=== PATIENT | male | born 1975 | race Caucasian/White ===

== ENCOUNTER 2022-07-10 07:24 | Outpatient (CLI) | payer BC, SELFPAY | END 2022-07-10 07:25 | disposition home or self-care (01) | PROVIDERS: PCP Family Medicine; Referring Provider Family Medicine; Visit Provider Family Medicine | DX: E11.9 Type 2 diabetes mellitus without complications (principal); I10 Essential (primary) hypertension; R79.89 Other specified abnormal findings of blood chemistry; Z13.6 Encounter for screening for cardiovascular disorders | CPT/HCPCS: 80053; 80061; 82043; 82570 ==

== ENCOUNTER 2022-09-23 12:51 | Outpatient (RCR) | payer BC, SELFPAY ==
[2022-09-13] MEDS: SODIUM CHLORIDE 0.9 % (FLUSH) 10 ML SYRINGE IVF ×2 (12:50→14:00)
[2022-09-13] MEDS: cefTRIAXone 2 GM in 0.9 % SODIUM CHLORIDE Mini-bag 100 ML IVPB (12:55)
[2022-09-13 13:26] VITALS: BP 163/93; PULSE 78; RESP 18; TEMP 36.9; O2SAT 99
--- NOTE | 2022-09-13 14:18 | PC.NURSE ---
Pt calm and cooperative during infusion and dressing change. Pt had no complaints of pain. PIIC line patent and dressing intact. Pt had serosanguineous drainage on wound left on heel.
--- NOTE | 2022-09-13 14:20 | PC.NURSE ---
Pt left in wheelchair. Pt reminded to walk in short increments and to not use heel on left foot.
[2022-09-14 12:40] VITALS: BP 121/89; PULSE 85; RESP 16; TEMP 37.1; O2SAT 96
[2022-09-14] MEDS: cefTRIAXone 2 GM in 0.9 % SODIUM CHLORIDE Mini-bag 100 ML IVPB (12:45)
[2022-09-14] MEDS: SODIUM CHLORIDE 0.9 % (FLUSH) 10 ML SYRINGE IVF (12:45)
--- NOTE | 2022-09-14 13:54 | PC.NURSE ---
Outpatient-- Very pleasant and cooperative, alert and oriented patient. He denied any pain. Antibiotic infusion completed without difficulty. Picc patent and dressing C/D/I. Dressing changed to bottom of left heel. Packed with Vashe soaked new gauze, covered with sterile 4x4, wrapped with Kerlix and LALIT bandage. Pt tolerated the procedure well and was discharged via wheelchair to car afterward. Wound appears to be healing well.
[2022-09-15] MEDS: cefTRIAXone 2 GM in 0.9 % SODIUM CHLORIDE Mini-bag 100 ML IVPB (13:16)
[2022-09-15 14:48] VITALS: BP 135/86; PULSE 77; RESP 12; TEMP 36.6; O2SAT 100
--- NOTE | 2022-09-15 14:58 | PC.NURSE ---
Very pleasant 47 yo M here for IV abx and wound dressing change. In at 1245, Ceftriaxone given via PICC line. Wound washed with NS, repacked with gauze strip soaked in Vashe, covered wound with several 4x4 guaze pads, then wrapped in Kerlix and over that Jasper bandage. Patient tolerated the procedure well and discharged at approx. 1400 via ambulation.
[2022-09-16 12:55] VITALS: BP 158/86; PULSE 79; RESP 14; TEMP 36.7; O2SAT 99
[2022-09-16] MEDS: SODIUM CHLORIDE 0.9 % (FLUSH) 10 ML SYRINGE IVF (12:58)
[2022-09-16] MEDS: cefTRIAXone 2 GM in 0.9 % SODIUM CHLORIDE Mini-bag 100 ML IVPB (12:59)
[2022-09-16 13:33] VITALS: BP 146/85; PULSE 80; RESP 16; TEMP 36.8; O2SAT 100
[2022-09-16] MEDS: 0.9 % SODIUM CHLORIDE 250 ml IV (13:37)
--- NOTE | 2022-09-16 13:41 | PC.NURSE ---
Outpatient: Patient arrived to floor at 1250. Infusion and dressing change performed. Patient tolerated infusion well. Left heel packed with vashe moistened iodoform, covered with 2-4x4 gauze, wrapped with kerlix then harley bandage. Patient denied pain. Vitals performed x2, vitally stable. Patient left the floor at 1336.
[2022-09-17] MEDS: cefTRIAXone 2 GM in 0.9 % SODIUM CHLORIDE Mini-bag 100 ML IVPB (13:07)
[2022-09-17] MEDS: SODIUM CHLORIDE 0.9 % (FLUSH) 10 ML SYRINGE IVF (13:07)
[2022-09-17] MEDS: 0.9 % SODIUM CHLORIDE 250 ml IV (13:08)
[2022-09-17 13:09] VITALS: BP 132/88; PULSE 92; RESP 16; TEMP 36.7; O2SAT 100
[2022-09-18] MEDS: cefTRIAXone 2 GM in 0.9 % SODIUM CHLORIDE Mini-bag 100 ML IVPB (13:21)
--- NOTE | 2022-09-18 18:11 | PC.NURSE ---
Patient arrived to floor at 1300. Infusion and dressing change completed. Patient tolerated infusion well. Left heel packed with Vashe moistened iodoform, covered with 2-4x4 gauze, wrapped with kerlix then harley bandage. Patient denied pain. Vitals performed x2, vitally stable. Patient's PICC line dressing change completed and patient left the floor at 1400.
[2022-09-19] MEDS: cefTRIAXone 2 GM in 0.9 % SODIUM CHLORIDE Mini-bag 100 ML IVPB (12:51)
[2022-09-20] MEDS: 0.9 % SODIUM CHLORIDE 250 ml IV (13:10)
[2022-09-20] MEDS: cefTRIAXone 2 GM in 0.9 % SODIUM CHLORIDE Mini-bag 100 ML IVPB (15:10)
[2022-09-21] MEDS: cefTRIAXone 2 GM in 0.9 % SODIUM CHLORIDE Mini-bag 100 ML IVPB (13:04)
[2022-09-21] MEDS: 0.9 % SODIUM CHLORIDE 250 ml IV (13:07)
[2022-09-21] MEDS: SODIUM CHLORIDE 0.9 % (FLUSH) 10 ML SYRINGE IVF (13:07)
[2022-09-21 13:22] VITALS: BP 133/90; PULSE 97; RESP 16; TEMP 36.8; O2SAT 100
--- NOTE | 2022-09-21 14:17 | PC.NURSE ---
Infusion completed without difficulty. PICC intact and patent. Wound to right heel cleansed, packed, and wrapped. Pt left unit independently and plans to return tomorrow.
[2022-09-22] MEDS: SODIUM CHLORIDE 0.9 % (FLUSH) 10 ML SYRINGE IVF ×2 (13:09→13:59)
[2022-09-22] MEDS: 0.9 % SODIUM CHLORIDE 250 ml IV (13:10)
[2022-09-22] MEDS: cefTRIAXone 2 GM in 0.9 % SODIUM CHLORIDE Mini-bag 100 ML IVPB (13:12)
[2022-09-22 13:52] VITALS: BP 101/65; PULSE 99; RESP 16; TEMP 36.6; O2SAT 99
[2022-09-23 13:00] VITALS: BP 111/68; PULSE 97; RESP 18; TEMP 36.6; O2SAT 100
[2022-09-23] MEDS: cefTRIAXone 2 GM in 0.9 % SODIUM CHLORIDE Mini-bag 100 ML IVPB (13:03)
[2022-09-23] MEDS: SODIUM CHLORIDE 0.9 % (FLUSH) 10 ML SYRINGE IVF (13:03)
[2022-09-23] MEDS: 0.9 % SODIUM CHLORIDE 250 ml IV (13:04)
--- NOTE | 2022-09-23 13:53 | PC.NURSE ---
shift note: picc line flushed w/o resistance. Blood return with aspiration of picc. site/drsg intact. IV med infused w/o difficulty. pt denies pain. pt states he was going to Dr. Ken office to have wound assessed. No dressing change done at time of OP visit.
--- NOTE | 2022-09-23 19:04 | PC.NURSE ---
Update-- Spoke with Dr. Resendiz this afternoon via telephone. He stated that picc line was pulled today at pt's appointment and pt will do his own dressing changes from now on so patient will no longer be coming for outpatient infusions and dressing changes.
== END 2023-08-24 12:13 | disposition home or self-care (01) ==
LOC: MS OUT 12:51
PROVIDERS: PCP Family Medicine; Visit Provider Family Medicine
DX: L97.429 Non-pressure chronic ulcer of left heel and midfoot with unspecified severity (principal); E11.621 Type 2 diabetes mellitus with foot ulcer; Z79.899 Other long term (current) drug therapy
CPT/HCPCS: 96365; 96366; 99211; A4221; C1751; J0696; J7050

== ENCOUNTER 2022-10-13 11:47 | Outpatient (CLI) | payer BC, SELFPAY | END 2022-10-13 11:48 | disposition home or self-care (01) | LOC: NFLDREF 10-14 18:31 | PROVIDERS: PCP Family Medicine; Referring Provider Family Medicine; Visit Provider Family Medicine | DX: E87.6 Hypokalemia (principal); N28.9 Disorder of kidney and ureter, unspecified | CPT/HCPCS: 80048 ==

== ENCOUNTER 2022-10-20 07:26 | Outpatient (CLI) | payer BC, SELFPAY ==
--- NOTE | 2022-10-20 06:31 | W.ANESCHARGE ---
Anesthesia Charges Start Date/Time Anesthesia Start Date: 10/20/22 Anesthesia Start Time: 09:00 Stop Date/Time Anesthesia Stop Date: 10/20/22 Anesthesia Stop Time: 09:40
--- NOTE | 2022-10-20 09:46 | W.ANESCHARGE ---
Anesthesia Charges Start Date/Time Anesthesia Start Date: 10/20/22 Anesthesia Start Time: 09:00 Stop Date/Time Anesthesia Stop Date: 10/20/22 Anesthesia Stop Time: 09:40
== END 2022-10-20 07:27 | disposition home or self-care (01) ==
LOC: OP CLINIC 07:28
PROVIDERS: PCP Family Medicine; Visit Provider Surgery
DX: Z12.11 Encounter for screening for malignant neoplasm of colon (principal); K63.5 Polyp of colon
CPT/HCPCS: 00811; 45385; 88305; J2704

== ENCOUNTER 2022-12-19 06:16 | Outpatient (CLI) | payer BC, SELFPAY | END 2022-12-19 06:17 | disposition home or self-care (01) | LOC: AMB 12-22 04:50 | PROVIDERS: PCP Family Medicine; Visit Provider Family Medicine | DX: S89.92XA Unspecified injury of left lower leg, initial encounter (principal); W01.0XXA Fall on same level from slipping, tripping and stumbling without subsequent striking against object, initial encounter; Y92.008 Other place in unspecified non-institutional (private) residence as the place of occurrence of the external cause | CPT/HCPCS: A0425; A0427 ==

== ENCOUNTER 2022-12-19 06:56 | Emergency (ER) | payer BC, SELFPAY ==
[2022-12-19] VITALS (31 sets, daily range): BP systolic 151–172; BP diastolic 90–113; PULSE 85–101; RESP 16; TEMP 36.7; O2SAT 96–100; BMI 21.7
--- NOTE | 2022-12-19 07:05 | CRLHL7_ITS ---
For Patients: As a result of the Cures Act, medical imaging exams and procedure reports are released immediately into your electronic medical record. You may view this report before your referring provider. If you have questions, please contact your health care provider. Indication: Left hip pain. Injury Technique: An AP view of the pelvis was acquired as well as AP and lateral views of the left hip Comparison: None Findings: There is a transverse fracture through the base of the left femoral neck. No additional fractures identified regarding the pelvis or left hip. There degenerative changes including the visualized lower lumbar spine. Impression: Transverse fracture through the base of the left femoral neck. Dictated by Toni Glover MD @ 12/19/2022 8:03:48 AM (Electronically Signed)
--- NOTE | 2022-12-19 07:24 | CRLHL7_ITS ---
For Patients: As a result of the Cures Act, medical imaging exams and procedure reports are released immediately into your electronic medical record. You may view this report before your referring provider. If you have questions, please contact your health care provider. INDICATION: Fall. Left hip fracture. COMPARISON: None TECHNIQUE: AP supine single view study FINDINGS: TUBES AND LINES: None. HEART AND MEDIASTINUM: The heart size is normal. The mediastinal contour appears normal for patient age. LUNGS AND PLEURAL SPACES: The lungs appear normal.The pleural spaces are unremarkable. OSSEOUS STRUCTURES: Age-appropriate appearance. No acute focal finding. IMPRESSION: No evidence of active pulmonary disease. Dictated by Toni Glover MD @ 12/19/2022 8:04:35 AM (Electronically Signed)
--- NOTE | 2022-12-19 07:50 | ED_ITS ---
HPI - General Adult General Date Seen: 12/19/22 <Fidel Olmos MD - Last Filed: 12/19/22 08:59> Chief complaint: Extremity Pain/Injury, Lower <Fidel Olmos MD - Last Filed: 12/19/22 08:59> Stated complaint: injured leg <Fidel Olmos MD - Last Filed: 12/19/22 08:59> Time Seen by Provider: 12/19/22 07:15 <Fidel Olmos MD - Last Filed: 12/19/22 08:59> Source: patient <Fidel Oloms MD - Last Filed: 12/19/22 08:59> Mode of arrival: EMS <Fidel Olmos MD - Last Filed: 12/19/22 08:59> Limitations: no limitations <Fidel Olmos MD - Last Filed: 12/19/22 08:59> History of Present Illness HPI narrative: Patient is a 47-year-old male who lives alone. He is a type 2 diabetic, daily alcohol user, hypertensive who was knocked over by his dogs around suppertime last evening. He fell to the ground and was unable to get up. He crawled across his apartment few feet at a time. At one point he got himself onto the couch and laid there and slept for an hour. This morning he was able to get to his phone and call 911. He has had nothing to eat or drink since suppertime stated. His last alcohol intake was Thursday evening. He had an admission for infected diabetic foot ulcer on his left heel. Initially this was felt to be osteomyelitis but eventually that was ruled out. The wound has fully healed after debridement and close follow-up with Dr. Resendiz. He has been compliant with his diabetic and hypertensive medications. He continues to drink on a near daily basis but states that is much less than he used to. He is not currently working. He has never had surgery previously other than debridement of his heel. He is fairly comfortable now as long as he does not move the leg. <Fidel Olmos MD - Last Filed: 12/19/22 08:59> Related Data Home medications: Home Medications Medication Instructions Recorded Confirmed aspirin 81 mg capsule 81 mg PO DAILY 09/09/22 09/29/22 Diabetic Test Strips 09/29/22 09/29/22 amoxicillin 875 mg-potassium 1 tab PO BID 09/29/22 09/29/22 clavulanate 125 mg tablet lancets (Coaguchek Lancets) 09/29/22 09/29/22 Previous Rx's Medication Instructions Recorded potassium chloride 10 mEq 10 meq PO DAILY #30 caps 09/12/22 capsule,extended release amlodipine 10 mg tablet 10 mg PO DAILY #90 tabs 09/29/22 atorvastatin 20 mg tablet 20 mg PO QPM #90 tabs 09/29/22 lisinopril 40 mg tablet 40 mg PO DAILY #90 tabs 09/29/22 metformin 1,000 mg tablet 1,000 mg PO BIDWM #180 tabs 09/29/22 metoprolol succinate 100 mg 100 mg PO QDAY #90 tabs 09/29/22 tablet,extended release 24 hr omeprazole 20 mg capsule,delayed 20 mg PO DAILY #90 caps 09/29/22 release peg 3350-electrolytes 236 240 ml PO Q10M #4,000 mL 09/29/22 gram-22.74 gram-6.74 gram-5.86 gram solution (Golytely) <Fidel Olmos MD - Last Filed: 12/19/22 08:59> Allergies/adverse reactions: Allergies Allergy/AdvReac Type Severity Reaction Status Date / Time No Known Allergies Allergy Unknown Unverified 09/29/22 07:22 <Fidel Olmos MD - Last Filed: 12/19/22 08:59> Review of Systems Narrative: He has chronic acid reflux and continues to drink. Review of systems is otherwise noted to be negative. <Fidel Olmos MD - Last Filed: 12/19/22 08:59> [facility] Medical History: Medical History (Updated 12/19/22 @ 08:07 by Fidel Olmos MD) Hypokalemia ?E87.6 - Hypokalemia (ICD-10) Peripheral neuropathy ?G62.9 - Polyneuropathy, unspecified (ICD-10) Gastroesophageal reflux ?K21.9 - Gastro-esophageal reflux disease without esophagitis (ICD-10) Dysphagia ?R13.10 - Dysphagia, unspecified (ICD-10) Osteomyelitis ?M86.9 - Osteomyelitis, unspecified (ICD-10) Pilonidal cyst with abscess ?L05.01 - Pilonidal cyst with abscess (ICD-10) Difficulty sleeping ?G47.9 - Sleep disorder, unspecified (ICD-10) Abnormal liver function tests ?R79.89 - Other specified abnormal findings of blood chemistry (ICD-10) Hypertension ?I10 - Essential (primary) hypertension (ICD-10) Alcohol abuse ?F10.10 - Alcohol abuse, uncomplicated (ICD-10) DM (diabetes mellitus), type 2 ?E11.9 - Type 2 diabetes mellitus without complications (ICD-10) <Fidel Olmos MD - Last Filed: 12/19/22 08:59> Social History: Social History (Updated 09/29/22 @ 09:13 by Jass Judd MD) Narrative: Single. Lives independently. Two dogs which help him to stay active. 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 EtOH 5-6 drinks per night, 1.5 shots of vodka each mixed with diet coke. Drinks an average of 1/3 of 1.75L/day. Last time he went a whole day without a drink was last Thursday. Had a difficult time sleeping that night. Smoking 1 cig a month, no smokeless tobacco. Denies recreational drugs. Highest level of school completed/degree received: Bachelor's degree Smoking Status: Current every day smoker What tobacco products do you use: cigarettes Smoking quit date/years: <= 15 years ago Do you use any of these nicotine containing products: None Second hand tobacco smoke exposure: No How often do you have a drink containing alcohol: 4 or more times a week Alcohol type: hard liquor How many standard drinks containing alcohol do you have on a typical day: 5 or 6 How often do you have six or more drinks on one occasion: Daily or almost daily AUDIT-C Alcohol total score: 10 Non-prescribed substance use: denies use Caffeine: No Little interest or pleasure in doing things: not at all Feeling down, depressed, or hopeless: not at all service: No <Fidel Olmos MD - Last Filed: 12/19/22 08:59> Exam Narrative: Exam Narrative: Vitals noted. HEENT: Conjunctiva clear. Tympanic membranes are pearly white bilaterally. Posterior pharynx is clear without erythema or exudate. Neck is supple without adenopathy, thyromegaly, carotid bruit. Lungs: Clear to auscultation in all dickerson. No wheezes, rales, rhonchi. Heart: Regular rate and rhythm without murmur. Abdomen: Soft and nontender. No guarding, rigidity, rebound. Bowel sounds are normal. No palpable masses. Extremities: No cyanosis or edema. Good distal pulses. He has pain with any movement of his left leg. It is minimally rotated but not shortened. Skin: No abnormalities noted of the exposed skin. He has scattered bruises and abrasions. Neurologic: Awake, alert, fully oriented. He is tremulous. He has stocking- glove distribution neuropathy. <Fidel Olmos MD - Last Filed: 12/19/22 08:59> Const: Vital Signs, click to edit/add: Vital Signs - 24 hr 12/19/22 07:02 12/19/22 07:41 12/19/22 07:45 Temperature 98.0 F Pulse Rate 97 93 Pulse Rate [Left P ulse Oximeter] 98 Respiratory Rate 16 Blood Pressure Blood Pressure [Ri ght Upper Arm] 160/94 H Pulse Oximetry 98 100 99 Oxygen Delivery Me thod Room Air 12/19/22 08:00 12/19/22 08:04 12/19/22 08:15 Temperature Pulse Rate 91 91 93 Pulse Rate [Left P ulse Oximeter] Respiratory Rate Blood Pressure Blood Pressure [Ri ght Upper Arm] Pulse Oximetry 100 99 96 Oxygen Delivery Me thod 12/19/22 08:21 12/19/22 08:30 12/19/22 08:31 Temperature Pulse Rate 97 93 101 H Pulse Rate [Left P ulse Oximeter] Respiratory Rate Blood Pressure 172/113 H 151/110 H Blood Pressure [Ri ght Upper Arm] Pulse Oximetry 96 98 99 Oxygen Delivery Me thod 12/19/22 08:32 12/19/22 08:45 12/19/22 09:00 Temperature Pulse Rate 94 97 91 Pulse Rate [Left P ulse Oximeter] Respiratory Rate Blood Pressure Blood Pressure [Ri ght Upper Arm] Pulse Oximetry 99 99 97 Oxygen Delivery Me thod 12/19/22 09:01 12/19/22 09:15 12/19/22 09:30 Temperature Pulse Rate 91 90 95 Pulse Rate [Left P ulse Oximeter] Respiratory Rate Blood Pressure 166/92 H Blood Pressure [Ri ght Upper Arm] Pulse Oximetry 97 98 100 Oxygen Delivery Me thod 12/19/22 09:31 12/19/22 09:45 12/19/22 10:00 Temperature Pulse Rate 95 100 89 Pulse Rate [Left P ulse Oximeter] Respiratory Rate Blood Pressure 169/100 H Blood Pressure [Ri ght Upper Arm] Pulse Oximetry 100 100 99 Oxygen Delivery Me thod 12/19/22 10:01 12/19/22 10:15 12/19/22 10:30 Temperature Pulse Rate 90 94 89 Pulse Rate [Left P ulse Oximeter] Respiratory Rate Blood Pressure 163/90 H Blood Pressure [Ri ght Upper Arm] Pulse Oximetry 100 99 99 Oxygen Delivery Me thod 12/19/22 10:31 12/19/22 10:45 12/19/22 11:00 Temperature Pulse Rate 88 87 86 Pulse Rate [Left P ulse Oximeter] Respiratory Rate Blood Pressure 154/99 H Blood Pressure [Ri ght Upper Arm] Pulse Oximetry 99 99 99 Oxygen Delivery Me thod 12/19/22 11:01 12/19/22 11:02 12/19/22 11:15 Temperature Pulse Rate 88 85 87 Pulse Rate [Left P ulse Oximeter] Respiratory Rate Blood Pressure 165/91 H Blood Pressure [Ri ght Upper Arm] Pulse Oximetry 100 99 100 Oxygen Delivery Me thod 12/19/22 11:30 12/19/22 11:31 12/19/22 11:32 Temperature Pulse Rate 89 92 91 Pulse Rate [Left P ulse Oximeter] Respiratory Rate Blood Pressure 155/94 H Blood Pressure [Ri ght Upper Arm] Pulse Oximetry 98 97 98 Oxygen Delivery Me thod 12/19/22 11:45 Temperature Pulse Rate 89 Pulse Rate [Left P ulse Oximeter] Respiratory Rate Blood Pressure Blood Pressure [Ri ght Upper Arm] Pulse Oximetry 99 Oxygen Delivery Me thod <Fidel Olmos MD - Last Filed: 12/19/22 08:59> Vital Signs, click to edit/add: Vital Signs - 24 hr 12/19/22 07:02 12/19/22 07:41 12/19/22 07:45 Temperature 98.0 F Pulse Rate 97 93 Pulse Rate [Left P ulse Oximeter] 98 Respiratory Rate 16 Blood Pressure Blood Pressure [Ri ght Upper Arm] 160/94 H Pulse Oximetry 98 100 99 Oxygen Delivery Me thod Room Air 12/19/22 08:00 12/19/22 08:04 12/19/22 08:15 Temperature Pulse Rate 91 91 93 Pulse Rate [Left P ulse Oximeter] Respiratory Rate Blood Pressure Blood Pressure [Ri ght Upper Arm] Pulse Oximetry 100 99 96 Oxygen Delivery Me thod 12/19/22 08:21 12/19/22 08:30 12/19/22 08:31 Temperature Pulse Rate 97 93 101 H Pulse Rate [Left P ulse Oximeter] Respiratory Rate Blood Pressure 172/113 H 151/110 H Blood Pressure [Ri ght Upper Arm] Pulse Oximetry 96 98 99 Oxygen Delivery Me thod 12/19/22 08:32 12/19/22 08:45 12/19/22 09:00 Temperature Pulse Rate 94 97 91 Pulse Rate [Left P ulse Oximeter] Respiratory Rate Blood Pressure Blood Pressure [Ri ght Upper Arm] Pulse Oximetry 99 99 97 Oxygen Delivery Me thod 12/19/22 09:01 12/19/22 09:15 12/19/22 09:30 Temperature Pulse Rate 91 90 95 Pulse Rate [Left P ulse Oximeter] Respiratory Rate Blood Pressure 166/92 H Blood Pressure [Ri ght Upper Arm] Pulse Oximetry 97 98 100 Oxygen Delivery Me thod 12/19/22 09:31 12/19/22 09:45 12/19/22 10:00 Temperature Pulse Rate 95 100 89 Pulse Rate [Left P ulse Oximeter] Respiratory Rate Blood Pressure 169/100 H Blood Pressure [Ri ght Upper Arm] Pulse Oximetry 100 100 99 Oxygen Delivery Me thod 12/19/22 10:01 12/19/22 10:15 12/19/22 10:30 Temperature Pulse Rate 90 94 89 Pulse Rate [Left P ulse Oximeter] Respiratory Rate Blood Pressure 163/90 H Blood Pressure [Ri ght Upper Arm] Pulse Oximetry 100 99 99 Oxygen Delivery Me thod 12/19/22 10:31 12/19/22 10:45 12/19/22 11:00 Temperature Pulse Rate 88 87 86 Pulse Rate [Left P ulse Oximeter] Respiratory Rate Blood Pressure 154/99 H Blood Pressure [Ri ght Upper Arm] Pulse Oximetry 99 99 99 Oxygen Delivery Me thod 12/19/22 11:01 12/19/22 11:02 12/19/22 11:15 Temperature Pulse Rate 88 85 87 Pulse Rate [Left P ulse Oximeter] Respiratory Rate Blood Pressure 165/91 H Blood Pressure [Ri ght Upper Arm] Pulse Oximetry 100 99 100 Oxygen Delivery Me thod 12/19/22 11:30 12/19/22 11:31 12/19/22 11:32 Temperature Pulse Rate 89 92 91 Pulse Rate [Left P ulse Oximeter] Respiratory Rate Blood Pressure 155/94 H Blood Pressure [Ri ght Upper Arm] Pulse Oximetry 98 97 98 Oxygen Delivery Me thod 12/19/22 11:45 Temperature Pulse Rate 89 Pulse Rate [Left P ulse Oximeter] Respiratory Rate Blood Pressure Blood Pressure [Ri ght Upper Arm] Pulse Oximetry 99 Oxygen Delivery Me thod <Estefanía Blackman MD - Last Filed: 12/19/22 13:18> Course Course Hospital Course: Patient seen and examined. He is kept NPO. IV is established and we have lactated Ringer's infusing at 100 mL/hour. He has not required anything for pain thus far. EKG shows sinus bradycardia with rate of 51. No acute ST or T- wave changes. Chest x-ray is unremarkable. X-ray of his left hip shows a n ondisplaced femoral neck fracture in good position. CBC, CMP, CPK, ETOH are pending. <Fidel Olmos MD - Last Filed: 12/19/22 08:59> Reevaluation(s) Reevaluation #1: I paged Orthopedics and Sharron Lang stopped by the ER to look at his x-rays. Dr. Peñaloza is on-call for orthopedics and is currently in the OR. He will stop by after his case but it looks likely will be able to operate today. He is obviously kept NPO. Case is discussed with our hospitalist Dr. Peñaloza who lo ok over his labs. He is cleared for surgery. <Fidel Olmos MD - Last Filed: 12/19/22 08:59> Reevaluation #2: CBC shows a hemoglobin of 11.2 and a platelet count of 69,000. Basic metabolic panel is normal. LFTs are normal. Blood alcohol is 0. CPK is normal. <Fidel Olmos MD - Last Filed: 12/19/22 08:59> Vital Signs Vital signs: Initial Vital Signs Temperature 98.0 F 12/19/22 07:02 Temperature Source Temporal Artery Scan 12/19/22 07:02 Pulse Rate 98 12/19/22 07:02 Respiratory Rate 16 12/19/22 07:02 Blood Pressure 160/94 H 12/19/22 07:02 Blood Pressure Mean 116 H 12/19/22 07:02 Blood Pressure Position Sitting 12/19/22 07:02 Pulse Oximetry 98 12/19/22 07:02 Oxygen Delivery Method Room Air 12/19/22 07:02 Vital Signs Temperature 98.0 F 12/19/22 07:02 Pulse Rate 98 12/19/22 07:02 Respiratory Rate 16 12/19/22 07:02 Blood Pressure 160/94 H 12/19/22 07:02 Pulse Oximetry 98 12/19/22 07:02 Oxygen Delivery Method Room Air 12/19/22 07:02 Temperature 98.0 F 12/19/22 07:02 Pulse Rate 89 12/19/22 11:45 Respiratory Rate 16 12/19/22 07:02 Blood Pressure 155/94 H 12/19/22 11:31 Pulse Oximetry 99 12/19/22 11:45 Oxygen Delivery Method Room Air 12/19/22 07:02 <Fidel Olmos MD - Last Filed: 12/19/22 08:59> Initial Vital Signs Temperature 98.0 F 12/19/22 07:02 Temperature Source Temporal Artery Scan 12/19/22 07:02 Pulse Rate 98 12/19/22 07:02 Respiratory Rate 16 12/19/22 07:02 Blood Pressure 160/94 H 12/19/22 07:02 Blood Pressure Mean 116 H 12/19/22 07:02 Blood Pressure Position Sitting 12/19/22 07:02 Pulse Oximetry 98 12/19/22 07:02 Oxygen Delivery Method Room Air 12/19/22 07:02 Vital Signs Temperature 98.0 F 12/19/22 07:02 Pulse Rate 98 12/19/22 07:02 Respiratory Rate 16 12/19/22 07:02 Blood Pressure 160/94 H 12/19/22 07:02 Pulse Oximetry 98 12/19/22 07:02 Oxygen Delivery Method Room Air 12/19/22 07:02 Temperature 98.0 F 12/19/22 07:02 Pulse Rate 89 12/19/22 11:45 Respiratory Rate 16 12/19/22 07:02 Blood Pressure 155/94 H 12/19/22 11:31 Pulse Oximetry 99 12/19/22 11:45 Oxygen Delivery Method Room Air 12/19/22 07:02 <Estefanía Blackman MD - Last Filed: 12/19/22 13:18> Medical Decision Making MDM Narrative Medical decision making narrative: Krysten Ngo is a 47-year-old male with history of type 2 diabetes as well as heavy alcohol use who was scheduled to go to our operating room for repair of a left hip fracture. I was notified by nursing staff however that are orthopedic surgeon felt that given patient's age he should be seeing a trauma surgeon and be transferred. I met Mr. Ngo after arrives informed of this. At this time he is noting that his pain is controlled. I do note that he is somewhat tremulous. No history of alcohol withdrawal seizures but he has not had alcohol in approximately 36 hours at this point. I have ordered a banana bag and I have contacted [facility] to see if they would be in a position to accept this patient for orthopedic attention. 1. Left hip fracture-initially Orthopedics suggests a bipolar procedure here verses ORIF which would need to be done at another facility. Bipolar procedure complicated because this would require revision in the future. ORIF is not something that we could do here but unfortunately would mean that patient would have to be nonweightbearing for 12 weeks. This would require somebody to take care of his animals and likely prison stay. Patient did check with his mother and she is not able to come and stay with him and therefore he initially request of bipolar procedure. However, on further discussion with Orthopedics they now state that it would be better if he had a total hip. Again, they are requesting that we transfer to outside facility. [facility] unable to accept patient. [place] on [place] at this time and therefore would not be able to accept patient in at least the next 8 hours. [place] is on divert. We were able to contact [facility] and they do accept the patient in transfer. 2. Heavy alcohol use-LFTs within normal limits. Alcohol level is 0. Last intake evening of 12/17/2022. Patient has some mild tremulous this, no evidence of tachycardia. He was given a banana bag. Has not required any benzodiazepines at this point. 3. Diabetes -unknown hemoglobin A1c. Glucose 108 here. 4. Thrombocytopenia-platelets are at 69,000. 5.-patient will be ground ambulance ALS transfer to [facility] ED. Excepting physician Dr. Douglas. Addendum: Orthopedics at [facility] aware that we are having challenges with transfer of patient. At this time while we have an accepting hospital we do not have EMS capability and therefore we are requesting mutual aid. <Estefanía Blackman MD - Last Filed: 12/19/22 13:18> Medical Records Medical records reviewed: Yes I reviewed the patient's medical records <Estefanía Blackman MD - Last Filed: 12/19/22 13:18> Medical records narrative: Doctor Nickolas note reviewed <Estefanía Blackman MD - Last Filed: 12/19/22 13:18> Lab Data Labs: Lab Results 12/19/22 12/19/22 Range/Units 07:47 09:04 WBC 5.88 (4.50-11.00) K/uL RBC 3.49 L (4.30-5.90) m/uL Hgb 11.2 L (13.5-17.5) gm/dL Hct 33.0 L (37.0-53.0) % MCV 95 (80-100) fL MCH 32 (26-34) pg MCHC 34 (32-36) gm/dL RDW Coeff of Heladio 15.9 H (11.5-15.5) % Plt Count 69 L (140-440) K/uL Neut % (Auto) 82.0 H (42.0-72.0) % Lymph % (Auto) 8.8 L (20-44) % [place] % (Auto) 8.8 (0.0-11.0) % Eos % (Auto) 0.0 (0.0-7.0) % Baso % (Auto) 0.2 (0.0-3.0) % Neut # (Auto) 4.80 (1.7-7.0) K/uL Lymph # (Auto) 0.50 L (0.90-2.90) K/uL [place] # (Auto) 0.50 (0.00-0.90) K/UL Eos # (Auto) 0.00 (0.00-0.50) K/uL Baso # (Auto) 0.01 (0.00-0.30) K/uL Abs Immat Gran (auto) 0.01 (0.00-0.30) K/uL Imm/Tot Granulo (auto) 0.2 % Sodium 141 (135-149) mmol/L Potassium 3.6 (3.6-5.1) mmol/L Chloride 105 (96-114) mmol/L Carbon Dioxide 28 (20-32) mmol/L Anion Gap 8 (7-15) mEq/L BUN 17 (5-24) mg/dL Creatinine 0.9 (0.5-1.5) mg/dL Estimated Creat Clear 105.28 Estimated GFR 107 ml/min Glucose 108 (60-115) mg/dL Hemoglobin A1c 4.73 (0-5.6) % Calcium 9.1 (8.4-10.6) mg/dL Total Bilirubin 1.5 (0.1-1.5) mg/dL AST 37 H (12-35) U/L ALT 31 (4-50) U/L Alkaline Phosphatase 71 (40-150) U/L Total Creatine Kinase 123 (54-186) U/L Total Protein 6.9 (6.0-8.3) g/dL Albumin 4.1 (3.3-5.0) g/dL Ethyl Alcohol < 0.01 L (0.01-0.03) % Lab Acknowledgement Test Added <Fidel Olmos MD - Last Filed: 12/19/22 08:59> Lab Results 12/19/22 12/19/22 Range/Units 07:47 09:04 WBC 5.88 (4.50-11.00) K/uL RBC 3.49 L (4.30-5.90) m/uL Hgb 11.2 L (13.5-17.5) gm/dL Hct 33.0 L (37.0-53.0) % MCV 95 (80-100) fL MCH 32 (26-34) pg MCHC 34 (32-36) gm/dL RDW Coeff of Heladio 15.9 H (11.5-15.5) % Plt Count 69 L (140-440) K/uL Neut % (Auto) 82.0 H (42.0-72.0) % Lymph % (Auto) 8.8 L (20-44) % [place] % (Auto) 8.8 (0.0-11.0) % Eos % (Auto) 0.0 (0.0-7.0) % Baso % (Auto) 0.2 (0.0-3.0) % Neut # (Auto) 4.80 (1.7-7.0) K/uL Lymph # (Auto) 0.50 L (0.90-2.90) K/uL [place] # (Auto) 0.50 (0.00-0.90) K/UL Eos # (Auto) 0.00 (0.00-0.50) K/uL Baso # (Auto) 0.01 (0.00-0.30) K/uL Abs Immat Gran (auto) 0.01 (0.00-0.30) K/uL Imm/Tot Granulo (auto) 0.2 % Sodium 141 (135-149) mmol/L Potassium 3.6 (3.6-5.1) mmol/L Chloride 105 (96-114) mmol/L Carbon Dioxide 28 (20-32) mmol/L Anion Gap 8 (7-15) mEq/L BUN 17 (5-24) mg/dL Creatinine 0.9 (0.5-1.5) mg/dL Estimated Creat Clear 105.28 Estimated GFR 107 ml/min Glucose 108 (60-115) mg/dL Hemoglobin A1c 4.73 (0-5.6) % Calcium 9.1 (8.4-10.6) mg/dL Total Bilirubin 1.5 (0.1-1.5) mg/dL AST 37 H (12-35) U/L ALT 31 (4-50) U/L Alkaline Phosphatase 71 (40-150) U/L Total Creatine Kinase 123 (54-186) U/L Total Protein 6.9 (6.0-8.3) g/dL Albumin 4.1 (3.3-5.0) g/dL Ethyl Alcohol < 0.01 L (0.01-0.03) % Lab Acknowledgement Test Added <Estefanía Blackman MD - Last Filed: 12/19/22 13:18> Imaging Data Chest x-ray: Attestation: I have reviewed the pertinent imaging results. <Estefanía Blackman MD - Last Filed: 12/19/22 13:18> My impression: No obvious abnormalities <Estefanía Blackman MD - Last Filed: 12/19/22 13:18> Radiologist's impression: HEART AND MEDIASTINUM: The heart size is normal. The mediastinal contour appears normal for patient age. LUNGS AND PLEURAL SPACES: The lungs appear normal.The pleural spaces are unremarkable. OSSEOUS STRUCTURES: Age-appropriate appearance. No acute focal finding. IMPRESSION: No evidence of active pulmonary disease. <Estefanía Blackman MD - Last Filed: 12/19/22 13:18> Left hip x-ray: Attestation: I have reviewed the pertinent imaging results. <Estefanía Blackman MD - Last Filed: 12/19/22 13:18> Radiologist's impression: There is a transverse fracture through the base of the left femoral neck. No additional fractures identified regarding the pelvis or left hip. There degenerative changes including the visualized lower lumbar spine. Impression: Transverse fracture through the base of the left femoral neck. <Estefanía Blackman MD - Last Filed: 12/19/22 13:18> ECG Data Attestation: I personally reviewed and interpreted this ECG as follows: <Estefanía Blackman MD - Last Filed: 12/19/22 13:18> Interpretation: Sinus rhythm. No acute ST or T-wave changes. <Estefanía Blackman MD - Last Filed: 12/19/22 13:18> Discharge Plan Discharge Clinical Impression: Closed fracture of neck of left femur, Hypertension, DM (diabetes m ellitus), type 2 <Fidel Olmos MD - Last Filed: 12/19/22 08:59> Patient Disposition: [facility] <Fidel Olmos MD - Last Filed: 12/19/22 08:59> Discharge Location: [facility] <Fidel Olmos MD - Last Filed: 12/19/22 08:59> Condition: Stable <Fidel Olmos MD - Last Filed: 12/19/22 08:59>
[2022-12-19 07:57] LABS: Basophils Absolute Auto 0.01 K/uL (0.00-0.30); Basophils Percent Auto 0.2 % (0.0-3.0); Hemoglobin* 11.2 gm/dL (13.5-17.5); Immature Granulocytes Abs Auto 0.01 K/uL (0.00-0.30); Immature Granulocytes Pct Auto 0.2 %; Lymphocytes Percent Auto 8.8 % (20-44); Mean Corpuscular HGB Conc 34 gm/dL (32-36); Mean Corpuscular Hemoglobin 32 pg (26-34); Mean Corpuscular Volume 95 fL (80-100); Monocytes Percent Auto 8.8 % (0.0-11.0); Platelet Count* 69 K/uL (140-440); RDW Coefficient of Variation % 15.9 % (11.5-15.5); Red Blood Count 3.49 m/uL (4.30-5.90); White Blood Count* 5.88 K/uL (4.50-11.00)
[2022-12-19 07:58] LABS: Slide Review Reflex No
[2022-12-19 08:08] LABS: Chloride* 105 mmol/L (96-114)
[2022-12-19 08:09] LABS: Albumin* 4.1 g/dL (3.3-5.0); Potassium* 3.6 mmol/L (3.6-5.1); Sodium* 141 mmol/L (135-149)
[2022-12-19 08:11] LABS: Bilirubin Total* 1.5 mg/dL (0.1-1.5); Creatinine* 0.9 mg/dL (0.5-1.5); Est. Creatinine Clearance* 105.28; Estimated Glomerular Filt Rate 107 ml/min
[2022-12-19 08:12] LABS: Alanine Aminotransferase* 31 U/L (4-50); Alkaline Phosphatase* 71 U/L (40-150); Anion Gap 8 mEq/L (7-15); Aspartate Amino Transferase* 37 U/L (12-35); Blood Urea Nitrogen* 17 mg/dL (5-24); Calcium* 9.1 mg/dL (8.4-10.6); Carbon Dioxide* 28 mmol/L (20-32); Creatine Kinase* 123 U/L (54-186); Glucose* 108 mg/dL (60-115); Hemoglobin A1C* 4.73 % (0-5.6); Total Protein* 6.9 g/dL (6.0-8.3)
[2022-12-19 08:15] LABS: Ethanol* < 0.01 % (0.01-0.03)
[2022-12-19] MEDS: LACTATED RINGERS 1000 ML 1,000 ML 125 ML IV (08:22)
[2022-12-19] MEDS: fentaNYL 100 MCG/2 ML inj 50 MCG IVP ×2 (08:22→11:15)
--- NOTE | 2022-12-19 12:10 | ED.NURSE ---
Rn to Rn reports called to [facility].
== END 2022-12-19 12:12 | disposition short-term general hospital (02) ==
PROVIDERS: Family Medicine; Emergency Provider Family Medicine; PCP Family Medicine
DX: S72.002A Fracture of unspecified part of neck of left femur, initial encounter for closed fracture (principal); W01.0XXA Fall on same level from slipping, tripping and stumbling without subsequent striking against object, initial encounter; F10.10 Alcohol abuse, uncomplicated
CPT/HCPCS: 36415; 71045; 73502; 80053; 82077; 82550; 83036; 85025; 93005; 96374; 99285; J3010; J3411; J7030; J7120

== ENCOUNTER 2023-12-11 07:40 | Outpatient (CLI) | payer BC, SELFPAY ==
--- OUTSIDE RECORDS SUMMARY | 2023-12-11 13:06 | XMS_ITS | Clinical Summary ---
Author Organization [facility] Address [place], [place] [address] Care Team Providers Care Mica Machine Operator Name Role Phone Jass Judd MD Primary Care Provider [phone] Allergies No known active allergies Medications Medication Sig Dispensed Refills Start Date End Date Status amLODIPine (NORVASC) 10 mg tablet Take 10 mg by mouth once daily. 09/13/2022 Active atorvastatin (LIPITOR) 20 mg tablet Take 20 mg by mouth once daily in the evening. 07/18/2022 Active lisinopriL (PRINIVIL; ZESTRIL) 40 mg tablet Take 40 mg by mouth once daily. 09/14/2022 Active metFORMIN (GLUCOPHAGE) 1,000 mg tablet Take 500 mg by mouth once daily with a meal. 07/18/2022 Active metoprolol succinate (TOPROL XL) 100 mg Sustained-Release tablet Take 100 mg by mouth once daily. 07/31/2022 Active omeprazole (PRILOSEC) 20 mg Delayed-Release capsule Take 20 mg by mouth once daily before a meal. 09/13/2022 Active durable medical equipment (DME)Indications:Skin ulcer of heel with fat layer exposed, unspecified laterality (HC) SQUARED TOE POST OP SHOE, LARGE, REF: [phone] 1 Each 09/17/2022 Active ammonium lactate 12% topical (LACHYDRIN) 12 % lotionIndications:Fis sure in skin of foot Apply topically to affected area(s) two times daily. 396 g 5 10/07/2022 Active acetaminophen (TYLENOL EXTRA STRGTH) 500 mg tablet Take 1,000 mg by mouth every 6 hours if needed for Pain. Active acetaminophen (TYLENOL) 325 mg tablet Take 325 mg by mouth once daily. Active ergocalciferol (VITAMIN D2; DRISDOL) 50,000 unit capsule Take 50,000 units by mouth once weekly. Active ibuprofen (ADVIL; MOTRIN) 600 mg tablet Take 600 mg by mouth every 6 hours if needed for Pain. Active Active Problems Problem Noted Date Diagnosed Date Pilonidal cyst with abscess 09/16/2022 Sleep disorder 09/16/2022 Abnormal liver function tests 09/16/2022 Primary hypertension 09/16/2022 Alcohol abuse 09/16/2022 Type 2 diabetes mellitus wit hout complication, without long-term current use of insulin 09/16/2022 Social History Tobacco Use Types Packs/Day Years Used Date Smoking Tobacco: Former Cigarettes Smokeless Tobacco: Never Tobacco Cessation:Counseling Given: Yes Sex and Gender Information Value Date Recorded Sex Assigned at Male 09/15/2022 2:44 PM CDT Gender Identity Male 09/15/2022 2:44 PM CDT Sexual Orientation Straight 09/15/2022 2: 44 PM CDT Obstetrics History Last Filed Vital Signs Vital Sign Reading Time Taken Comments Blood Pressure 131/80 02/09/2023 8:41 AM CDT Pulse 70 02/09/2023 8:41 AM CDT Temperature 36.1 ??C (96.9 ??F) 02/09/2023 8:41 AM CD T Respiratory Rate 16 02/09/2023 8:41 AM CDT Oxygen Saturation 100% 02/09/2023 8:41 AM CDT Inhaled Oxygen Concentration - - Weight 88.9 kg (196 lb) 10/07/2022 4:02 PM CDT Height - - Body Mass Index - - Plan of Treatment Health Maintenance Due Date Last Done Comments Tdap 07/08/1987 Depression screening for age 12+ 1988 HIV for age 15-65 07/08/1991 BMI (ht and wt on same day) for age 18+ 1994 Hepatitis C screening for ag e 18-79 1994 Tetanus booster 1996 Colonoscopy through age 75 2021 Lipids for age 45-75 2021 COVID-19 vaccine series ( season) 2022 03/14/2021, 07/27/2020, 07/06/2020 Influenza for age 9-49 12/27/2023 Pneumococcal series for age 6-64 Aged Out No longer eligible b ased on patient's age to complete this topic Care Teams Mica Machine Operator Relationship Specialty Start Date End Date Jass Judd MD [address] [place] [id number] PCP - General Family Practice 09/17/22
--- OUTSIDE RECORDS SUMMARY | 2023-12-11 13:06 | XMS_ITS | Referral Summary ---
Author Organization [facility] Address [address] [place] [address] Care Team Providers Care Development Editor Name Role Phone Jass Judd MD Primary Care Provider [phone] Allergies No known active allergies Medications Medication Sig Dispensed Refills Start Date End Date Status amLODIPine (NORVASC) 10 mg oral tablet Take 1 tablet (10 mg) by mouth once daily. Active ammonium lactate 12% (LAC-HYDRIN) 12 % Top cream cream Apply 1 Application to skin twice a day. Wound Care Active atorvastatin (LIPITOR) 20 mg oral tablet Take 1 tablet (20 mg) by mouth at bedtime. Active lisinopriL (PRINIVIL) 40 mg oral tablet Take 1 tablet (40 mg) by mouth once daily. Active metFORMIN (GLUCOPHAGE) 500 mg oral tablet Take 2 tablets (1,000 mg) by mouth twice a day with breakfast and dinner. Active metoprolol succinate, XL, (TOPROL XL) 100 mg oral extended release tablet 24 HR Take 1 tablet (100 mg) by mouth once daily. Active omeprazole (PRILOSEC) 20 mg oral delayed release capsule Take 1 capsule (20 mg) by mouth once daily. Active ibuprofen 600 mg oral tablet Take 1 tablet (600 mg) by mouth every 6 (six) hours as needed. 120 tablet 12/22/2022 Active oxyCODONE, immediate release, (ROXICODONE) 5 mg oral tablet Take 0.5-1 tablets (2.5-5 mg) by mouth every 6 (six) hours as needed (pain). Take 2.5mg for pain ratings of 3-6, take 5mg for pain ratings of 7-10. Based on a pain scale of 0-10 with 0 being no pain and 10 being severe pain 10 tablet 12/22/2022 Active Active Problems Problem Noted Date Diagnosed Date Closed left hip fracture, initial encounter 11/26 Social History Tobacco Use Types Packs/Day Years Used Date Smoking Tobacco: Some Days Cigarettes Tobacco Cessation:Ready to Q uit: No; Counseling Given: Yes Alcohol Use Standard Drinks/Week Comments Yes 0 (1 standard drink = 0.6 oz pur e alcohol) AUDIT-C Answer Date Recorded Q1: How often do you have a drink containing alcohol? 4 or more times a week 12/19/2022 Q2: How many drinks containi ng alcohol do you have on a typical day when you are drinking? 1 or 2 Q3: How often do you have si x or more drinks on one occasion? Weekly 12/19/2022 Sex and Gender Information Value Date Recorded Sex Assigned at Not on file Gender Identity Not on file Sexual Orientation Not on file Last Filed Vital Signs Vital Sign Reading Time Taken Comments Blood Pressure 124/80 12/23/2022 11:19 AM CDT Pulse 73 12/23/2022 11:19 AM CDT Temperature 36.7 ??C (98.1 ??F) 12/23/2022 12:40 PM C DT Respiratory Rate 16 12/23/2022 12:40 PM CDT Oxygen Saturation 100% 12/23/2022 11:19 AM CDT Inhaled Oxygen Concentration - - Weight 81.6 kg (180 lb) 12/20/2022 6:00 AM CDT Height 182.9 cm (6') 12/20/2022 6:00 AM CDT Body Mass Index 24.41 12/20/2022 6:00 AM CDT Plan of Treatment Not on file Medical Devices Implanted Type Area Asw Specialist Device Identifier Shelf Expiration Date Model / Serial / Lot Plate Syn Dhs 135 Deg 2h - [id number] Implanted:Qty: 1 on 12/20/2022 by Dario Frias MD at [facility] Plate Left: Hip Synthes 10/24/2030 281.102S / / [id number] Scr Cnn Th 16s/T7.3/95 208.895 - [id number] Implanted:Qty: 1 on 12/20/2022 by Dario Frias MD at [facility] Screw/Anch or Left: Hip Synthes 208.895 / / Scr Syn Dhs Lag 95m 280.950 - [id number] Implanted:Qty: 1 on 12/20/2022 by Dario Frias MD at [facility] Screw/Anch or Left: Hip Synthes 280.950 / / Scr Crtx S/T 4. 214.848 - [id number] Implanted:Qty: 1 on 12/20/2022 by Dario Frias MD at [facility] Screw/Anch or Left: Hip Synthes 214.848 / / Scr Crtx S/T 4.546 214.846 - [id number] Implanted:Qty: 1 on 12/20/2022 by Dario Frias MD at [facility] Screw/Anch or Left: Hip Synthes 214.846 / / Procedures Procedure Name Priority Date/Time Associated Diagnosis Comments HBA1C / EAG Add On 12/19/2022 2:01 PM CDT from Last 3 Months or Most Recently Relevant to Health Maintenance Results * Hgb A1c (Glycosolated Hgb) (12/19/2022 2:01 PM CDT) HBA1C (GLYCOSOLATED HGB) 5.1 <5.7 % 12/21/2022 10:31 AM CDT [facility] EAG (EST. AVERAGE GLUCOSE) 100 <117 mg/dL 12/21/2022 10:31 AM CDT [facility] Blood 12/19/2022 2:01 PM CDT 12/19/2022 2:09 PM CDT Lola Wright MD CHEMISTRY ORDERABLE [facility] [address] [place] [id number] from Last 3 Months or Most Recently Relevant to Health Maintenance Advance Directives For more information, please contact: [phone] * Full Code (Latest Code Status on File) Date Activated Date Inactivated Comments 12/19/2022 5:01 PM 12/23/2022 7:48 PM Question Answer Comments How was code status determined? Patient Care Teams Development Editor Relationship Specialty Start Date End Date Jass Judd MD [address] [place] [address] PCP - General 12/19/22
--- OUTSIDE RECORDS SUMMARY | 2023-12-11 13:06 | XMS_ITS | Clinical Summary ---
Author Organization [facility] Address [address] [place] [address] Care Team Providers Care Production Assistant Name Role Phone Jass Judd MD Primary Care Provider [phone] Allergies No known active allergies Medications Medication [...] 12/20/2022 6:00 AM CDT Plan of Treatment Health Maintenance Due Date Last Done Comments Colonoscopy 1976 Creatinine 1976 Eye Exam 1976 Hepatitis C Screening 1976 Anxiety Screening (RODOLFO-2) 1977 Depression Assessment (PHQ-2) 1977 Pneumococcal <65 (2 of 2 - PCV) 03/08/2020 9, 09/30/2018 COVID-19 Vaccine ( - 2022- season) 2022 03/14/2021, 07/27/2020, 07/06/2020 HgbA1C 06/21/2023 12/19/2022 Influenza Vaccine (#1) 2023 01/17/2016 Adult Tetanus Booster 09/29/2032 09/29/2022 Medical Devices Implanted Type Area Pot Reliner Device Identifier Shelf Expiration Date Model / Serial / Lot Plate Syn Dhs 135 Deg 2h - [id number] Implanted:Qty: 1 on 12/20/2022 by Dario Frias MD at [facility] Plate Left: Hip Synthes 10/24/2030 281.102S / / [id number] Scr Cnn Th 16s/T7.3/95 208.895 - [id number] Implanted:Qty: 1 on 12/20/2022 by Dario Frias MD at [facility] Screw/Anch or Left: Hip Synthes 208.895 / / Scr Syn Dhs Lag 95m 280.950 - [id number] Implanted:Qty: 1 on 12/20/2022 by Dario Frias MD at [facility] Screw/Anch or Left: Hip Synthes 280.950 / / Scr Crtx S/T 4.5/48 214.848 - [id number] Implanted:Qty: 1 on 12/20/2022 by Dario Frias MD at [facility] Screw/Anch or Left: Hip Synthes 214.848 / / Scr Crtx S/T 4.5/46 214.846 - [id number] Implanted:Qty: 1 on 12/20/2022 by Dario Frias MD at [facility] Screw/Anch or Left: Hip Synthes 214.846 / / Procedures Procedure Name Priority Date/Time Associated Diagnosis Comments HBA1C / EAG Add On 12/19/2022 2:01 PM CDT from Last 3 Months or Most Recently Relevant to Health Maintenance Results * Hgb A1c (Glycosolated Hgb) (12/19/2022 2:01 PM CDT) HBA1C (GLYCOSOLATED HGB) 5.1 <5.7 % 12/21/2022 10:31 AM CDT [facility] EAG (EST. AVERAGE GLUCOSE) 100 <117 mg/dL 12/21/2022 10:31 AM CDT [facility] Blood 12/19/2022 2:01 PM CDT 12/19/2022 2:09 PM CDT Lola Wright MD CHEMISTRY ORDERABLE [facility] [address] [id number] from Last 3 Months or Most Recently Relevant to Health Maintenance Advance Directives For more information, please contact: [phone] * Full Code (Latest Code Status on File) Date Activated Date Inactivated Comments 12/19/2022 5:01 PM 12/23/2022 7:48 PM Question Answer Comments How was code status determined? Patient Care Teams Production Assistant Relationship Specialty Start Date End Date Jass Judd MD [address] [place] [address] PCP - General 12/19/22
== END 2023-12-11 07:41 | disposition home or self-care (01) ==
LOC: NFLDREF 13:04
PROVIDERS: PCP Family Medicine; Referring Provider Family Medicine; Visit Provider Family Medicine
DX: E11.9 Type 2 diabetes mellitus without complications (principal); I10 Essential (primary) hypertension; Z79.84 Long term (current) use of oral hypoglycemic drugs; Z13.220 Encounter for screening for lipoid disorders
CPT/HCPCS: 80053; 80061; 82043; 82570

== ENCOUNTER 2023-12-22 13:24 | Outpatient (CLI) | payer BC, SELFPAY ==
--- OUTSIDE RECORDS SUMMARY | 2023-12-25 01:24 | XMS_ITS | Clinical Summary ---
Author Organization [facility] Address [address] [place] [address] Care Team Providers Care White Metal Corrosion Proofer Name Role Phone Jass Judd MD Primary Care Provider [phone] Allergies No known active allergies Medications Medication [...] 09/29/2032 09/29/2022 Medical Devices Implanted Type Area Fur Dry Cleaner Device Identifier Shelf Expiration Date Model / Serial / Lot Plate Syn Dhs 135 Deg 2h - [id number] Implanted:Qty: 1 on 12/20/2022 by Dario Frias MD at [facility] Plate Left: Hip Synthes 10/24/2030 281.102S / / [id number] Scr Cnn Th 16s/T7.3/95 208.895 - [id number] Implanted:Qty: 1 on 12/20/2022 by Dario Frias MD at [facility] Screw/Anch or Left: Hip Synthes 208.895 / / Scr Syn Dhs Lag 95m 280.950 - [id number] Implanted:Qty: 1 on 12/20/2022 by Dario Frias MD at [facility] Screw/Anch or Left: Hip Synthes 280.950 / / Scr Crtx S/T 4.5/48 214.848 - [id number] Implanted:Qty: 1 on 12/20/2022 by Dario Frias MD at [facility] Screw/Anch or Left: Hip Synthes 214.848 / / Scr Crtx S/T 4.5/46 214.846 - [id number] Implanted:Qty: 1 on 12/20/2022 by Dario Frias MD at [facility] Screw/Anch or Left: Hip Synthes 214.846 / / Procedures Procedure Name Priority Date/Time Associated Diagnosis Comments HBA1C / EAG Add On 12/19/2022 2:01 PM CDT from Last 3 Months or Most Recently Relevant to Health Maintenance Results * Hgb A1c (Glycosolated Hgb) (12/19/2022 2:01 PM CDT) HBA1C (GLYCOSOLATED HGB) 5.1 <5.7 % 12/21/2022 10:31 AM CDT [facility] EAG (EST. AVERAGE GLUCOSE) 100 <117 mg/dL 12/21/2022 10:31 AM CDT [facility] Blood 12/19/2022 2:01 PM CDT 12/19/2022 2:09 PM CDT Lola Wright MD CHEMISTRY ORDERABLE [facility] [address] [address] from Last 3 Months or Most Recently Relevant to Health Maintenance Advance Directives For more information, please contact: [phone] * Full Code (Latest Code Status on File) Date Activated Date Inactivated Comments 12/19/2022 5:01 PM 12/23/2022 7:48 PM Question Answer Comments How was code status determined? Patient Care Teams White Metal Corrosion Proofer Relationship Specialty Start Date End Date Jass Judd MD [address] [place] [address] PCP - General 12/19/22
--- OUTSIDE RECORDS SUMMARY | 2023-12-25 01:25 | XMS_ITS | Referral Summary ---
Author Organization [facility] Address [address] [place] [address] Care Team Providers Care Creative Consultant Name Role Phone Jass Judd MD Primary Care Provider [phone] Allergies No known active allergies Medications Medication [...] on file Medical Devices Implanted Type Area Lpta Device Identifier Shelf Expiration Date Model / Serial / Lot Plate Syn Dhs 135 Deg 2h - [id number] Implanted:Qty: 1 on 12/20/2022 by Dario Frias MD at [facility] Plate Left: Hip Synthes 10/24/2030 281.102S / / [id number] Scr Cnn Th 16s/T7.3/95 208.895 - [id number] Implanted:Qty: 1 on 12/20/2022 by Dario Frias MD at [facility] Screw/Anch or Left: Hip Synthes 208.895 / / Scr Syn Dhs Lag 95m 280.950 - [id number] Implanted:Qty: 1 on 12/20/2022 by Dario Frias MD at [facility] Screw/Anch or Left: Hip Synthes 280.950 / / Scr Crtx S/T 4. 214.848 - [id number] Implanted:Qty: 1 on 12/20/2022 by Dario Frias MD at [facility] Screw/Anch or Left: Hip Synthes 214.848 / / Scr Crtx S/T 4.546 214.846 - [id number] Implanted:Qty: 1 on 12/20/2022 by Dario Frias MD at [facility] Screw/Anch or Left: Hip Synthes 214.846 / / Procedures Procedure Name Priority Date/Time Associated Diagnosis Comments HBA1C / EAG Add On 12/19/2022 2:01 PM CDT from Last 3 Months or Most Recently Relevant to Health Maintenance Results * Hgb A1c (Glycosolated Hgb) (12/19/2022 2:01 PM CDT) HBA1C (GLYCOSOLATED HGB) 5.1 <5.7 % 12/21/2022 10:31 AM CDT [facility] EAG (EST. AVERAGE GLUCOSE) 100 <117 mg/dL 12/21/2022 10:31 AM CDT [facility] Blood 12/19/2022 2:01 PM CDT 12/19/2022 2:09 PM CDT Lola Wright MD CHEMISTRY ORDERABLE [facility] [address] [address] from Last 3 Months or Most Recently Relevant to Health Maintenance Advance Directives For more information, please contact: [phone] * Full Code (Latest Code Status on File) Date Activated Date Inactivated Comments 12/19/2022 5:01 PM 12/23/2022 7:48 PM Question Answer Comments How was code status determined? Patient Care Teams Creative Consultant Relationship Specialty Start Date End Date Jass Judd MD [address] [place] [address] PCP - General 12/19/22
--- OUTSIDE RECORDS SUMMARY | 2023-12-25 01:25 | XMS_ITS | Clinical Summary ---
Author Organization [facility] Address [place], [place] [address] Care Team Providers Care Sample Sewer Name Role Phone Jass Judd MD Primary Care Provider [phone] Allergies No known active allergies Medications Medication [...] SQUARED TOE POST OP SHOE, LARGE, REF: [phone] 1 Each 09/17/2022 Active ammonium lactate 12% [...] age to complete this topic Care Teams Sample Sewer Relationship Specialty Start Date End Date Jass Judd MD [address] [place] [id number] PCP - General Family Practice 09/17/22
== END 2023-12-22 13:25 | disposition home or self-care (01) ==
LOC: AMB 12-25 01:23
PROVIDERS: PCP Family Medicine; Visit Provider Family Medicine
DX: R53.1 Weakness (principal); S49.90XA Unspecified injury of shoulder and upper arm, unspecified arm, initial encounter; W19.XXXA Unspecified fall, initial encounter; Y92.009 Unspecified place in unspecified non-institutional (private) residence as the place of occurrence of the external cause
CPT/HCPCS: A0425; A0429

== ENCOUNTER 2023-12-22 14:17 | Inpatient (IN) | payer BC, SELFPAY ==
[2023-12-22] VITALS (30 sets, daily range): BP systolic 83–131; BP diastolic 60–120; PULSE 87–102; RESP 18–20; TEMP 36.2–37.2; O2SAT 74–100; BMI 27.1; BMI 28.4
--- NOTE | 2023-12-22 14:43 | ED_ITS ---
<Statement entered by Maeve Peñaloza MD - 12/22/23 23:38> inadvertently opened. no info to add. HPI - General Adult General Chief complaint: Extremity Pain/Injury, Upper Stated complaint: fall Time Seen by Provider: 12/22/23 14:17 History of Present Illness HPI narrative: 48-year-old man presenting to the emergency department with concern of left shoulder area pain after falling and striking his left shoulder on a door handle. Arrives via EMS. Apparently gets up at night to let the dogs out. He says he is pretty focused on them at that time. Sounds like it might have been about 5:00 a.m. and he seems to describe bumping into a counter and then striking his left shoulder on a door knob as he went down. This was preceded having just gotten up to let the dogs out or back in began to feel lightheaded or dizzy. I note him to be tremulous and smell of ketones. Admits to history of alcoholism. Drinking again for couple of months after period of sobriety. He had decided to return to sobriety 2 days ago having been participating in [employer]. He realizes that he needs to be in person for this. He has not been vomiting but has had minimal intake over the last 2 days. No complaints of pain other than his left shoulder. Denies seizure or DT history. Clarified later that he did lay on the floor for remainder of the night/morning then alerting EMS Related Data Home Medications ?Medication ?Instructions ?Recorded ?Confirmed Diabetic Test Strips 09/29/22 01/08/23 lancets (Coaguchek Lancets) 09/29/22 01/08/23 lidocaine 4 % topical patch 1 patch topical DAILY PRN 01/08/23 12/22/23 (Aspercreme (lidocaine)) aspirin 81 mg tablet,delayed 81 mg PO DAILY 12/22/23 12/22/23 release atorvastatin 20 mg tablet 20 mg PO HS 12/22/23 12/22/23 cholecalciferol (vitamin D3) 25 25 mcg PO DAILY 12/22/23 12/22/23 mcg (1,000 unit) capsule Previous Rx's ?Medication ?Instructions ?Recorded amlodipine 10 mg tablet 10 mg PO DAILY #90 tabs 11/06/23 metformin 500 mg tablet 500 mg PO BID #180 tabs 11/06/23 metoprolol succinate 100 mg 100 mg PO DAILY #90 tabs 11/06/23 tablet,extended release 24 hr omeprazole 20 mg capsule,delayed 20 mg PO DAILY #90 caps 11/06/23 release lisinopril 40 mg tablet 40 mg PO DAILY #30 tabs 11/23/23 Allergies Allergy/AdvReac Type Severity Reaction Status Date / Time No Known Allergies Allergy Unknown Verified 12/22/23 15:55 Review of Systems Status of ROS: Reports: 6 or more systems reviewed and unremarkable except as noted in History and below [facility] Medical History Hypokalemia ?E87.6 - Hypokalemia (ICD-10) Peripheral neuropathy ?G62.9 - Polyneuropathy, unspecified (ICD-10) Gastroesophageal reflux ?K21.9 - Gastro-esophageal reflux disease without esophagitis (ICD-10) Dysphagia ?R13.10 - Dysphagia, unspecified (ICD-10) Osteomyelitis ?M86.9 - Osteomyelitis, unspecified (ICD-10) Pilonidal cyst with abscess ?L05.01 - Pilonidal cyst with abscess (ICD-10) Difficulty sleeping ?G47.9 - Sleep disorder, unspecified (ICD-10) Abnormal liver function tests ?R79.89 - Other specified abnormal findings of blood chemistry (ICD-10) Hypertension ?I10 - Essential (primary) hypertension (ICD-10) Alcohol abuse ?F10.10 - Alcohol abuse, uncomplicated (ICD-10) DM (diabetes mellitus), type 2 ?E11.9 - Type 2 diabetes mellitus without complications (ICD-10) Social History Narrative: Single. Lives independently. Two dogs which help him to stay active. 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 EtOH 5-6 drinks per night, 1.5 shots of vodka each mixed with diet coke. Drinks an average of 1/3 of 1.75L/day. Last time he went a whole day without a drink was last Thursday. Had a difficult time sleeping that night. Smoking 1 cig a month, no smokeless tobacco. Denies recreational drugs. Highest level of school completed/degree received: Bachelor's degree Smoking Status: Current every day smoker What tobacco products do you use: cigarettes Smoking quit date/years: <= 15 years ago Do you use any of these nicotine containing products: None Second hand tobacco smoke exposure: No How often do you have a drink containing alcohol: 4 or more times a week Alcohol type: hard liquor How many standard drinks containing alcohol do you have on a typical day: 5 or 6 How often do you have six or more drinks on one occasion: Daily or almost daily AUDIT-C Alcohol total score: 10 Non-prescribed substance use: denies use Caffeine: No Little interest or pleasure in doing things: not at all Feeling down, depressed, or hopeless: not at all service: No Exam Narrative: Exam Narrative: Tremulous. Eyes are bright. Speaking easily, fluidly. Breathing easily. Lungs are clear. Head is atraumatic. Back nontender. Cranial nerves 2-12 intact. Right pupil is subtly more dilated than the left but WNL. Briskly reactive and accommodating. Mouth is dry. Generally yellowed teeth missing tooth 10 I believe. I smell ketones lightly. Left shoulder generally quite swollen. There is some bruising over the anterior shoulder/upper deltoid. Exquisitely tender to palpation over the shoulder. Not really able to do much movement. Has strong peripheral pulses. Abdomen is soft and nontender. Moving lower extremities without difficulty. No edema. Const: Vital Signs, click to edit/add: Vital Signs - 24 hr 12/22/23 14:17 12/22/23 14:34 12/22/23 14:40 Pulse Rate 92 Pulse Rate [Left D orsalis Pedis] Pulse Rate [Right Pulse Oximeter] 87 Respiratory Rate 18 Blood Pressure Blood Pressure [Ri ght Arm] Blood Pressure [Ri ght Upper Arm] 116/76 Pulse Oximetry 96 94 100 Oxygen Delivery Me thod Room Air 12/22/23 14:45 12/22/23 14:50 12/22/23 15:02 Pulse Rate 87 Pulse Rate [Left D orsalis Pedis] Pulse Rate [Right Pulse Oximeter] Respiratory Rate Blood Pressure 131/120 H Blood Pressure [Ri ght Arm] Blood Pressure [Ri ght Upper Arm] Pulse Oximetry 99 98 Oxygen Delivery Me thod 12/22/23 15:32 12/22/23 15:32 12/22/23 15:34 Pulse Rate Pulse Rate [Left D orsalis Pedis] 93 Pulse Rate [Right Pulse Oximeter] Respiratory Rate Blood Pressure 83/60 L Blood Pressure [Ri ght Arm] 83/60 L Blood Pressure [Ri ght Upper Arm] Pulse Oximetry 98 74 L Oxygen Delivery Nh thod 12/22/23 15:41 12/22/23 15:42 12/22/23 15:46 Pulse Rate Pulse Rate [Left D orsalis Pedis] Pulse Rate [Right Pulse Oximeter] Respiratory Rate Blood Pressure 108/87 Blood Pressure [Ri ght Arm] Blood Pressure [Ri ght Upper Arm] Pulse Oximetry 98 99 Oxygen Delivery Nh thod 12/22/23 15:50 12/22/23 16:00 12/22/23 16:01 Pulse Rate Pulse Rate [Left D orsalis Pedis] Pulse Rate [Right Pulse Oximeter] Respiratory Rate Blood Pressure Blood Pressure [Ri ght Arm] Blood Pressure [Ri ght Upper Arm] Pulse Oximetry 98 98 98 Oxygen Delivery Nh thod 12/22/23 16:07 12/22/23 16:10 12/22/23 16:12 Pulse Rate Pulse Rate [Left D orsalis Pedis] Pulse Rate [Right Pulse Oximeter] Respiratory Rate Blood Pressure Blood Pressure [Ri ght Arm] Blood Pressure [Ri ght Upper Arm] Pulse Oximetry 96 97 98 [facility] 16[facility]20 12/22/23 17:10 12/22/23 17:12 Pulse Rate Pulse Rate [Left D orsalis Pedis] Pulse Rate [Right Pulse Oximeter] Respiratory Rate Blood Pressure Blood Pressure [Ri ght Arm] Blood Pressure [Ri ght Upper Arm] Pulse Oximetry 100 100 100 [facility] Document[facility] provider has reviewed patient's vital signs: yes Course Vital Signs Vital signs: Initial Vital Signs Pulse Rate 87 12/22/23 14:17 Respiratory Rate 18 12/22/23 14:17 Blood Pressure 116/76 12/22/23 14:17 Blood Pressure Mean 89 12/22/23 14:17 Blood Pressure Position Supine 12/22/23 14:17 Pulse Oximetry 96 12/22/23 14:17 Oxygen Delivery Method Room Air 12/22/23 14:17 Vital Signs Pulse Rate 87 12/22/23 14:17 Respiratory Rate 18 12/22/23 14:17 Blood Pressure 116/76 12/22/23 14:17 Pulse Oximetry 96 12/22/23 14:17 Oxygen Delivery Method Room Air 12/22/23 14:17 Temperature 98.9 F 12/22/23 17:30 Pulse Rate 92 12/22/23 17:30 Respiratory Rate 18 12/22/23 17:30 Blood Pressure 107/88 12/22/23 17:30 Pulse Oximetry 100 12/22/23 17:30 Oxygen Delivery Method Room Air 12/22/23 17:30 Medications Administered Medications: Generic Name Dose Route Start Last Admin Trade Name Freq PRN Reason Stop Dose Admin Magnesium Sulfate 2 gm in 50 mls @ 25 mls/hr 12/22/23 16:35 12/22/23 17:13 Magnesium Iv IVPB 12/22/23 18:34 25 mls/hr ONCE ONE Administration Discontinued Medications Generic Name Dose Route Start Last Admin Trade Name Freq PRN Reason Stop Dose Admin Sodium Chloride 1,000 mls @ 1,000 mls/hr 12/22/23 15:15 12/22/23 17:13 0.9 % Sodium Chloride 1000 Ml IV 12/22/23 16:14 1,000 mls/hr .Q1H ONE Administration Folic Acid 1 mg/ Multivitamins 1,011.2 mls @ 1,000 mls/hr 12/22/23 15:20 12/22/23 17:14 10 ml/ Thiamine HCl 100 mg/ IV 12/22/23 16:20 Infused Sodium Chloride .Q1H1M SANIA Infusion Medical Decision Making MDM Narrative Medical decision making narrative: I would anticipate metabolic acidosis related to alcohol. Is however with a diagnosis of diabetes as well. Checking full labs. Will need to be rehydrated. X-ray left shoulder for potential upper humeral fracture. Unclear if there would be an infectious source. I favor combination of dehydration and alcoholism is source of ketosis. Ordering 2 L of fluid initially 1 of which is a banana bag. Will search for source of infection. When transitioning to chair for radiology appears to have passed out again. Does not recall event however does not appear to be postictal in conversation quite lucid, quick. Does have some otherwise aberrantly soft blood pressures. Sepsis does remain in differential but I think this elevated lactate is more clearance representative of malnutrition/dehydration in the setting of alcoholism. Initially ordered volume of fluidly already close to 30 mL/kilo Labs show hypomagnesemia. Replacing IV. X-ray left shoulder by my read looks to show a humeral neck fracture, comminuted. Radiology over-read as below INDICATION: Fall last night. Bruising and shoulder swelling TECHNIQUE: Shoulder radiograph 3 views left COMPARISON: None FINDINGS: Bone: There is a comminuted fracture of the humeral head and surgical neck present. Joint: The glenohumeral joint is unremarkable. The acromioclavicular joint is unremarkable. Soft tissue: Unremarkable. The visualized hemithorax is unremarkable in appearance. No radiopaque foreign bodies are seen. IMPRESSION: 1. There is a comminuted fracture of the humeral head and surgical neck present. Have contacted Orthopedics and pending their call back contacting hospitalist for admission Orthopedics also requesting CT of left shoulder for further characterization. Likely surgical. May need to receive this CT imaging from the floor. As requested one-view chest requested. Do not see infiltrate on my read. Might be some mild cardiomegaly. This is portable. Creatinine is 2.4. I suspect this is primarily prerenal. Will need to be monitored for alcohol withdrawal. Has remained tremulous with high CIWA. Will be receiving lorazepam. Medical Records Medical records reviewed: Yes I reviewed the patient's medical records Lab Data Lab results reviewed: Yes I reviewed the patient's lab results Labs: Lab Results 12/22/23 12/22/23 12/22/23 Range/Units 14:35 15:39 16:39 WBC 9.79 (4.50-11.00) K/uL RBC 3.64 L (4.30-5.90) m/uL Hgb Cancelled 12.0 L Hct 36.7 L (37.0-53.0) % MCV 101 H (80-100) fL MCH 33 (26-34) pg MCHC 33 (32-36) gm/dL RDW Coeff of Heladio 14.1 (11.5-15.5) % Plt Count 155 (140-440) K/uL Neut % (Auto) 86.6 H (42.0-72.0) % Lymph % (Auto) 6.5 L (20-44) % Coffey % (Auto) 6.3 (0.0-11.0) % Eos % (Auto) 0.1 (0.0-7.0) % Baso % (Auto) 0.3 (0.0-3.0) % Neut # (Auto) 8.50 H (1.7-7.0) K/uL Lymph # (Auto) 0.60 L (0.90-2.90) K/uL Coffey # (Auto) 0.60 (0.00-0.90) K/UL Eos # (Auto) 0.01 (0.00-0.50) K/uL Baso # (Auto) 0.03 (0.00-0.30) K/uL Abs Immat Gran (auto) 0.02 (0.00-0.30) K/uL Imm/Tot Granulo (auto) 0.2 % INR 1.06 (0.91-1.10) APTT 25 (23-33) Seconds VBG pH 7.28 L (7.32-7.43) VBG pCO2 40 (40-50) mmHG VBG pO2 < 30.1 (25-47) mmHG VBG HCO3 19 L (21-28) mmol/L Sodium 135 (135-149) mmol/L Potassium 5.5 H (3.6-5.1) mmol/L Chloride 98 (96-114) mmol/L Carbon Dioxide 15 L (20-32) mmol/L Anion Gap 22 H (7-15) mEq/L BUN 23 (5-24) mg/dL Creatinine 2.4 H (0.5-1.5) mg/dL Estimated Creat Clear 41.76 Estimated GFR 33 ml/min Glucose 205 H (60-115) mg/dL Lactate 7.1 H* (0.5-1.9) mmol/L Calcium 9.9 (8.4-10.6) mg/dL Magnesium 1.4 L (1.5-2.6) mg/dL Total Bilirubin 1.6 H (0.1-1.5) mg/dL Direct Bilirubin 0.6 H (0.0-0.5) mg/dL GGT 401 H (8-55) U/L AST 64 H (12-35) U/L ALT 69 H (4-50) U/L Alkaline Phosphatase 74 (40-150) U/L Total Creatine Kinase 143 (54-186) U/L C-Reactive Protein 3.0 H (0.5-1.0) mg/dL Total Protein 7.2 (6.0-8.3) g/dL Albumin 5.0 (3.3-5.0) g/dL Procalcitonin 0.99 H (<0.50) ng/mL Urine Color [place] A (Yellow) Urine Appearance Turbid A (Clear) Urine pH 5.5 (5.0-8.5) Ur Specific [place] 1.025 (1.000-1.030) Urine Protein 1+ A (Negative) Urine Glucose (UA) Negative (Negative) Urine Ketones 1+ A (Negative) Urine Blood Negative (Negative) Urine Nitrite Negative (Negative) Urine Bilirubin 1+ A (Negative) Urine Urobilinogen 0.2 (0.2-1.0) Ur Leukocyte Esterase Negative (Negative) Urine RBC 0-2 (0-2) Urine WBC 0-2 (0-5) Ur Squamous Epith Cells None (None-Few) Urine Bacteria None (None) Ethyl Alcohol < 0.01 L (0.01-0.03) % Lab Acknowledgement 12/22/23 12/22/23 Range/Units 16:56 17:02 WBC (4.50-11.00) K/uL RBC (4.30-5.90) m/uL Hgb Hct (37.0-53.0) % MCV (80-100) fL MCH (26-34) pg MCHC (32-36) gm/dL RDW Coeff of Heladio (11.5-15.5) % Plt Count (140-440) K/uL Neut % (Auto) (42.0-72.0) % Lymph % (Auto) (20-44) % Coffey % (Auto) (0.0-11.0) % Eos % (Auto) (0.0-7.0) % Baso % (Auto) (0.0-3.0) % Neut # (Auto) (1.7-7.0) K/uL Lymph # (Auto) (0.90-2.90) K/uL Coffey # (Auto) (0.00-0.90) K/UL Eos # (Auto) (0.00-0.50) K/uL Baso # (Auto) (0.00-0.30) K/uL Abs Immat Gran (auto) (0.00-0.30) K/uL Imm/Tot Granulo (auto) % INR (0.91-1.10) APTT (23-33) Seconds VBG pH (7.32-7.43) VBG pCO2 (40-50) mmHG VBG pO2 (25-47) mmHG VBG HCO3 (21-28) mmol/L Sodium (135-149) mmol/L Potassium (3.6-5.1) mmol/L Chloride (96-114) mmol/L Carbon Dioxide (20-32) mmol/L Anion Gap (7-15) mEq/L BUN (5-24) mg/dL Creatinine (0.5-1.5) mg/dL Estimated Creat Clear Estimated GFR ml/min Glucose (60-115) mg/dL Lactate (0.5-1.9) mmol/L Calcium (8.4-10.6) mg/dL Magnesium (1.5-2.6) mg/dL Total Bilirubin (0.1-1.5) mg/dL Direct Bilirubin (0.0-0.5) mg/dL GGT (8-55) U/L AST (12-35) U/L ALT (4-50) U/L Alkaline Phosphatase (40-150) U/L Total Creatine Kinase (54-186) U/L C-Reactive Protein (0.5-1.0) mg/dL Total Protein (6.0-8.3) g/dL Albumin (3.3-5.0) g/dL Procalcitonin (<0.50) ng/mL Urine Color (Yellow) Urine Appearance (Clear) Urine pH (5.0-8.5) Ur Specific [place] (1.000-1.030) Urine Protein (Negative) Urine Glucose (UA) (Negative) Urine Ketones (Negative) Urine Blood (Negative) Urine Nitrite (Negative) Urine Bilirubin (Negative) Urine Urobilinogen (0.2-1.0) Ur Leukocyte Esterase (Negative) Urine RBC (0-2) Urine WBC (0-5) Ur Squamous Epith Cells (None-Few) Urine Bacteria (None) Ethyl Alcohol (0.01-0.03) % Lab Acknowledgement Test Added Test Added Critical Care Time Critical Care Time Critical Care Time: Yes Attestation: The patient required my highest level preparedness to intervene emergently and I personally spent this critical care time directly and personally managing the patient. This critical care time included: Obtaining a history; Examining the patient; Pulse oximetry; Ordering and reviewing of studies; Arranging urgent treatment with development of a management plan; Evaluation of patients response to treatment; Frequent reassessment discussions with other providers. This critical care time was performed to assess and manage the high probability of imminent life-threatening deterioration that could result in multiorgan failure. It was exclusive of separate billable procedures and treating other patients and teaching time. Total Critical Care Time in Minutes: 50 Discharge Plan Discharge Clinical Impression: Alcohol withdrawal, Fracture of neck of humerus, Acidosis Patient Disposition: Admitted As Observation Condition: Stable
--- NOTE | 2023-12-22 15:25 | CRLHL7_ITS ---
For Patients: As a result of the Cures Act, medical imaging exams and procedure reports are released immediately into your electronic medical record. You may view this report before your referring provider. If you have questions, please contact your health care provider. INDICATION: Fall last night. Bruising and shoulder swelling TECHNIQUE: Shoulder radiograph 3 views left COMPARISON: None FINDINGS: Bone: There is a comminuted fracture of the humeral head and surgical neck present. Joint: The glenohumeral joint is unremarkable. The acromioclavicular joint is unremarkable. Soft tissue: Unremarkable. The visualized hemithorax is unremarkable in appearance. No radiopaque foreign bodies are seen. IMPRESSION: 1. There is a comminuted fracture of the humeral head and surgical neck present. Dictated by Agusto Sorto MD @ 12/22/2023 4:54:28 PM Dictated by: Agusto Sorto MD @ 12/22/2023 16:54:32 (Electronically Signed)
[2023-12-22 15:37] LABS: Lactate* 7.1 mmol/L (0.5-1.9)
[2023-12-22 15:55] LABS: INR 1.06 (0.91-1.10); Prothrombin Time 14.5 Seconds
[2023-12-22 15:56] LABS: Partial Thromboplastin Time* 25 Seconds (23-33)
--- OUTSIDE RECORDS SUMMARY | 2023-12-22 15:59 | XMS_ITS | Clinical Summary ---
Author Organization [facility] Address [address] [place] [address] Care Team Providers Care Iron Pellet Tester Name Role Phone Jass Judd MD Primary Care Provider [phone] Allergies No known active allergies Medications Medication [...] 09/29/2032 09/29/2022 Medical Devices Implanted Type Area Net Development Manager Device Identifier Shelf Expiration Date Model / Serial / Lot Plate Syn Dhs 135 Deg 2h - [id number] Implanted:Qty: 1 on 12/20/2022 by Dario Frias MD at [facility] Plate Left: Hip Synthes 10/24/2030 281.102S / / [id number] Scr Cnn Th 16s/T7.3/95 208.895 - [id number] Implanted:Qty: 1 on 12/20/2022 by Dario Frias MD at [facility] Screw/Anch or Left: Hip Synthes 208.895 / / Scr Syn Dhs Lag 95m 280.950 - [id number] Implanted:Qty: 1 on 12/20/2022 by Dario Frias MD at [facility] Screw/Anch or Left: Hip Synthes 280.950 / / Scr Crtx S/T 4.5/48 214.848 - [id number] Implanted:Qty: 1 on 12/20/2022 by Dario Frias MD at [facility] Screw/Anch or Left: Hip Synthes 214.848 / / Scr Crtx S/T 4.5/46 214.846 - [id number] Implanted:Qty: 1 on 12/20/2022 by Dario Frias MD at [facility] Screw/Anch or Left: Hip Synthes 214.846 / / Procedures Procedure Name Priority Date/Time Associated Diagnosis Comments HBA1C / EAG Add On 12/19/2022 2:01 PM CDT from Last 3 Months or Most Recently Relevant to Health Maintenance Results * Hgb A1c (Glycosolated Hgb) (12/19/2022 2:01 PM CDT) HBA1C (GLYCOSOLATED HGB) 5.1 <5.7 % 12/21/2022 10:31 AM CDT [facility] EAG (EST. AVERAGE GLUCOSE) 100 <117 mg/dL 12/21/2022 10:31 AM CDT [facility] Blood 12/19/2022 2:01 PM CDT 12/19/2022 2:09 PM CDT Lola Wright MD CHEMISTRY ORDERABLE [facility] [address] [address] from Last 3 Months or Most Recently Relevant to Health Maintenance Advance Directives For more information, please contact: [phone] * Full Code (Latest Code Status on File) Date Activated Date Inactivated Comments 12/19/2022 5:01 PM 12/23/2022 7:48 PM Question Answer Comments How was code status determined? Patient Care Teams Iron Pellet Tester Relationship Specialty Start Date End Date Jass Judd MD [address] [place] [address] PCP - General 12/19/22
--- OUTSIDE RECORDS SUMMARY | 2023-12-22 16:00 | XMS_ITS | Clinical Summary ---
Author Organization [facility] Address [place], [place] [address] Care Team Providers Care Client Services Coordinator Name Role Phone Jass Judd MD Primary Care Provider [phone] Allergies No known active allergies Medications Medication [...] SQUARED TOE POST OP SHOE, LARGE, REF: [phone] 1 Each 09/17/2022 Active ammonium lactate 12% [...] age to complete this topic Care Teams Client Services Coordinator Relationship Specialty Start Date End Date Jass Judd MD [address] [place] [id number] PCP - General Family Practice 09/17/22
--- OUTSIDE RECORDS SUMMARY | 2023-12-22 16:00 | XMS_ITS | Referral Summary ---
Author Organization [facility] Address [address] [place] [address] Care Team Providers Care Casino Runner Name Role Phone Jass Judd MD Primary Care Provider [phone] Allergies No known active allergies Medications Medication [...] on file Medical Devices Implanted Type Area Merchandise Support Associate Device Identifier Shelf Expiration Date Model / Serial / Lot Plate Syn Dhs 135 Deg 2h - [id number] Implanted:Qty: 1 on 12/20/2022 by Dario Frias MD at [facility] Plate Left: Hip Synthes 10/24/2030 281.102S / / [id number] Scr Cnn Th 16s/T7.3/95 208.895 - [id number] Implanted:Qty: 1 on 12/20/2022 by Dario Frias MD at [facility] Screw/Anch or Left: Hip Synthes 208.895 / / Scr Syn Dhs Lag 95m 280.950 - [id number] Implanted:Qty: 1 on 12/20/2022 by Dario Frias MD at [facility] Screw/Anch or Left: Hip Synthes 280.950 / / Scr Crtx S/T 4. 214.848 - [id number] Implanted:Qty: 1 on 12/20/2022 by Dario Frias MD at [facility] Screw/Anch or Left: Hip Synthes 214.848 / / Scr Crtx S/T 4.546 214.846 - [id number] Implanted:Qty: 1 on 12/20/2022 by Dario Frias MD at [facility] Screw/Anch or Left: Hip Synthes 214.846 / / Procedures Procedure Name Priority Date/Time Associated Diagnosis Comments HBA1C / EAG Add On 12/19/2022 2:01 PM CDT from Last 3 Months or Most Recently Relevant to Health Maintenance Results * Hgb A1c (Glycosolated Hgb) (12/19/2022 2:01 PM CDT) HBA1C (GLYCOSOLATED HGB) 5.1 <5.7 % 12/21/2022 10:31 AM CDT [facility] EAG (EST. AVERAGE GLUCOSE) 100 <117 mg/dL 12/21/2022 10:31 AM CDT [facility] Blood 12/19/2022 2:01 PM CDT 12/19/2022 2:09 PM CDT Lola Wright MD CHEMISTRY ORDERABLE [facility] [address] [address] from Last 3 Months or Most Recently Relevant to Health Maintenance Advance Directives For more information, please contact: [phone] * Full Code (Latest Code Status on File) Date Activated Date Inactivated Comments 12/19/2022 5:01 PM 12/23/2022 7:48 PM Question Answer Comments How was code status determined? Patient Care Teams Casino Runner Relationship Specialty Start Date End Date Jass Judd MD [address] [place] [address] PCP - General 12/19/22
[2023-12-22 16:16] LABS: Chloride* 98 mmol/L (96-114); Potassium* 5.5 mmol/L (3.6-5.1); Sodium* 135 mmol/L (135-149)
[2023-12-22 16:18] LABS: Alkaline Phosphatase* 74 U/L (40-150); Aspartate Amino Transferase* 64 U/L (12-35); Bilirubin Direct* 0.6 mg/dL (0.0-0.5); Bilirubin Total* 1.6 mg/dL (0.1-1.5); Magnesium* 1.4 mg/dL (1.5-2.6); Total Protein* 7.2 g/dL (6.0-8.3)
[2023-12-22 16:19] LABS: Anion Gap 22 mEq/L (7-15); Blood Urea Nitrogen* 23 mg/dL (5-24); Carbon Dioxide* 15 mmol/L (20-32); Creatinine* 2.4 mg/dL (0.5-1.5); Est. Creatinine Clearance* 41.76; Estimated Glomerular Filt Rate 33 ml/min; Glucose* 205 mg/dL (60-115)
[2023-12-22 16:20] LABS: Calcium* 9.9 mg/dL (8.4-10.6)
[2023-12-22 16:27] LABS: Ethanol* < 0.01 % (0.01-0.03)
[2023-12-22 16:44] LABS: Alanine Aminotransferase* 69 U/L (4-50)
[2023-12-22 16:55] LABS: Appearance Urine Turbid (Clear); Bilirubin Urine 1+ (Negative); Blood Urine Negative (Negative); Color Urine Orange (Yellow); Glucose Urine Negative (Negative); Ketones Urine 1+ (Negative); Leukocyte Esterase Urine Negative (Negative); Nitrite Urine Negative (Negative); Protein Urine 1+ (Negative); Specific Gravity Urine 1.025 (1.000-1.030); Urobilinogen Urine 0.2 (0.2-1.0); pH Urine 5.5 (5.0-8.5)
--- NOTE | 2023-12-22 17:02 | CRLHL7_ITS ---
For Patients: As a result of the Century Cures Act, medical imaging exams and procedure reports are released immediately into your electronic medical record. You may view this report before your referring provider. If you have questions, please contact your health care provider. INDICATION: Syncope. Acidosis TECHNIQUE: Chest 1 views. COMPARISON: December 19, 2022. FINDINGS: Cardiovascular and mediastinum: Heart size and vasculature are normal in caliber and appearance. Lungs and pleural spaces: Low lung volumes. No sign of infiltrate or mass. No sign of pleural effusion. No pneumothorax. Bones and soft tissues: No significant findings. IMPRESSION: No acute or significant findings. Dictated by Manjeet Fitzgerald MD @ 12/22/2023 6:44:16 PM (Electronically Signed)
[2023-12-22] MEDS: 0.9 % SODIUM CHLORIDE 1000 ml 1,000 ML IV (17:13)
[2023-12-22] MEDS: MAGNESIUM IV 2 GM/50 ML PIGGYBACK IVPB (17:13)
[2023-12-22 17:15] LABS: HCO3 VBG 19 mmol/L (21-28); PCO2 VBG 40 mmHG (40-50); PO2 VBG < 30.1 mmHG (25-47); pH VBG 7.28 (7.32-7.43)
[2023-12-22 17:16] LABS: Basophils Absolute Auto 0.03 K/uL (0.00-0.30); Basophils Percent Auto 0.3 % (0.0-3.0); Eosinophils Absolute Auto 0.01 K/uL (0.00-0.50); Eosinophils Percent Auto 0.1 % (0.0-7.0); Hematocrit 36.7 % (37.0-53.0); Immature Granulocytes Abs Auto 0.02 K/uL (0.00-0.30); Immature Granulocytes Pct Auto 0.2 %; Lymphocytes Percent Auto 6.5 % (20-44); Mean Corpuscular HGB Conc 33 gm/dL (32-36); Mean Corpuscular Hemoglobin 33 pg (26-34); Mean Corpuscular Volume 101 fL (80-100); Monocytes Percent Auto 6.3 % (0.0-11.0); Neutrophils Percent Auto 86.6 % (42.0-72.0); Platelet Count* 155 K/uL (140-440); RDW Coefficient of Variation % 14.1 % (11.5-15.5); Red Blood Count 3.64 m/uL (4.30-5.90); Slide Review Reflex No; White Blood Count* 9.79 K/uL (4.50-11.00)
[2023-12-22 17:20] LABS: RBC Urine 0-2 (0-2); WBC Urine 0-2 (0-5)
--- NOTE | 2023-12-22 17:25 | PM.IMHP1 ---
Hospitalist- H&P: HPI History of Present Illness Date Seen: 12/22/23 Chief complaint: fall Narrative: ADMISSION HISTORY AND PHYSICAL - HOSPITALIST Chief Complaint: I quit drinking two days ago, I fell, busted my shoulder and I was too weak to get up HPI: 48 y/o WM with hx of alcoholic use disorder, alcohol hepatitis, HTN, Hyperlipidemia, type 2 DM, GERD presents after a fall at home. He reports letting his dogs out this morning around 5 am and is not sure what happened but he went down, hitting his left shoulder on a doorknob. He identified acute left shoulder pain immediately. He may have passed out, not clear. He has been drinking heavily all summer and 2 days ago he decided to quit. So at the time of his fall he was 36 hours from his last drink. After struggling/scooting/sleeping on the floor for several hours, he eventually called a colleague and he came to assist patient. Not being able to stand him up, EMS was summoned. He didn't present to the ED until shortly after 2pm. Initial report: pt is disheveled, dirty, covered in dog hair and incontinent of bowel movement - hypotensive when EMS moved him. syncope x 2, tremulous. ER COURSE: -banana bag ordered. labs, imaging of shoulder -hospital med team took over his care mid ED eval and due to census in the ED and will continue workup/treatment CODE STATUS: FULL CODE EMERGENCY CONTACT PLAN: JosefinaLizzy hankins Rel To Pat Mother I've updated the PFSH, medications and allergies in the Expanse tabs. INVESTIGATIONS: LABS/MICRO/ECG/IMAGING Afebrile Lowest measured blood pressure 83/60, currently 107/88 Pulse has been in the 80-90s Pulse ox 100%, room air CBC reflects a total white blood cell count of 9.79 Hemoglobin 12.0 MCV 101 Platelet count 155 INR 1.06 PH 7.28, bicarb 19 Electrolytes reveal a normal sodium. Elevated potassium at 5.5, BUN 23 creatinine 2.4. Bicarb 15 anion gap 22. Glucose 205 Lactate 7.1 Hemoglobin A1c done earlier this month 5.3 Magnesium is low at 1.4 Elevated LFTs, which are not new but there is a new bump in his total bilirubin CT left shoulder Acute comminuted moderately displaced and angulated fracture centered at both the surgical neck and anatomic neck of the humerus. Chest, abdomen, pelvis CT, noncontrast 1. Comminuted fracture of the left proximal humerus is noted. 2. Moderate atherosclerotic calcifications are noted in the coronary arteries. 3. Trace pelvic ascites is noted. Right elbow 1. No acute osseous injuries or abnormalities are noted. REVIEW OF SYSTEMS: 12-point ROS completed with patient and negative unless otherwise stated in HPI or below. PHYSICAL EXAM: CONSTITUTIONAL: alert, tremulus, looks tired, unkept. VITAL SIGNS: see record. HEENT: Normocephalic, atraumatic. PERRL, EOMI, conjunctivae pink, no scleral icterus. Ears and nose externally normal. Pharynx normal. NECK: No JVD. No carotid bruit, no thyromegaly, no adenopathy. CHEST: Clear to auscultation bilaterally HEART: S1 and S2 normal. No harsh murmurs. no edema. MUSCULOSKELETAL: left shoulder is in sling, right elbow bruised. Previous left heel open wound/ulcer is healed. NEURO: Cranial nerves intact. Grossly intact. No asymmetric findings. SKIN: No rashes, petechiae, concerning changes - mild abrasion to the right lower abdominal wall. PSYCHIATRIC: Euthymic. ADMIT TO MEDSURG: CCU DVT: Lovenox GI: PO intake Time spent: Today I spent 75 minutes seeing the patient, discussing the patient with ER staff, reviewing Expanse and EPIC notes/diagnostics, discussing the care plan with our care time that includes social work, PT/OT, pharmacy, RT, group home and documenting my impressions and plan in the medical record. [facility] Medical History (Updated 12/22/23 @ 21:30 by Maeve Peñaloza MD) Peripheral neuropathy ?G62.9 - Polyneuropathy, unspecified (ICD-10) Gastroesophageal reflux ?K21.9 - Gastro-esophageal reflux disease without esophagitis (ICD-10) Dysphagia ?R13.10 - Dysphagia, unspecified (ICD-10) Osteomyelitis ?M86.9 - Osteomyelitis, unspecified (ICD-10) Pilonidal cyst with abscess ?L05.01 - Pilonidal cyst with abscess (ICD-10) Difficulty sleeping ?G47.9 - Sleep disorder, unspecified (ICD-10) Hypertension ?I10 - Essential (primary) hypertension (ICD-10) Alcohol abuse ?F10.10 - Alcohol abuse, uncomplicated (ICD-10) DM (diabetes mellitus), type 2 ?E11.9 - Type 2 diabetes mellitus without complications (ICD-10) Social History (Updated 12/22/23 @ 18:51 by Maeve Peñaloza MD) Narrative: Single. Lives independently. Two dogs which help him to stay active. 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 His mother in [place] financially and emotionally supports him. EtOH 5-6 drinks per night, 1.5 shots of vodka each mixed with diet coke. Drinks an average of 1/3 of 1.75L/day. Denies recreational drugs. What is your current living situation?: I presently have a place to live Problems where you live: no known problems Problems where you live details: none In the past 12 months, utilities in danger of being shut off: no In past 12 months, lack of transportation kept you from medical appts, meetings, work, or getting things needed for daily living: no In the past 12 mos, have been you worried that your food would run out before you had money to buy more?: never true In the past 12 mos, the food you bought just didn't last and you didn't have money to buy more?: never true Highest level of school completed/degree received: Bachelor's degree Smoking Status: Current every day smoker What tobacco products do you use: cigarettes Smoking quit date/years: <= 15 years ago Do you use any of these nicotine containing products: None Second hand tobacco smoke exposure: No How often do you have a drink containing alcohol: 4 or more times a week Alcohol type: hard liquor How many standard drinks containing alcohol do you have on a typical day: 5 or 6 How often do you have six or more drinks on one occasion: Daily or almost daily AUDIT-C Alcohol total score: 10 Non-prescribed substance use: denies use Caffeine: No How often does anyone, including family, friends and others, physically hurt you: never How often does anyone, including family, friends and others, insult or talk down to you: never How often does anyone, including family, friends and others, threaten you with harm: never How often does anyone, including family, friends and others, scream or curse at you: never Little interest or pleasure in doing things: not at all Feeling down, depressed, or hopeless: not at all service: No Meds Home Medications and Allergies Home Medications ?Medication ?Instructions ?Recorded ?Confirmed ?Type Diabetic Test Strips 09/29/22 01/08/23 History lancets (Coaguchek Lancets) 09/29/22 01/08/23 History lidocaine 4 % topical patch 1 patch topical DAILY PRN 01/08/23 12/22/23 History (Aspercreme (lidocaine)) aspirin 81 mg tablet,delayed 81 mg PO DAILY 12/22/23 12/22/23 History release atorvastatin 20 mg tablet 20 mg PO HS 12/22/23 12/22/23 History cholecalciferol (vitamin D3) 25 25 mcg PO DAILY 12/22/23 12/22/23 History mcg (1,000 unit) capsule Allergies Allergy/AdvReac Type Severity Reaction Status Date / Time No Known Allergies Allergy Unknown Verified 12/22/23 15:55 Exam Const: Vital Signs, click to edit/add: Vital Signs - 24 hr 12/22/23 14:17 12/22/23 14:34 12/22/23 14:40 Pulse Rate 92 Pulse Rate [Left D orsalis Pedis] Pulse Rate [Right Pulse Oximeter] 87 Respiratory Rate 18 Blood Pressure Blood Pressure [Ri ght Arm] Blood Pressure [Ri ght Upper Arm] 116/76 Pulse Oximetry 96 94 [facility] 12/22/23 14:45 12/22/23 14:50 12/22/23 15:02 Pulse Rate 87 Pulse Rate [Left D orsalis Pedis] Pulse Rate [Right Pulse Oximeter] Respiratory Rate Blood Pressure 131/120 H Blood Pressure [Ri ght Arm] Blood Pressure [Ri ght Upper Arm] Pulse Oximetry 99 98 [facility] 12/22/23 15:32 12/22/23 15:32 12/22/23 15:34 Pulse Rate Pulse Rate [Left D orsalis Pedis] 93 Pulse Rate [Right Pulse Oximeter] Respiratory Rate Blood Pressure 83/60 L Blood Pressure [Ri ght Arm] 83/60 L Blood Pressure [Ri ght Upper Arm] Pulse Oximetry 98 74 L [facility] 12/22/23 15:41 12/22/23 15:42 12/22/23 15:46 Pulse Rate Pulse Rate [Left D orsalis Pedis] Pulse Rate [Right Pulse Oximeter] Respiratory Rate Blood Pressure 108/87 Blood Pressure [Ri ght Arm] Blood Pressure [Ri ght Upper Arm] Pulse Oximetry 98 99 Oxygen Delivery [facility] 12/22/23 15:50 12/22/23 16:00 12/22/23 16:01 Pulse Rate Pulse Rate [Left D orsalis Pedis] Pulse Rate [Right Pulse Oximeter] Respiratory Rate Blood Pressure Blood Pressure [Ri ght Arm] Blood Pressure [Ri ght Upper Arm] Pulse Oximetry 98 98 98 Oxygen Delivery [facility] 12/22/23 16:07 12/22/23 16:10 12/22/23 16:12 Pulse Rate Pulse Rate [Left D orsalis Pedis] Pulse Rate [Right Pulse Oximeter] Respiratory Rate Blood Pressure Blood Pressure [Ri ght Arm] Blood Pressure [Ri ght Upper Arm] Pulse Oximetry 96 97 98 Oxygen Delivery [facility] 12/22/23 16:20 12/22/23 17:10 12/22/23 17:12 Pulse Rate Pulse Rate [Left D orsalis Pedis] Pulse Rate [Right Pulse Oximeter] Respiratory Rate Blood Pressure Blood Pressure [Ri ght Arm] Blood Pressure [Ri ght Upper Arm] Pulse Oximetry 100 100 100 Oxygen Delivery [facility] Hospitalist - H&P: Result Labs Labs: Short CBC 12/22/23 12/22/23 Range/Units 14:35 15:39 WBC 9.79 (4.50-11.00) K/uL Hgb Cancelled 12.0 L Hct 36.7 L (37.0-53.0) % Plt Count 155 (140-440) K/uL BMP 12/22/23 14:35 Sodium 135 Potassium 5.5 H Chloride 98 Carbon Dioxide 15 L BUN 23 Creatinine 2.4 H Glucose 205 H Calcium 9.9 Liver Function 12/22/23 Range/Units 14:35 Total Bilirubin 1.6 H (0.1-1.5) mg/dL Direct Bilirubin 0.6 H (0.0-0.5) mg/dL AST 64 H (12-35) U/L ALT 69 H (4-50) U/L Alkaline Phosphatase 74 (40-150) U/L Albumin 5.0 (3.3-5.0) g/dL Urine 12/22/23 Range/Units 16:39 Urine Color [place] A (Yellow) Urine Appearance Turbid A (Clear) Urine pH 5.5 (5.0-8.5) Ur Specific [place] 1.025 (1.000-1.030) Urine Protein 1+ A (Negative) Urine Glucose (UA) Negative (Negative) Assessment and Plan Assessment and plan (1) Fall: Problem comment: DOI 12/21 around 5 am. scooted and worked on getting up for hours; came in by EMS around 2 pm. -complete work up with plain films, CT and labs -humeral head fracture, abrasions on lower abdomen, bruised right elbow, disheveled, in alcohol withdrawal Status: Acute (2) Lactic acidosis: Problem comment: -related to DM, drinking, withdrawal, hours on the floor this morning. -CK normal -will get BHB sent tonight to [facility] -1+ ketones (after fluid bolus in the ED) -mildly acidotic, mild hyperglycemia -initial management is fluids and consider insulin/D5 and bicarb if not correcting Status: Acute (3) Fracture of humeral head, left, closed: Problem comment: -ortho aware; CT done -NPO at midnight; ortho to discuss care plan with patient in the am Status: Acute (4) Syncopal episodes: Problem comment: witnessed by EMS at patient's home; witnessed in the ED during movement for xray - likely vasovagal; volume depletion. keeping sepsis on the radar but has not met criteria yet. no seizures. -head CT -labs reveal dehydration, lactic acidosis -labile soft blood pressure Status: Acute (5) LESLY (acute kidney injury): Problem comment: 2.4 creatinine, baseline is 0.9-1.3 fluids, hold nephrotoxic agents. CT will be noncontrast Status: Acute (6) Alcohol withdrawal: Problem comment: -long hx of alcohol use disorder. has been prescribed naltrexone in the past. openly admits to vodka and being an alcoholic -phenobarbital and CIWA ordered -no hx of withdrawal seizures Status: Acute (7) Hypomagnesemia: Problem comment: replace, fluids, trend Status: Acute (8) Hyperkalemia: Problem comment: trending; fluids Status: Acute (9) Alcoholic liver disease: Problem comment: RUQ u/s in the morning, acute hepatitis panel ordered trend labs INR normal minimal ascites noted on abd/pelvic CT Status: Acute (10) DM (diabetes mellitus), type 2: Problem comment: A1C 5.3 this month; hold metformin bedside glucose monitoring; SSI BHB sent out [facility] for 2023. Four instances in 2022, most recent w/ Jass Judd. Status: Chronic (11) Peripheral neuropathy: Problem comment: -b/l feet Status: Acute (12) Gastroesophageal reflux: Problem comment: IV and PO PPI Status: Acute (13) Hypertension: Problem comment: -hold home agents -pressures soft; watching for sepsis. one episode of low BP and elevated pulse was a vasovagal episode moving him with painful shoulder for xray. Status: Chronic
[2023-12-22 17:27] LABS: Creatine Kinase* 143 U/L (54-186); Gamma Glutamyl Transpeptidase* 401 U/L (8-55)
[2023-12-22 17:45] LABS: Procalcitonin* 0.99 ng/mL (<0.50)
[2023-12-22] MEDS: LORazepam 2 MG/ML inj 1 MG IVP (17:57)
--- NOTE | 2023-12-22 18:20 | CRLHL7_ITS ---
For Patients: As a result of the Cures Act, medical imaging exams and procedure reports are released immediately into your electronic medical record. You may view this report before your referring provider. If you have questions, please contact your health care provider. INDICATION: Fall. COMPARISON: None. TECHNIQUE: Noncontrast CT head. FINDINGS: Normal brain parenchymal morphology. No acute intracranial hemorrhage, acute infarct, mass effect, or fracture. No midline shift. No abnormal ventricular dilatation. Normal calvarium and skull base. Visualized paranasal sinuses mastoid air cells are clear. Normal orbits bilaterally. IMPRESSION: No acute findings. Please note that all CT scans at this facility use dose modulation, iterative reconstruction, and/or weight-based dosing when appropriate to reduce radiation dose to as low as reasonably achievable. Dictated by Shane French MD @ 12/22/2023 8:53:58 PM (Electronically Signed)
--- NOTE | 2023-12-22 18:20 | CRLHL7_ITS ---
For Patients: As a result of the Century Cures Act, medical imaging exams and procedure reports are released immediately into your electronic medical record. You may view this report before your referring provider. If you have questions, please contact your health care provider. INDICATION: Chest and abdominal injury from Fall, alcoholic liver disease TECHNIQUE: CT chest, abdomen, and pelvis without i.v. contrast. Coronal and sagittal reformats were obtained. COMPARISON: None FINDINGS: CHEST: Cardiovascular: The heart has an unremarkable appearance and size. The pulmonary arteries are unremarkable in appearance. No sign of aneurysm seen in the thoracic aorta. The presence of aortic dissection cannot be evaluated without the use of intravenous contrast. Moderate atherosclerotic calcifications are noted in the coronary arteries. Mediastinum: No mass or adenopathy seen. Lung: No pulmonary contusion, laceration or pneumothorax is seen. Pleura and pericardium: No sign of pleural effusion seen. No significant pericardial effusion is present. Chest wall and axilla: No mass or adenopathy seen. ABDOMEN/PELVIS: Liver: Moderate, diffuse fatty infiltration of the liver is present. Spleen: Unremarkable. Pancreas: Unremarkable. Gallbladder: Unremarkable. Kidney: Unremarkable. No kidney or ureteral stones or obstruction seen. Adrenal: Unremarkable. Bowel: Unremarkable. The appendix is normal in appearance and size. Vascular: Unremarkable. Lymph: Unremarkable. Peritoneum: Unremarkable. No pneumoperitoneum is seen. Trace pelvic ascites is noted. Pelvis: Evaluation of the pelvic soft tissues and osseous structures are limited by beam hardening artifacts from the left femoral dynamic compression screw. Soft tissue: Unremarkable. Bone: Comminuted fracture of the left proximal humerus is noted. Remote, healed right posterolateral 9th rib fracture is seen. IMPRESSIONS: 1. Comminuted fracture of the left proximal humerus is noted. 2. Moderate atherosclerotic calcifications are noted in the coronary arteries. 3. Trace pelvic ascites is noted. Dictated by Agusto Sroto MD @ 12/22/2023 9:21:38 PM Please note that all CT scans at this facility use dose modulation, iterative reconstruction, and/or weight-based dosing when appropriate to reduce radiation dose to as low as reasonably achievable. Dictated by: Agusto Sorto MD @ 12/22/2023 21:21:41 (Electronically Signed)
--- NOTE | 2023-12-22 18:20 | CRLHL7_ITS ---
For Patients: As a result of the Century Cures Act, medical imaging exams and procedure reports are released immediately into your electronic medical record. You may view this report before your referring provider. If you have questions, please contact your health care provider. INDICATION: Humeral fracture COMPARISON: Same-day left shoulder radiographs TECHNIQUE: CT of the left shoulder without intravenous contrast. FINDINGS: Please see separately dictated report for findings in the chest and abdomen. There is an acute comminuted moderately displaced and moderately angulated fracture centered at both the surgical neck and anatomic neck of the humerus. Normal alignment of the glenohumeral and acromioclavicular joints. Minimal degenerative change of the acromioclavicular joint. No substantial degenerative change of the glenohumeral joint. There is prominent subcutaneous edema at the anterior shoulder and anterior proximal arm compatible with a contusion. Grossly normal rotator cuff muscular bulk. IMPRESSION: Acute comminuted moderately displaced and angulated fracture centered at both the surgical neck and anatomic neck of the humerus. Please note that all CT scans at this facility use dose modulation, iterative reconstruction, and/or weight-based dosing when appropriate to reduce radiation dose to as low as reasonably achievable. Dictated by Facundo Camara MD @ 12/22/2023 8:52:57 PM (Electronically Signed)
--- NOTE | 2023-12-22 18:24 | CRLHL7_ITS ---
For Patients: As a result of the Cures Act, medical imaging exams and procedure reports are released immediately into your electronic medical record. You may view this report before your referring provider. If you have questions, please contact your health care provider. INDICATION: Elbow injury from Fall TECHNIQUE: Elbow radiograph 2 views right COMPARISON: None FINDINGS: Bone: No acute fractures or aggressive bone lesions are identified. Joint: The elbow joint is unremarkable. No significant displacement of the anterior or posterior fat pads noted to suggest an effusion. Soft tissue: IV catheter noted in the antecubital fossa. No radiopaque foreign bodies are seen. IMPRESSION: 1. No acute osseous injuries or abnormalities are noted. Dictated by: Agusto Sorto MD @ 12/22/2023 21:14:18 (Electronically Signed)
[2023-12-22 18:43] LABS: HCO3 VBG 21 mmol/L (21-28); Lactate* 1.8 mmol/L (0.5-1.9); PCO2 VBG 37 mmHG (40-50); PO2 VBG < 30.1 mmHG (25-47); pH VBG 7.362 (7.32-7.43)
[2023-12-22] MEDS: 0.9 % SODIUM CHLORIDE 1000 ml 1,000 ML 500 ML IV (18:50)
[2023-12-22 19:02] LABS: Chloride* 102 mmol/L (96-114); Potassium* 5.1 mmol/L (3.6-5.1); Sodium* 135 mmol/L (135-149)
[2023-12-22 19:05] LABS: Anion Gap 11 mEq/L (7-15); Blood Urea Nitrogen* 24 mg/dL (5-24); Carbon Dioxide* 22 mmol/L (20-32); Creatinine* 2.1 mg/dL (0.5-1.5); Est. Creatinine Clearance* 47.73; Estimated Glomerular Filt Rate 38 ml/min; Glucose* 158 mg/dL (60-115)
[2023-12-22 19:06] LABS: Calcium* 9.1 mg/dL (8.4-10.6)
[2023-12-22] MEDS: PANTOPRAZOLE SODIUM 40 MG INJ IVP (19:07)
[2023-12-22] MEDS: PHENobarbitaL 260 MG in 0.9 % SODIUM CHLORIDE 100 ml 100 ML 208 MG IVPB (19:07)
[2023-12-22] MEDS: SODIUM CHLORIDE 0.9 % (FLUSH) 10 ML SYRINGE 5 ML IVF ×2 (19:08→21:11)
[2023-12-22 20:09] LABS: Troponin I* 0.02 ng/mL (0.01-0.04)
[2023-12-22] MEDS: 5 % DEXTROSE/0.9% SOD CHLORIDE 1,000 ML 125 ML IV (21:11)
[2023-12-22] MEDS: THIAMINE 250 MG in 0.9 % SODIUM CHLORIDE 100 ml 100 ML 102.5 MG IVPB (21:12)
[2023-12-22 23:17] LABS: Lipase* 239 U/L (23-300)
[2023-12-23] VITALS (18 sets, daily range): BP systolic 97–138; BP diastolic 59–92; PULSE 94–133; RESP 16–20; TEMP 36.1–36.7; O2SAT 94–100
[2023-12-23] MEDS: PHENobarbitaL 260 MG in 0.9 % SODIUM CHLORIDE 100 ml 100 ML 208 MG IVPB (00:43)
[2023-12-23 01:54] LABS: Lab Add On Test New Spec Needed
[2023-12-23] MEDS: LORazepam 2 MG/ML inj IVP ×2 (02:06→04:34)
[2023-12-23] MEDS: SODIUM CHLORIDE 0.9 % (FLUSH) 10 ML SYRINGE 5 ML IVF ×3 (02:07→21:32)
--- NOTE | 2023-12-23 05:34 | PC.NURSE ---
[id number] Pt CIWA scores increased as night progressed, ativan administered per protocol. tremors, visual hallucinations, acute panic and disorientation present, relief with ativan administration. mallory in place, patent and draining adequate urine output. no evidence of seizure or syncopal episode during the night. BG >150 and <250. NPO since midnight for abd US this morning.
--- NOTE | 2023-12-23 05:43 | PC.NURSE ---
SHIFT NOTE 19-23: Pt cooperative, alert and oriented. Pt denies pain, left arm in a sling. Pt up to stand at the bedside to wash up for bed and use urinal when he had a syncopal episode and leaned back into the bed, witnessed by deputy director of nursing. Pt was rigid and incontinent of urine, no tonic clonic movements noted, lasted for about 1 minute did not recall what had just happened, BP just after the incident occurred was 114/82. Seizure precautions initiated. Buchanan placed. Second IV started in right wrist. CIWA score 4. Tele sinus tach. Oxygen saturation >90% on RA. Pt denies SOB CP and N/V, tolerated a regular diet well.
[2023-12-23] MEDS: 5 % DEXTROSE/0.9% SOD CHLORIDE 1,000 ML 125 ML IV ×3 (06:17→18:46)
[2023-12-23 06:18] LABS: HCO3 VBG 24 mmol/L (21-28); Ionized Calcium* 1.12 mmol/L (1.11-1.30); Lactate* 1.3 mmol/L (0.5-1.9); PCO2 VBG 40 mmHG (40-50); PO2 VBG 32.5 mmHG (25-47); pH VBG 7.387 (7.32-7.43)
[2023-12-23 06:29] LABS: Basophils Percent Auto 0.2 % (0.0-3.0); Hematocrit 28.3 % (37.0-53.0); Hemoglobin* 9.5 gm/dL (13.5-17.5); Immature Granulocytes Pct Auto 0.2 %; Lymphocytes Percent Auto 16.1 % (20-44); Mean Corpuscular HGB Conc 34 gm/dL (32-36); Mean Corpuscular Hemoglobin 34 pg (26-34); Mean Corpuscular Volume 100 fL (80-100); Monocytes Percent Auto 9.6 % (0.0-11.0); Neutrophils Percent Auto 73.9 % (42.0-72.0); Platelet Count* 56 K/uL (140-440); RDW Coefficient of Variation % 14.2 % (11.5-15.5); Red Blood Count 2.84 m/uL (4.30-5.90); White Blood Count* 4.47 K/uL (4.50-11.00)
[2023-12-23 06:30] LABS: Slide Review Reflex No
[2023-12-23 06:43] LABS: Iron* 37 ug/dL (49-181)
[2023-12-23 06:45] LABS: Albumin* 3.9 g/dL (3.3-5.0); Chloride* 106 mmol/L (96-114); Sodium* 138 mmol/L (135-149)
[2023-12-23 06:48] LABS: Anion Gap 8 mEq/L (7-15); Aspartate Amino Transferase* 66 U/L (12-35); Bilirubin Direct* 0.4 mg/dL (0.0-0.5); Bilirubin Total* 0.7 mg/dL (0.1-1.5); Carbon Dioxide* 24 mmol/L (20-32); Creatinine* 1.6 mg/dL (0.5-1.5); Est. Creatinine Clearance* 62.65; Estimated Glomerular Filt Rate 53 ml/min; Total Protein* 6.3 g/dL (6.0-8.3)
[2023-12-23 06:49] LABS: Alanine Aminotransferase* 56 U/L (4-50); Alkaline Phosphatase* 85 U/L (40-150); Blood Urea Nitrogen* 21 mg/dL (5-24); Calcium* 8.9 mg/dL (8.4-10.6); Gamma Glutamyl Transpeptidase* 381 U/L (8-55); Glucose* 166 mg/dL (60-115); Magnesium* 1.8 mg/dL (1.5-2.6); Phosphorus* 1.9 mg/dL (2.5-4.5)
[2023-12-23 06:51] LABS: C Reactive Protein* 6.2 mg/dL (0.5-1.0)
[2023-12-23 06:54] LABS: Percent Iron Saturation 17 % (20-50); Total Iron Binding Capacity 216 ug/dL (261-462)
[2023-12-23 07:02] LABS: Procalcitonin* 0.65 ng/mL (<0.50)
[2023-12-23 07:04] LABS: Troponin I* < 0.01 ng/mL (0.01-0.04)
--- NOTE | 2023-12-23 08:52 | PM.ORCN ---
History of Present Illness HPI Time Seen by Provider: 08:30 Date Seen: 12/23/23 Consult date: 12/23/23 Requesting physician: Fuad Ayala Chief complaint: fall Narrative: Zacarias presents with proximal humerus fracture that occurred from a syncopal episode during a binge drinking episode. This fracture is complicated by alcohol withdrawal, acute kidney injury, diabetes mellitus. Zacarias is sleeping in bed upon my arrival. He awoke confused and immediately said I can't watch this channel anymore and reached for his phone. Patient did not answer my questions appropriately regarding his lifestyle, activity demand, hobbies and employment. Right hand dominant. Pain is well managed with Ativan. Denies left shoulder pain this morning. Patient lives alone with a dog. I spoke with Zacarias's nurse, Carmen, that he had a difficult night involving hallucinations (he thinks he is in a palace), shouting and grabbing at objects. [facility] Medical History (Updated 12/23/23 @ 09:03 by Ophelia Bird PA-C) Peripheral neuropathy ?G62.9 - Polyneuropathy, unspecified (ICD-10) Gastroesophageal reflux ?K21.9 - Gastro-esophageal reflux disease without esophagitis (ICD-10) Dysphagia ?R13.10 - Dysphagia, unspecified (ICD-10) Osteomyelitis ?M86.9 - Osteomyelitis, unspecified (ICD-10) Pilonidal cyst with abscess ?L05.01 - Pilonidal cyst with abscess (ICD-10) Difficulty sleeping ?G47.9 - Sleep disorder, unspecified (ICD-10) Hypertension ?I10 - Essential (primary) hypertension (ICD-10) Alcohol abuse ?F10.10 - Alcohol abuse, uncomplicated (ICD-10) DM (diabetes mellitus), type 2 ?E11.9 - Type 2 diabetes mellitus without complications (ICD-10) Social History Narrative: Single. Lives independently. Two dogs which help him to stay active. 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 His mother in [place] financially and emotionally supports him. EtOH 5-6 drinks per night, 1.5 shots of vodka each mixed with diet coke. Drinks an average of 1/3 of 1.75L/day. Denies recreational drugs. What is your current living situation?: I presently have a place to live Problems where you live: no known problems Problems where you live details: none In the past 12 months, utilities in danger of being shut off: no In past 12 months, lack of transportation kept you from medical appts, meetings, work, or getting things needed for daily living: no In the past 12 mos, have been you worried that your food would run out before you had money to buy more?: never true In the past 12 mos, the food you bought just didn't last and you didn't have money to buy more?: never true Highest level of school completed/degree received: Bachelor's degree Smoking Status: Current every day smoker What tobacco products do you use: cigarettes Smoking quit date/years: <= 15 years ago Do you use any of these nicotine containing products: None Second hand tobacco smoke exposure: No How often do you have a drink containing alcohol: 4 or more times a week Alcohol type: hard liquor How many standard drinks containing alcohol do you have on a typical day: 5 or 6 How often do you have six or more drinks on one occasion: Daily or almost daily AUDIT-C Alcohol total score: 10 Non-prescribed substance use: denies use Caffeine: No How often does anyone, including family, friends and others, physically hurt you: never How often does anyone, including family, friends and others, insult or talk down to you: never How often does anyone, including family, friends and others, threaten you with harm: never How often does anyone, including family, friends and others, scream or curse at you: never Little interest or pleasure in doing things: not at all Feeling down, depressed, or hopeless: not at all service: No Meds Home Medications and Allergies Home Medications ?Medication ?Instructions ?Recorded ?Confirmed ?Type Diabetic Test Strips 09/29/22 01/08/23 History lancets (Coaguchek Lancets) 09/29/22 01/08/23 History lidocaine 4 % topical patch 1 patch topical DAILY PRN 01/08/23 12/22/23 History (Aspercreme (lidocaine)) aspirin 81 mg tablet,delayed 81 mg PO DAILY 12/22/23 12/22/23 History release atorvastatin 20 mg tablet 20 mg PO HS 12/22/23 12/22/23 History cholecalciferol (vitamin D3) 25 25 mcg PO DAILY 12/22/23 12/22/23 History mcg (1,000 unit) capsule Allergies Allergy/AdvReac Type Severity Reaction Status Date / Time No Known Allergies Allergy Unknown Verified 12/22/23 15:55 Ortho Exam Narrative Exam Narrative: Patient appears confused and may still be hallucinating. He was sleeping comfortably upon my arrival. Upon verbal command, he awoke pleasantly, but did not answer my questions appropriately. Left arm resting in a sling. Left shoulder exam: No open wounds nor abrasions. No erythema, induration nor erythematous streaking. Moderate swelling. Ecchymosis within left axilla and medial left mid-humerus. ROM deferred. Deltoid sensation intact. 2+ radial pulse. Sensation confirmed distally. Const Vital Signs, click to edit/add: Vital Signs - 24 hr 12/22/23 14:17 12/22/23 14:34 12/22/23 14:40 Temperature Pulse Rate 92 Pulse Rate [Left Dorsalis Pedis] Pulse Rate [Pulse Oximeter] Pulse Rate [Right Pulse Oximeter] 87 Respiratory Rate 18 Blood Pressure Blood Pressure [Right Arm] Blood Pressure [Right Upper Arm] 116/76 Pulse Oximetry 96 94 100 Oxygen Delivery Method Room Air 12/22/23 14:45 12/22/23 14:50 12/22/23 15:02 Temperature Pulse Rate 87 Pulse Rate [Left Dorsalis Pedis] Pulse Rate [Pulse Oximeter] Pulse Rate [Right Pulse Oximeter] Respiratory Rate Blood Pressure 131/120 H Blood Pressure [Right Arm] Blood Pressure [Right Upper Arm] Pulse Oximetry 99 98 Oxygen Delivery Method 12/22/23 15:32 12/22/23 15:32 12/22/23 15:34 Temperature Pulse Rate Pulse Rate [Left Dorsalis Pedis] 93 Pulse Rate [Pulse Oximeter] Pulse Rate [Right Pulse Oximeter] Respiratory Rate Blood Pressure 83/60 L Blood Pressure [Right Arm] 83/60 L Blood Pressure [Right Upper Arm] Pulse Oximetry 98 74 L Oxygen Delivery Method 12/22/23 15:41 12/22/23 15:42 12/22/23 15:46 Temperature Pulse Rate Pulse Rate [Left Dorsalis Pedis] Pulse Rate [Pulse Oximeter] Pulse Rate [Right Pulse Oximeter] Respiratory Rate Blood Pressure 108/87 Blood Pressure [Right Arm] Blood Pressure [Right Upper Arm] Pulse Oximetry 98 99 Oxygen Delivery Method 12/22/23 15:50 12/22/23 16:00 12/22/23 16:01 Temperature Pulse Rate Pulse Rate [Left Dorsalis Pedis] Pulse Rate [Pulse Oximeter] Pulse Rate [Right Pulse Oximeter] Respiratory Rate Blood Pressure Blood Pressure [Right Arm] Blood Pressure [Right Upper Arm] Pulse Oximetry 98 98 98 Oxygen Delivery Method 12/22/23 16:07 12/22/23 16:10 12/22/23 16:12 Temperature Pulse Rate Pulse Rate [Left Dorsalis Pedis] Pulse Rate [Pulse Oximeter] Pulse Rate [Right Pulse Oximeter] Respiratory Rate Blood Pressure Blood Pressure [Right Arm] Blood Pressure [Right Upper Arm] Pulse Oximetry 96 97 98 Oxygen Delivery Method 12/22/23 16:20 12/22/23 17:10 12/22/23 17:12 Temperature Pulse Rate Pulse Rate [Left Dorsalis Pedis] Pulse Rate [Pulse Oximeter] Pulse Rate [Right Pulse Oximeter] Respiratory Rate Blood Pressure Blood Pressure [Right Arm] Blood Pressure [Right Upper Arm] Pulse Oximetry 100 100 100 Oxygen Delivery Method 12/22/23 17:30 12/22/23 18:20 12/22/23 18:20 Temperature 98.9 F Pulse Rate Pulse Rate [Left Dorsalis Pedis] Pulse Rate [Pulse Oximeter] Pulse Rate [Right Pulse Oximeter] 92 Respiratory Rate 18 Blood Pressure Blood Pressure [Right Arm] Blood Pressure [Right Upper Arm] 107/88 Pulse Oximetry 100 100 100 Oxygen Delivery Method Room Air Room Air 12/22/23 18:28 12/22/23 18:31 12/22/23 19:30 Temperature 98.3 F 98.3 F Pulse Rate Pulse Rate [Left Dorsalis Pedis] 94 93 Pulse Rate [Pulse Oximeter] Pulse Rate [Right Pulse Oximeter] Respiratory Rate 20 20 20 Blood Pressure Blood Pressure [Right Arm] 124/86 124/86 Blood Pressure [Right Upper Arm] Pulse Oximetry 100 100 100 Oxygen Delivery Method Room Air Room Air Room Air 12/22/23 20:40 12/22/23 21:00 12/22/23 22:00 Temperature 97.4 F L 97.2 F L Pulse Rate 94 Pulse Rate [Left Dorsalis Pedis] 98 102 H Pulse Rate [Pulse Oximeter] Pulse Rate [Right Pulse Oximeter] Respiratory Rate 18 20 Blood Pressure Blood Pressure [Right Arm] 129/114 H 116/73 Blood Pressure [Right Upper Arm] Pulse Oximetry 98 100 Oxygen Delivery Method Room Air Room Air 12/22/23 22:00 12/22/23 23:00 12/22/23 23:00 Temperature 97.2 F L 98.7 F Pulse Rate 96 Pulse Rate [Left Dorsalis Pedis] 102 H Pulse Rate [Pulse Oximeter] 99 Pulse Rate [Right Pulse Oximeter] Respiratory Rate 20 20 Blood Pressure Blood Pressure [Right Arm] 116/73 122/77 Blood Pressure [Right Upper Arm] Pulse Oximetry 100 99 Oxygen Delivery Method Room Air Room Air 12/22/23 23:53 12/23/23 02:00 12/23/23 02:04 Temperature 98.7 F 97.9 F 97.9 F Pulse Rate Pulse Rate [Left Dorsalis Pedis] 99 99 99 Pulse Rate [Pulse Oximeter] 99 100 100 Pulse Rate [Right Pulse Oximeter] Respiratory Rate 18 20 20 Blood Pressure Blood Pressure [Right Arm] 122/77 109/85 109/85 Blood Pressure [Right Upper Arm] Pulse Oximetry 99 100 100 Oxygen Delivery Method Room Air Room Air Room Air 12/23/23 03:00 12/23/23 04:00 12/23/23 05:43 Temperature 97.9 F 97.0 F L Pulse Rate 94 Pulse Rate [Left Dorsalis Pedis] Pulse Rate [Pulse Oximeter] 100 94 Pulse Rate [Right Pulse Oximeter] Respiratory Rate 18 16 Blood Pressure Blood Pressure [Right Arm] 105/78 113/84 Blood Pressure [Right Upper Arm] Pulse Oximetry 100 97 Oxygen Delivery Method Room Air Room Air 12/23/23 07:45 12/23/23 07:47 Temperature 97.1 F L 97.1 F L Pulse Rate Pulse Rate [Left Dorsalis Pedis] Pulse Rate [Pulse Oximeter] 101 H 101 H Pulse Rate [Right Pulse Oximeter] Respiratory Rate 16 16 Blood Pressure Blood Pressure [Right Arm] 131/87 Blood Pressure [Right Upper Arm] Pulse Oximetry 97 97 Oxygen Delivery Method Room Air Room Air Results Labs Labs: Laboratory Results - last 48 hr 12/22/23 12/22/23 12/22/23 14:35 15:39 16:39 WBC 9.79 RBC 3.64 L Hgb Cancelled 12.0 L Hct 36.7 L MCV 101 H MCH 33 MCHC 33 RDW Coeff of Heladio 14.1 Plt Count 155 Neut % (Auto) 86.6 H Lymph % (Auto) 6.5 L [place] % (Auto) 6.3 Eos % (Auto) 0.1 Baso % (Auto) 0.3 Neut # (Auto) 8.50 H Lymph # (Auto) 0.60 L [place] # (Auto) 0.60 Eos # (Auto) 0.01 Baso # (Auto) 0.03 Abs Immat Gran (auto) 0.02 Imm/Tot Granulo (auto) 0.2 INR 1.06 APTT 25 VBG pH 7.28 L VBG pCO2 40 VBG pO2 < 30.1 VBG HCO3 19 L Sodium 135 Potassium 5.5 H Chloride 98 Carbon Dioxide 15 L Anion Gap 22 H BUN 23 Creatinine 2.4 H Estimated Creat Clear 41.76 Estimated GFR 33 Glucose 205 H Lactate 7.1 H* Calcium 9.9 Ionized Calcium Alok Phosphorus Magnesium 1.4 L Iron TIBC % Saturation Ferritin Total Bilirubin 1.6 H Direct Bilirubin 0.6 H GGT 401 H AST 64 H ALT 69 H Alkaline Phosphatase 74 Total Creatine Kinase 143 Troponin I 0.02 C-Reactive Protein 3.0 H Total Protein 7.2 Albumin 5.0 Lipase 239 Procalcitonin 0.99 H TSH Urine Color [place] A Urine Appearance Turbid A Urine pH 5.5 Ur Specific [place] 1.025 Urine Protein 1+ A Urine Glucose (UA) Negative Urine Ketones 1+ A Urine Blood Negative Urine Nitrite Negative Urine Bilirubin 1+ A Urine Urobilinogen 0.2 Ur Leukocyte Esterase Negative Urine RBC 0-2 Urine WBC 0-2 Ur Squamous Epith Cells None Urine Bacteria None Ethyl Alcohol < 0.01 L Hepatitis A IgM Ab Cancelled Hep Bs Antigen Cancelled Hep B Core IgM Ab Cancelled Hep C Ab Index (KEYON) Cancelled Hep C Ab Interp KEYON Cancelled Hepatitis Interpret Cancelled Lab Acknowledgement 12/22/23 12/22/23 12/22/23 16:56 17:02 18:36 WBC RBC Hgb Hct MCV MCH MCHC RDW Coeff of Heladio Plt Count Neut % (Auto) Lymph % (Auto) [place] % (Auto) Eos % (Auto) Baso % (Auto) Neut # (Auto) Lymph # (Auto) [place] # (Auto) Eos # (Auto) Baso # (Auto) Abs Immat Gran (auto) Imm/Tot Granulo (auto) INR APTT VBG pH 7.362 VBG pCO2 37 L VBG pO2 < 30.1 VBG HCO3 21 Sodium 135 Potassium 5.1 Chloride 102 Carbon Dioxide 22 Anion Gap 11 BUN 24 Creatinine 2.1 H Estimated Creat Clear 47.73 Estimated GFR 38 Glucose 158 H Lactate 1.8 Calcium 9.1 Ionized Calcium Alok Phosphorus Magnesium Iron TIBC % Saturation Ferritin Total Bilirubin Direct Bilirubin GGT AST ALT Alkaline Phosphatase Total Creatine Kinase Troponin I C-Reactive Protein Total Protein Albumin Lipase Procalcitonin TSH Urine Color Urine Appearance Urine pH Ur Specific [place] Urine Protein Urine Glucose (UA) Urine Ketones Urine Blood Urine Nitrite Urine Bilirubin Urine Urobilinogen Ur Leukocyte Esterase Urine RBC Urine WBC Ur Squamous Epith Cells Urine Bacteria Ethyl Alcohol Hepatitis A IgM Ab Hep Bs Antigen Hep B Core IgM Ab Hep C Ab Index (KEYON) Hep C Ab Interp KEYON Hepatitis Interpret Lab Acknowledgement Test Added Test Added 12/22/23 12/22/23 12/22/23 19:42 21:30 22:18 WBC RBC Hgb Hct MCV MCH MCHC RDW Coeff of Heladio Plt Count Neut % (Auto) Lymph % (Auto) [place] % (Auto) Eos % (Auto) Baso % (Auto) Neut # (Auto) Lymph # (Auto) [place] # (Auto) Eos # (Auto) Baso # (Auto) Abs Immat Gran (auto) Imm/Tot Granulo (auto) INR APTT VBG pH VBG pCO2 VBG pO2 VBG HCO3 Sodium Potassium Chloride Carbon Dioxide Anion Gap BUN Creatinine Estimated Creat Clear Estimated GFR Glucose Lactate Calcium Ionized Calcium Alok Phosphorus Magnesium Iron TIBC % Saturation Ferritin Total Bilirubin Direct Bilirubin GGT AST ALT Alkaline Phosphatase Total Creatine Kinase Troponin I C-Reactive Protein Total Protein Albumin Lipase Procalcitonin TSH Urine Color Urine Appearance Urine pH Ur Specific [place] Urine Protein Urine Glucose (UA) Urine Ketones Urine Blood Urine Nitrite Urine Bilirubin Urine Urobilinogen Ur Leukocyte Esterase Urine RBC Urine WBC Ur Squamous Epith Cells Urine Bacteria Ethyl Alcohol Hepatitis A IgM Ab Hep Bs Antigen Hep B Core IgM Ab Hep C Ab Index (KEYON) Hep C Ab Interp KEYON Hepatitis Interpret Lab Acknowledgement Test Added New Spec Needed Test Added 12/23/23 06:06 WBC 4.47 L RBC 2.84 L Hgb 9.5 L Hct 28.3 L MCV 100 MCH 34 MCHC 34 RDW Coeff of Heladio 14.2 Plt Count 56 L Neut % (Auto) 73.9 H Lymph % (Auto) 16.1 L [place] % (Auto) 9.6 Eos % (Auto) 0.0 Baso % (Auto) 0.2 Neut # (Auto) 3.30 Lymph # (Auto) 0.70 L [place] # (Auto) 0.40 Eos # (Auto) 0.00 Baso # (Auto) 0.00 Abs Immat Gran (auto) 0.00 Imm/Tot Granulo (auto) 0.2 INR APTT VBG pH 7.387 VBG pCO2 40 VBG pO2 32.5 VBG HCO3 24 Sodium 138 Potassium 4.0 Chloride 106 Carbon Dioxide 24 Anion Gap 8 BUN 21 Creatinine 1.6 H Estimated Creat Clear 62.65 Estimated GFR 53 Glucose 166 H Lactate 1.3 Calcium 8.9 Ionized Calcium Alok 1.12 Phosphorus 1.9 L Magnesium 1.8 Iron 37 L TIBC 216 L % Saturation 17 L Ferritin 528.0 H Total Bilirubin 0.7 Direct Bilirubin 0.4 GGT 381 H AST 66 H ALT 56 H Alkaline Phosphatase 85 Total Creatine Kinase Troponin I < 0.01 L C-Reactive Protein 6.2 H Total Protein 6.3 Albumin 3.9 Lipase Procalcitonin 0.65 H TSH 2.860 Urine Color Urine Appearance Urine pH Ur Specific [place] Urine Protein Urine Glucose (UA) Urine Ketones Urine Blood Urine Nitrite Urine Bilirubin Urine Urobilinogen Ur Leukocyte Esterase Urine RBC Urine WBC Ur Squamous Epith Cells Urine Bacteria Ethyl Alcohol Hepatitis A IgM Ab Hep Bs Antigen Hep B Core IgM Ab Hep C Ab Index (KEYON) Hep C Ab Interp KEYON Hepatitis Interpret Lab Acknowledgement Diagnostic results Shoulder x-ray: report reviewed and image reviewed Shoulder CT: report reviewed and image reviewed Assessment and Plan Assessment and plan (1) Fall: Problem comment: DOI 12/21 around 5 am. scooted and worked on getting up for hours; came in by EMS around 2 pm. -complete work up with plain films, CT and labs -humeral head fracture, abrasions on lower abdomen, bruised right elbow, disheveled, in alcohol withdrawal Status: Acute Total time spent: Total time spent is greater than 50% in coordination of care (as documented) at patient's floor/unit and/or counseling patient: (2) Fracture of humeral head, left, closed: Status: Acute Total time spent: Total time spent is greater than 50% in coordination of care (as documented) at patient's floor/unit and/or counseling patient: (3) Alcohol withdrawal: Problem comment: -long hx of alcohol use disorder. has been prescribed naltrexone in the past. openly admits to vodka and being an alcoholic -phenobarbital and CIWA ordered -no hx of withdrawal seizures Status: Acute Total time spent: Total time spent is greater than 50% in coordination of care (as documented) at patient's floor/unit and/or counseling patient: (4) DM (diabetes mellitus), type 2: Problem comment: A1C 5.3 this month; hold metformin bedside glucose monitoring; SSI B sent out [employer] for 2023. Four instances in 2022, most recent w/ Jass Judd. Status: Chronic Total time spent: Total time spent is greater than 50% in coordination of care (as documented) at patient's floor/unit and/or counseling patient: Plan Left shoulder images and CT were reviewed with Dr. Correa and Dr. Peñaloza. At this time, non-operative treatment is recommended. This is Zacarias's non-dominant arm. He did not answer my questions appropriately this morning about his lifestyle/hobbies/demand of his left shoulder, but his activity level seems to be low. I suspect he will do well with non-operative treatment. Zacarias will continue to wear his sling daily and follow-up with Orthopedics upon discharge. For pain management, I strongly recommend against narcotic pain medications due to Zacarias's history of alcoholism, binge drinking episodes and recent syncopal episodes. Instead, I'd recommend a script of tramadol upon discharge. I also recommend frequent icing.
--- NOTE | 2023-12-23 09:00 | CRLHL7_ITS ---
For Patients: As a result of the Century Cures Act, medical imaging exams and procedure reports are released immediately into your electronic medical record. You may view this report before your referring provider. If you have questions, please contact your health care provider. INDICATION: Cirrhosis, liver disease TECHNIQUE: Ultrasound abdomen limited. Sonographic images of the right upper quadrant were obtained using corral-scale and color Doppler images. COMPARISON: None FINDINGS: Liver: Heterogeneous in echotexture with increased echogenicity. No focal lesion. Portal vein hepatopetal. Gallbladder: No stones or sludge. Contracted with mild gallbladder wall thickening. Common bile duct: 4 mm. Pancreas: Partially obscured by bowel gas without discrete lesion. Right kidney: Normal in size. Normal echotexture and cortex. No masses, stones, or hydronephrosis. Vasculature: Proximal abdominal aorta and IVC are normal. IMPRESSION: 1. Contracted gallbladder with mild gallbladder wall thickening. No cholelithiasis seen. Differential diagnosis for the gallbladder wall thickening includes contracted state, hypoproteinemia, underlying liver disease and acalculous cholecystitis. 2. Increased echogenicity of the liver with some heterogeneity suggesting hepatic steatosis and hepatocellular disease. Dictated by Ian Kwok MD @ 12/23/2023 10:00:51 AM (Electronically Signed)
[2023-12-23] MEDS: THIAMINE 250 MG in 0.9 % SODIUM CHLORIDE 100 ml 100 ML 102 MG IVPB ×3 (10:51→21:32)
[2023-12-23] MEDS: MULTIVITAMIN/MINERALS 1 TABLET 1 TAB PO (10:52)
[2023-12-23] MEDS: FOLIC ACID 1 MG TABLET PO (10:52)
--- NOTE | 2023-12-23 11:16 | PM.IMPN1 ---
Progress Note: A&P Assessment and plan (1) Fall: Problem details: DOI 12/21 around 5 am. scooted and worked on getting up for hours; came in by EMS around 2 pm. -complete work up with plain films, CT and labs -humeral head fracture, abrasions on lower abdomen, bruised right elbow, disheveled, in alcohol withdrawal -impart related to dehydration with orthostatic hypotension. Continue with IV fluids. Continue to monitor vitals including orthostatics. Status: Acute (2) Alcoholic ketoacidosis: Problem details: -serum beta hydroxybutyrate increased at 3.57 ([facility] send out pm of 12/22/23) -minimal hyperglycemia -c/w AKA and lactic acidosis -fluids, Dextrose, thiamine, electrolyte replacement Status: Acute (3) Lactic acidosis: Problem details: -related to DM, drinking, withdrawal, hours on the floor this morning. -CK normal -will get BHB sent tonight to [facility] -1+ ketones (after fluid bolus in the ED) -mildly acidotic, mild hyperglycemia -initial management is fluids and consider insulin/D5 and bicarb if not correcting - 12/23/2023 venous blood gases normalized. Status: Acute (4) Syncopal episodes: Problem details: witnessed by EMS at patient's home; witnessed in the ED during movement for xray - likely vasovagal; volume depletion. keeping sepsis on the radar but has not met criteria yet. no seizures. -head CT -labs reveal dehydration, lactic acidosis -labile soft blood pressure -impart related to orthostatic hypotension. Continue with IV fluids. Status: Acute (5) Fracture of humeral head, left, closed: Problem details: -orthopedic surgery assessed and recommended monitoring for now, nonsurgical intervention for now. Consider surgical intervention in the future if and when patient is more stable and if it is warranted. Status: Acute (6) Alcohol withdrawal: Problem details: -long hx of alcohol use disorder. has been prescribed naltrexone in the past. openly admits to vodka and being an alcoholic -phenobarbital and CIWA ordered -no hx of withdrawal seizures -requiring less intervention throughout the day on 12/23/2023. Will transfer to floor care status. Status: Acute (7) Hyperkalemia: Problem details: trending; fluids Status: Acute (8) LESLY (acute kidney injury): Problem details: -2.4 creatinine, baseline is 0.9-1.3 -fluids, hold nephrotoxic agents. CT will be noncontrast Status: Acute (9) Hypomagnesemia: Problem details: High replace, fluids, trend Status: Acute (10) Alcoholic liver disease: Problem details: - RUQ u/s in the morning, acute hepatitis panel ordered -trend labs -INR normal -minimal ascites noted on abd/pelvic CT Status: Acute (11) DM (diabetes mellitus), type 2: Problem details: A1C 5.3 this month; hold metformin bedside glucose monitoring; [facility] for [facility]. Four instances in 2022, most recent w/ Jass D Rayvero. Status: Chronic (12) Peripheral neuropathy: Problem details: -b/l feet Status: Acute (13) Gastroesophageal reflux: Problem details: IV and PO PPI Status: Acute (14) Hypertension: Problem details: -hold home agents -pressures soft; watching for sepsis. one episode of low BP and elevated pulse was a vasovagal episode moving him with painful shoulder for xray. Status: Chronic (15) Anemia: Problem details: - likely multifactorial - continue to trend - continue with PPI empirically Status: Acute Plan 1. Reviewed impression and recommendations with patient. 2. Answered patient's questions to satisfaction. 3. Patient agreeable to above stated plans and recommendations 4. Continue with physical therapy and occupational therapy support, assessment, and intervention. Time Spent With Patient Total time spent: 50 minute Subjective Date Seen: 12/23/23 Interval history: Admission History of Present Illness: 48 y/o WM with hx of alcoholic use disorder, alcohol hepatitis, HTN, Hyperlipidemia, type 2 DM, GERD presents after a fall at home. He reports letting his dogs out this morning around 5 am and is not sure what happened but he went down, hitting his left shoulder on a doorknob. He identified acute left shoulder pain immediately. He may have passed out, not clear. He has been drinking heavily all summer and 2 days ago he decided to quit. So at the time of his fall he was 36 hours from his last drink. After struggling/scooting/sleeping on the floor for several hours, he eventually called a colleague and he came to assist patient. Not being able to stand him up, EMS was summoned. He didn't present to the ED until shortly after 2pm. Initial report: pt is disheveled, dirty, covered in dog hair and incontinent of bowel movement - hypotensive when EMS moved him. syncope x 2, tremulous. ER COURSE: -banana bag ordered. labs, imaging of shoulder -hospital med team took over his care mid ED eval and due to census in the ED and will continue workup/treatment CODE STATUS: FULL CODE EMERGENCY CONTACT PLAN: Lizzy Ann Rel To Pat Mother I've updated the PFSH, medications and allergies in the [facility] tabs. INVESTIGATIONS: LABS/MICRO/ECG/IMAGING Afebrile Lowest measured blood pressure 83/60, currently 107/88 Pulse has been in the 80-90s Pulse ox 100%, room air CBC reflects a total white blood cell count of 9.79 Hemoglobin 12.0 MCV 101 Platelet count 155 INR 1.06 PH 7.28, bicarb 19 Electrolytes reveal a normal sodium. Elevated potassium at 5.5, BUN 23 creatinine 2.4. Bicarb 15 anion gap 22. Glucose 205 Lactate 7.1 Hemoglobin A1c done earlier this month 5.3 Magnesium is low at 1.4 Elevated LFTs, which are not new but there is a new bump in his total bilirubin CT left shoulder Acute comminuted moderately displaced and angulated fracture centered at both the surgical neck and anatomic neck of the humerus. Chest, abdomen, pelvis CT, noncontrast 1. Comminuted fracture of the left proximal humerus is noted. 2. Moderate atherosclerotic calcifications are noted in the coronary arteries. 3. Trace pelvic ascites is noted. Right elbow 1. No acute osseous injuries or abnormalities are noted. Hospital Day # 1: I assessed the patient in his hospital room. Initially he is disoriented, picking at the air around him. In a relatively short period of time he re-orients and is no longer picking at the air around him. Denies generalize pain, including shoulder pain except for if he moves it. I assessed him off and on throughout the day. His cognition and ability to interact with those around him improved drastically throughout the day. He tells me that his condition has improved at least 20% since yesterday in terms of how he feels. Describes having had orthostasis at home and possibly vertigo as well. These are in great measure resolved or resolving. Exam Narrative: Exam Narrative: I examine him in his hospital room. Initially he is in his hospital bed. In time he transfers from his hospital bed to the recliner chair at his bedside. Does require assist with transfers at this time. Initially he was picking at the air and disoriented. In a relatively short period of time throughout the course the day he normalized and becomes oriented to self, place, time, even situation. Friendly and cooperative. Does not have nystagmus. Conjugate gaze. No icterus. Midline nasal septum. Dentition in moderate repair only. Neck is supple. Midline trachea. No JVD or hepatojugular reflux. No head neck lymphadenopathy. Lungs are clear to auscultation without wheezing, rhonchi, or rales. Chest wall excursions are full with respiratory efforts. Heart tones tachycardic, normal S1-S2, without murmur, gallop, or rub. PMI not laterally displaced. Abdomen with active bowel sounds, soft, nontender. Extremities with only trace edema bilateral lower extremities. Left shoulder in sling. Moves fingers of affected left hand without any limitation. Palpable pulses. No obvious focal motor neurologic deficits. Const: Vital Signs, click to edit/add: Vital Signs - 24 hr 12/22/23 14:17 12/22/23 14:34 12/22/23 14:40 Temperature Pulse Rate 92 Pulse Rate [Left D orsalis Pedis] Pulse Rate [Pulse Oximeter] Pulse Rate [Right Pulse Oximeter] 87 Pulse Rate [orthos tatic lying Right Brachial] Pulse Rate [orthos tatic sitting Righ t Brachial] Pulse Rate [orthos tatic standing Rig ht Brachial] Respiratory Rate 18 Blood Pressure Blood Pressure [Ri ght Arm] Blood Pressure [Ri ght Upper Arm] 116/76 Blood Pressure [or thostatic lying Ri ght Arm] Blood Pressure [or thostatic sitting Right Arm] Blood Pressure [or thostatic standing Right Arm] Pulse Oximetry 96 94 100 Oxygen Delivery Me thod Room Air 12/22/23 14:45 12/22/23 14:50 12/22/23 15:02 Temperature Pulse Rate 87 Pulse Rate [Left D orsalis Pedis] Pulse Rate [Pulse Oximeter] Pulse Rate [Right Pulse Oximeter] Pulse Rate [orthos tatic lying Right Brachial] Pulse Rate [orthos tatic sitting Righ t Brachial] Pulse Rate [orthos tatic standing Rig ht Brachial] Respiratory Rate Blood Pressure 131/120 H Blood Pressure [Ri ght Arm] Blood Pressure [Ri ght Upper Arm] Blood Pressure [or thostatic lying Ri ght Arm] Blood Pressure [or thostatic sitting Right Arm] Blood Pressure [or thostatic standing Right Arm] Pulse Oximetry 99 98 Oxygen Delivery Me thod 12/22/23 15:32 12/22/23 15:32 12/22/23 15:34 Temperature Pulse Rate Pulse Rate [Left D orsalis Pedis] 93 Pulse Rate [Pulse Oximeter] Pulse Rate [Right Pulse Oximeter] Pulse Rate [orthos tatic lying Right Brachial] Pulse Rate [orthos tatic sitting Righ t Brachial] Pulse Rate [orthos tatic standing Rig ht Brachial] Respiratory Rate Blood Pressure 83/60 L Blood Pressure [Ri ght Arm] 83/60 L Blood Pressure [Ri ght Upper Arm] Blood Pressure [or thostatic lying Ri ght Arm] Blood Pressure [or thostatic sitting Right Arm] Blood Pressure [or thostatic standing Right Arm] Pulse Oximetry 98 74 L Oxygen Delivery Ia thod 12/22/23 15:41 12/22/23 15:42 12/22/23 15:46 Temperature Pulse Rate Pulse Rate [Left D orsalis Pedis] Pulse Rate [Pulse Oximeter] Pulse Rate [Right Pulse Oximeter] Pulse Rate [orthos tatic lying Right Brachial] Pulse Rate [orthos tatic sitting Righ t Brachial] Pulse Rate [orthos tatic standing Rig ht Brachial] Respiratory Rate Blood Pressure 108/87 Blood Pressure [Ri ght Arm] Blood Pressure [Ri ght Upper Arm] Blood Pressure [or thostatic lying Ri ght Arm] Blood Pressure [or thostatic sitting Right Arm] Blood Pressure [or thostatic standing Right Arm] Pulse Oximetry 98 99 Oxygen Delivery Ia thod 12/22/23 15:50 12/22/23 16:00 12/22/23 16:01 Temperature Pulse Rate Pulse Rate [Left D orsalis Pedis] Pulse Rate [Pulse Oximeter] Pulse Rate [Right Pulse Oximeter] Pulse Rate [orthos tatic lying Right Brachial] Pulse Rate [orthos tatic sitting Righ t Brachial] Pulse Rate [orthos tatic standing Rig ht Brachial] Respiratory Rate Blood Pressure Blood Pressure [Ri ght Arm] Blood Pressure [Ri ght Upper Arm] Blood Pressure [or thostatic lying Ri ght Arm] Blood Pressure [or thostatic sitting Right Arm] Blood Pressure [or thostatic standing Right Arm] Pulse Oximetry 98 98 98 Oxygen Delivery Ia thod 12/22/23 16:07 12/22/23 16:10 12/22/23 16:12 Temperature Pulse Rate Pulse Rate [Left D orsalis Pedis] Pulse Rate [Pulse Oximeter] Pulse Rate [Right Pulse Oximeter] Pulse Rate [orthos tatic lying Right Brachial] Pulse Rate [orthos tatic sitting Righ t Brachial] Pulse Rate [orthos tatic standing Rig ht Brachial] Respiratory Rate Blood Pressure Blood Pressure [Ri ght Arm] Blood Pressure [Ri ght Upper Arm] Blood Pressure [or thostatic lying Ri ght Arm] Blood Pressure [or thostatic sitting Right Arm] Blood Pressure [or thostatic standing Right Arm] Pulse Oximetry 96 97 98 Oxygen Delivery Ia thod 12/22/23 16:20 12/22/23 17:10 12/22/23 17:12 Temperature Pulse Rate Pulse Rate [Left D orsalis Pedis] Pulse Rate [Pulse Oximeter] Pulse Rate [Right Pulse Oximeter] Pulse Rate [orthos tatic lying Right Brachial] Pulse Rate [orthos tatic sitting Righ t Brachial] Pulse Rate [orthos tatic standing Rig ht Brachial] Respiratory Rate Blood Pressure Blood Pressure [Ri ght Arm] Blood Pressure [Ri ght Upper Arm] Blood Pressure [or thostatic lying Ri ght Arm] Blood Pressure [or thostatic sitting Right Arm] Blood Pressure [or thostatic standing Right Arm] Pulse Oximetry 100 100 100 Oxygen Delivery Ia thod 12/22/23 17:30 12/22/23 18:20 12/22/23 18:20 Temperature 98.9 F Pulse Rate Pulse Rate [Left D orsalis Pedis] Pulse Rate [Pulse Oximeter] Pulse Rate [Right Pulse Oximeter] 92 Pulse Rate [orthos tatic lying Right Brachial] Pulse Rate [orthos tatic sitting Righ t Brachial] Pulse Rate [orthos tatic standing Rig ht Brachial] Respiratory Rate 18 Blood Pressure Blood Pressure [Ri ght Arm] Blood Pressure [Ri ght Upper Arm] 107/88 Blood Pressure [or thostatic lying Ri ght Arm] Blood Pressure [or thostatic sitting Right Arm] Blood Pressure [or thostatic standing Right Arm] Pulse Oximetry 100 100 100 Oxygen Delivery Ia thod Room Air Room Air 08/27/24 18:28 12/22/23 18:31 12/22/23 19:30 Temperature 98.3 F 98.3 F Pulse Rate Pulse Rate [Left D orsalis Pedis] 94 93 Pulse Rate [Pulse Oximeter] Pulse Rate [Right Pulse Oximeter] Pulse Rate [orthos tatic lying Right Brachial] Pulse Rate [orthos tatic sitting Righ t Brachial] Pulse Rate [orthos tatic standing Rig ht Brachial] Respiratory Rate 20 20 20 Blood Pressure Blood Pressure [Ri ght Arm] 124/86 124/86 Blood Pressure [Ri ght Upper Arm] Blood Pressure [or thostatic lying Ri ght Arm] Blood Pressure [or thostatic sitting Right Arm] Blood Pressure [or thostatic standing Right Arm] Pulse Oximetry 100 100 100 Oxygen Delivery Ia thod Room Air Room Air Room Air 12/22/23 20:40 12/22/23 21:00 12/22/23 22:00 Temperature 97.4 F L 97.2 F L Pulse Rate 94 Pulse Rate [Left D orsalis Pedis] 98 102 H Pulse Rate [Pulse Oximeter] Pulse Rate [Right Pulse Oximeter] Pulse Rate [orthos tatic lying Right Brachial] Pulse Rate [orthos tatic sitting Righ t Brachial] Pulse Rate [orthos tatic standing Rig ht Brachial] Respiratory Rate 18 20 Blood Pressure Blood Pressure [Ri ght Arm] 129/114 H 116/73 Blood Pressure [Ri ght Upper Arm] Blood Pressure [or thostatic lying Ri ght Arm] Blood Pressure [or thostatic sitting Right Arm] Blood Pressure [or thostatic standing Right Arm] Pulse Oximetry 98 [facility] 12/22/23 22:00 12/22/23 23:00 12/22/23 23:00 Temperature 97.2 F L 98.7 F Pulse Rate 96 Pulse Rate [Left D orsalis Pedis] 102 H Pulse Rate [Pulse Oximeter] 99 Pulse Rate [Right Pulse Oximeter] Pulse Rate [orthos tatic lying Right Brachial] Pulse Rate [orthos tatic sitting Righ t Brachial] Pulse Rate [orthos tatic standing Rig ht Brachial] Respiratory Rate 20 20 Blood Pressure Blood Pressure [Ri ght Arm] 116/73 122/77 Blood Pressure [Ri ght Upper Arm] Blood Pressure [or thostatic lying Ri ght Arm] Blood Pressure [or thostatic sitting Right Arm] Blood Pressure [or thostatic standing Right Arm] Pulse Oximetry 100 99 Oxygen Delivery Me thod Room Air Room Air 12/22/23 23:53 12/23/23 02:00 12/23/23 02:04 Temperature 98.7 F 97.9 F 97.9 F Pulse Rate Pulse Rate [Left D orsalis Pedis] 99 99 99 Pulse Rate [Pulse Oximeter] 99 100 100 Pulse Rate [Right Pulse Oximeter] Pulse Rate [orthos tatic lying Right Brachial] Pulse Rate [orthos tatic sitting Righ t Brachial] Pulse Rate [orthos tatic standing Rig ht Brachial] Respiratory Rate 18 20 20 Blood Pressure Blood Pressure [Ri ght Arm] 122/77 109/85 109/85 Blood Pressure [Ri ght Upper Arm] Blood Pressure [or thostatic lying Ri ght Arm] Blood Pressure [or thostatic sitting Right Arm] Blood Pressure [or thostatic standing Right Arm] Pulse Oximetry 99 100 100 Oxygen Delivery Ia thod Room Air Room Air Room Air 12/23/23 03:00 12/23/23 04:00 12/23/23 05:43 Temperature 97.9 F 97.0 F L Pulse Rate 94 Pulse Rate [Left D orsalis Pedis] Pulse Rate [Pulse Oximeter] 100 94 Pulse Rate [Right Pulse Oximeter] Pulse Rate [orthos tatic lying Right Brachial] Pulse Rate [orthos tatic sitting Righ t Brachial] Pulse Rate [orthos tatic standing Rig ht Brachial] Respiratory Rate 18 16 Blood Pressure Blood Pressure [Ri ght Arm] 105/78 113/84 Blood Pressure [Ri ght Upper Arm] Blood Pressure [or thostatic lying Ri ght Arm] Blood Pressure [or thostatic sitting Right Arm] Blood Pressure [or thostatic standing Right Arm] Pulse Oximetry 100 97 Oxygen Delivery Me thod Room Air Room Air 12/23/23 07:00 12/23/23 07:45 12/23/23 07:47 Temperature 97.1 F L 97.1 F L Pulse Rate 96 Pulse Rate [Left D orsalis Pedis] Pulse Rate [Pulse Oximeter] 101 H 101 H Pulse Rate [Right Pulse Oximeter] Pulse Rate [orthos tatic lying Right Brachial] Pulse Rate [orthos tatic sitting Righ t Brachial] Pulse Rate [orthos tatic standing Rig ht Brachial] Respiratory Rate 16 16 Blood Pressure Blood Pressure [Ri ght Arm] 131/87 Blood Pressure [Ri ght Upper Arm] Blood Pressure [or thostatic lying Ri ght Arm] Blood Pressure [or thostatic sitting Right Arm] Blood Pressure [or thostatic standing Right Arm] Pulse Oximetry 97 97 Oxygen Delivery Me thod Room Air Room Air 12/23/23 08:49 12/23/23 10:00 Temperature 97.4 F L Pulse Rate Pulse Rate [Left D orsalis Pedis] Pulse Rate [Pulse Oximeter] 104 H Pulse Rate [Right Pulse Oximeter] Pulse Rate [orthos tatic lying Right Brachial] 104 H Pulse Rate [orthos tatic sitting Righ t Brachial] 122 H Pulse Rate [orthos tatic standing Rig ht Brachial] 119 H Respiratory Rate 16 Blood Pressure Blood Pressure [Ri ght Arm] 138/92 H Blood Pressure [Ri ght Upper Arm] Blood Pressure [or thostatic lying Ri ght Arm] 138/92 H Blood Pressure [or thostatic sitting Right Arm] 107/76 Blood Pressure [or thostatic standing Right Arm] 97/62 Pulse Oximetry Oxygen Delivery Me thod Room Air Labs Labs: Laboratory Results - last 24 hr 12/22/23 12/22/23 12/22/23 14:35 15:39 16:39 WBC 9.79 RBC 3.64 L Hgb Cancelled 12.0 L Hct 36.7 L MCV 101 H MCH 33 MCHC 33 RDW Coeff of Heladio 14.1 Plt Count 155 Neut % (Auto) 86.6 H Lymph % (Auto) 6.5 L [place] % (Auto) 6.3 Eos % (Auto) 0.1 Baso % (Auto) 0.3 Neut # (Auto) 8.50 H Lymph # (Auto) 0.60 L [place] # (Auto) 0.60 Eos # (Auto) 0.01 Baso # (Auto) 0.03 Abs Immat Gran (auto) 0.02 Imm/Tot Granulo (auto) 0.2 INR 1.06 APTT 25 VBG pH 7.28 L VBG pCO2 40 VBG pO2 < 30.1 VBG HCO3 19 L Sodium 135 Potassium 5.5 H Chloride 98 Carbon Dioxide 15 L Anion Gap 22 H BUN 23 Creatinine 2.4 H Estimated Creat Clear 41.76 Estimated GFR 33 Glucose 205 H Lactate 7.1 H* Calcium 9.9 Ionized Calcium Alok Phosphorus Magnesium 1.4 L Iron TIBC % Saturation Ferritin Total Bilirubin 1.6 H Direct Bilirubin 0.6 H GGT 401 H AST 64 H ALT 69 H Alkaline Phosphatase 74 Total Creatine Kinase 143 Troponin I 0.02 C-Reactive Protein 3.0 H Total Protein 7.2 Albumin 5.0 Lipase 239 Procalcitonin 0.99 H TSH Urine Color [place] A Urine Appearance Turbid A Urine pH 5.5 Ur Specific [place] 1.025 Urine Protein 1+ A Urine Glucose (UA) Negative Urine Ketones 1+ A Urine Blood Negative Urine Nitrite Negative Urine Bilirubin 1+ A Urine Urobilinogen 0.2 Ur Leukocyte Esterase Negative Urine RBC 0-2 Urine WBC 0-2 Ur Squamous Epith Cells None Urine Bacteria None Ethyl Alcohol < 0.01 L Hepatitis A IgM Ab Cancelled Hep Bs Antigen Cancelled Hep B Core IgM Ab Cancelled Hep C Ab Index (KEYON) Cancelled Hep C Ab Interp KEYON Cancelled Hepatitis Interpret Cancelled Lab Acknowledgement 12/22/23 12/22/23 12/22/23 16:56 17:02 18:36 WBC RBC Hgb Hct MCV MCH MCHC RDW Coeff of Heladio Plt Count Neut % (Auto) Lymph % (Auto) [place] % (Auto) Eos % (Auto) Baso % (Auto) Neut # (Auto) Lymph # (Auto) [place] # (Auto) Eos # (Auto) Baso # (Auto) Abs Immat Gran (auto) Imm/Tot Granulo (auto) INR APTT VBG pH 7.362 VBG pCO2 37 L VBG pO2 < 30.1 VBG HCO3 21 Sodium 135 Potassium 5.1 Chloride 102 Carbon Dioxide 22 Anion Gap 11 BUN 24 Creatinine 2.1 H Estimated Creat Clear 47.73 Estimated GFR 38 Glucose 158 H Lactate 1.8 Calcium 9.1 Ionized Calcium Alok Phosphorus Magnesium Iron TIBC % Saturation Ferritin Total Bilirubin Direct Bilirubin GGT AST ALT Alkaline Phosphatase Total Creatine Kinase Troponin I C-Reactive Protein Total Protein Albumin Lipase Procalcitonin TSH Urine Color Urine Appearance Urine pH Ur Specific [place] Urine Protein Urine Glucose (UA) Urine Ketones Urine Blood Urine Nitrite Urine Bilirubin Urine Urobilinogen Ur Leukocyte Esterase Urine RBC Urine WBC Ur Squamous Epith Cells Urine Bacteria Ethyl Alcohol Hepatitis A IgM Ab Hep Bs Antigen Hep B Core IgM Ab Hep C Ab Index (KEYON) Hep C Ab Interp KEYON Hepatitis Interpret Lab Acknowledgement Test Added Test Added 12/22/23 12/22/23 12/22/23 19:42 21:30 22:18 WBC RBC Hgb Hct MCV MCH MCHC RDW Coeff of Heladio Plt Count Neut % (Auto) Lymph % (Auto) [place] % (Auto) Eos % (Auto) Baso % (Auto) Neut # (Auto) Lymph # (Auto) [place] # (Auto) Eos # (Auto) Baso # (Auto) Abs Immat Gran (auto) Imm/Tot Granulo (auto) INR APTT VBG pH VBG pCO2 VBG pO2 VBG HCO3 Sodium Potassium Chloride Carbon Dioxide Anion Gap BUN Creatinine Estimated Creat Clear Estimated GFR Glucose Lactate Calcium Ionized Calcium Alok Phosphorus Magnesium Iron TIBC % Saturation Ferritin Total Bilirubin Direct Bilirubin GGT AST ALT Alkaline Phosphatase Total Creatine Kinase Troponin I C-Reactive Protein Total Protein Albumin Lipase Procalcitonin TSH Urine Color Urine Appearance Urine pH Ur Specific [place] Urine Protein Urine Glucose (UA) Urine Ketones Urine Blood Urine Nitrite Urine Bilirubin Urine Urobilinogen Ur Leukocyte Esterase Urine RBC Urine WBC Ur Squamous Epith Cells Urine Bacteria Ethyl Alcohol Hepatitis A IgM Ab Hep Bs Antigen Hep B Core IgM Ab Hep C Ab Index (KEYON) Hep C Ab Interp KEYON Hepatitis Interpret Lab Acknowledgement Test Added New Spec Needed Test Added 12/23/23 06:06 WBC 4.47 L RBC 2.84 L Hgb 9.5 L Hct 28.3 L MCV 100 MCH 34 MCHC 34 RDW Coeff of Heladio 14.2 Plt Count 56 L Neut % (Auto) 73.9 H Lymph % (Auto) 16.1 L [place] % (Auto) 9.6 Eos % (Auto) 0.0 Baso % (Auto) 0.2 Neut # (Auto) 3.30 Lymph # (Auto) 0.70 L [place] # (Auto) 0.40 Eos # (Auto) 0.00 Baso # (Auto) 0.00 Abs Immat Gran (auto) 0.00 Imm/Tot Granulo (auto) 0.2 INR APTT VBG pH 7.387 VBG pCO2 40 VBG pO2 32.5 VBG HCO3 24 Sodium 138 Potassium 4.0 Chloride 106 Carbon Dioxide 24 Anion Gap 8 BUN 21 Creatinine 1.6 H Estimated Creat Clear 62.65 Estimated GFR 53 Glucose 166 H Lactate 1.3 Calcium 8.9 Ionized Calcium Alok 1.12 Phosphorus 1.9 L Magnesium 1.8 Iron 37 L TIBC 216 L % Saturation 17 L Ferritin 528.0 H Total Bilirubin 0.7 Direct Bilirubin 0.4 GGT 381 H AST 66 H ALT 56 H Alkaline Phosphatase 85 Total Creatine Kinase Troponin I < 0.01 L C-Reactive Protein 6.2 H Total Protein 6.3 Albumin 3.9 Lipase Procalcitonin 0.65 H TSH 2.860 Urine Color Urine Appearance Urine pH Ur Specific [place] Urine Protein Urine Glucose (UA) Urine Ketones Urine Blood Urine Nitrite Urine Bilirubin Urine Urobilinogen Ur Leukocyte Esterase Urine RBC Urine WBC Ur Squamous Epith Cells Urine Bacteria Ethyl Alcohol Hepatitis A IgM Ab Hep Bs Antigen Hep B Core IgM Ab Hep C Ab Index (KEYON) Hep C Ab Interp KEYON Hepatitis Interpret Lab Acknowledgement
[2023-12-23] MEDS: LIDOCAINE 5% PATCH 1 PATCH TRANSDERMA (11:33)
[2023-12-23] MEDS: ACETAMINOPHEN 325 MG TABLET PO (11:35)
[2023-12-23] MEDS: LACTATED RINGERS 500 ML 500 ML IV (12:01)
--- NOTE | 2023-12-23 15:32 | PC.SOCIAL ---
Discharge planning: burlap worker received a voice message from pt's mother, Lizzy, asking for a call back and wanting to know how she can get her son help with his alcohol use disorder. burlap worker met with the pt and shared that the pt's mother called child protective services social worker and left a message and this worker wanted to make sure it was okay for child protective services social worker to call his mother back, even though pt's mother is listed as a contact in pt's chart. Pt stated that it was okay for this worker to call his mother back. burlap worker then asked the pt if he was interested in resources for inpatient or outpatient treatment programs at this time and if so it would be best to call the customer service number on the back of his insurance card to find out what programs are in-network with his insurance company. Pt stated that he had already called his insurance for this information in the past and that he has an e-mail saved from his insurance company with a list of facilities/programs that are in-network with his insurance. Pt said the list was probably over a year old. burlap worker explained that it would be a good idea to call his insurance again to get an updated list. Pt stated that he wasn't interested in going to inpatient or outpatient treatment at this time, but planned to talk to his mom about it in more detail. Pt states that he was going to AA meetings, but they weren't really helping him and he was now interested in getting a sponsor. burlap worker explained that most people meet their sponsor at AA meetings and that there is not a list of sponsors in [place] that can be provided to him and that it would be a good idea for him to go back to the AA meetings and ask if there was anyone available to sponsor him. burlap worker then called pt's mother, Lizzy. burlap worker explained to pt's mother that the pt would have to go through his insurance to see about getting an assessment for alcohol use disorder completed and to find out what programs are in-network with his insurance. Pt's mother shared that she is concerned for his well being and shared that pt is not taking care of himself at home and is not eating. Pt's mother also stated that the friend that pt called for help when he had fallen at home the other day and called 911 shared that they were also concerned for the pt's well being and physical health. burlap worker did give the pt's mother the number for [facility] #[phone], so that pt's mother and pt's friend that helped him can make a Vulnerable Adult report with their concerns for pt's well being. Pt's mother plans to call pt and talk to him about treatment programming. Pt's mother was thankful for the information. Social work to follow-up as needed.
--- NOTE | 2023-12-23 19:54 | PC.NURSE ---
shift note: pt a& o x3 this afternoon. IV dc'to Rt Wrist intact. New iv to Rt FA placed. mallory patent. pain to lt shoulder 2-07/04. radial pulses equal. lt shoulder bruised and swollen. lt arm in sling and elevated.
[2023-12-24] VITALS (16 sets, daily range): BP systolic 90–164; BP diastolic 64–98; PULSE 104–158; RESP 18; TEMP 36.4–37.3; O2SAT 96–98
[2023-12-24] MEDS: 5 % DEXTROSE/0.9% SOD CHLORIDE 1,000 ML 125 ML IV (02:59)
[2023-12-24] MEDS: OMEPRAZOLE 20 MG CAPSULE DR 40 MG PO (06:03)
[2023-12-24 06:33] LABS: Lactate* 1.5 mmol/L (0.5-1.9)
[2023-12-24 06:36] LABS: Basophils Percent Auto 0.4 % (0.0-3.0); Eosinophils Percent Auto 0.4 % (0.0-7.0); Hematocrit 24.1 % (37.0-53.0); Immature Granulocytes Pct Auto 0.4 %; Lymphocytes Percent Auto 26.5 % (20-44); Mean Corpuscular HGB Conc 33 gm/dL (32-36); Mean Corpuscular Hemoglobin 33 pg (26-34); Mean Corpuscular Volume 100 fL (80-100); Monocytes Percent Auto 12.8 % (0.0-11.0); Neutrophils Percent Auto 59.5 % (42.0-72.0); Red Blood Count 2.41 m/uL (4.30-5.90); White Blood Count* 2.26 K/uL (4.50-11.00)
[2023-12-24 06:40] LABS: Platelet Count* 41 K/uL (140-440)
[2023-12-24 06:41] LABS: Slide Review Reflex No
[2023-12-24 06:57] LABS: Albumin* 3.2 g/dL (3.3-5.0); Chloride* 110 mmol/L (96-114)
[2023-12-24 06:58] LABS: Potassium* 3.4 mmol/L (3.6-5.1); Sodium* 139 mmol/L (135-149)
[2023-12-24 07:00] LABS: Alanine Aminotransferase* 54 U/L (4-50); Alkaline Phosphatase* 133 U/L (40-150); Anion Gap 8 mEq/L (7-15); Aspartate Amino Transferase* 79 U/L (12-35); Bilirubin Total* 0.6 mg/dL (0.1-1.5); Blood Urea Nitrogen* 12 mg/dL (5-24); Carbon Dioxide* 21 mmol/L (20-32); Est. Creatinine Clearance* 100.23; Estimated Glomerular Filt Rate 93 ml/min; Total Protein* 5.5 g/dL (6.0-8.3)
[2023-12-24 07:01] LABS: Glucose* 220 mg/dL (60-115); Magnesium* 1.1 mg/dL (1.5-2.6); Phosphorus* 1.4 mg/dL (2.5-4.5)
[2023-12-24 07:03] LABS: C Reactive Protein* 5.1 mg/dL (0.5-1.0)
--- NOTE | 2023-12-24 07:30 | PC.NURSE ---
Pt pleasant and cooperative. VSS Denied need for pain meds overnight. Orthostatic BP this am and dropped significantly from lying to [email or web address]. MD notified. No syncopy while doing them.
[2023-12-24] MEDS: FOLIC ACID 1 MG TABLET PO (09:32)
[2023-12-24] MEDS: POTASSIUM BICARB 25 MEQ EFFERVESCENT TAB PO (09:32)
[2023-12-24] MEDS: MULTIVITAMIN/MINERALS 1 TABLET 1 TAB PO (09:33)
[2023-12-24] MEDS: MAGNESIUM IV 2 GM/50 ML PIGGYBACK IVPB (09:33)
[2023-12-24] MEDS: POTASSIUM PHOS/SODIUM PHOS 250 MG TABLET PO ×4 (09:37→21:38)
[2023-12-24] MEDS: THIAMINE 250 MG in 0.9 % SODIUM CHLORIDE 100 ml 100 ML 102 MG IVPB (11:28)
--- NOTE | 2023-12-24 11:45 | P.IMPN_ITS ---
Progress Note: A&P Assessment and plan (1) Anemia: Problem details: - likely multifactorial, especially in light of chronic alcohol use. No obvious acute bleeding - continue to trend - continue with PPI empirically Status: Acute (2) Alcoholic ketoacidosis: Problem details: -serum beta hydroxybutyrate increased at 3.57 ([facility] send out pm of 12/22/23) -minimal hyperglycemia -c/w AKA and lactic acidosis -Continue fluids, Dextrose, thiamine, electrolyte replacement Status: Acute (3) Fall: Problem details: DOI 12/21 around 5 am. scooted and worked on getting up for hours; came in by EMS around 2 pm. -complete work up with plain films, CT and labs -humeral head fracture, abrasions on lower abdomen, bruised right elbow, disheveled, in alcohol withdrawal -impart related to dehydration with orthostatic hypotension. Continue with IV fluids. Continue to monitor vitals including orthostatics. Status: Acute (4) Lactic acidosis: Problem details: -related to DM, drinking, withdrawal, hours on the floor. -CK normal -1+ ketones (after fluid bolus in the ED) -mildly acidotic, mild hyperglycemia -initial management is fluids and consider insulin/D5 and bicarb if not correcting - 12/23/2023 venous blood gases normalized. -RESOLVED Status: Acute (5) Syncopal episodes: Problem details: witnessed by EMS at patient's home; witnessed in the ED during movement for xray - likely vasovagal; volume depletion. keeping sepsis on the radar but has not met criteria yet. no seizures. -head CT normal -labs reveal dehydration, lactic acidosis -labile soft blood pressure -in part related to orthostatic hypotension. Continue with IV fluids. Status: Acute (6) Fracture of humeral head, left, closed: Problem details: -orthopedic surgery assessed and recommended monitoring for now, nonsurgical intervention for now. Consider surgical intervention in the future if and when patient is more stable and if it is warranted. Status: Acute (7) Alcohol withdrawal: Problem details: -long hx of alcohol use disorder. has been prescribed naltrexone in the past. openly admits to vodka and being an alcoholic -phenobarbital and CIWA ordered -no hx of withdrawal seizures -CIWA greatly improved Status: Acute (8) Hyperkalemia: Problem details: trending; fluids RESOLVED Status: Acute (9) LESLY (acute kidney injury): Problem details: -2.4 creatinine, baseline is 0.9-1.3 -fluids, hold nephrotoxic agents. CT will be noncontrast RESOLVED Status: Acute (10) Hypomagnesemia: Problem details: Continues to be low, denies diarrhea -Replace and follow Status: Acute (11) Alcoholic liver disease: Problem details: - RUQ u/s in the morning, acute hepatitis panel ordered -trend labs -INR normal -minimal ascites noted on abd/pelvic CT Status: Acute (12) DM (diabetes mellitus), type 2: Problem details: A1C 5.3 this month; hold metformin bedside glucose monitoring; SSI BHB sent out [place] for 2023. Four instances in 2022, most recent w/ Jass Judd. Status: Chronic (13) Peripheral neuropathy: Problem details: -b/l feet Status: Acute (14) Gastroesophageal reflux: Problem details: IV and PO PPI Status: Acute (15) Hypertension: Problem details: -hold home agents -pressures soft; watching for sepsis. one episode of low BP and elevated pulse was a vasovagal episode moving him with painful shoulder for xray. Status: Chronic (16) Electrolyte imbalance: Problem details: Magnesium- replacing Potassium- Mild, replacing Phosphorus- Replacing Status: Acute (17) Orthostatic hypotension: Problem details: Continues despite fluid resuscitation -Replete electrolytes -Continue IV fluids -Monitor -If not resolving, consider echocardiogram Status: Acute (18) Pancytopenia: Problem details: Likely due to alcohol use disorder Cell lines have not stabilized, suspect bone marrow suppression -No indication of active bleeding- will need to monitor -Hold off on transfusions at this time Status: Acute Plan See above for specifics: Continue supplemental IVF Replete electrolytes Monitor CBC, Electrolytes Social work appreciated for assistance with chemical dependency resources Time Spent With Patient Total time spent: 40 minutes of care including chart review, interdisciplinary communication, patient counseling, documentation Subjective Date Seen: 12/24/23 Interval history: Zacarias is seen and examined. He feels like he is improving, but still shaky. Orthostatic vitals this morning show significant BP drop with standing. He is still tachycardic despite fluid resuscitation. Electrolytes need repletion. Pancytopenia worsening but no sign of active bleeding. EXAM General: Laying in bed, no distress HEENT: NCAT Resp: CTAB CV: Tachycardic, regular, no murmur Abd: Normal BS, nontender Neuro: No lateralizing deficits. Speech is fluent. Tremulous Psych: Anxious Exam Const: Vital Signs, click to edit/add: Vital Signs - 24 hr 12/23/23 12:00 12/23/23 15:00 12/23/23 15:00 Temperature 97.4 F L 97.8 F Pulse Rate 109 H Pulse Rate [Pulse Oximeter] 118 H 113 H Pulse Rate [orthos tatic lying Right Brachial] Pulse Rate [orthos tatic sitting Righ t Brachial] Pulse Rate [orthos tatic standing Rig ht Brachial] Respiratory Rate 16 18 Blood Pressure [Ri ght Arm] 100/59 L 116/78 Blood Pressure [or thostatic lying Ri ght Arm] Blood Pressure [or thostatic sitting Right Arm] Blood Pressure [or thostatic standing Right Arm] Pulse Oximetry 97 [facility] 12/23/23 18:20 12/23/23 20:50 12/23/23 20:52 Temperature 98.1 F 98.1 F Pulse Rate Pulse Rate [Pulse Oximeter] 112 H 112 H Pulse Rate [orthos tatic lying Right Brachial] Pulse Rate [orthos tatic sitting Righ t Brachial] Pulse Rate [orthos tatic standing Rig ht Brachial] Respiratory Rate 16 16 Blood Pressure [Ri ght Arm] 131/81 131/81 Blood Pressure [or thostatic lying Ri ght Arm] Blood Pressure [or thostatic sitting Right Arm] Blood Pressure [or thostatic standing Right Arm] Pulse Oximetry 100 97 97 Oxygen Delivery La thod Room Air Room Air 12/23/23 21:03 12/23/23 23:00 12/23/23 23:00 Temperature Pulse Rate 114 H 113 H Pulse Rate [Pulse Oximeter] 117 H Pulse Rate [orthos tatic lying Right Brachial] Pulse Rate [orthos tatic sitting Righ t Brachial] Pulse Rate [orthos tatic standing Rig ht Brachial] Respiratory Rate Blood Pressure [Ri ght Arm] Blood Pressure [or thostatic lying Ri ght Arm] Blood Pressure [or thostatic sitting Right Arm] Blood Pressure [or thostatic standing Right Arm] Pulse Oximetry Oxygen Delivery La thod 12/24/23 01:00 12/24/23 01:29 12/24/23 05:00 Temperature 99.1 F 97.5 F L 98.8 F Pulse Rate Pulse Rate [Pulse Oximeter] 117 H 113 H 114 H Pulse Rate [orthos tatic lying Right Brachial] Pulse Rate [orthos tatic sitting Righ t Brachial] Pulse Rate [orthos tatic standing Rig ht Brachial] Respiratory Rate 18 18 18 Blood Pressure [Ri ght Arm] 164/91 H 152/90 H 153/91 H Blood Pressure [or thostatic lying Ri ght Arm] Blood Pressure [or thostatic sitting Right Arm] Blood Pressure [or thostatic standing Right Arm] Pulse Oximetry 98 97 98 Oxygen Delivery Me thod Room Air Room Air Room Air 12/24/23 06:00 12/24/23 06:33 12/24/23 09:00 Temperature 98.2 F Pulse Rate 109 H Pulse Rate [Pulse Oximeter] 109 H Pulse Rate [orthos tatic lying Right Brachial] 114 H Pulse Rate [orthos tatic sitting Righ t Brachial] 140 H Pulse Rate [orthos tatic standing Rig ht Brachial] 158 H Respiratory Rate 18 Blood Pressure [Ri ght Arm] 153/93 H Blood Pressure [or thostatic lying Ri ght Arm] 153/91 H Blood Pressure [or thostatic sitting Right Arm] 116/78 Blood Pressure [or thostatic standing Right Arm] 90/64 Pulse Oximetry 98 Oxygen Delivery La thod Room Air 12/24/23 11:34 Temperature 98.2 F Pulse Rate Pulse Rate [Pulse Oximeter] 110 H Pulse Rate [orthos tatic lying Right Brachial] Pulse Rate [orthos tatic sitting Righ t Brachial] Pulse Rate [orthos tatic standing Rig ht Brachial] Respiratory Rate 18 Blood Pressure [Ri ght Arm] 145/86 H Blood Pressure [or thostatic lying Ri ght Arm] Blood Pressure [or thostatic sitting Right Arm] Blood Pressure [or thostatic standing Right Arm] Pulse Oximetry 98 Oxygen Delivery Me thod Room Air Labs Labs: Laboratory Results - last 24 hr 12/23/23 12/24/23 12:37 05:58 WBC 2.26 L RBC 2.41 L Hgb 8.0 L Hct 24.1 L MCV 100 MCH 33 MCHC 33 RDW Coeff of Heladio 14.0 Plt Count 41 L* Neut % (Auto) 59.5 Lymph % (Auto) 26.5 [place] % (Auto) 12.8 H Eos % (Auto) 0.4 Baso % (Auto) 0.4 Neut # (Auto) 1.30 L Lymph # (Auto) 0.60 L [place] # (Auto) 0.30 Eos # (Auto) 0.00 Baso # (Auto) 0.00 Abs Immat Gran (auto) 0.00 Imm/Tot Granulo (auto) 0.4 Sodium 139 Potassium 3.4 L Chloride 110 Carbon Dioxide 21 Anion Gap 8 BUN 12 Creatinine 1.0 Estimated Creat Clear 100.23 Estimated GFR 93 Glucose 220 H Lactate 2.0 H 1.5 Calcium 8.0 L Phosphorus 1.4 L Magnesium 1.1 L Total Bilirubin 0.6 AST 79 H ALT 54 H Alkaline Phosphatase 133 C-Reactive Protein 5.1 H Total Protein 5.5 L Albumin 3.2 L
--- NOTE | 2023-12-24 12:01 | PC.SOCIAL ---
Discharge planning: web worker met with pt today at his request and provided him with resources for outpatient chemical dependency treatment programs. Pt is interested in doing outpatient treatment at [facility] and is going to call them today to see if they will accept his health insurance. web worker also gave pt the information for the [facility]. Pt also plans on reaching out to them for assistance and guidance with how to navigate through the recovery process. Pt was thankful for the information. Social work to follow-up as needed.
[2023-12-24] MEDS: LIDOCAINE 5% PATCH 1 PATCH TRANSDERMA (13:49)
[2023-12-24 15:15] LABS: Hep A Ab, IgM Negative (Negative); Hep B Core Ab, IgM Negative (Negative); Hep B Surface Antigen Negative (Negative); Hep C Ab by CIA Index 0.08 IV; Hep C Ab by CIA Interp Negative (Negative)
--- NOTE | 2023-12-24 18:56 | CRLHL7_ITS ---
For Patients: As a result of the Century Cures Act, medical imaging exams and procedure reports are released immediately into your electronic medical record. You may view this report before your referring provider. If you have questions, please contact your health care provider. INDICATION: Tachycardia, orthostatic hypotension TECHNIQUE: CT chest with i.v. contrast using pulmonary angiographic technique. Coronal and sagittal reformats were obtained. CONTRAST: 95 mL Isovue 370 COMPARISON: 12/22/2023 FINDINGS: The sensitivity and specificity of the exam are moderately limited by beam hardening artifacts from scanning with the left arm by the patient`s side. Cardiovascular: The pulmonary arteries are unremarkable in enhancement with no evidence of acute pulmonary embolism. The heart has an unremarkable appearance and size. No sign of aneurysm in the thoracic aorta. Moderate atherosclerotic calcifications are noted in the coronary arteries. Mediastinum: No mass or adenopathy seen. Lung: Mild ill-defined nodular peribronchial infiltrates are present in the superior segment of the left lower lobe. Pleura and pericardium: No sign of pleural effusion seen. No significant pericardial effusion is present. Chest wall and axilla: No mass or adenopathy seen. Bone: Unremarkable for age. Upper abdomen: Unremarkable. IMPRESSIONS: 1. No CT evidence of acute pulmonary emboli seen. 2. Moderate atherosclerotic calcifications are noted in the coronary arteries. 3. Mild ill-defined nodular peribronchial infiltrates are present in the superior segment of the left lower lobe. Findings may be due to mild bronchiolitis. Dictated by Agusto Sorto MD @ 12/24/2023 9:33:03 PM Please note that all CT scans at this facility use dose modulation, iterative reconstruction, and/or weight-based dosing when appropriate to reduce radiation dose to as low as reasonably achievable. Dictated by: Agusto Sorto MD @ 12/24/2023 21:33:05 (Electronically Signed)
--- NOTE | 2023-12-24 20:52 | PC.NURSE ---
shift note: pt a&o x3. moderate amount of bilat u/e tremors. vss upon standing this evening prior to sitting in recliner 100/68, HR 130. Pt asymptomatic of vital signs. Dr. Peñaloza notified and order for CT of chest. LS clr. IS performed indept to 2054-2015. Lt shoulder swollen with bruising. Pt states lt shoulder pain 0-2/10. Ice and lido patch applied. IV patent to Rt FA. shawnee chandler'jose ramon intact.
[2023-12-24] MEDS: SODIUM CHLORIDE 0.9 % (FLUSH) 10 ML SYRINGE 5 ML IVF (21:39)
[2023-12-24] MEDS: THIAMINE 250 MG in 0.9 % SODIUM CHLORIDE 100 ml 100 ML 102.5 MG IVPB (21:40)
[2023-12-25] VITALS (13 sets, daily range): BP systolic 104–171; BP diastolic 68–98; PULSE 76–136; RESP 18; TEMP 36.6–37.4; O2SAT 96–97
[2023-12-25] MEDS: THIAMINE 250 MG in 0.9 % SODIUM CHLORIDE 100 ml 100 ML 102.5 MG IVPB (05:41)
[2023-12-25] MEDS: OMEPRAZOLE 20 MG CAPSULE DR 40 MG PO (06:33)
[2023-12-25 06:54] LABS: Basophils Percent Auto 0.4 % (0.0-3.0); Eosinophils Percent Auto 0.4 % (0.0-7.0); Hematocrit 23.7 % (37.0-53.0); Immature Granulocytes Pct Auto 0.4 %; Lymphocytes Percent Auto 27.4 % (20-44); Mean Corpuscular HGB Conc 34 gm/dL (32-36); Mean Corpuscular Hemoglobin 34 pg (26-34); Mean Corpuscular Volume 100 fL (80-100); Monocytes Percent Auto 14.3 % (0.0-11.0); Neutrophils Percent Auto 57.1 % (42.0-72.0); Platelet Count* 51 K/uL (140-440); RDW Coefficient of Variation % 14.3 % (11.5-15.5); Red Blood Count 2.38 m/uL (4.30-5.90); White Blood Count* 2.23 K/uL (4.50-11.00)
[2023-12-25 07:23] LABS: Albumin* 3.4 g/dL (3.3-5.0); Chloride* 105 mmol/L (96-114); Potassium* 3.1 mmol/L (3.6-5.1); Sodium* 137 mmol/L (135-149)
[2023-12-25 07:26] LABS: Alanine Aminotransferase* 75 U/L (4-50); Alkaline Phosphatase* 131 U/L (40-150); Anion Gap 6 mEq/L (7-15); Aspartate Amino Transferase* 84 U/L (12-35); Bilirubin Total* 0.6 mg/dL (0.1-1.5); Blood Urea Nitrogen* 9 mg/dL (5-24); Carbon Dioxide* 26 mmol/L (20-32); Creatinine* 0.9 mg/dL (0.5-1.5); Est. Creatinine Clearance* 111.37; Estimated Glomerular Filt Rate 106 ml/min; Glucose* 156 mg/dL (60-115); Phosphorus* 2.3 mg/dL (2.5-4.5); Total Protein* 5.8 g/dL (6.0-8.3)
[2023-12-25 07:27] LABS: Calcium* 8.3 mg/dL (8.4-10.6); Magnesium* 1.1 mg/dL (1.5-2.6)
[2023-12-25] MEDS: FOLIC ACID 1 MG TABLET PO (09:45)
[2023-12-25] MEDS: MULTIVITAMIN/MINERALS 1 TABLET 1 TAB PO (09:45)
[2023-12-25] MEDS: METOPROLOL TARTRATE 25 MG TABLET PO (09:45)
[2023-12-25] MEDS: PERFLUTREN LIPID MICROSPHERES 2 ML VIAL IV (14:45)
[2023-12-25] MEDS: THIAMINE 100 MG TABLET 250 MG PO ×2 (14:59→20:41)
--- NOTE | 2023-12-25 15:31 | PM.IMPN1 ---
Progress Note: A&P Assessment and plan (1) Anemia: Problem details: - likely multifactorial, especially in light of chronic alcohol use. No obvious acute bleeding - continue to trend. Currently stable to improving - continue with PPI empirically Status: Acute (2) Alcoholic ketoacidosis: Problem details: -serum beta hydroxybutyrate increased at 3.57 ([facility] send out pm of 12/22/23) -minimal hyperglycemia -c/w AKA and lactic acidosis. Bicarb quickly resolved -Continue thiamine, electrolyte replacement Status: Acute (3) Fall: Problem details: DOI 12/21 around 5 am. scooted and worked on getting up for hours; came in by EMS around 2 pm. -complete work up with plain films, CT and labs -humeral head fracture, abrasions on lower abdomen, bruised right elbow, disheveled, in alcohol withdrawal -in part related to dehydration with orthostatic hypotension. Continue to monitor vitals including orthostatics. Status: Acute (4) Lactic acidosis: Problem details: -related to DM, drinking, withdrawal, hours on the floor. -CK normal -1+ ketones (after fluid bolus in the ED) -mildly acidotic, mild hyperglycemia -initial management is fluids and consider insulin/D5 and bicarb if not correcting - 12/23/2023 venous blood gases normalized. -RESOLVED Status: Acute (5) Syncopal episodes: Problem details: witnessed by EMS at patient's home; witnessed in the ED during movement for xray - likely vasovagal; volume depletion. keeping sepsis on the radar but has not met criteria yet. no seizures. -head CT normal -labs reveal dehydration, lactic acidosis -labile soft blood pressure -in part related to orthostatic hypotension. -Echo reassuring Status: Acute (6) Fracture of humeral head, left, closed: Problem details: -orthopedic surgery assessed and recommended monitoring for now, nonsurgical intervention for now. Consider surgical intervention in the future if and when patient is more stable and if it is warranted. -Patient will need referral to orthopedics on discharge Status: Acute (7) Alcohol withdrawal: Problem details: -long hx of alcohol use disorder. has been prescribed naltrexone in the past. openly admits to vodka and being an alcoholic -phenobarbital and CIWA ordered -no hx of withdrawal seizures -CIWA greatly improved Status: Acute (8) Hyperkalemia: Problem details: RESOLVED, now hypOkalemic Status: Acute (9) LESLY (acute kidney injury): Problem details: -2.4 creatinine, baseline is 0.9-1.3 -fluids, hold nephrotoxic agents. CT was noncontrast RESOLVED Status: Acute (10) Hypomagnesemia: Problem details: Continues to be low, denies diarrhea -Replace and follow Status: Acute (11) Alcoholic liver disease: Problem details: - US shows Increased echogenicity of the liver with some heterogeneity suggesting hepatic steatosis and hepatocellular disease -Acute hepatitis panel is negative -trend labs -INR normal -minimal ascites noted on abd/pelvic CT -Most consistent with alcoholic hepatitis, encouraged alcohol cessation and patient is looking into chemical dependency treatment Status: Acute (12) DM (diabetes mellitus), type 2: Problem details: A1C 5.3 this month; hold metformin bedside glucose monitoring; SSI Open Gap for 2023. Four instances in 2022, most recent w/ Jass Judd. Status: Chronic (13) Peripheral neuropathy: Problem details: -b/l feet Status: Acute (14) Gastroesophageal reflux: Problem details: IV and PO PPI Status: Acute (15) Hypertension: Problem details: -hold home agents -pressures soft; watching for sepsis. one episode of low BP and elevated pulse was a vasovagal episode moving him with painful shoulder for xray. Status: Chronic (16) Electrolyte imbalance: Problem details: Magnesium- replacing Potassium- Mild, replacing Phosphorus- Replacing Status: Acute (17) Orthostatic hypotension: Problem details: Continues despite fluid resuscitation. -Continue to replete electrolytes -Echocardiogram reassuring, CTA without PE -Will check cortisol, but suspect that he is still recovering from withdrawal and dehydration -With ongoing tachycardia, I did schedule some metoprolol to see if we could slow his HR to improve cardiac output Status: Acute (18) Pancytopenia: Problem details: Likely due to alcohol use disorder Cell lines have not stabilized, suspect bone marrow suppression -No indication of active bleeding- will need to monitor -Hold off on transfusions at this time Status: Acute Plan See above for specifics: Replete electrolytes Monitor CBC, Electrolytes Ongoing PT/OT Time Spent With Patient Total time spent: 40 minutes of care including chart review, interdisciplinary communication, patient counseling, documentation Subjective Date Seen: 12/25/23 Interval history: John is seen and examined. He continues to have orthostatic vital signs although not dropping as low with his systolic as previously. Electrolytes remain low, requiring replacement. He was able to walk with Physical therapy and after about 30 ft he became more short of breath and somewhat lightheaded. At rest, he feels well and denies any pain in his shoulder. Echocardiogram was obtained and reassuring although preliminary assessment notes increased gradients in the LV outflow tract with and without Valsalva. Official read is still pending. EXAM: General- No distress, sitting up in chair HEENT- NCAT Resp- CTAB CV- RRR borderline tachycardia, no m/g/r MSK- Left arm in sling Exam Const: Vital Signs, click to edit/add: Vital Signs - 24 hr 12/24/23 16:09 12/24/23 16:09 12/24/23 18:00 Temperature 98.1 F 98.1 F Pulse Rate Pulse Rate [Pulse Oximeter] 110 H 110 H Pulse Rate [orthos tatic lying Right Brachial] Pulse Rate [orthos tatic sitting Righ t Brachial] Pulse Rate [orthos tatic standing Rig ht Brachial] Respiratory Rate 18 18 Blood Pressure [Ri ght Arm] 160/98 H 160/98 H Blood Pressure [or thostatic lying Ri ght Arm] Blood Pressure [or thostatic sitting Right Arm] Blood Pressure [or thostatic standing Right Arm] Pulse Oximetry 98 98 96 Oxygen Delivery Me thod Room Air 12/24/23 20:00 12/24/23 21:00 12/24/23 23:00 Temperature 98 F Pulse Rate Pulse Rate [Pulse Oximeter] 114 H 114 H 104 H Pulse Rate [orthos tatic lying Right Brachial] Pulse Rate [orthos tatic sitting Righ t Brachial] Pulse Rate [orthos tatic standing Rig ht Brachial] Respiratory Rate 18 18 Blood Pressure [Ri ght Arm] 154/97 H 154/97 H Blood Pressure [or thostatic lying Ri ght Arm] Blood Pressure [or thostatic sitting Right Arm] Blood Pressure [or thostatic standing Right Arm] Pulse Oximetry 96 96 Oxygen Delivery Me thod Room Air Room Air 12/25/23 00:00 12/25/23 00:00 12/25/23 05:00 Temperature 99.3 F 99.3 F Pulse Rate 111 H Pulse Rate [Pulse Oximeter] 111 H 106 H Pulse Rate [orthos tatic lying Right Brachial] Pulse Rate [orthos tatic sitting Righ t Brachial] Pulse Rate [orthos tatic standing Rig ht Brachial] Respiratory Rate 18 18 Blood Pressure [Ri ght Arm] 151/97 H 171/98 H Blood Pressure [or thostatic lying Ri ght Arm] Blood Pressure [or thostatic sitting Right Arm] Blood Pressure [or thostatic standing Right Arm] Pulse Oximetry 96 96 Oxygen Delivery Me thod Room Air Room Air 12/25/23 05:15 12/25/23 05:16 12/25/23 05:56 Temperature 99.3 F Pulse Rate 106 H Pulse Rate [Pulse Oximeter] 106 H Pulse Rate [orthos tatic lying Right Brachial] 106 H Pulse Rate [orthos tatic sitting Righ t Brachial] 120 H Pulse Rate [orthos tatic standing Rig ht Brachial] 136 H Respiratory Rate 18 Blood Pressure [Ri ght Arm] 171/98 H Blood Pressure [or thostatic lying Ri ght Arm] 171/98 H Blood Pressure [or thostatic sitting Right Arm] 152/97 H Blood Pressure [or thostatic standing Right Arm] 104/68 Pulse Oximetry 96 Oxygen Delivery Me thod Room Air 12/25/23 07:38 Temperature 98.4 F Pulse Rate Pulse Rate [Pulse Oximeter] 104 H Pulse Rate [orthos tatic lying Right Brachial] Pulse Rate [orthos tatic sitting Righ t Brachial] Pulse Rate [orthos tatic standing Rig ht Brachial] Respiratory Rate 18 Blood Pressure [Ri ght Arm] 159/92 H Blood Pressure [or thostatic lying Ri ght Arm] Blood Pressure [or thostatic sitting Right Arm] Blood Pressure [or thostatic standing Right Arm] Pulse Oximetry 97 Oxygen Delivery Ut thod Room Air Labs Labs: Laboratory Results - last 24 hr 12/25/23 05:58 WBC 2.23 L RBC 2.38 L Hgb 8.0 L Hct 23.7 L MCV 100 MCH 34 MCHC 34 RDW Coeff of Heladio 14.3 Plt Count 51 L Neut % (Auto) 57.1 Lymph % (Auto) 27.4 [place] % (Auto) 14.3 H Eos % (Auto) 0.4 Baso % (Auto) 0.4 Neut # (Auto) 1.30 L Lymph # (Auto) 0.60 L [place] # (Auto) 0.30 Eos # (Auto) 0.00 Baso # (Auto) 0.00 Abs Immat Gran (auto) 0.00 Imm/Tot Granulo (auto) 0.4 Sodium 137 Potassium 3.1 L Chloride 105 Carbon Dioxide 26 Anion Gap 6 L BUN 9 Creatinine 0.9 Estimated Creat Clear 111.37 Estimated GFR 106 Glucose 156 H Calcium 8.3 L Phosphorus 2.3 L Magnesium 1.1 L Total Bilirubin 0.6 AST 84 H ALT 75 H Alkaline Phosphatase 131 Total Protein 5.8 L Albumin 3.4 TSH 2.210
[2023-12-25] MEDS: METOPROLOL TARTRATE 25 MG TABLET 12.5 MG PO ×2 (17:16→20:40)
[2023-12-25] MEDS: POTASSIUM PHOS/SODIUM PHOS 250 MG TABLET PO ×2 (17:17→20:45)
--- NOTE | 2023-12-25 17:44 | PC.NURSE ---
Patient worked with PT and OT today. During both sessions, pt had an orthostatic blood pressure taken with a drop of blood pressure into the 90's systolically while standing. With activity this shift, HR increased into the 130's. updated and new order was received for metoprolol QID. Pulse currently in the 90's while resting. Up to the BR with SBA, using the the gait belt and straight cane. Pt denies any dizziness or blurry vision as described in previous shifts.
[2023-12-25] MEDS: MAGNESIUM OXIDE 400 MG TABLET PO (20:41)
[2023-12-25] MEDS: SODIUM CHLORIDE 0.9 % (FLUSH) 10 ML SYRINGE 5 ML IVF (21:42)
--- NOTE | 2023-12-25 21:43 | PC.NURSE ---
Pt had hypertensive blood pressure readings this evening. Notified Dr. Holly via phone at about 1945. Dr. Holly advised no new orders at this time and continue to monitor blood pressure. Patient shows no signs of withdrawl. Pleasant mood. No c/o pain. Ambulates SBA with straight cane.
[2023-12-26] VITALS (15 sets, daily range): BP systolic 113–159; BP diastolic 72–97; PULSE 85–98; RESP 18–20; TEMP 36.5–37.4; O2SAT 97–100
[2023-12-26] MEDS: OMEPRAZOLE 20 MG CAPSULE DR 40 MG PO (06:23)
--- NOTE | 2023-12-26 06:39 | PC.NURSE ---
End of shift [id number] -RN took over pt care at approximately 2300. Pt pleasant and cooperative. Pt observed to sleep, up with standby assistance and cane. Pt denied pain, SOB, n/v, headache. Tolerating RA, regular diet/fluids. Appears to be resting comfortably in bed with call light within reach at end of shift.
[2023-12-26 06:58] LABS: Basophils Percent Auto 0.4 % (0.0-3.0); Eosinophils Percent Auto 1.2 % (0.0-7.0); Hematocrit 25.9 % (37.0-53.0); Hemoglobin* 8.7 gm/dL (13.5-17.5); Immature Granulocytes Pct Auto 0.4 %; Lymphocytes Percent Auto 22.4 % (20-44); Mean Corpuscular HGB Conc 34 gm/dL (32-36); Mean Corpuscular Hemoglobin 33 pg (26-34); Mean Corpuscular Volume 99 fL (80-100); Monocytes Percent Auto 21.7 % (0.0-11.0); Neutrophils Percent Auto 53.9 % (42.0-72.0); Platelet Count* 57 K/uL (140-440); RDW Coefficient of Variation % 14.6 % (11.5-15.5); Red Blood Count 2.61 m/uL (4.30-5.90); White Blood Count* 2.54 K/uL (4.50-11.00)
[2023-12-26 07:01] LABS: Slide Review Reflex No
[2023-12-26 07:17] LABS: Slide Review Reflex No
[2023-12-26 07:18] LABS: Albumin* 3.4 g/dL (3.3-5.0); Chloride* 102 mmol/L (96-114)
[2023-12-26 07:19] LABS: Potassium* 3.4 mmol/L (3.6-5.1); Sodium* 137 mmol/L (135-149)
[2023-12-26 07:21] LABS: Alkaline Phosphatase* 97 U/L (40-150); Anion Gap 8 mEq/L (7-15); Aspartate Amino Transferase* 54 U/L (12-35); Bilirubin Total* 0.7 mg/dL (0.1-1.5); Blood Urea Nitrogen* 12 mg/dL (5-24); Carbon Dioxide* 27 mmol/L (20-32); Creatinine* 0.7 mg/dL (0.5-1.5); Est. Creatinine Clearance* 143.19; Estimated Glomerular Filt Rate 114 ml/min; Total Protein* 5.6 g/dL (6.0-8.3)
[2023-12-26 07:22] LABS: Alanine Aminotransferase* 62 U/L (4-50); Calcium* 8.7 mg/dL (8.4-10.6); Glucose* 144 mg/dL (60-115); Phosphorus* 3.1 mg/dL (2.5-4.5)
[2023-12-26] MEDS: MULTIVITAMIN/MINERALS 1 TABLET 1 TAB PO (08:25)
[2023-12-26] MEDS: FOLIC ACID 1 MG TABLET PO (08:26)
[2023-12-26] MEDS: MAGNESIUM OXIDE 400 MG TABLET PO ×2 (08:26→20:35)
[2023-12-26] MEDS: METOPROLOL TARTRATE 25 MG TABLET 12.5 MG PO ×3 (08:26→20:36)
[2023-12-26] MEDS: SODIUM CHLORIDE 0.9 % (FLUSH) 10 ML SYRINGE 5 ML IVF ×2 (08:27→21:41)
[2023-12-26] MEDS: POTASSIUM PHOS/SODIUM PHOS 250 MG TABLET PO ×4 (08:27→20:35)
[2023-12-26] MEDS: MAGNESIUM IV 2 GM/50 ML PIGGYBACK IVPB ×2 (12:10→14:35)
--- NOTE | 2023-12-26 15:05 | PM.IMPN1 ---
Progress Note: A&P Assessment and plan (1) Hypomagnesemia: Problem details: Continues to be low, denies diarrhea, this is likely contributing to hypokalemia - IV replacement today and follow Status: Acute (2) Anemia: Problem details: - likely multifactorial, especially in light of chronic alcohol use. No obvious acute bleeding - continue to trend. Currently improving - continue with PPI empirically Status: Acute (3) Alcoholic ketoacidosis: Problem details: -serum beta hydroxybutyrate increased at 3.57 ([facility] send out pm of 12/22/23) -minimal hyperglycemia -c/w AKA and lactic acidosis. Bicarb quickly resolved -Continue thiamine, electrolyte replacement Status: Resolved (4) Fall: Problem details: DOI 12/21 around 5 am. scooted and worked on getting up for hours; came in by EMS around 2 pm. -complete work up with plain films, CT and labs -humeral head fracture, abrasions on lower abdomen, bruised right elbow, disheveled, in alcohol withdrawal -in part related to dehydration with orthostatic hypotension. Continue to monitor vitals including orthostatics. - Dehydration resolved. Orthostatic hypotension still present, but asymptomatic. May benefit from outpatient w/u for POTS if this persists despite ETOH abstinence. Status: Acute (5) Lactic acidosis: Problem details: -related to DM, drinking, withdrawal, hours on the floor. -CK normal -1+ ketones (after fluid bolus in the ED) -mildly acidotic, mild hyperglycemia -initial management is fluids and consider insulin/D5 and bicarb if not correcting - 12/23/2023 venous blood gases normalized. -RESOLVED Status: Resolved (6) Syncopal episodes: Problem details: witnessed by EMS at patient's home; witnessed in the ED during movement for xray - likely vasovagal; volume depletion. keeping sepsis on the radar but has not met criteria yet. no seizures. -head CT normal -labs reveal dehydration, lactic acidosis -labile soft blood pressure -in part related to orthostatic hypotension. -Echo reassuring Status: Acute (7) Fracture of humeral head, left, closed: Problem details: -orthopedic surgery assessed and recommended monitoring for now, nonsurgical intervention for now. Consider surgical intervention in the future if and when patient is more stable and if it is warranted. -Patient will need referral to orthopedics on discharge Status: Acute (8) Alcohol withdrawal: Problem details: -long hx of alcohol use disorder. has been prescribed naltrexone in the past. openly admits to vodka and being an alcoholic -phenobarbital and CIWA ordered -no hx of withdrawal seizures -CIWA scores 0-2, remains tremulous Status: Acute (9) Hyperkalemia: Problem details: RESOLVED, now hypOkalemic Status: Resolved (10) LESLY (acute kidney injury): Problem details: -2.4 creatinine, baseline is 0.9-1.3 -fluids, hold nephrotoxic agents. CT was noncontrast RESOLVED Status: Resolved (11) Alcoholic liver disease: Problem details: - US shows Increased echogenicity of the liver with some heterogeneity suggesting hepatic steatosis and hepatocellular disease -Acute hepatitis panel is negative -trend labs -INR normal -minimal ascites noted on abd/pelvic CT -Most consistent with alcoholic hepatitis, encouraged alcohol cessation and patient is looking into chemical dependency treatment Status: Acute (12) DM (diabetes mellitus), type 2: Problem details: A1C 5.3 this month; hold metformin bedside glucose monitoring; SSI Open Gap for 2023. Four instances in 2022, most recent w/ Jass Judd. Status: Chronic (13) Peripheral neuropathy: Problem details: -b/l feet Status: Acute (14) Gastroesophageal reflux: Problem details: Continue PO PPI Status: Acute (15) Hypertension: Problem details: -hold home agents -pressures now elevated, but continues to have orthostatic blood pressure changes, however these are asymptomatic. One episode of low BP and elevated pulse was a vasovagal episode moving him with painful shoulder for xray. - metoprolol started yesterday Status: Chronic (16) Electrolyte imbalance: Problem details: Magnesium- replacing Potassium- Mild, replacing Phosphorus- Replacing Status: Acute (17) Orthostatic hypotension: Problem details: Continues despite fluid resuscitation. -Continue to replete electrolytes -Echocardiogram reassuring, CTA without PE -Will check cortisol, but suspect that he is still recovering from withdrawal and dehydration -With ongoing tachycardia, started metoprolol yesterday to see if we could slow his HR to improve cardiac output Status: Acute (18) Pancytopenia: Problem details: Likely due to alcohol use disorder Cell lines have not stabilized, suspect bone marrow suppression -No indication of active bleeding- will need to monitor -Hold off on transfusions at this time Status: Acute Plan See above for specifics: Replete electrolytes Monitor CBC, Electrolytes Ongoing PT/OT Anticipate probable discharge tomorrow Subjective Time Seen by Provider: 10:50 Date Seen: 12/26/23 Interval history: Zacarias tells me he feels better. He denies any orthostatic symptoms, even when he knows that his blood pressures dropping, as documented by the nursing staff when he stands up. He tells me that he has been trying to contact some inpatient alcohol treatment programs, but he is concerned that they may not be able to take him, because he is still having trouble getting out of bed himself. We talked about how may be he could do an outpatient treatment program instead and if there were finding for it and he still needed it, could do an inpatient treatment program after he has healed his arm. Exam Narrative: Exam Narrative: General: No acute distress. Awake, alert, oriented. No pallor. No jaundice. Tremulous, no asterixis. Smells strongly of urine. Oropharynx: Clear. Mucous membranes moist. Cardiovascular: Regular rate and rhythm. No murmurs, gallops, or rubs. Respiratory: Clear to auscultation bilaterally. No wheezes or crackles. Abdomen: Bowel sounds present. Soft, nondistended, nontender. Extremities: Left arm in sling. No pedal edema. Const: Vital Signs, click to edit/add: Vital Signs - 24 hr 12/25/23 17:00 12/25/23 17:00 12/25/23 18:00 Temperature 97.8 F 97.8 F Pulse Rate Pulse Rate [Pulse Oximeter] 92 92 Respiratory Rate 18 18 Blood Pressure [Ri ght Arm] 120/81 120/81 Pulse Oximetry 97 97 97 Oxygen Delivery Me thod Room Air Room Air 12/25/23 21:00 12/26/23 02:01 12/26/23 06:33 Temperature 97.8 F 98.3 F Pulse Rate 90 Pulse Rate [Pulse Oximeter] 76 88 Respiratory Rate 18 20 Blood Pressure [Ri ght Arm] 163/96 H 157/96 H Pulse Oximetry 97 99 Oxygen Delivery Me thod Room Air Room Air 12/26/23 06:35 12/26/23 08:23 12/26/23 09:29 Temperature 98.3 F 98.8 F Pulse Rate 89 Pulse Rate [Pulse Oximeter] 88 85 Respiratory Rate 20 18 Blood Pressure [Ri ght Arm] 157/96 H 144/97 H Pulse Oximetry 99 97 Oxygen Delivery Me thod Room Air Room Air 12/26/23 09:38 12/26/23 12:12 12/26/23 12:21 Temperature 98.0 F 98.0 F Pulse Rate Pulse Rate [Pulse Oximeter] 85 90 90 Respiratory Rate 18 18 18 Blood Pressure [Ri ght Arm] 113/72 113/72 Pulse Oximetry 98 98 Oxygen Delivery Me thod Room Air Room Air Labs Labs: Laboratory Results - last 24 hr 12/26/23 06:22 WBC 2.54 L RBC 2.61 L Hgb 8.7 L Hct 25.9 L MCV 99 MCH 33 MCHC 34 RDW Coeff of Heladio 14.6 Plt Count 57 L Neut % (Auto) 53.9 Lymph % (Auto) 22.4 [place] % (Auto) 21.7 H Eos % (Auto) 1.2 Baso % (Auto) 0.4 Neut # (Auto) 1.40 L Lymph # (Auto) 0.60 L [place] # (Auto) 0.60 Eos # (Auto) 0.00 Baso # (Auto) 0.00 Abs Immat Gran (auto) 0.00 Imm/Tot Granulo (auto) 0.4 Sodium 137 Potassium 3.4 L Chloride 102 Carbon Dioxide 27 Anion Gap 8 BUN 12 Creatinine 0.7 Estimated Creat Clear 143.19 Estimated GFR 114 Glucose 144 H Calcium 8.7 Phosphorus 3.1 Magnesium 1.0 L Total Bilirubin 0.7 AST 54 H ALT 62 H Alkaline Phosphatase 97 Total Protein 5.6 L Albumin 3.4
--- NOTE | 2023-12-26 15:19 | PC.NURSE ---
End of Shift: Patient pleasant and cooperative, A&O. VSS, afebrile. SpO2 maintained above 90% on RA. CIWA score was 1 this shift. Patient denies pain this shift. Tolerating regular diet. SBA with cane.
[2023-12-26] MEDS: INSULIN ASPART 100 UNIT/ML SUBCUT (17:22)
--- NOTE | 2023-12-26 22:19 | PC.NURSE ---
Pt VSS. A & O x3. Able to ambulate with SBA and cane. Tolerated a regular diet. Pt's left arm was swollen this evening and slightly painful. Pt stated he has been doing a lot of PT exercises and may have overdone it. Denied needing pain medication. RN applied an ice pack to arm for swelling. IV is saline locked and intact.
[2023-12-27 01:23] VITALS: BP 159/86; PULSE 92; RESP 18; TEMP 37.4; O2SAT 98
[2023-12-27 02:20] VITALS: BP 166/94; PULSE 85; RESP 18; TEMP 37.2; O2SAT 98
[2023-12-27 05:58] VITALS: BP 166/94; PULSE 85; RESP 18; TEMP 37.2; O2SAT 98
[2023-12-27] MEDS: OMEPRAZOLE 20 MG CAPSULE DR 40 MG PO (06:02)
[2023-12-27 06:45] LABS: Basophils Percent Auto 0.8 % (0.0-3.0); Eosinophils Percent Auto 1.6 % (0.0-7.0); Hematocrit 24.4 % (37.0-53.0); Hemoglobin* 8.2 gm/dL (13.5-17.5); Immature Granulocytes Pct Auto 0.4 %; Mean Corpuscular HGB Conc 34 gm/dL (32-36); Mean Corpuscular Hemoglobin 33 pg (26-34); Mean Corpuscular Volume 99 fL (80-100); Neutrophils Percent Auto 49.2 % (42.0-72.0); Platelet Count* 74 K/uL (140-440); RDW Coefficient of Variation % 14.5 % (11.5-15.5); Red Blood Count 2.46 m/uL (4.30-5.90); White Blood Count* 2.52 K/uL (4.50-11.00)
[2023-12-27 06:48] LABS: Slide Review Reflex No
[2023-12-27 06:57] LABS: Albumin* 3.5 g/dL (3.3-5.0); Chloride* 101 mmol/L (96-114)
[2023-12-27 06:58] LABS: Sodium* 136 mmol/L (135-149)
[2023-12-27 07:00] LABS: Anion Gap 7 mEq/L (7-15); Aspartate Amino Transferase* 47 U/L (12-35); Bilirubin Total* 0.5 mg/dL (0.1-1.5); Blood Urea Nitrogen* 14 mg/dL (5-24); Carbon Dioxide* 28 mmol/L (20-32); Creatinine* 0.9 mg/dL (0.5-1.5); Est. Creatinine Clearance* 111.37; Estimated Glomerular Filt Rate 106 ml/min; Total Protein* 5.9 g/dL (6.0-8.3)
[2023-12-27 07:01] LABS: Alanine Aminotransferase* 54 U/L (4-50); Alkaline Phosphatase* 105 U/L (40-150); Calcium* 8.4 mg/dL (8.4-10.6); Glucose* 138 mg/dL (60-115); Magnesium* 1.8 mg/dL (1.5-2.6)
[2023-12-27 08:00] VITALS: BP 156/79; PULSE 93; RESP 18; TEMP 36.6; O2SAT 99
[2023-12-27 08:03] VITALS: BP 114/77; BP 153/94; BP 88/54; PULSE 110; PULSE 85; PULSE 99
[2023-12-27] MEDS: FOLIC ACID 1 MG TABLET PO (09:51)
[2023-12-27] MEDS: MAGNESIUM OXIDE 400 MG TABLET PO (09:51)
[2023-12-27] MEDS: SODIUM CHLORIDE 0.9 % (FLUSH) 10 ML SYRINGE 5 ML IVF (09:51)
[2023-12-27] MEDS: METOPROLOL TARTRATE 25 MG TABLET 12.5 MG PO (09:51)
[2023-12-27] MEDS: MULTIVITAMIN/MINERALS 1 TABLET 1 TAB PO (09:51)
[2023-12-27] MEDS: POTASSIUM BICARB 25 MEQ EFFERVESCENT TAB PO ×2 (09:58→12:01)
--- NOTE | 2023-12-27 11:22 | PM.DS1 ---
DS: Providers Provider Time Seen by Provider: 07:45 Date Seen: 12/27/23 Date of admission: 12/22/23 18:20 Primary care physician: Jass Judd MD Admitting Clinician: Maeve Peñaloza MD Consults: 12/22/23 18:20 Consult to Occupational Therapy [CONS] Routine Comment: Reason(s) for OT Consult:: Evaluate and Treat Any Restrictions?:: No Restrictions Consult to Physical Therapy [CONS] Routine Comment: Reason(s) for PT Consult:: Evaluate and Treat Any Restrictions?:: No Restrictions Consult to Transition Nurse [CONS] Routine Comment: Reason for Consult:: Social Service Consult Attending Physician on discharge: Lorena San MD Date of Discharge: 12/27/23 DS: Diagnosis Discharge Diagnosis (1) Pancytopenia: Status: Acute Problem details: Likely due to alcohol use disorder Cell lines have not stabilized, suspect bone marrow suppression -No indication of active bleeding, stable -Hold off on transfusions at this time -Recommended abstinence from alcohol, recheck in clinic, PCP (2) Orthostatic hypotension: Status: Acute Problem details: Continues despite fluid resuscitation and electrolyte repletion -Echocardiogram reassuring, CTA without PE -trial of metoprolol, some improvement in symptoms, but peristent orthostasis. No longer tachycardic at rest. -Cortisol PENDING, will have patient f/u with PCP as he may benefit from florinef. -May need consideration of POTS (3) Electrolyte imbalance: Status: Acute Problem details: Magnesium- resolved Potassium- Mild, replacing Phosphorus- resolved (4) Anemia: Status: Acute Problem details: - likely multifactorial, especially in light of chronic alcohol use, labs indicate possible iron deficiency anemia for which I have started him on oral iron. No obvious acute bleeding - stable - continue with PPI empirically (5) Alcoholic ketoacidosis: Status: Resolved Problem details: -serum beta hydroxybutyrate increased at 3.57 ([facility] send out pm of 12/22/23) -minimal hyperglycemia -c/w AKA and lactic acidosis. Bicarb quickly resolved -Continue thiamine (6) Fall: Status: Acute Problem details: DOI 12/21 around 5 am. scooted and worked on getting up for hours; came in by EMS around 2 pm. -complete work up with plain films, CT and labs -humeral head fracture, abrasions on lower abdomen, bruised right elbow, disheveled, in alcohol withdrawal -in part related to dehydration with orthostatic hypotension. Continue to monitor vitals including orthostatics. - Dehydration resolved. Orthostatic hypotension still present, but asymptomatic. May benefit from outpatient w/u for POTS if this persists despite ETOH abstinence. (7) Lactic acidosis: Status: Resolved Problem details: -related to DM, drinking, withdrawal, hours on the floor. -CK normal -1+ ketones (after fluid bolus in the ED) -mildly acidotic, mild hyperglycemia -initial management is fluids and consider insulin/D5 and bicarb if not correcting - 12/23/2023 venous blood gases normalized. -RESOLVED (8) Syncopal episodes: Status: Acute Problem details: witnessed by EMS at patient's home; witnessed in the ED during movement for xray - likely vasovagal; volume depletion. keeping sepsis on the radar but has not met criteria yet. no seizures. -head CT normal -labs reveal dehydration, lactic acidosis -labile soft blood pressure -in part related to orthostatic hypotension. -Echo reassuring (9) Fracture of humeral head, left, closed: Status: Acute Problem details: -orthopedic surgery assessed and recommended monitoring for now, nonsurgical intervention for now. - outpatient ortho clinic visit (10) Alcohol withdrawal: Status: Acute Problem details: -long hx of alcohol use disorder. has been prescribed naltrexone in the past. openly admits to vodka and being an alcoholic -phenobarbital and CIWA ordered -no hx of withdrawal seizures -CIWA scores 0, tremor improved (11) Hyperkalemia: Status: Resolved Problem details: RESOLVED, now hypOkalemic (12) LESLY (acute kidney injury): Status: Resolved Problem details: -2.4 creatinine, baseline is 0.9-1.3 -fluids, hold nephrotoxic agents. CT was noncontrast RESOLVED (13) Hypomagnesemia: Status: Chronic Problem details: Continues to be low, denies diarrhea, this is likely contributing to hypokalemia - IV replacement improved magnesium level (14) Alcoholic liver disease: Status: Acute Problem details: - US shows Increased echogenicity of the liver with some heterogeneity suggesting hepatic steatosis and hepatocellular disease -Acute hepatitis panel is negative -trend labs -INR normal -minimal ascites noted on abd/pelvic CT -Most consistent with alcoholic hepatitis, encouraged alcohol cessation and patient is looking into chemical dependency treatment (15) DM (diabetes mellitus), type 2: Status: Chronic Problem details: A1C 5.3 this month Cr improved, resuming home meds [place] for 2023. Four instances in 2022, most recent w/ Jass Judd. (16) Peripheral neuropathy: Status: Chronic Problem details: -b/l feet (17) Gastroesophageal reflux: Status: Chronic Problem details: Continue PO PPI (18) Hypertension: Status: Chronic Problem details: -hold home agents -pressures now elevated, but continues to have orthostatic blood pressure changes, however these are asymptomatic. One episode of low BP and elevated pulse was a vasovagal episode moving him with painful shoulder for xray. - metoprolol started, holding other antihypertensives due to orthostasis DS: Summary Hospital Course Hospital Course: This is a 48-year-old male with history of alcohol use disorder, alcohol appetite is, hypertension, hyperlipidemia, type 2 diabetes mellitus, GERD who presented after a fall at home. He has had falls previously related to alcohol as well. During this fall he hit his left shoulder on a door knob. He was unsure if he had passed out. He had been drinking heavily all summer and decided to quit 2 days before this. He was hypotensive when EMS arrived and had 2 episodes of syncope. He was given a banana bag. He was acidotic with an elevated potassium and creatinine upon arrival. He had an elevated beta hydroxybutyrate. He continued to have syncopal episodes and these did not appear consistent with withdrawal seizures as the episodes were very brief and he was immediately lucid afterwards. No tonic clonic movements were observed during the episode. He was also found to have a humeral head fracture on left. He was treated for keto acidosis, LESLY, electrolyte abnormalities, and syncopal episodes. Orthopedic consultation for his shoulder was obtained. He continued to have some orthostatics symptoms and orthostatic hypotension despite volume repletion, electrolyte repletion, and working with PT and OT. Since he was tachycardic and hypertensive at rest, trial of metoprolol was started with some improvement in dizziness, but orthostatic hypotension remained. Cortisol level is still pending at the time of this dictation. He was also noted to have pancytopenia which remained stable during hospitalization. He is overall much improved and is discharged home today in improved condition. PT and OT have worked with him regarding strategies to help with symptoms of orthostasis to prevent falls and syncope. The patient has demonstrated understanding of these strategies. He is also demonstrated motivation to get into alcohol treatment and states that he will be attempting to get in to outpatient alcohol treatment upon discharge. I have asked him to follow-up with his primary care provider later this week to follow-up on the cortisol level, possible further workup for POTS, and to follow-up on pancytopenia and electrolytes. Although he was hyperkalemic upon admission, he has otherwise been hypokalemic and remains so today. His creatinine has improved to baseline. I have placed him on ongoing oral potassium replacement for discharge and will have him follow-up with his primary care physician later this week to recheck potassium as well as the other labs mentioned. I have also started him on iron for anemia. I have also ordered outpatient PT and OT for evaluation treatment of balance. I will have him follow-up with orthopedics as an outpatient for left humeral fracture. Time Spent with Patient Time attestation: Total time spent providing and/or coordinating discharge services: 45 minutes due to chart review and complexity of discharge. Exam Narrative: Exam Narrative: General: No acute distress. Awake, alert, oriented. No pallor. No jaundice. Tremor resolved. Oropharynx: Clear. Mucous membranes moist. Cardiovascular: Regular rate and rhythm. No murmurs, gallops, or rubs. Respiratory: Clear to auscultation bilaterally. No wheezes or crackles. Abdomen: Bowel sounds present. Soft, nondistended, nontender. Extremities: Left arm in sling. No pedal edema. Const: Vital Signs, click to edit/add: Vital Signs - 24 hr 12/26/23 12:12 12/26/23 12:21 12/26/23 15:00 Temperature 98.0 F 98.0 F 97.9 F Pulse Rate [Pulse Oximeter] 90 90 92 Pulse Rate [orthos tatic lying Right Brachial] Pulse Rate [orthos tatic sitting Righ t Brachial] Pulse Rate [orthos tatic standing Rig ht Brachial] Respiratory Rate 18 18 18 Blood Pressure [Ri ght Arm] 113/72 113/72 132/84 Blood Pressure [or thostatic lying Ri ght Arm] Blood Pressure [or thostatic sitting Right Arm] Blood Pressure [or thostatic standing Right Arm] Pulse Oximetry 98 98 98 Oxygen Delivery Me thod Room Air Room Air Room Air 08/31/24 15:00 12/26/23 15:25 12/26/23 18:00 Temperature 97.9 F 97.7 F Pulse Rate [Pulse Oximeter] 92 92 98 Pulse Rate [orthos tatic lying Right Brachial] Pulse Rate [orthos tatic sitting Righ t Brachial] Pulse Rate [orthos tatic standing Rig ht Brachial] Respiratory Rate 18 18 18 Blood Pressure [Ri ght Arm] 132/84 148/96 H Blood Pressure [or thostatic lying Ri ght Arm] Blood Pressure [or thostatic sitting Right Arm] Blood Pressure [or thostatic standing Right Arm] Pulse Oximetry 98 [facility] 12/26/23 19:00 12/26/23 22:00 12/26/23 22:25 Temperature 97.7 F 97.7 F 99.3 F Pulse Rate [Pulse Oximeter] 98 98 92 Pulse Rate [orthos tatic lying Right Brachial] Pulse Rate [orthos tatic sitting Righ t Brachial] Pulse Rate [orthos tatic standing Rig ht Brachial] Respiratory Rate 18 18 18 Blood Pressure [Ri ght Arm] 148/96 H 148/96 H 159/86 H Blood Pressure [or thostatic lying Ri ght Arm] Blood Pressure [or thostatic sitting Right Arm] Blood Pressure [or thostatic standing Right Arm] Pulse Oximetry 100 100 98 [facility] Air 12/26/23 22:28 12/27/23 01:23 12/27/23 02:20 Temperature 99.3 F 98.9 F Pulse Rate [Pulse Oximeter] 92 92 85 Pulse Rate [orthos tatic lying Right Brachial] Pulse Rate [orthos tatic sitting Righ t Brachial] Pulse Rate [orthos tatic standing Rig ht Brachial] Respiratory Rate 18 18 18 Blood Pressure [Ri ght Arm] 159/86 H 166/94 H Blood Pressure [or thostatic lying Ri ght Arm] Blood Pressure [or thostatic sitting Right Arm] Blood Pressure [or thostatic standing Right Arm] Pulse Oximetry 98 98 [facility] 12/27/23 05:58 12/27/23 08:03 Temperature 98.9 F Pulse Rate [Pulse Oximeter] 85 Pulse Rate [orthos tatic lying Right Brachial] 85 Pulse Rate [orthos tatic sitting Righ t Brachial] 99 Pulse Rate [orthos tatic standing Rig ht Brachial] 110 H Respiratory Rate 18 Blood Pressure [Ri ght Arm] 166/94 H Blood Pressure [or thostatic lying Ri ght Arm] 153/94 H Blood Pressure [or thostatic sitting Right Arm] 114/77 Blood Pressure [or thostatic standing Right Arm] 88/54 L Pulse Oximetry 98 Oxygen Delivery Me thod Room Air DS: Data Data Completed and Pending Completed studies during hospitalization: Procedures Detoxification Services for Substance Abuse Treatment (09/09/22) Excision of Left Foot Subcutaneous Tissue and Fascia, Open Approach (09/09/22) Excision of Left Tarsal, Open Approach, Diagnostic (09/09/22) Insertion of Infusion Device into Superior Vena Cava, Percutaneous Approach (09/09/22) Ultrasonography of Superior Vena Cava, Guidance (09/09/22) Labs on day of discharge: Labs from last 24 hours 12/27/23 06:18 WBC 2.52 L RBC 2.46 L Hgb 8.2 L Hct 24.4 L MCV 99 MCH 33 MCHC 34 RDW Coeff of Heladio 14.5 Plt Count 74 L Neut % (Auto) 49.2 Lymph % (Auto) 25.0 Norton % (Auto) 23.0 H Eos % (Auto) 1.6 Baso % (Auto) 0.8 Neut # (Auto) 1.20 L Lymph # (Auto) 0.60 L Norton # (Auto) 0.60 Eos # (Auto) 0.00 Baso # (Auto) 0.00 Abs Immat Gran (auto) 0.00 Imm/Tot Granulo (auto) 0.4 Sodium 136 Potassium 3.0 L Chloride 101 Carbon Dioxide 28 Anion Gap 7 BUN 14 Creatinine 0.9 Estimated Creat Clear 111.37 Estimated GFR 106 Glucose 138 H Calcium 8.4 Magnesium 1.8 Total Bilirubin 0.5 AST 47 H ALT 54 H Alkaline Phosphatase 105 Total Protein 5.9 L Albumin 3.5 12/20/2023 EKG: Normal sinus rhythm, nonspecific ST and T-wave abnormality, 93 beats per minute. 12/22/2023 EKG: Normal sinus rhythm, 91 beats per minute, nonspecific T-wave abnormality, prolonged QT, QTC 460 milliseconds. Ordering Physician: Fidel May M.D. Date of Service: 12/22/23 Procedure(s): XR shoulder LT min 2V Accession Number(s): [id number] cc: Jass Judd M.D.; Fidel May M.D.~ For Patients: As a result of the Cures Act, medical imaging exams and procedure reports are released immediately into your electronic medical record. You may view this report before your referring provider. If you have questions, please contact your health care provider. INDICATION: Fall last night. Bruising and shoulder swelling TECHNIQUE: Shoulder radiograph 3 views left COMPARISON: None FINDINGS: Bone: There is a comminuted fracture of the humeral head and surgical neck present. Joint: The glenohumeral joint is unremarkable. The acromioclavicular joint is unremarkable. Soft tissue: Unremarkable. The visualized hemithorax is unremarkable in appearance. No radiopaque foreign bodies are seen. IMPRESSION: 1. There is a comminuted fracture of the humeral head and surgical neck present. Dictated by Agusto Sorto MD @ 12/22/2023 4:54:28 PM Dictated by: Agusto Sorto MD @ 12/22/2023 16:54:32 (Electronically Signed) Ordering Physician: Fidel May M.D. Date of Service: 12/22/23 Procedure(s): XR chest 1V portable Accession Number(s): [id number] cc: Jass Judd M.D.; Fidel May M.D.~ For Patients: As a result of the Cures Act, medical imaging exams and procedure reports are released immediately into your electronic medical record. You may view this report before your referring provider. If you have questions, please contact your health care provider. INDICATION: Syncope. Acidosis TECHNIQUE: Chest 1 views. COMPARISON: December 19, 2022. FINDINGS: Cardiovascular and mediastinum: Heart size and vasculature are normal in caliber and appearance. Lungs and pleural spaces: Low lung volumes. No sign of infiltrate or mass. No sign of pleural effusion. No pneumothorax. Bones and soft tissues: No significant findings. IMPRESSION: No acute or significant findings. Dictated by Manjeet Fitzgerald MD @ 12/22/2023 6:44:16 PM (Electronically Signed) Ordering Physician: Maeve Peñaloza M.D. Date of Service: 12/22/23 Procedure(s): CT chest abdomen pelv wo con Accession Number(s): [id number] cc: Jass Judd M.D.; Maeve Peñaloza M.D.~ For Patients: As a result of the Century Cures Act, medical imaging exams and procedure reports are released immediately into your electronic medical record. You may view this report before your referring provider. If you have questions, please contact your health care provider. INDICATION: Chest and abdominal injury from Fall, alcoholic liver disease TECHNIQUE: CT chest, abdomen, and pelvis without i.v. contrast. Coronal and sagittal reformats were obtained. COMPARISON: None FINDINGS: CHEST: Cardiovascular: The heart has an unremarkable appearance and size. The pulmonary arteries are unremarkable in appearance. No sign of aneurysm seen in the thoracic aorta. The presence of aortic dissection cannot be evaluated without the use of intravenous contrast. Moderate atherosclerotic calcifications are noted in the coronary arteries. Mediastinum: No mass or adenopathy seen. Lung: No pulmonary contusion, laceration or pneumothorax is seen. Pleura and pericardium: No sign of pleural effusion seen. No significant pericardial effusion is present. Chest wall and axilla: No mass or adenopathy seen. ABDOMEN/PELVIS: Liver: Moderate, diffuse fatty infiltration of the liver is present. Spleen: Unremarkable. Pancreas: Unremarkable. Gallbladder: Unremarkable. Kidney: Unremarkable. No kidney or ureteral stones or obstruction seen. Adrenal: Unremarkable. Bowel: Unremarkable. The appendix is normal in appearance and size. Vascular: Unremarkable. Lymph: Unremarkable. Peritoneum: Unremarkable. No pneumoperitoneum is seen. Trace pelvic ascites is noted. Pelvis: Evaluation of the pelvic soft tissues and osseous structures are limited by beam hardening artifacts from the left femoral dynamic compression screw. Soft tissue: Unremarkable. Bone: Comminuted fracture of the left proximal humerus is noted. Remote, healed right posterolateral 9th rib fracture is seen. IMPRESSIONS: 1. Comminuted fracture of the left proximal humerus is noted. 2. Moderate atherosclerotic calcifications are noted in the coronary arteries. 3. Trace pelvic ascites is noted. Dictated by Agusto Sorto MD @ 12/22/2023 9:21:38 PM Please note that all CT scans at this facility use dose modulation, iterative reconstruction, and/or weight-based dosing when appropriate to reduce radiation dose to as low as reasonably achievable. Dictated by: Agusto Sorto MD @ 12/22/2023 21:21:41 (Electronically Signed) Ordering Physician: Maeve Peñaloza M.D. Date of Service: 12/22/23 Procedure(s): CT head/brain wo con Accession Number(s): [id number] cc: Jass Judd M.D.; Maeve Peñaloza M.D.~ For Patients: As a result of the Cures Act, medical imaging exams and procedure reports are released immediately into your electronic medical record. You may view this report before your referring provider. If you have questions, please contact your health care provider. INDICATION: Fall. COMPARISON: None. TECHNIQUE: Noncontrast CT head. FINDINGS: Normal brain parenchymal morphology. No acute intracranial hemorrhage, acute infarct, mass effect, or fracture. No midline shift. No abnormal ventricular dilatation. Normal calvarium and skull base. Visualized paranasal sinuses mastoid air cells are clear. Normal orbits bilaterally. IMPRESSION: No acute findings. Please note that all CT scans at this facility use dose modulation, iterative reconstruction, and/or weight-based dosing when appropriate to reduce radiation dose to as low as reasonably achievable. Dictated by Shane French MD @ 12/22/2023 8:53:58 PM (Electronically Signed) Ordering Physician: Maeve Peñaloza M.D. Date of Service: 12/22/23 Procedure(s): CT shoulder LT wo con Accession Number(s): [id number] cc: Jass Judd M.D.; Maeve Peñaloza M.D.~ For Patients: As a result of the s Act, medical imaging exams and procedure reports are released immediately into your electronic medical record. You may view this report before your referring provider. If you have questions, please contact your health care provider. INDICATION: Humeral fracture COMPARISON: Same-day left shoulder radiographs TECHNIQUE: CT of the left shoulder without intravenous contrast. FINDINGS: Please see separately dictated report for findings in the chest and abdomen. There is an acute comminuted moderately displaced and moderately angulated fracture centered at both the surgical neck and anatomic neck of the humerus. Normal alignment of the glenohumeral and acromioclavicular joints. Minimal degenerative change of the acromioclavicular joint. No substantial degenerative change of the glenohumeral joint. There is prominent subcutaneous edema at the anterior shoulder and anterior proximal arm compatible with a contusion. Grossly normal rotator cuff muscular bulk. IMPRESSION: Acute comminuted moderately displaced and angulated fracture centered at both the surgical neck and anatomic neck of the humerus. Please note that all CT scans at this facility use dose modulation, iterative reconstruction, and/or weight-based dosing when appropriate to reduce radiation dose to as low as reasonably achievable. Dictated by Facundo Camara MD @ 12/22/2023 8:52:57 PM (Electronically Signed) Ordering Physician: Maeve Peñaloza M.D. Date of Service: 12/22/23 Procedure(s): XR elbow RT 2V Accession Number(s): [id number] cc: Jass Judd M.D.; Maeve Peñaloza M.D.~ For Patients: As a result of the Cures Act, medical imaging exams and procedure reports are released immediately into your electronic medical record. You may view this report before your referring provider. If you have questions, please contact your health care provider. INDICATION: Elbow injury from Fall TECHNIQUE: Elbow radiograph 2 views right COMPARISON: None FINDINGS: Bone: No acute fractures or aggressive bone lesions are identified. Joint: The elbow joint is unremarkable. No significant displacement of the anterior or posterior fat pads noted to suggest an effusion. Soft tissue: IV catheter noted in the antecubital fossa. No radiopaque foreign bodies are seen. IMPRESSION: 1. No acute osseous injuries or abnormalities are noted. Dictated by: Agusto Sorto MD @ 12/22/2023 21:14:18 (Electronically Signed) Ordering Physician: Maeve Peñaloza M.D. Date of Service: 12/23/23 Procedure(s): US abdomen limited Accession Number(s): [id number] cc: Jass Judd M.D.; Maeve Peñaloza M.D.~ For Patients: As a result of the Cures Act, medical imaging exams and procedure reports are released immediately into your electronic medical record. You may view this report before your referring provider. If you have questions, please contact your health care provider. INDICATION: Cirrhosis, liver disease TECHNIQUE: Ultrasound abdomen limited. Sonographic images of the right upper quadrant were obtained using corral-scale and color Doppler images. COMPARISON: None FINDINGS: Liver: Heterogeneous in echotexture with increased echogenicity. No focal lesion. Portal vein hepatopetal. Gallbladder: No stones or sludge. Contracted with mild gallbladder wall thickening. Common bile duct: 4 mm. Pancreas: Partially obscured by bowel gas without discrete lesion. Right kidney: Normal in size. Normal echotexture and cortex. No masses, stones, or hydronephrosis. Vasculature: Proximal abdominal aorta and IVC are normal. IMPRESSION: 1. Contracted gallbladder with mild gallbladder wall thickening. No cholelithiasis seen. Differential diagnosis for the gallbladder wall thickening includes contracted state, hypoproteinemia, underlying liver disease and acalculous cholecystitis. 2. Increased echogenicity of the liver with some heterogeneity suggesting hepatic steatosis and hepatocellular disease. Dictated by Ian Kwok MD @ 12/23/2023 10:00:51 AM (Electronically Signed) Ordering Physician: Maeve Peñaloza M.D. Date of Service: 12/24/23 Procedure(s): CT angio chest PE protocol Accession Number(s): [id number] cc: Jass Judd M.D.; Maeve Peñaloza M.D.~ For Patients: As a result of the Century Cures Act, medical imaging exams and procedure reports are released immediately into your electronic medical record. You may view this report before your referring provider. If you have questions, please contact your health care provider. INDICATION: Tachycardia, orthostatic hypotension TECHNIQUE: CT chest with i.v. contrast using pulmonary angiographic technique. Coronal and sagittal reformats were obtained. CONTRAST: 95 mL Isovue 370 COMPARISON: 12/22/2023 FINDINGS: The sensitivity and specificity of the exam are moderately limited by beam hardening artifacts from scanning with the left arm by the patient`s side. Cardiovascular: The pulmonary arteries are unremarkable in enhancement with no evidence of acute pulmonary embolism. The heart has an unremarkable appearance and size. No sign of aneurysm in the thoracic aorta. Moderate atherosclerotic calcifications are noted in the coronary arteries. Mediastinum: No mass or adenopathy seen. Lung: Mild ill-defined nodular peribronchial infiltrates are present in the superior segment of the left lower lobe. Pleura and pericardium: No sign of pleural effusion seen. No significant pericardial effusion is present. Chest wall and axilla: No mass or adenopathy seen. Bone: Unremarkable for age. Upper abdomen: Unremarkable. IMPRESSIONS: 1. No CT evidence of acute pulmonary emboli seen. 2. Moderate atherosclerotic calcifications are noted in the coronary arteries. 3. Mild ill-defined nodular peribronchial infiltrates are present in the superior segment of the left lower lobe. Findings may be due to mild bronchiolitis. Dictated by Agusto Sorto MD @ 12/24/2023 9:33:03 PM Please note that all CT scans at this facility use dose modulation, iterative reconstruction, and/or weight-based dosing when appropriate to reduce radiation dose to as low as reasonably achievable. Dictated by: Agusto Sorto MD @ 12/24/2023 21:33:05 (Electronically Signed) Discharge Plan Discharge Disposition: Home, Self-Care Date of Admission: 12/22/23 18:20 Attending Provider on Discharge: Lorena San Primary Care Provider: Jass Judd Condition: Stable Anticipated Discharge Date/Time: 12/27/23 11:25 Discharge Medications: New metoprolol tartrate 25 mg tablet 12.5 mg PO BID Qty: 30 0RF ferrous gluconate 324 mg (37.5 mg iron) tablet 324 mg PO DAILY Qty: 30 0RF potassium chloride 20 mEq tablet extended release 20 meq PO DAILY Qty: 30 0RF multivitamin [Daily Multi-Vitamin] Tablet 1 tab PO DAILY Qty: 30 0RF folic acid 400 mcg tablet 0.4 mg PO DAILY Qty: 30 0RF thiamine HCl (vitamin B1) 100 mg tablet 100 mg PO DAILY Qty: 30 0RF Continued (DME) Diabetic Test Strips [facility] See Rx Instructions .Route Rx Instructions: As directed (DME) lancets [Coaguchek Lancets] Misc See Rx Instructions .Route Rx Instructions: As directed lidocaine [Aspercreme (lidocaine)] 4 % adhesive patch,medicated 1 patch topical DAILY PRN cholecalciferol (vitamin D3) 25 mcg (1,000 unit) capsule 25 mcg PO DAILY omeprazole 20 mg capsule,delayed release(DR/EC) 20 mg PO DAILY Qty: 90 0RF metformin 500 mg tablet 500 mg PO BID Qty: 180 0RF Held atorvastatin 20 mg tablet 20 mg PO HS Hold Instructions: Resume on 12/31/23. Hold until seen by Dr. Judd Discontinued aspirin 81 mg tablet,delayed release (DR/EC) 81 mg PO DAILY metoprolol succinate 100 mg tablet extended release 24 hr 100 mg PO DAILY Qty: 90 0RF amlodipine 10 mg tablet 10 mg PO DAILY Qty: 90 0RF lisinopril 40 mg tablet 40 mg PO DAILY Qty: 30 0RF Discharge Orders: Discharge Order (Routine); Ordered 12/27/23 Ordered By: Lorena San Patient Education: Metoprolol (By mouth), Potassium Chloride (By mouth), Thiamine (By mouth), Folic Acid (By mouth), Multivitamins, Adult Formula (By mouth) Additional Instructions: Ortho clinic 1 week for left humeral head fracture. Wear left arm sling until seen by ortho. Outpatient PT/OT eval and treat for balance. Activity Level: Light activity and Use Cane Discharge Diet: Diabetic Follow Up Appointments: Jass Judd MD [Primary Care Provider] - () Shahnaz Vasques MD [Staff Physician] - 12/30/23 9:00 am ([facility] for follow up. PCP was unavailable during desired time frame. At follow up please have them recheck CBC, CMP, and Orthostatic Vital Signs ) Forms: [employer] Info Instructions
--- NOTE | 2023-12-27 14:09 | PC.NURSE ---
Discharge: Patient pleasant and cooperative, A&O. Patient denies pain this shift. IV removed with tip intact. Discharge instructions provided, all questions answered. Discharged to home via wheelchair at 1230.
[2023-12-27 18:38] LABS: Cortisol, Serum 0.4 ug/dL
== END 2023-12-27 12:30 | disposition home or self-care (01) | DRG 775 ==
LOC: ED 17:12 → MEDSURG 17:30
PROVIDERS: Family Medicine; Internal Medicine; Admitting Provider Family Medicine; Emergency Provider Family Medicine; PCP Family Medicine; Visit Provider Family Medicine
DX: F10.288 Alcohol dependence with other alcohol-induced disorder (principal); F10.239 Alcohol dependence with withdrawal, unspecified; K70.11 Alcoholic hepatitis with ascites; N17.9 Acute kidney failure, unspecified; E11.10 Type 2 diabetes mellitus with ketoacidosis without coma; Z79.84 Long term (current) use of oral hypoglycemic drugs; E11.42 Type 2 diabetes mellitus with diabetic polyneuropathy; D61.818 Other pancytopenia; D64.9 Anemia, unspecified; I95.1 Orthostatic hypotension; E87.5 Hyperkalemia; E83.42 Hypomagnesemia; S42.212A Unspecified displaced fracture of surgical neck of left humerus, initial encounter for closed fracture; S42.292A Other displaced fracture of upper end of left humerus, initial encounter for closed fracture; W19.XXXA Unspecified fall, initial encounter; Y92.008 Other place in unspecified non-institutional (private) residence as the place of occurrence of the external cause; R32 Unspecified urinary incontinence; K21.9 Gastro-esophageal reflux disease without esophagitis; R15.9 Full incontinence of feces; I10 Essential (primary) hypertension; E78.5 Hyperlipidemia, unspecified; E86.0 Dehydration
CPT/HCPCS: 36415; 51701; 70450; 71045; 71250; 71275; 73030; 73070; 73200; 74176; 76705; 80048; 80053; 80069; 80074; 80076; 81001; 82077; 82330; 82533; 82550; 82728; 82803; 82962; 82977; 83540; 83550; 83605; 83690; 83735; 84100; 84145; 84443; 84484; 85018; 85025; 85610; 85730; 86140; 93005; 93306; 97110; 97116; 97162; 97166; 97530; 97535; 99284; 99285; 99291; A9153; A9270; J2060; J2470; J2560; J3411; J3475; J7030; J7042; J7120; Q9957; Q9967

== ENCOUNTER 2023-12-30 09:18 | Outpatient (CLI) | payer BC, SELFPAY ==
--- OUTSIDE RECORDS SUMMARY | 2023-12-30 09:23 | XMS_ITS | Referral Summary ---
Author Organization [facility] Address [address] [place] [address] Care Team Providers Care Papier Mache' Molder Name Role Phone Jass Judd MD Primary Care Provider [phone] Allergies No known active allergies Medications Medication [...] on file Medical Devices Implanted Type Area Brass Burnisher Device Identifier Shelf Expiration Date Model / Serial / Lot Plate Syn Dhs 135 Deg 2h - [id number] Implanted:Qty: 1 on 12/20/2022 by Dario Frias MD at [facility] Plate Left: Hip Synthes 10/24/2030 281.102S / / [id number] Scr Cnn Th 16s/T7.3/95 208.895 - [id number] Implanted:Qty: 1 on 12/20/2022 by Dario Frias MD at [facility] Screw/Anch or Left: Hip Synthes 208.895 / / Scr Syn Dhs Lag 95m 280.950 - [id number] Implanted:Qty: 1 on 12/20/2022 by Dario Frias MD at [facility] Screw/Anch or Left: Hip Synthes 280.950 / / Scr Crtx S/T 4. 214.848 - [id number] Implanted:Qty: 1 on 12/20/2022 by Dario Frias MD at [facility] Screw/Anch or Left: Hip Synthes 214.848 / / Scr Crtx S/T 4.546 214.846 - [id number] Implanted:Qty: 1 on 12/20/2022 by Dario Frias MD at [facility] Screw/Anch or Left: Hip Synthes 214.846 / / Procedures Procedure Name Priority Date/Time Associated Diagnosis Comments HBA1C / EAG Add On 12/19/2022 2:01 PM CDT from Last 3 Months or Most Recently Relevant to Health Maintenance Results * Hgb A1c (Glycosolated Hgb) (12/19/2022 2:01 PM CDT) HBA1C (GLYCOSOLATED HGB) 5.1 <5.7 % 12/21/2022 10:31 AM CDT [facility] EAG (EST. AVERAGE GLUCOSE) 100 <117 mg/dL 12/21/2022 10:[address] [facility] Blood 12/19/2022 2:01 PM CDT 12/19/2022 2:09 PM CDT Lola Wright MD CHEMISTRY ORDERABLE [facility] [address] [place] [address] [id number] from Last 3 Months or Most Recently Relevant to Health Maintenance Advance Directives For more information, please contact: [phone] * Full Code (Latest Code Status on File) Date Activated Date Inactivated Comments 12/19/2022 5:01 PM 12/23/2022 7:48 PM Question Answer Comments How was code status determined? Patient Care Teams Papier Mache' Molder Relationship Specialty Start Date End Date Jass Judd MD [address] [place] [address] PCP - General 12/19/22
--- OUTSIDE RECORDS SUMMARY | 2023-12-30 09:23 | XMS_ITS | Clinical Summary ---
Author Organization [facility] Address [place], [place] [address] Care Team Providers Care Piping Manager Name Role Phone Jass Judd MD Primary Care Provider [phone] Allergies No known active allergies Medications Medication [...] SQUARED TOE POST OP SHOE, LARGE, REF: [phone] 1 Each 09/17/2022 Active ammonium lactate 12% [...] without long-term current use of insulin 09/16/2022 Encounters Date Type Department Care Team Description 12/25/2023 2:00 PM CDT Ancillary Procedure [facility] & [address] [address] 12/25/2023 Travel from Last 3 Months Social History Tobacco Use Types Packs/Day Years [...] 45-75 2021 COVID-19 vaccine series ( season) 2023 03/14/2021, 07/27/2020, 07/06/2020 Influenza for age 9-49 12/27/2023 Pneumococcal series for age 6-64 Aged Out No longer eligible b ased on patient's age to complete this topic Procedures Procedure Name Priority Date/Time Associated Diagnosis Comments ECHO TTE COMPLETE W CONTRAST Routine 12/25/2023 2:59 PM CDT Tachycardia Orthostatic hypotension from Last 3 Months Results * ECHO TTE COMPLETE W CONTRAST (12/25/2023 2:59 PM CDT) AORTIC VALVE MEAN PG 6 mmHg EJECTION FRACTION 79 % LVEDD 4.2 cm EJECTION FRACTION > 75% Anatomical Region Laterality Modality Ultrasound 12/25/2023 2:07 PM CDT Narrative 12/25/2023 3:19 PM CDT ECHOCARDIOGRAM MILTON PATRICK ? Accession#: ?? [id number] : ?1975 48 years Study Date: ?? 12/25/2023 2:07:27 PM Gender: M ?BP: ? 159/92 mmHg Height: 183.00 cm ?BSA: ?2.18 m? ? ? Weight: 96.00 kg ? Tech: ? MSR ? Referring MD: NICHOLAS ZALDIVAR Site: ? [facility] Reading Location: Mobile [facility] Patient Location: Inpatient. Procedure: Color Doppler, Spectral Doppler and 2D w/ Contrast. Indication for study: Tachycardia; Orthostatic hypotension Cardiac Rhythm: Regular.Study quality: Good. Final Impressions: 1. Normal LV size, normal wall thickness, hyperdynamic global systolic function with an estimated EF of > 75%. 2. Right ventricular cavity size is normal, global systolic RV function is normal. 3. The aortic valve is normal and trileaflet, no stenosis and no regurgitation. 4. Echo contrast was administered to PT. Unable to turn, scanned supine. Comparison There are no prior studies on this patient for comparison purposes. Chamber Sizes and Function Normal left ventricular size, normal wall thickness, hyperdynamic global systolic function with an estimated EF of > 75%. Left atrial size is normal. Right ventricular cavity size is normal, global systolic RV function is normal. The right atrium is normal. The pulmonary artery is of normal size and origin. The sinus of Valsalva is normal sized. The ascending aorta is normal sized. Valves, RV Pressures and Diastolic Function The aortic valve is normal in structure and trileaflet, no stenosis and no regurgitation. The mitral valve is normal in structure, no mitral regurgitation. Normal diastolic function. The tricuspid valve is normal in structure. Tricuspid regurgitation is regurgitation is not evident. The pulmonic valve is normal. No pulmonary regurgitation. Masses, Effusion, Shunts There is no pericardial effusion. The inferior vena cava is normal sized, respiratory size variation greater than 50%. No left to right shunting was detected by limited color flow Doppler interrogation of the interatrial septum. MEASUREMENTS AND CALCULATIONS 2-D Measurements and LV Function: LVID (d) 4.2 cm LV FS% (2D) ?? 41 % LVID (s) 2.5 cm LVOT diameter 2.1 cm IVS (d) ??1.0 cm HR ?97 bpm LVPW (d) 1.1 cm LA Vol index ??20 ml/m2 Ao Sinus 3.5 cm RV Max 4C (d) 4.5 cm Asc Ao ?? 3.2 cm Diastology: Mitral ? Tissue Doppler E Peak 0.9 m/s e', Septum ? 0.09 m/s A Peak 1.2 m/s e', Lateral ?0.09 m/s E/A ?0.8 ? E/e' Average ?? 10.54 DT ? 99 msec Aortic Valve: Vmax ? 1.7 m/s ??URI (V) ?? 2.50 cm? ? ? VTI ?0.29 m ?? URI (I) ?? 2.66 cm? ? ? LVOT V max 1.2 m/s ??Max PG ?11 mmHg LVOT VTI ?? 0.22 m ?? Mean PG ?? 6 mmHg SV ? 76 ml ?Dim Index 0.77 SV index ?? 35 ml/m? ? ? CO ?7.4 l/min ?CI ?3.4 l/min/m? ? ? Mitral Valve: MVA ?7.7 cm? ? ? MV P 1/2 29 msec Tricuspid Valve and estimated PA pressures: TAPSE 2.0 cm Contrast documentation: 2ml ml diluted Definity, lot #[id number], NDC# [id number] was administered peripherally to PT. Unable to turn, scanned supine. . This study was interpreted by an [facility] accredited facility. CC: HIM (med records) [facility], Med/Surg - IP [facility]. ??Final ?? Procedure Note Fidel Randle MD - 12/25/2023 ECHOCARDIOGRAM MILTON PATRICK : 1975 48 years Study Date: 12/25/2023 2:07:27 PM Gender: M BP: 159/92 mmHg Height: 183.00 cm BSA: 2.18 m? ? ? Weight: 96.00 kg Tech: MSR Referring MD: NICHOLAS ZALDIVAR Site: [facility] Reading Location: Mobile [facility] Patient Location: Inpatient. Procedure: Color Doppler, Spectral Doppler and 2D w/ Contrast. Indication for study: Tachycardia; Orthostatic hypotension Cardiac Rhythm: Regular.Study quality: Good. Final Impressions: 1. Normal LV size, normal wall thickness, hyperdynamic global systolicfunction with an estimated EF of > 75%. 2. Right ventricular cavity size is normal, global systolic RV functionis normal. 3. The aortic valve is normal and trileaflet, no stenosis and noregurgitation. 4. Echo contrast was administered to PT. Unable to turn, scannedsupine. Comparison There are no prior studies on this patient for comparison purposes. Chamber Sizes and Function Normal left ventricular size, normal wall thickness, hyperdynamic globalsystolic function with an estimated EF of > 75%. Left atrial size isnormal. Right ventricular cavity size is normal, global systolic RVfunction is normal. The right atrium is normal. The pulmonary artery is ofnormal size and origin. The sinus of Valsalva is normal sized. Theascending aorta is normal sized. Valves, RV Pressures and Diastolic Function The aortic valve is normal in structure and trileaflet, no stenosis and noregurgitation. The mitral valve is normal in structure, no mitralregurgitation. Normal diastolic function. The tricuspid valve is normal instructure. Tricuspid regurgitation is regurgitation is not evident. Thepulmonic valve is normal. No pulmonary regurgitation. Masses, Effusion, Shunts There is no pericardial effusion. The inferior vena cava is normal sized,respiratory size variation greater than 50%. No left to right shunting wasdetected by limited color flow Doppler interrogation of the interatrialseptum. MEASUREMENTS AND CALCULATIONS 2-D Measurements and LV Function: LVID (d) 4.2 cm LV FS% (2D) 41 % LVID (s) 2.5 cm LVOT diameter 2.1 cm IVS (d) 1.0 cm HR 97 bpm LVPW (d) 1.1 cm LA Vol index 20 ml/m2 Ao Sinus 3.5 cm RV Max 4C (d) 4.5 cm Asc Ao 3.2 cm Diastology: Mitral Tissue Doppler E Peak 0.9 m/s e', Septum 0.09 m/s A Peak 1.2 m/s e', Lateral 0.09 m/s E/A 0.8 E/e' Average 10.54 DT 99 msec Aortic Valve: Vmax 1.7 m/s URI (V) 2.50 cm? ? ? VTI 0.29 m URI (I) 2.66 cm? ? ? LVOT V max 1.2 m/s Max PG 11 mmHg LVOT VTI 0.22 m Mean PG 6 mmHg SV 76 ml Dim Index 0.77 SV index 35 ml/m? ? ? CO 7.4 l/min CI 3.4 l/min/m? ? ? Mitral Valve: MVA 7.7 cm? ? ? MV P 1/2 29 msec Tricuspid Valve and estimated PA pressures: TAPSE 2.0 cm Contrast documentation: 2ml ml diluted Definity, lot #[id number], [facility]#[id number] was administered peripherally to PT. Unable to turn, scannedsupine. . This study was interpreted by an [facility] accredited facility. CC: HIM (med records) [facility], Med/Surg - IP [facility]. Final Nicholas Zaldivar MD ECHO ORD from Last 3 Months Care Teams Piping Manager Relationship Specialty Start Date End Date Jass Judd MD [address] [place] [id number] PCP - General Family Practice 09/17/22
--- OUTSIDE RECORDS SUMMARY | 2023-12-30 09:23 | XMS_ITS | Clinical Summary ---
Author Organization [facility] Address [address] [place] [address] Care Team Providers Care Mri Supervisor Name Role Phone Jass Judd MD Primary Care Provider [phone] Allergies No known active allergies Medications Medication [...] 09/29/2032 09/29/2022 Medical Devices Implanted Type Area Shoemaking Cutter Device Identifier Shelf Expiration Date Model / Serial / Lot Plate Syn Dhs 135 Deg 2h - [id number] Implanted:Qty: 1 on 12/20/2022 by Dario Frias MD at [facility] Plate Left: Hip Synthes 10/24/2030 281.102S / / [id number] Scr Cnn Th 16s/T7.3/95 208.895 - [id number] Implanted:Qty: 1 on 12/20/2022 by Dario Frias MD at [facility] Screw/Anch or Left: Hip Synthes 208.895 / / Scr Syn Dhs Lag 95m 280.950 - [id number] Implanted:Qty: 1 on 12/20/2022 by Dario Frias MD at [facility] Screw/Anch or Left: Hip Synthes 280.950 / / Scr Crtx S/T 4.5/48 214.848 - [id number] Implanted:Qty: 1 on 12/20/2022 by Dario Frias MD at [facility] Screw/Anch or Left: Hip Synthes 214.848 / / Scr Crtx S/T 4.5/46 214.846 - [id number] Implanted:Qty: 1 on 12/20/2022 by Dario Frias [...] 100 <117 mg/dL 12/21/2022 10:31 AM CDT [facility] Blood 12/19/2022 2:01 PM CDT 12/19/2022 2:09 PM CDT Lola Wright MD CHEMISTRY ORDERABLE [facility] [address] [id number] from Last 3 Months or Most Recently Relevant to Health Maintenance Advance Directives For more information, please contact: [phone] * Full Code (Latest Code Status on File) Date Activated Date Inactivated Comments 12/19/2022 5:01 PM 12/23/2022 7:48 PM Question Answer Comments How was code status determined? Patient Care Teams Mri Supervisor Relationship Specialty Start Date End Date Jass Judd MD [address] [place] [address] PCP - General 12/19/22
== END 2023-12-30 09:19 | disposition home or self-care (01) ==
PROVIDERS: PCP Family Medicine; Visit Provider Family Medicine
DX: E87.8 Other disorders of electrolyte and fluid balance, not elsewhere classified (principal)
CPT/HCPCS: 80048; 83735

== ENCOUNTER 2024-05-24 09:00 | Outpatient (RCR) | payer BC, SELFPAY | END 2024-06-30 13:13 | disposition home or self-care (01) | PROVIDERS: PCP Family Medicine; Visit Provider Physician Assistant Surgical | DX: S42.292A Other displaced fracture of upper end of left humerus, initial encounter for closed fracture (principal); M25.512 Pain in left shoulder; R53.1 Weakness; Z51.89 Encounter for other specified aftercare | CPT/HCPCS: 97110; 97140; 97162 ==

== ENCOUNTER 2024-06-22 06:12 | Inpatient (IN) | payer BC, SELFPAY ==
[2024-06-22] VITALS (10 sets, daily range): BP systolic 105–167; BP diastolic 64–88; PULSE 68–108; RESP 16–18; TEMP 36.3–37.1; O2SAT 96–100; BMI 23.7
--- NOTE | 2024-06-22 06:51 | ED.GENADULT ---
HPI - General Adult General Chief complaint: Extremity Pain/Injury, Lower <Jayde Plascencia MD - Last Filed: 06/23/24 02:04> Stated complaint: Possible infection L foot <Jayde Plascencia MD - Last Filed: 06/23/24 02:04> Time Seen by Provider: 06/22/24 06:14 <Jayde Plascencia MD - Last Filed: 06/23/24 02:04> Source: patient <Jayde Plascencia MD - Last Filed: 06/23/24 02:04> Mode of arrival: ambulatory <Jayde Plascencia MD - Last Filed: 06/23/24 02:04> Limitations: no limitations <Jayde Plascencia MD - Last Filed: 06/23/24 02:04> History of Present Illness HPI narrative: 48-year-old male presents to emergency department for evaluation of foot injury. Patient with a history of peripheral neuropathy secondary to alcoholism and diabetes. He has been sober for the past 6 months. Patient reports that he bumped his foot 1 week ago and has been having mild pain in the area since. Toe turned black last night. History of prior ulcers in the foot, he has required some surgical debridement and antibiotics but has never required an amputation. No fevers. Has noticed some wound drainage, swelling of the entire foot with redness over the last few days. Seeing how much it has worsened, patient exhibits some regret for not coming in sooner. Because of the neuropathy, he does not have as much pain and had not realized just how bad it had gotten. No fevers, chest pain, shortness of breath, nausea vomiting or weakness. Did not try any other interventions besides applying bandages to help with symptoms. Past medical history is notable for type 2 diabetes, reports that he actually has great A1c. Prior alcoholism, sober 6 months. Home meds are metoprolol lisinopril metformin atorvastatin omeprazole and vitamin supplements. Current nonsmoker. He is concerned about his 2 dogs at home if he were need to be hospitalized. ROS is notable for ulceration on the left foot only, otherwise denies times 12 systems. <Jayde Plascencia MD - Last Filed: 06/23/24 02:04> Related Data Home medications: Home Medications ?Medication ?Instructions ?Recorded ?Confirmed Diabetic Test Strips 09/29/22 05/24/24 lancets (Coaguchek Lancets) 09/29/22 05/24/24 lidocaine 4 % topical patch 1 patch topical DAILY PRN 01/08/23 05/24/24 (Aspercreme (lidocaine)) cholecalciferol (vitamin D3) 25 25 mcg PO DAILY 12/22/23 06/22/24 mcg (1,000 unit) capsule lisinopril 20 mg tablet 20 mg PO DAILY 06/23/24 06/23/24 Previous Rx's ?Medication ?Instructions ?Recorded atorvastatin 20 mg tablet 20 mg PO QHS #90 tabs 01/04/24 ferrous gluconate 324 mg (37.5 mg 324 mg PO DAILY #90 tabs 01/04/24 iron) tablet folic acid 400 mcg tablet 0.4 mg PO DAILY #90 tabs 01/04/24 metformin 500 mg tablet 500 mg PO BID #180 tabs 01/04/24 metoprolol tartrate 25 mg tablet 12.5 mg (1/2 x 25 mg) PO BID #90 01/04/24 tabs multivitamin (Daily Multi-Vitamin 1 tab PO DAILY #90 tabs 01/04/24 tablet) omeprazole 20 mg capsule,delayed 20 mg PO DAILY #90 caps 01/04/24 release thiamine HCl (vitamin B1) 100 mg 100 mg PO DAILY #90 tabs 01/04/24 tablet <Jayde Plascencia MD - Last Filed: 06/23/24 02:04> Allergies/adverse reactions: Allergies Allergy/AdvReac Type Severity Reaction Status Date / Time No Known Allergies Allergy Unknown Verified 06/22/24 06:30 <Jayde Plascencia MD - Last Filed: 06/23/24 02:04> [facility] Medical History: Medical History Peripheral neuropathy ?G62.9 - Polyneuropathy, unspecified (ICD-10) Gastroesophageal reflux ?K21.9 - Gastro-esophageal reflux disease without esophagitis (ICD-10) Dysphagia ?R13.10 - Dysphagia, unspecified (ICD-10) Osteomyelitis ?M86.9 - Osteomyelitis, unspecified (ICD-10) Pilonidal cyst with abscess ?L05.01 - Pilonidal cyst with abscess (ICD-10) Difficulty sleeping ?G47.9 - Sleep disorder, unspecified (ICD-10) Hypertension ?I10 - Essential (primary) hypertension (ICD-10) Alcohol abuse ?F10.10 - Alcohol abuse, uncomplicated (ICD-10) DM (diabetes mellitus), type 2 ?E11.9 - Type 2 diabetes mellitus without complications (ICD-10) <Jayde Plascencia MD - Last Filed: 06/23/24 02:04> Family History: Family History Father Alcohol dependence <Jayde Plascencia MD - Last Filed: 06/23/24 02:04> Social History: Social History Narrative: Single. Lives independently. Two dogs which help him to stay active. 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 His mother in [place] financially and emotionally supports him. EtOH 5-6 drinks per night, 1.5 shots of vodka each mixed with diet coke. Drinks an average of 1/3 of 1.75L/day. Denies recreational drugs. Former smoker quit 11/09/2023 What is your current living situation?: I presently have a place to live Problems where you live: no known problems Problems where you live details: none In the past 12 months, utilities in danger of being shut off: no In past 12 months, lack of transportation kept you from medical appts, meetings, work, or getting things needed for daily living: no In the past 12 mos, have been you worried that your food would run out before you had money to buy more?: never true In the past 12 mos, the food you bought just didn't last and you didn't have money to buy more?: never true Highest level of school completed/degree received: Bachelor's degree Smoking Status: Former smoker What tobacco products do you use: cigarettes Smoking quit date/years: <= 15 years ago Do you use any of these nicotine containing products: None Second hand tobacco smoke exposure: No How often do you have a drink containing alcohol: never How often do you have six or more drinks on one occasion: Never AUDIT-C Alcohol total score: 0 Non-prescribed substance use: denies use Non-prescribed substance use details: states 6 months sober etoh, smokes 1 cig/day. Caffeine: No How often does anyone, including family, friends and others, physically hurt you: never How often does anyone, including family, friends and others, insult or talk down to you: never How often does anyone, including family, friends and others, threaten you with harm: never How often does anyone, including family, friends and others, scream or curse at you: never service: No <Jayde Plascencia MD - Last Filed: 06/23/24 02:04> Exam Const: Vital Signs, click to edit/add: Vital Signs - 24 hr 06/22/24 11:46 06/22/24 12:00 06/22/24 12:15 Temperature 97.3 F L Pulse Rate 89 81 87 Respiratory Rate 16 16 16 Blood Pressure 132/72 136/78 136/78 Pulse Oximetry 98 99 98 Oxygen Delivery Me thod Room Air Room Air Room Air 06/22/24 12:30 Temperature Pulse Rate 85 Respiratory Rate 16 Blood Pressure 147/84 H Pulse Oximetry 99 Oxygen Delivery Me thod Room Air <Jayde Plascencia MD - Last Filed: 06/23/24 02:04> Vital Signs, click to edit/add: Vital Signs - 24 hr 06/22/24 11:46 06/22/24 12:00 06/22/24 12:15 Temperature 97.3 F L Pulse Rate 89 81 87 Respiratory Rate 16 16 16 Blood Pressure 132/72 136/78 136/78 Pulse Oximetry 98 99 98 Oxygen Delivery Me thod Room Air Room Air Room Air 06/22/24 12:30 Temperature Pulse Rate 85 Respiratory Rate 16 Blood Pressure 147/84 H Pulse Oximetry 99 Oxygen Delivery Me thod Room Air <Nato Glez DO - Last Filed: 06/23/24 11:40> Documenting provider has reviewed patient's vital signs: yes <Jayde Plascencia MD - Last Filed: 06/23/24 02:04> Common normals: no apparent distress and alert <Jayde Plascencia MD - Last Filed: 06/23/24 02:04> General appearance: cooperative and comfortable <MD Eliezer Metcalf Last Filed: 06/23/24 02:04> Other: For leg cooperative. The smell from the wound is quite overwhelming. <Jayde Plascencia MD - Last Filed: 06/23/24 02:04> HENMT: Common normals: normocephalic, moist oral mucous membranes and oropharynx normal <MD Eliezer Metcalf Last Filed: 06/23/24 02:04> Head and scalp: normocephalic <MD Eliezer Metcalf Last Filed: 06/23/24 02:04> Eye: Common normals: conjunctivae normal <MD Eliezer Metcalf Last Filed: 06/23/24 02:04> General eye: normal appearance of both eyes <MD Eliezer Metcalf Last Filed: 06/23/24 02:04> Conjunctiva: conjunctiva(e) normal <MD Eliezer Metcalf Last Filed: 06/23/24 02:04> Neck & C-Spine: Common normals: full ROM and no lymphadenopathy <MD Eliezer Metcalf Last Filed: 06/23/24 02:04> Resp: Common normals: normal respiratory effort, no use of accessory muscles and clear to auscultation bilaterally <MD Eliezer Metcalf Last Filed: 06/23/24 02:04> Effort & inspection: able to speak in complete sentences <MD Eliezer Metcalf Last Filed: 06/23/24 02:04> Auscultation: clear to auscultation bilaterally <MD Eliezer Metcalf Last Filed: 06/23/24 02:04> Cardio: Common normals: regular rate, regular rhythm, S1 normal heart sound, S2 normal heart sound and no murmurs <MD Eliezer Metcalf Last Filed: 06/23/24 02:04> Rate: regular rate <MD Eliezer Metcalf Last Filed: 06/23/24 02:04> Rhythm: regular rhythm <MD Eliezer Metcalf Last Filed: 06/23/24 02:04> Heart sounds: S1 normal and S2 normal <Jayde Plascencia MD - Last Filed: 06/23/24 02:04> GI: Common normals: Normal to inspection, nondistended, normoactive bowel sounds present, soft to palpation, non-tender, no hepatosplenomegaly and no masses <Jayde Plascencia MD - Last Filed: 06/23/24 02:04> Palpation: soft and no hepatosplenomegaly <Jayde Plascencia MD - Last Filed: 06/23/24 02:04> Extremity: Other: Left foot with moderate swelling on the entire mid and forefoot, redness. Large ulceration with purulent drainage at the base of the 5th metatarsal area with dusky discoloration and coolness to the 5th toe entirely. Separate ulceration along the 1st metatarsal dorsally that looks like an old ulcer that has mostly healed. No drainage from that site. <Jayde Plascencia MD - Last Filed: 06/23/24 02:04> Neuro: Sensorium/orientation: alert <Jayde Plascencia MD - Last Filed: 06/23/24 02:04> Other: Decreased sensation in the legs and feet but motor function seems intact. <Jayde Plascencia MD - Last Filed: 06/23/24 02:04> Psych: Appearance: grossly normal <Jayde Plascencia MD - Last Filed: 06/23/24 02:04> Attitude: engaged <Jayde Plascencia MD - Last Filed: 06/23/24 02:04> Mood and affect: euthymic mood <MD Eliezer Metcalf Last Filed: 06/23/24 02:04> Insight: insight good <MD Eliezer Metcalf Last Filed: 06/23/24 02:04> Judgement: judgment good <MD Eliezer Metcalf Last Filed: 06/23/24 02:04> Skin: Narrative: Ulcerations on left foot as described. No other acute rashes noted. <Jayde Plascencia MD - Last Filed: 06/23/24 02:04> Course Course ED Course: 48-year-old male with diabetes and prior vascular disease as well as neuropathy presenting with what appears to be necrosis and osteomyelitis of the left 5th toe. Will obtain blood culture, wound culture, x-ray of the foot and toe specifically. Typical labs. Consult Podiatry, begin vancomycin and Zosyn with anticipated hospital admission. <Jayde Plascencia MD - Last Filed: 06/23/24 02:04> Reevaluation(s) Time of Reevaluation #1: 07:49 <Jayde Plascencia MD - Last Filed: 06/23/24 02:04> Reevaluation #1: Updated patient on findings. X-rays are suspicious for osteomyelitis as suspected. Cultures have been collected. Vancomycin and Zosyn started. Podiatry will be down to see the patient probably around 9:00 a.m.. I spoke with the daytime hospitalist and he will come and evaluate the patient as well. Based on that assessment, can likely move towards admission to [facility] while we await surgical recommendations. <Jayde Plascencia MD - Last Filed: 06/23/24 02:04> Vital Signs Vital signs: Initial Vital Signs Temperature 98.0 F 06/22/24 06:17 Temperature Source Temporal Artery Scan 06/22/24 06:17 Pulse Rate 108 H 06/22/24 06:17 Respiratory Rate 16 06/22/24 06:17 Blood Pressure 167/87 H 06/22/24 06:17 Blood Pressure Mean 113 H 06/22/24 06:17 Blood Pressure Position Sitting 06/22/24 06:17 Pulse Oximetry 96 06/22/24 06:17 Oxygen Delivery Method Room Air 06/22/24 06:17 Vital Signs Temperature 98.0 F 06/22/24 06:17 Pulse Rate 108 H 06/22/24 06:17 Respiratory Rate 16 06/22/24 06:17 Blood Pressure 167/87 H 06/22/24 06:17 Pulse Oximetry 96 06/22/24 06:17 Oxygen Delivery Method Room Air 06/22/24 06:17 Temperature 97.6 F 06/23/24 07:00 Pulse Rate 70 06/23/24 07:00 Respiratory Rate 16 06/23/24 07:00 Blood Pressure 96/64 06/23/24 07:00 Pulse Oximetry 100 06/23/24 07:00 Oxygen Delivery Method Room Air 06/23/24 07:00 <Jayde Plascencia MD - Last Filed: 06/23/24 02:04> Initial Vital Signs Temperature 98.0 F 06/22/24 06:17 Temperature Source Temporal Artery Scan 06/22/24 06:17 Pulse Rate 108 H 06/22/24 06:17 Respiratory Rate 16 06/22/24 06:17 Blood Pressure 167/87 H 06/22/24 06:17 Blood Pressure Mean 113 H 06/22/24 06:17 Blood Pressure Position Sitting 06/22/24 06:17 Pulse Oximetry 96 06/22/24 06:17 Oxygen Delivery Method Room Air 06/22/24 06:17 Vital Signs Temperature 98.0 F 06/22/24 06:17 Pulse Rate 108 H 06/22/24 06:17 Respiratory Rate 16 06/22/24 06:17 Blood Pressure 167/87 H 06/22/24 06:17 Pulse Oximetry 96 06/22/24 06:17 Oxygen Delivery Method Room Air 06/22/24 06:17 Temperature 97.6 F 06/23/24 07:00 Pulse Rate 70 06/23/24 07:00 Respiratory Rate 16 06/23/24 07:00 Blood Pressure 96/64 06/23/24 07:00 Pulse Oximetry 100 06/23/24 07:00 Oxygen Delivery Method Room Air 06/23/24 07:00 <Nato Glez DO - Last Filed: 06/23/24 11:40> Medications Administered Medications: Generic Name Dose Route Start Last Admin Trade Name Donovan PRN Reason Stop Dose Admin Atorvastatin Calcium 20 mg 06/22/24 21:00 06/22/24 20:30 Atorvastatin Calcium 10 Mg Tablet PO 20 mg HS SANIA Administration Enoxaparin Sodium 30 mg 06/23/24 09:00 06/23/24 09:58 Enoxaparin 30 Mg/0.3ml Inj SUBCUT 30 mg Q24H SANIA Administration Ferrous Sulfate 324 mg 06/23/24 09:00 06/23/24 09:55 Ferrous Sulfate 325 Mg Tablet PO 324 mg DAILY SANIA Administration Folic Acid 1 mg 06/23/24 09:00 06/23/24 09:53 Folic Acid 1 Mg Tablet PO 1 mg DAILY SANIA Administration Piperacillin Sod/Tazobactam 100 mls @ 200 mls/hr 06/22/24 13:07 06/23/24 10:39 Sod 3.375 gm/ Sodium Chloride IVPB Infused Q6H SANIA Infusion Vancomycin/PEG/NADA/Lysine/Water 1.25 gm in 250 mls @ 200 mls/hr 06/22/24 21:00 06/23/24 10:39 Vancomycin 1.25 Gm/250 Ml IVPB 200 mls/hr Q12H SANIA Administration Protocol Insulin Aspart 0 unit 06/22/24 17:30 06/23/24 07:40 Insulin Aspart 100 Unit/Ml SUBCUT 1 unit ACHS [facility] Administration Protocol Lisinopril 20 mg 06/22/24 13:07 06/23/24 10:08 Lisinopril 20 Mg Tablet PO Not Given DAILY SANIA Metformin HCl 500 mg 06/22/24 21:00 06/23/24 09:56 Metformin 500 Mg Tablet PO 500 mg BID SANIA Administration Metoprolol Tartrate 12.5 mg 06/22/24 21:00 06/23/24 10:09 Metoprolol Tartrate 25 Mg Tablet PO Not Given BID SANIA Multivitamins/Minerals 1 tab 06/23/24 09:00 06/23/24 09:53 Multivitamin/Minerals 1 Tablet PO 1 tab DAILY SANIA Administration Omeprazole 20 mg 06/23/24 09:00 06/23/24 09:54 Omeprazole [address] PO 20 mg DAILY SANIA Administration Sodium Chloride 5 ml 06/22/24 21:00 06/23/24 09:57 Sodium Chloride 0.9 % (Flush) 10 Ml Syringe IVF 5 ml BID SANIA Administration Thiamine HCl 100 mg 06/23/24 09:00 06/23/24 09:53 Thiamine 100 Mg Tablet PO 100 mg DAILY SANIA Administration Discontinued Medications Generic Name Dose Route Start Last Admin Trade Name Freq PRN Reason Stop Dose Admin Bupivacaine HCl 30 ml 06/22/24 11:20 06/22/24 11:20 Bupivacaine 0.25% 30 Ml INJECTION 06/22/24 11:21 30 ml ONCE ONE Administration Vancomycin/PEG/NADA/Lysine/Water 1.5 gm in 300 mls @ 200 mls/hr 06/22/24 06:51 06/22/24 09:05 Vancomycin 1.5 Gm/300 Ml IVPB 06/22/24 08:20 Infused ONCE ONE Infusion Protocol Piperacillin Sod/Tazobactam 100 mls @ 200 mls/hr 06/22/24 06:51 06/22/24 07:25 Sod 3.375 gm/ Sodium Chloride IVPB 06/22/24 06:52 Infused ONCE ONE Infusion Lactated Ringer's 1,000 mls @ 75 mls/hr 06/22/24 10:30 06/22/24 10:30 Lactated Ringers 1000 Ml IV 75 mls/hr .[id number] SANIA Administration <Jayde Plascencia MD - Last Filed: 06/23/24 02:04> Generic Name Dose Route Start Last Admin Trade Name Freq PRN Reason Stop Dose Admin Atorvastatin Calcium 20 mg 06/22/24 21:00 06/22/24 20:30 Atorvastatin Calcium 10 Mg Tablet PO 20 mg HS SANIA Administration Enoxaparin Sodium 30 mg 06/23/24 09:00 06/23/24 09:58 Enoxaparin 30 Mg/0.3ml Inj SUBCUT 30 mg Q24H SANIA Administration Ferrous Sulfate 324 mg 06/23/24 09:00 06/23/24 09:55 Ferrous Sulfate 325 Mg Tablet PO 324 mg DAILY SANIA Administration Folic Acid 1 mg 06/23/24 09:00 06/23/24 09:53 Folic Acid 1 Mg Tablet PO 1 mg DAILY SANIA Administration Piperacillin Sod/Tazobactam 100 mls @ 200 mls/hr 06/22/24 13:07 06/23/24 10:39 Sod 3.375 gm/ Sodium Chloride IVPB Infused Q6H SANIA Infusion Vancomycin/PEG/NADA/Lysine/Water 1.25 gm in 250 mls @ 200 mls/hr 06/22/24 21:00 06/23/24 10:39 Vancomycin 1.25 Gm/250 Ml IVPB 200 mls/hr Q12H SANIA Administration Protocol Insulin Aspart 0 unit 06/22/24 17:30 06/23/24 07:40 Insulin Aspart 100 Unit/Ml SUBCUT 1 unit ACHS SANIA Administration Protocol Lisinopril 20 mg 06/22/24 13:07 06/23/24 10:08 Lisinopril 20 Mg Tablet PO Not Given DAILY SANIA Metformin HCl 500 mg 06/22/24 21:00 06/23/24 09:56 Metformin 500 Mg Tablet PO 500 mg BID SANIA Administration Metoprolol Tartrate 12.5 mg 06/22/24 21:00 06/23/24 10:09 Metoprolol Tartrate 25 Mg Tablet PO Not Given BID SANIA Multivitamins/Minerals 1 tab 06/23/24 09:00 06/23/24 09:53 Multivitamin/Minerals 1 Tablet PO 1 tab DAILY ASNIA Administration Omeprazole 20 mg 06/23/24 09:00 06/23/24 09:54 Omeprazole [address] PO 20 mg DAILY SANIA Administration Sodium Chloride 5 ml 06/22/24 21:00 06/23/24 09:57 Sodium Chloride 0.9 % (Flush) 10 Ml Syringe IVF 5 ml BID SANIA Administration Thiamine HCl 100 mg 06/23/24 09:00 06/23/24 09:53 Thiamine 100 Mg Tablet PO 100 mg DAILY SANIA Administration Discontinued Medications Generic Name Dose Route Start Last Admin Trade Name Freq PRN Reason Stop Dose Admin Bupivacaine HCl 30 ml 06/22/24 11:20 06/22/24 11:20 Bupivacaine 0.25% 30 Ml INJECTION 06/22/24 11:21 30 ml ONCE ONE Administration Vancomycin/PEG/NADA/Lysine/Water 1.5 gm in 300 mls @ 200 mls/hr 06/22/24 06:51 06/22/24 09:05 Vancomycin 1.5 Gm/300 Ml IVPB 06/22/24 08:20 Infused ONCE ONE Infusion Protocol Piperacillin Sod/Tazobactam 100 mls @ 200 mls/hr 06/22/24 06:51 06/22/24 07:25 Sod 3.375 gm/ Sodium Chloride IVPB 06/22/24 06:52 Infused ONCE ONE Infusion Lactated Ringer's 1,000 mls @ 75 mls/hr 06/22/24 10:30 06/22/24 10:30 Lactated Ringers 1000 Ml IV 75 mls/hr .[id number] SANIA Administration <Nato Glez, - Last Filed: 06/23/24 11:40> Medical Decision Making MDM Narrative Medical decision making narrative: patient was signed out to me pending evaluation by Podiatry. Dr. Finn saw the patient at states patient will be admitted to the hospitalist service but will be going to surgery [facility]. <Nato Glez DO - Last Filed: 06/23/24 11:40> Lab Data Lab results reviewed: Yes I reviewed the patient's lab results <Jayde Plascencia MD - Last Filed: 06/23/24 02:04> Lab results narrative: Lactate reassuring. Mild leukocytosis with left shift. A1c reassuring. Reassuring electrolytes and creatinine. CRP markedly elevated. <Jayde Plascencia MD - Last Filed: 06/23/24 02:04> Labs: Lab Results 06/22/24 Range/Units 07:03 WBC 13.60 H (4.50-11.00) K/uL RBC 3.67 L (4.30-5.90) m/uL Hgb 10.5 L (13.5-17.5) gm/dL Hct 32.4 L (37.0-53.0) % MCV 88 (80-100) fL MCH 29 (26-34) pg MCHC 32 (32-36) gm/dL RDW Coeff of Heladio 13.6 (11.5-15.5) % Plt Count 126 L (140-440) K/uL Neut % (Auto) 89.4 H (42.0-72.0) % Lymph % (Auto) 4.6 L (20-44) % [place] % (Auto) 5.7 (0.0-11.0) % Eos % (Auto) 0.0 (0.0-7.0) % Baso % (Auto) 0.1 (0.0-3.0) % Neut # (Auto) 12.20 H (1.7-7.0) K/uL Lymph # (Auto) 0.60 L (0.90-2.90) K/uL [place] # (Auto) 0.80 (0.00-0.90) K/UL Eos # (Auto) 0.00 (0.00-0.50) K/uL Baso # (Auto) 0.00 (0.00-0.30) K/uL Abs Immat Gran (auto) 0.00 (0.00-0.30) K/uL Imm/Tot Granulo (auto) 0.2 % Sodium 135 (135-149) mmol/L Potassium 3.7 (3.6-5.1) mmol/L Chloride 101 (96-114) mmol/L Carbon Dioxide 25 (20-32) mmol/L Anion Gap 9 (7-15) mEq/L BUN 25 H (5-24) mg/dL Creatinine 1.3 (0.5-1.5) mg/dL Estimated Creat Clear 77.10 Estimated GFR 68 ml/min Glucose 161 H (60-115) mg/dL Hemoglobin A1c 5.7 H (0-5.6) % Lactate 1.0 (0.5-1.9) mmol/L Calcium 8.9 (8.4-10.6) mg/dL Total Bilirubin 0.9 (0.1-1.5) mg/dL AST 15 (12-35) U/L ALT 10 (4-50) U/L Alkaline Phosphatase 119 (40-150) U/L C-Reactive Protein 22.9 H (0.5-1.0) mg/dL Total Protein 7.6 (6.0-8.3) g/dL Albumin 3.6 (3.3-5.0) g/dL <Jayde Plascencia MD - Last Filed: 06/23/24 02:04> Lab Results 06/22/24 Range/Units 07:03 WBC 13.60 H (4.50-11.00) K/uL RBC 3.67 L (4.30-5.90) m/uL Hgb 10.5 L (13.5-17.5) gm/dL Hct 32.4 L (37.0-53.0) % MCV 88 (80-100) fL MCH 29 (26-34) pg MCHC 32 (32-36) gm/dL RDW Coeff of Heladio 13.6 (11.5-15.5) % Plt Count 126 L (140-440) K/uL Neut % (Auto) 89.4 H (42.0-72.0) % Lymph % (Auto) 4.6 L (20-44) % [place] % (Auto) 5.7 (0.0-11.0) % Eos % (Auto) 0.0 (0.0-7.0) % Baso % (Auto) 0.1 (0.0-3.0) % Neut # (Auto) 12.20 H (1.7-7.0) K/uL Lymph # (Auto) 0.60 L (0.90-2.90) K/uL [place] # (Auto) 0.80 (0.00-0.90) K/UL Eos # (Auto) 0.00 (0.00-0.50) K/uL Baso # (Auto) 0.00 (0.00-0.30) K/uL Abs Immat Gran (auto) 0.00 (0.00-0.30) K/uL Imm/Tot Granulo (auto) 0.2 % Sodium 135 (135-149) mmol/L Potassium 3.7 (3.6-5.1) mmol/L Chloride 101 (96-114) mmol/L Carbon Dioxide 25 (20-32) mmol/L Anion Gap 9 (7-15) mEq/L BUN 25 H (5-24) mg/dL Creatinine 1.3 (0.5-1.5) mg/dL Estimated Creat Clear 77.10 Estimated GFR 68 ml/min Glucose 161 H (60-115) mg/dL Hemoglobin A1c 5.7 H (0-5.6) % Lactate 1.0 (0.5-1.9) mmol/L Calcium 8.9 (8.4-10.6) mg/dL Total Bilirubin 0.9 (0.1-1.5) mg/dL AST 15 (12-35) U/L ALT 10 (4-50) U/L Alkaline Phosphatase 119 (40-150) U/L C-Reactive Protein 22.9 H (0.5-1.0) mg/dL Total Protein 7.6 (6.0-8.3) g/dL Albumin 3.6 (3.3-5.0) g/dL <Nato Glez DO - Last Filed: 06/23/24 11:40> Imaging Data X-ray 5th toe: Attestation: I have reviewed the pertinent imaging results. <Jayde Plascencia MD - Last Filed: 06/23/24 02:04> My impression: Soft tissue gas and some off eaten appearing areas of the toe suspicious for osteomyelitis <Jayde Plascencia MD - Last Filed: 06/23/24 02:04> Radiologist's impression: Findings/Impression: Skin irregularity and soft tissue gas at the lateral aspect of the 5th toe consistent with the given history of ulceration. Osteopenia and possible subtle erosion at the medial aspect of the base of the proximal phalanx suspicious for osteomyelitis. Dictated by Ian Kwok MD @ 06/22/2024 7:22:01 AM <Jayde Plascencia MD - Last Filed: 06/23/24 02:04> X-ray left foot: Attestation: I have reviewed the pertinent imaging results. <Jayde Plascencia MD - Last Filed: 06/23/24 02:04> My impression: Lots of soft tissue gas around the base of the 5th metatarsal and osteomyelitis of the left 5th toe but it does not obviously seem to extend into the metatarsal areas. <Jayde Plascencia MD - Last Filed: 06/23/24 02:04> Radiologist's impression: Findings/Impression: There is some irregularity at the base of the proximal phalanx of the left 5th digit, please see toe report for additional comments. Remaining osseous structures are within normal limits. Soft tissue gas and skin irregularity along the left 5th toe is redemonstrated. Atherosclerotic calcification is present with calcification along the plantar surface of the foot suggesting chronic plantar fasciitis. Small well-formed heel spur. <Jayde Plascencia MD - Last Filed: 06/23/24 02:04> Discharge Plan Discharge Clinical Impression: Osteomyelitis of foot, left, acute <Jayde Plascencia MD - Last Filed: 06/23/24 02:04>
[2024-06-22] MEDS: PIPERACILLIN/TAZOBACTAM 3.375 GM in 0.9 % SODIUM CHLORIDE Mini-bag 100 ML IVPB ×3 (06:58→22:13)
[2024-06-22 07:14] LABS: Basophils Percent Auto 0.1 % (0.0-3.0); Hematocrit 32.4 % (37.0-53.0); Hemoglobin* 10.5 gm/dL (13.5-17.5); Immature Granulocytes Pct Auto 0.2 %; Lymphocytes Percent Auto 4.6 % (20-44); Mean Corpuscular HGB Conc 32 gm/dL (32-36); Mean Corpuscular Hemoglobin 29 pg (26-34); Mean Corpuscular Volume 88 fL (80-100); Monocytes Percent Auto 5.7 % (0.0-11.0); Neutrophils Percent Auto 89.4 % (42.0-72.0); Platelet Count* 126 K/uL (140-440); RDW Coefficient of Variation % 13.6 % (11.5-15.5); Red Blood Count 3.67 m/uL (4.30-5.90)
[2024-06-22 07:19] LABS: Slide Review Reflex No
[2024-06-22 07:29] LABS: Chloride* 101 mmol/L (96-114)
[2024-06-22 07:30] LABS: Albumin* 3.6 g/dL (3.3-5.0); Potassium* 3.7 mmol/L (3.6-5.1); Sodium* 135 mmol/L (135-149)
[2024-06-22 07:32] LABS: Blood Urea Nitrogen* 25 mg/dL (5-24); Creatinine* 1.3 mg/dL (0.5-1.5); Estimated Glomerular Filt Rate 68 ml/min
[2024-06-22 07:33] LABS: Alanine Aminotransferase* 10 U/L (4-50); Alkaline Phosphatase* 119 U/L (40-150); Anion Gap 9 mEq/L (7-15); Aspartate Amino Transferase* 15 U/L (12-35); Bilirubin Total* 0.9 mg/dL (0.1-1.5); Calcium* 8.9 mg/dL (8.4-10.6); Carbon Dioxide* 25 mmol/L (20-32); Glucose* 161 mg/dL (60-115); Total Protein* 7.6 g/dL (6.0-8.3)
[2024-06-22] MEDS: VANCOMYCIN 1.5 GM/300 ML 1.5 GM/300 ML PIGGYBACK IVPB (07:33)
[2024-06-22 07:34] LABS: Hemoglobin A1C* 5.7 % (0-5.6)
[2024-06-22 07:50] LABS: C Reactive Protein* 22.9 mg/dL (0.5-1.0)
--- NOTE | 2024-06-22 09:55 | PM.PODCN1 ---
HPI - Podiatry Data of Consult Time Seen by Provider: 09:56 Date Seen: 06/22/24 Patient: [facility] Patient Consult date: 06/22/24 Primary care provider: Jass Judd MD Details: CHIEF COMPLAINT:?Ulcer, left foot HISTORY OF PRESENT ILLNESS: The wound is located to the lateral aspect of the of the left foot. Wound has been presents for 1 wk duration. Noticed their 5th toe become black this am and therefore prompted him to be seen in the ER. They have not seen another provider for this wound before. Has been performing PAUL and a bandaid for wound cares. Ambulating in their gym shoes. Believes this wound is currently infected and notes an odor. Has not been on any recent antibiotics. Is a known DM with peripheral neuropathy. Notes a fever but denies N/VSOB/CP or hector calf pain. No prior vascular surgery workup. H/o alcoholism. Consult Narrative cc:: CC: [facility] Medical History Peripheral neuropathy ?G62.9 - Polyneuropathy, unspecified (ICD-10) Gastroesophageal reflux ?K21.9 - Gastro-esophageal reflux disease without esophagitis (ICD-10) Dysphagia ?R13.10 - Dysphagia, unspecified (ICD-10) Osteomyelitis ?M86.9 - Osteomyelitis, unspecified (ICD-10) Pilonidal cyst with abscess ?L05.01 - Pilonidal cyst with abscess (ICD-10) Difficulty sleeping ?G47.9 - Sleep disorder, unspecified (ICD-10) Hypertension ?I10 - Essential (primary) hypertension (ICD-10) Alcohol abuse ?F10.10 - Alcohol abuse, uncomplicated (ICD-10) DM (diabetes mellitus), type 2 ?E11.9 - Type 2 diabetes mellitus without complications (ICD-10) Family History Father Alcohol dependence Social History Narrative: Single. Lives independently. Two dogs which help him to stay active. 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 His mother in [place] financially and emotionally supports him. EtOH 5-6 drinks per night, 1.5 shots of vodka each mixed with diet coke. Drinks an average of 1/3 of 1.75L/day. Denies recreational drugs. Former smoker quit 11/09/2023 What is your current living situation?: I presently have a place to live Problems where you live: no known problems Problems where you live details: none In the past 12 months, utilities in danger of being shut off: no In past 12 months, lack of transportation kept you from medical appts, meetings, work, or getting things needed for daily living: no In the past 12 mos, have been you worried that your food would run out before you had money to buy more?: never true In the past 12 mos, the food you bought just didn't last and you didn't have money to buy more?: never true Highest level of school completed/degree received: Bachelor's degree Smoking Status: Former smoker What tobacco products do you use: cigarettes Smoking quit date/years: <= 15 years ago Do you use any of these nicotine containing products: None Second hand tobacco smoke exposure: No How often do you have a drink containing alcohol: never How often do you have six or more drinks on one occasion: Never AUDIT-C Alcohol total score: 0 Non-prescribed substance use: denies use Non-prescribed substance use details: states 6 months sober etoh, smokes 1 cig/day. Caffeine: No How often does anyone, including family, friends and others, physically hurt you: never How often does anyone, including family, friends and others, insult or talk down to you: never How often does anyone, including family, friends and others, threaten you with harm: never How often does anyone, including family, friends and others, scream or curse at you: never service: No Exam Narrative: Exam Narrative: General Appearance: Pleasant, cooperative, in no apparent distress, oriented to time/person/place. Patient appears their stated age. Integument: L lateral 5th MT Ulcer with necrotic 5th dig Size: 1 cm x 1cm x bone Base: necrotic Drainage: pus Probe to bone: present Periwound erythema: to the level of the ankle Otherwise no pre-ulcerative lesions, no ulcers, no areas of erythema, no ecchymosis, no blisters or bullae formation, no interdigital maceration. Vascular: ?Dorsalis pedal pulses are palpable, posterior tibial pulse are palpable to bilateral feet.? Doppler reveals multiphasic DP, PT and perforating peroneal a. Neurological: Epicritic and protective sensation is grossly diminished to light touch and pressure bilateral. Musculoskeletal: No gross orthopaedic abnormalities or deformities noted to bilateral feet. Radiology: 3 WB views (AP/lateral/oblique) of the left foot were independently reviewed, revealing evidence of ST gas/emphysema to the 5th MPJ, no evidence of osseous erosions Const: Vital Signs, click to edit/add: Vital Signs - 24 hr 06/22/24 06:17 06/22/24 08:42 Temperature 98.0 F Pulse Rate [Pulse Oximeter] 108 H 95 Respiratory Rate 16 18 Blood Pressure [Ri ght Upper Arm] 167/87 H 141/88 H Pulse Oximetry 96 100 Oxygen Delivery Me thod Room Air Room Air Assessment and Plan Assessment and plan (1) Osteomyelitis of foot, left, acute: Status: Acute (2) Peripheral neuropathy: Problem comment: -b/l feet Status: Chronic (3) DM (diabetes mellitus), type 2: Problem comment: Reports A1c always under 6, treated with metformin. Status: Chronic (4) Abscess of left foot: Status: Acute Plan We discussed the treatment options with the patient and they were given the opportunity to ask questions which were answered to the best of our ability. They understand no guarantees either written or implied exist as to the ultimate outcome of their care plan rendered. Ultimately they voiced no questions or concerns and agreed to the care plan rendered. Patient is suffer from a left foot ulcer with gas gangrene. The nature and etiology of this problem was reviewed with the patient. The need for compliance with treatment was emphasized to prevent further progression of infection. At this time it was recommended pt undergo emergent surgery to avoid progression of infection/loss of further tissue and prevent sepsis. Did inform patient ABx alone are unlikely to cure the infection and surgical intervention in the form of an I&D, partial 5th ray amputation, possible wound vac application is recommended. Discussed admission after sx for IV abx and discussed how additional surgery may be required for closure/revision I&D. Patient was in agreement with this plan. CONSENT: Reviewed in detail with the patient their specific diagnosis, etiology, and have recommended the following treatment care plan noted below. The patient understands they will require surgical intervention of their left foot. The planned procedure will involve Incision and drainage with removal of all nonviable tissue, partial 5th ray amputation, possible wound vac application with myself and Dr. Dominguez planned surgical procedures will be performed under choice anesthesia. We have thoroughly counseled the patient regarding their diagnosis as noted above. The patient was informed that the proposed procedure or medical intervention involves the above and does offer a good likelihood of improving their symptoms. The patient was made aware of the most common risks, benefits, and potential complications of these options were also discussed which include but are not limited to: continued pain; delayed healing; infection; painful scar tissue formation; hematoma/seroma formation; deep venous thrombosis or phlebitis with potential for pulmonary embolus; potential that future conservative and/or surgical intervention may become necessary; in catastrophic situations the need for amputation of part or all of the foot including the ankle or lower leg; and anesthesia related complications including . Discussed the fact that difficulties may be encountered during recovery to include difficulties remaining nonweightbearing; incisional tenderness that requires use of pain medication or [id number]-abz-[id number] analgesics; delayed incision healing requiring ongoing use of wound care treatments, dressings, or immobilization techniques; edema of the operative site and lower limb for 3 to 6 months time making comfortable shoe gear use difficult; limping due to weakness or instability about the surgical site; and need for formal physical therapy referral to aide in recovering meaningful function of their operative lower limb and foot. In the course of the evaluation I did discuss potential need for further surgery. Also discussed were possible problems or difficulties the patient may encounter if treatment was not pursued at this time. These include infection, hematoma, seroma. The patient voiced that they have indicated a clear understanding of this discussion and agreed to proceed forward with the planned surgical procedures, anesthesia, and follow-up care plan that has been arranged throughout the early post-operative period. Total Time Spent Total Time Spent: Over 50% of a?45?minute face to face visit was spent in counseling and coordination of care. Nail Debridement Qualifies If: Qualifiers If:: A patient qualifies for nail debridement if they have: 1 class A finding (Q7) 2 class B findings (Q8) OR 1 class B & 2 class C findings in addition to a primary condition (Q9)
[2024-06-22] MEDS: LACTATED RINGERS 1000 ML 1,000 ML 75 ML IV (10:30)
--- OUTSIDE RECORDS SUMMARY | 2024-06-22 10:42 | XMS_ITS | Clinical Summary ---
Author Organization [facility] Address [address] [place] [address] Care Team Providers Care Second Floor Operator Name Role Phone Jass Judd MD Primary Care Provider [phone] Allergies No known active allergies Medications amLODIPine (NORVASC) 10 mg oral tablet Take [...] 6 (six) hours as needed. 120 tablet 12/23/2022 10:36 AM CDT 3 Active oxyCODONE, immediate release, (ROXICODONE) 5 mg oral tablet Take 0.5-1 tablets (2.5-5 mg) by mouth every 6 (six) hours as needed (pain). Take 2.5mg for pain ratings of 3-6, take 5mg for pain ratings of 7-10. Based on a pain scale of 0-10 with 0 being no pain and 10 being severe pain 10 tablet 12/23/2022 10:36 AM CDT 3 Active Active Problems Problem Noted Date Diagnosed [...] Recorded Sex Assigned at Not on file Legal Sex Male 10:22 AM CDT Gender Identity Not on file Sexual Orientation Not on file Last Filed Vital Signs Vital Sign Reading Time Taken Comments Blood Pressure 124/80 12/23/2022 11:19 AM CDT Pulse 73 12/23/2022 11:19 AM CDT Temperature 36.7 C (98.1 F) 12/23/2022 12:40 PM CDT Respiratory Rate 16 12/23/2022 12:40 PM CDT [...] (RODOLFO-2) 1977 Depression Assessment (PHQ-2) 1976 Pneumococcal Vaccine (2 of 2 - PCV) 03/08/202003/08, 09/30/2018 HgbA1C 06/21/2023 12/19/2022 COVID-19 Vaccine ( season) 2023 03/14/2021, 07/27/2020, 07/06/2020 Influenza Vaccine (#1) 2023 01/17/2016 Adult Tetanus Booster 09/29/2032 09/29/2022 RSV Vaccines (1 - 1-dose 75+ series) 07/08/2051 Medical Devices Implanted Type Area Night Guard Device Identifier Shelf Expiration Date Model / Serial / Lot Plate Syn Dhs 135 Deg 2h - [id number] Implanted:Qty: 1 on 12/20/2022 by Dario Frisa MD at [facility] Plate Left: Hip Synthes 10/24/2030 281.102S / / [id number] Scr Cnn Th 16s/T7.3/95 208.895 - [id number] Implanted:Qty: 1 on 12/20/2022 by Dario Frias MD at [facility] Screw/Anch or Left: Hip Synthes 208.895 / / Scr Syn Dhs Lag 95m 280.950 - [id number] Implanted:Qty: 1 on 12/20/2022 by Dario Frias MD at [facility] Screw/Anch or Left: Hip Synthes 280.950 / / Scr Crtx S/T 4.5/48 214.848 - [id number] Implanted:Qty: 1 on 12/20/2022 by Dario Frias MD at [facility] Screw/Anch or Left: Hip Synthes 214.848 / / Scr Crtx S/T 4.5/46 214.846 - [id number] Implanted:Qty: 1 on 12/20/2022 by Dario Frias MD at [facility] Screw/Anch or Left: Hip Synthes 214.846 / / Procedures Procedure Name Priority Date/Time Associated Diagnosis Comments HBA1C / EAG Add On 12/19/2022 2:01 PM CDT from Last 3 Months or Most Recently Relevant to Health Maintenance Results * Hgb A1c (Glycosolated Hgb) (12/19/2022 2:01 PM CDT) HBA1C (GLYCOSOLATED HGB) 5.1 <5.7 % 12/21/2022 10:31 AM CDT [facility] EAG (EST. AVERAGE GLUCOSE) 100 <117 mg/dL 12/21/2022 10:31 AM CDT [facility] Blood 12/19/2022 2:01 PM CDT 12/19/2022 2:09 PM CDT Lola Wright MD CHEMISTRY ORDERABLE Final Res ult [facility] [address] [place] [address] from Last 3 Months or Most Recently Relevant to Health Maintenance Insurance [facility] Advance Directives For more information, please contact: [phone] * Full Code (Latest Code Status on File) Date Activated Date Inactivated Comments 12/19/2022 5:01 PM 12/23/2022 7:48 PM Question Answer Comments How was code status determined? Patient Care Teams Second Floor Operator Relationship Specialty Start Date End Date Jass Judd MD [address] [place] [address] PCP - General 12/19/22
[2024-06-22] MEDS: BUPIVACAINE 0.25% 30 ML INJECTION (11:20)
--- NOTE | 2024-06-22 11:54 | W.ANESCHARGE ---
Anesthesia Charges Start Date/Time Anesthesia Start Date: 06/22/24 Anesthesia Start Time: 10:24 Stop Date/Time Anesthesia Stop Date: 06/22/24 Anesthesia Stop Time: 11:48 Summary Emergency: [facility] Coding CPT Codes CPT Codes: ANESTH LOWER LEG BONE SURG - 45961 ([id number]) P3 - PATIENT W/SEVERE SYS DISEASE, QZ - [facility] SVC W/O HARP REPAIRER BY Additional Codes: Summary - Emergency: [facility] ([id number])
--- NOTE | 2024-06-22 12:55 | W.PODPROC_ITS ---
Date of Procedure: 06/22/24 Surgeon: Susan Finn DPM Co-Surgeon: Dr. Bashir Sumner Pre-op Diagnosis: 1. Abscess left foot 2. Osteomyelitis left foot 3. Gas gangrene left foot Post-op Diagnosis: 1. Abscess left foot 2. Osteomyelitis left foot 3. Gas gangrene left foot Type of Procedure: 1. Incision and drainage with removal of all nonviable tissue left foot 2. Partial 5th ray amputation left foot 3. Wound vac application left foot Procedure Description: The patient was identified prior to being brought into the operating room using their name and date of as identifiers. The intended surgical care plan was again reviewed in detail with the patient as well as the rationale for the surgery, the most common risks, complications, and expected recovery course. The patient was given the opportunity to ask questions which were answered to the best of our ability. The patient ultimately voiced no questions or concerns and agreed to proceed forward with the surgery as planned. The patient was brought into the operating room and placed on the operating room table in the supine position. Anesthesia then performed MAC followed by injection of 20 cc of 0.25% Marcaine plain in an ankle block fashion. general anesthesia with oral endotracheal intubation. A well padded and appropriately sized ankle tourniquet was applied to their operative lower extremity but never inflated. A TIME-OUT was performed and documented. Attention was directed to the plantar forefoot where the 5th toes and metatarsal to the mid-shaft level were marked and then the toes clamped with towel clamps and dissection carried to the underlying metatarsals which were transected. A proximal wafer of bone was then obtained and sent to pathology for analysis. Deep wound cultures were obtained and sent to micro for analysis. There was tracking along the flexor digitorum longus tendon to the medial arch of the midfoot level and an incision was placed over the area to drain this region but no formal purulence was evident proximally. The remaining soft-tissues incised making certain that all infected tissues were resected in toto. The soft-tissue wound was then irrigated with 6 liters sterile saline using pulsed lavage. The remaining soft-tissue wound underwent further excision/debridement of associated myonecrosis until nothing but healthy, well- perfused tissues were appreciated throughout. A wound vac was then applied with a black sponge placed into the known wound/soft tissue deficit over the 8cm x 5cm x 5cm wound. Settings for the wound vac were then placed to 125mmHg continuous.? A well padded sterile dressing was then applied from forefoot to knee. The patient was successfully reversed of general anesthesia and transferred to the recovery area with their vital signs stable and neurovascular status intact to their operative lower extremity. All sponge and instrument counts were correct at the completion of the surgery as well as prior to closure of deep tissue and skin. Anesthesia: MAC and local (20 cc of 0.25% marcaine plain ) Hemostasis: ankle (41 min) Estimated blood loss (mL): 20 Implants: Black sponge wound vac Specimens: specimen obtained, sent to pathology (bone biopsy proximal margin, wound cultures x 2 to micro ) Disposition: floor
--- NOTE | 2024-06-22 13:06 | PM.IMHP1 ---
Hospitalist- H&P: HPI History of Present Illness Date Seen: 06/22/24 Chief complaint: Possible infection L foot Narrative: Zacarias Ngo is a 48 year old Man who presents to our emergency department for concern of left 5th toe infection. He claims that prior to a week ago he was healthy with no concerns for his left 5th toe. While at home while he was walking barefoot he bumped into furniture and believed he may have scratched the skin. He did not think much of it. Wash the toe. Put a Band-Aid on it. Kept monitoring and dressing the foot at least daily. Yesterday morning while taking a shower he noticed that left foot was somewhat swollen and the 5th toe was red as well as redness along the lateral aspect of the affected left foot. When taking a shower this morning he noticed the left 5th toe was black. The redness was extending proximally to the ankle and distal leg. denied any pain. Denied fevers, rigors, diaphoresis. Denied nausea, vomiting. Denied myalgias or arthralgias. He opted to come to the emergency department for further assessment at this time. On assessment in the emergency department he had obvious appearing gangrene of left 5th toe, with minimal serosanguineous drainage along the lateral aspect of the 5th metatarsal aspect of the affected left foot. Foot was red, warm, swollen, but remarkably not tender to touch. Very foul and putrid odor emanating from the left 5th toe of rotting flesh. X-rays demonstrate possible early bony erosions of the proximal phalanx of the left 5th toe. There is gas in the soft tissue. Discussed with podiatrists, Doctors Burak and Huma. on their assessment he had palpable pulses of lower extremities with multiphasic Doppler waveforms. They recommended amputation of the left 5th toe which patient is agreeable to. This was undertaken successfully under anesthesia. Wound VAC was applied postoperatively. Flight Nurse plans to reassess patient in 2 days. Non weight-bearing on affected foot. Tissue cultures obtained intraoperatively. Pathology submitted for determination of whether the margins of resection also have infection. Continue with intravenous vancomycin and piperacillin tazobactam with Pharmacy following and recommending. Second stage surgery to be determined by the internet designer after they see the patient in 2 days. May call the internet designer for additional questions or concerns in the meantime if need be. Review of Systems Status of ROS: Reports: 6 or more systems reviewed and unremarkable except as noted in History and below Narrative: Longstanding peripheral neuropathy. Possibly multifactorial from diabetes mellitus type 2 as well as complications from alcohol use disorder. Blood sugars generally well controlled with most recent hemoglobin A1c of 5.7. Uses metformin orally to manage blood sugars. Has been sober and not consuming any alcohol containing products for at least the past 6 months. He has every intent to continue with his sobriety hereafter. No recent febrile illnesses. No recent respiratory tract symptoms, upper or lower gastrointestinal tract symptoms, urinary tract symptoms, other skin concerns, or new neurologic symptoms or signs. No recent travel, trauma aside from what is specified, or injury aside from what is specified. No recent blood loss of any sort. Does have 2 dogs at home. He is arranging for them to be cared for as he is coming into the hospital. [facility] Medical History Peripheral neuropathy ?G62.9 - Polyneuropathy, unspecified (ICD-10) Gastroesophageal reflux ?K21.9 - Gastro-esophageal reflux disease without esophagitis (ICD-10) Dysphagia ?R13.10 - Dysphagia, unspecified (ICD-10) Osteomyelitis ?M86.9 - Osteomyelitis, unspecified (ICD-10) Pilonidal cyst with abscess ?L05.01 - Pilonidal cyst with abscess (ICD-10) Difficulty sleeping ?G47.9 - Sleep disorder, unspecified (ICD-10) Hypertension ?I10 - Essential (primary) hypertension (ICD-10) Alcohol abuse ?F10.10 - Alcohol abuse, uncomplicated (ICD-10) DM (diabetes mellitus), type 2 ?E11.9 - Type 2 diabetes mellitus without complications (ICD-10) Family History Father Alcohol dependence Social History Narrative: Single. Lives independently. Two dogs which help him to stay active. 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 His mother in [place] financially and emotionally supports him. EtOH 5-6 drinks per night, 1.5 shots of vodka each mixed with diet coke. Drinks an average of 1/3 of 1.75L/day. Denies recreational drugs. Former smoker quit 11/09/2023 What is your current living situation?: I presently have a place to live Problems where you live: no known problems Problems where you live details: none In the past 12 months, utilities in danger of being shut off: no In past 12 months, lack of transportation kept you from medical appts, meetings, work, or getting things needed for daily living: no In the past 12 mos, have been you worried that your food would run out before you had money to buy more?: never true In the past 12 mos, the food you bought just didn't last and you didn't have money to buy more?: never true Highest level of school completed/degree received: Bachelor's degree Smoking Status: Former smoker What tobacco products do you use: cigarettes Smoking quit date/years: <= 15 years ago Do you use any of these nicotine containing products: None Second hand tobacco smoke exposure: No How often do you have a drink containing alcohol: never How often do you have six or more drinks on one occasion: Never AUDIT-C Alcohol total score: 0 Non-prescribed substance use: denies use Non-prescribed substance use details: states 6 months sober etoh, smokes 1 cig/day. Caffeine: No How often does anyone, including family, friends and others, physically hurt you: never How often does anyone, including family, friends and others, insult or talk down to you: never How often does anyone, including family, friends and others, threaten you with harm: never How often does anyone, including family, friends and others, scream or curse at you: never service: No Meds Home Medications and Allergies Home Medications ?Medication ?Instructions ?Recorded ?Confirmed ?Type Diabetic Test Strips 09/29/22 05/24/24 History lancets (Coaguchek Lancets) 09/29/22 05/24/24 History lidocaine 4 % topical patch 1 patch topical DAILY PRN 01/08/23 05/24/24 History (Aspercreme (lidocaine)) cholecalciferol (vitamin D3) 25 25 mcg PO DAILY 12/22/23 06/22/24 History mcg (1,000 unit) capsule Allergies Allergy/AdvReac Type Severity Reaction Status Date / Time No Known Allergies Allergy Unknown Verified 06/22/24 06:30 Exam Narrative: Exam Narrative: I examined the patient in the emergency department. Appears comfortable. Alert and oriented x4. From the, articulate, cooperative. Vision and hearing are adequate. External auditory canals are clear tympanic membranes normal. Midline nasal septum normal nasal mucosa. Dentition in fair repair. Moist buccal mucosa. No icterus or conjunctival injection. Conjugate gaze. No head neck lymphadenopathy. Lungs are clear to auscultation without wheezing, rhonchi, rales. Chest wall excursions are full. No CVA tenderness. Heart tones with regular rhythm, normal S1-S2, without murmur, gallop, rub. PMI not laterally displaced. Abdomen with active bowel sounds, soft, nontender. No rebound or guarding. Right foot appears normal. Pulses are palpable but decreased. Left foot swollen, erythematous along the lateral and dorsal aspect of the foot extending to the distal aspect of leg just proximal to the ankle. Difficult to palpate pulses in posterior tib and dorsalis pedis. Left 5th toe is black. Minimal serosanguineous drainage along the lateral aspect of left foot distally. Putrid smell emanating from the affected foot. No other focal motor neurologic deficits. Decreased sensation awareness on the skin of the affected left foot. Const: Vital Signs, click to edit/add: Vital Signs - 24 hr 06/22/24 06:17 06/22/24 08:42 06/22/24 11:46 Temperature 98.0 F 97.3 F L Pulse Rate 89 Pulse Rate [Pulse Oximeter] 108 H 95 Respiratory Rate 16 18 16 Blood Pressure 132/72 Blood Pressure [Ri ght Upper Arm] 167/87 H 141/88 H Pulse Oximetry 96 100 98 Oxygen Delivery Me thod Room Air Room Air Room Air 06/22/24 12:00 06/22/24 12:15 06/22/24 12:30 Temperature Pulse Rate 81 87 85 Pulse Rate [Pulse Oximeter] Respiratory Rate 16 16 16 Blood Pressure 136/78 136/78 147/84 H Blood Pressure [Ri ght Upper Arm] Pulse Oximetry 99 98 99 Oxygen Delivery Me thod Room Air Room Air Room Air Hospitalist - H&P: Result Labs Labs: Short CBC 06/22/24 Range/Units 07:03 WBC 13.60 H (4.50-11.00) K/uL Hgb 10.5 L (13.5-17.5) gm/dL Hct 32.4 L (37.0-53.0) % Plt Count 126 L (140-440) K/uL BMP 06/22/24 07:03 Sodium 135 Potassium 3.7 Chloride 101 Carbon Dioxide 25 BUN 25 H Creatinine 1.3 Glucose 161 H Calcium 8.9 Liver Function 06/22/24 Range/Units 07:03 Total Bilirubin 0.9 (0.1-1.5) mg/dL AST 15 (12-35) U/L ALT 10 (4-50) U/L Alkaline Phosphatase 119 (40-150) U/L Albumin 3.6 (3.3-5.0) g/dL Imaging X-ray left foot: Attestation: I have reviewed the pertinent imaging results. Radiologist's impression: Findings/Impression: There is some irregularity at the base of the proximal phalanx of the left 5th digit, please see toe report for additional comments. Remaining osseous structures are within normal limits. Soft tissue gas and skin irregularity along the left 5th toe is redemonstrated. Atherosclerotic calcification is present with calcification along the plantar surface of the foot suggesting chronic plantar fasciitis. Small well-formed heel spur. x-ray left 5th toe: Attestation: I have reviewed the pertinent imaging results. Radiologist's impression: Findings/Impression: Skin irregularity and soft tissue gas at the lateral aspect of the 5th toe consistent with the given history of ulceration. Osteopenia and possible subtle erosion at the medial aspect of the base of the proximal phalanx suspicious for osteomyelitis. Assessment and Plan Assessment and plan (1) Gangrene associated with type 2 diabetes mellitus: Problem comment: - diabetic foot ulcer, infected - urgent amputation left 5th ray with intraoperative deep tissue wound cultures obtained - empiric IV vancomycin and piperacillin with tazobactam - per podiatry, non-weightbearing affected left lower extremity - wound VAC per Podiatry - podiatry will reassess the wound on Thursday06/24/2024 - physical therapy and occupational therapy to assess and assist Status: Acute (2) Cellulitis of left foot: Problem comment: - continue with IV vancomycin and piperacillin with tazobactam until we obtain results of cultures Status: Acute (3) Peripheral vascular disease of lower extremity: Problem comment: -x-ray of left foot 06/22/24 demonstrates atherosclerotic calcification of lower leg and foot vessels -physical exam 06/22/24 demonstrates decreased pulses of bilateral feet -per internet designer assessment with peripheral doppler exam 06/22/24 patient has multiphasic waveforms of DP and PT arteries of left foot -no MASOUD or TcpO2 studies done as of 06/22/24 Status: Acute (4) Peripheral neuropathy: Problem comment: - bilateral feet, possibly multifactorial from diabetes mellitus type 2 as well as history of alcohol use disorder - initiated discussion with patient about meticulous daily foot care and examination Status: Chronic (5) DM (diabetes mellitus), type 2: Problem comment: - reports A1c always under 6, treated with metformin. - hemoglobin A1c 5.7 on 06/22/2024 - in-hospital will monitor blood glucose q.i.d. ACHS, continue with oral metformin, and use sliding scale insulin as warranted Status: Chronic (6) Hypertension: Problem comment: - continue with home medications and monitor and adjust as warranted Status: Chronic (7) Hyperlipidemia: Problem comment: - continue home med Status: Acute (8) Acute prerenal azotemia: Problem comment: - IV fluids and monitor Status: Acute (9) Anemia: Problem comment: - likely multifactorial, especially in light of chronic alcohol use, labs indicate possible iron deficiency anemia for which he is on oral iron. No obvious acute bleeding - stable - continue with PPI empirically Status: Acute Plan 1. Reviewed impression and recommendations with patient 2. Answered patient's questions to satisfaction 3. Patient agreeable with above stated plans and recommendations Total Time Spent Total Time Spent: 70 minutes
--- NOTE | 2024-06-22 15:01 | PC.NURSE ---
entered pt room due to wound vac alarm sounding. tried to trouble shoot wound vac unable to create seal, while examining dressing a large amount of blood was noted that had bled through x2 abd, kerlix surgical wrapping and harley wrap. Dr. Sumner notified and ok'd removal of dressing and asked if wound vac could be saved to do that. after unwrapped cavalon applied and wound vac sealed operating as it should with no further alarms. Small skin tear noted to be bleeding, pressure applied by RN Hilary, bleeding stopped with pressure, wound redressed. patient tolerated dressing change well.
[2024-06-22] MEDS: INSULIN ASPART 100 UNIT/ML SUBCUT ×2 (17:28→21:37)
[2024-06-22] MEDS: VANCOMYCIN 1.25 GM/250 ML 1.25 GM/250 ML PIGGYBACK IVPB (20:29)
[2024-06-22] MEDS: SODIUM CHLORIDE 0.9 % (FLUSH) 10 ML SYRINGE 5 ML IVF (20:30)
[2024-06-22] MEDS: ATORVASTATIN CALCIUM 10 MG TABLET 20 MG PO (20:30)
[2024-06-22] MEDS: METOPROLOL TARTRATE 25 MG TABLET 12.5 MG PO (20:30)
[2024-06-22] MEDS: METFORMIN 500 MG TABLET PO (20:30)
--- NOTE | 2024-06-22 23:33 | PC.NURSE ---
End of Shift: Patient pleasant and cooperative. Afebrile. Denies pain. Wound vac not holding 125 at start of shift, fluctuating between 0 and 150. Hilary RN contacted [facility].I. instructed to change out canister first and then dressing. Canister changed and held at 125 the remainder of the shift. Updated MD and OK to leave kerlix dressing and harley wrap off of foot. Patient up to chair and bathroom with 1 assist, walker and gait belt while maintaining NWB to left foot. Tolerating regular diet with no nausea.
[2024-06-23 03:30] VITALS: BP 130/91; PULSE 64; RESP 16; TEMP 36.6; O2SAT 100
[2024-06-23] MEDS: PIPERACILLIN/TAZOBACTAM 3.375 GM in 0.9 % SODIUM CHLORIDE Mini-bag 100 ML IVPB ×4 (03:39→22:36)
[2024-06-23 06:45] LABS: Hemoglobin* 10.5 gm/dL (13.5-17.5); Immature Granulocytes Abs Auto 0.03 K/uL (0.00-0.30); Immature Granulocytes Pct Auto 0.3 %; Lymphocytes Percent Auto 6.2 % (20-44); Mean Corpuscular HGB Conc 33 gm/dL (32-36); Mean Corpuscular Hemoglobin 29 pg (26-34); Mean Corpuscular Volume 88 fL (80-100); Monocytes Percent Auto 4.1 % (0.0-11.0); Neutrophils Percent Auto 89.4 % (42.0-72.0); Platelet Count* 128 K/uL (140-440); RDW Coefficient of Variation % 13.6 % (11.5-15.5); Red Blood Count 3.62 m/uL (4.30-5.90); White Blood Count* 8.93 K/uL (4.50-11.00)
[2024-06-23 06:46] LABS: Slide Review Reflex No
[2024-06-23 06:57] LABS: Chloride* 106 mmol/L (96-114)
[2024-06-23 06:58] LABS: Potassium* 4.4 mmol/L (3.6-5.1); Sodium* 140 mmol/L (135-149)
[2024-06-23 07:00] VITALS: BP 104/75; BP 96/64; PULSE 70; RESP 16; TEMP 36.4; O2SAT 100
[2024-06-23 07:01] LABS: Blood Urea Nitrogen* 27 mg/dL (5-24); Est. Creatinine Clearance* 100.23; Estimated Glomerular Filt Rate 93 ml/min
[2024-06-23 07:02] LABS: Anion Gap 9 mEq/L (7-15); Calcium* 8.8 mg/dL (8.4-10.6); Carbon Dioxide* 25 mmol/L (20-32); Glucose* 232 mg/dL (60-115); Magnesium* 1.7 mg/dL (1.5-2.6); Phosphorus* 3.1 mg/dL (2.5-4.5)
[2024-06-23 07:30] LABS: C Reactive Protein* 18.3 mg/dL (0.5-1.0)
[2024-06-23] MEDS: INSULIN ASPART 100 UNIT/ML SUBCUT ×4 (07:40→21:13)
--- NOTE | 2024-06-23 07:40 | PC.NURSE ---
Pt is alert and oriented x3. Afebrile. Pt denies pain, SOB, and N/V. Pt?s left foot Wound Vac is patent and draining at 125. Pt?s left foot is warm to touch, and the pink/redness has not exceeded outline. Pt has strong pedal pulses and less than 3 cap refill. Pt is up A1 with wound vac, using walker and hopping to bathroom to avoid weight on left foot. ?
[2024-06-23] MEDS: FOLIC ACID 1 MG TABLET PO (09:53)
[2024-06-23] MEDS: MULTIVITAMIN/MINERALS 1 TABLET 1 TAB PO (09:53)
[2024-06-23] MEDS: THIAMINE 100 MG TABLET PO (09:53)
[2024-06-23] MEDS: OMEPRAZOLE 20 MG CAPSULE DR PO (09:54)
[2024-06-23] MEDS: FERROUS SULFATE 325 MG TABLET 324 MG PO (09:55)
[2024-06-23] MEDS: METFORMIN 500 MG TABLET PO ×2 (09:56→21:01)
[2024-06-23] MEDS: SODIUM CHLORIDE 0.9 % (FLUSH) 10 ML SYRINGE 5 ML IVF ×2 (09:57→21:02)
[2024-06-23] MEDS: ENOXAPARIN 30 MG/0.3ML INJ SUBCUT (09:58)
[2024-06-23] MEDS: VANCOMYCIN 1.25 GM/250 ML 1.25 GM/250 ML PIGGYBACK IVPB ×2 (10:39→21:03)
[2024-06-23 11:00] VITALS: BP 112/74; PULSE 68; RESP 16; TEMP 36.4; O2SAT 100
--- NOTE | 2024-06-23 12:19 | W.PM.PODPN ---
Podiatry-PN: Subj Subjective Date Seen: 06/23/24 Interval history: Patient called this am. States he slept well with no acute events overnight. Relates to improved symptoms and denies pain. Progress Note: A&P Assessment and plan (1) Gangrene associated with type 2 diabetes mellitus: Problem details: - diabetic foot ulcer, infected - urgent amputation left 5th ray with intraoperative deep tissue wound cultures obtained - empiric IV vancomycin and piperacillin with tazobactam - per podiatry, non-weightbearing affected left lower extremity - wound VAC per Podiatry - podiatry will reassess the wound on Thursday06/24/2024 - physical therapy and occupational therapy to assess and assist Status: Acute (2) Osteomyelitis of foot, left, acute: Status: Acute (3) Abscess of left foot: Status: Acute Plan 48 T2DM male with peripheral neuropathy admitted for gas gangrene left foot on 06/22/24. Is s/p I&D, partial 5th ray amputation and wound vac application (DOS 06/22/24) Antibiotics: Vanc/zosyn Dressing: Please leave dressing dry, clean and intact. Maintain suction to wound vac at 125mmHg DVT prophylaxis: Contralateral SHANTI hose, SCD, extra fluid intake, Lovenox 40mg SQ daily Activities: - Elevation of LLE above heart level - PT/OT - 100% NWB to the operative LE Disposition: - Awaiting cultures/bx results - Plan for return to OR on 06/24/24 at 2:30pm for a repeat I&D, possible partial foot amputation, possible skin graft substitute application, possible wound vac placement Exam Narrative: Exam Narrative: Dressing in place to left lower extremity, is clean, dry & intact, no strikethrough noted.?Wound vac at 125mmHg cont Const: Vital Signs, click to edit/add: Vital Signs - 24 hr 06/22/24 12:30 06/22/24 15:00 06/22/24 15:00 Temperature 98.3 F Pulse Rate 85 Pulse Rate [Left P ulse Oximeter] 71 Respiratory Rate 16 16 Blood Pressure 147/84 H Blood Pressure [Le ft Arm] Blood Pressure [Ri ght Arm] 146/77 H Pulse Oximetry 99 97 97 Oxygen Delivery Me thod Room Air Room Air Room Air 06/22/24 15:00 06/22/24 19:00 06/22/24 20:38 Temperature 97.6 F Pulse Rate Pulse Rate [Left P ulse Oximeter] 73 Respiratory Rate 16 16 Blood Pressure Blood Pressure [Le ft Arm] Blood Pressure [Ri ght Arm] 105/64 123/75 Pulse Oximetry 99 Oxygen Delivery Me thod Room Air 06/22/24 23:45 06/22/24 23:45 06/22/24 23:45 Temperature 98.7 F Pulse Rate Pulse Rate [Left P ulse Oximeter] 68 100 Respiratory Rate 16 16 Blood Pressure Blood Pressure [Le ft Arm] Blood Pressure [Ri ght Arm] 143/79 H Pulse Oximetry 100 100 Oxygen Delivery Me thod Room Air Room Air 06/23/24 03:30 06/23/24 07:00 06/23/24 07:00 Temperature 97.8 F 97.6 F Pulse Rate Pulse Rate [Left P ulse Oximeter] 64 70 Respiratory Rate 16 16 16 Blood Pressure Blood Pressure [Le ft Arm] 104/75 Blood Pressure [Ri ght Arm] 130/91 H 96/64 Pulse Oximetry 100 100 100 Oxygen Delivery Me thod Room Air Room Air Room Air Podiatry-PN: Obj Labs Labs: Laboratory Results - last 24 hr 06/23/24 05:42 WBC 8.93 RBC 3.62 L Hgb 10.5 L Hct 32.0 L MCV 88 MCH 29 MCHC 33 RDW Coeff of Heladio 13.6 Plt Count 128 L Neut % (Auto) 89.4 H Lymph % (Auto) 6.2 L [place] % (Auto) 4.1 Eos % (Auto) 0.0 Baso % (Auto) 0.0 Neut # (Auto) 8.00 H Lymph # (Auto) 0.60 L [place] # (Auto) 0.40 Eos # (Auto) 0.00 Baso # (Auto) 0.00 Abs Immat Gran (auto) 0.03 Imm/Tot Granulo (auto) 0.3 Sodium 140 Potassium 4.4 Chloride 106 Carbon Dioxide 25 Anion Gap 9 BUN 27 H Creatinine 1.0 Estimated Creat Clear 100.23 Estimated GFR 93 Glucose 232 H Calcium 8.8 Phosphorus 3.1 Magnesium 1.7 C-Reactive Protein 18.3 H
--- NOTE | 2024-06-23 12:30 | W.PM.PODPN ---
Podiatry-PN: Subj Subjective Time Seen by Provider: 14:10 Date Seen: 06/24/24 Interval history: Patient seen at bedside today. States he slept well with no acute events overnight. Denies pain. Aware of sx today. Progress Note: A&P Assessment and plan (1) Gangrene associated with type 2 diabetes mellitus: Problem details: -awaiting pathology results from surgery undertaken on 06/22/2024 Status: Acute (2) Osteomyelitis of foot, left, acute: Status: Acute (3) Abscess of left foot: Status: Acute Plan 48 T2DM male with peripheral neuropathy admitted for gas gangrene left foot on 06/22/24. Is s/p I&D, partial 5th ray amputation and wound vac application (DOS 06/22/24) Antibiotics: Vanc/zosyn Dressing: Please leave dressing dry, clean and intact. Maintain suction to wound vac at 125mmHg DVT ppx - Lovenox 30 units (resume day after sx) Activities: - Elevation of LLE above heart level - PT/OT - 100% NWB to the operative LE Disposition: - Awaiting cultures/bx results - Plan for return to OR today for a repeat I&D, possible partial foot amputation, possible skin graft substitute application, possible wound vac placement CONSENT: Reviewed in detail with the patient their specific diagnosis, etiology, and have recommended the following treatment care plan noted below. We have thoroughly counseled the patient regarding their diagnosis as noted above. Also present during this counseling was .The patient was informed that the proposed procedure or medical intervention involves the above and does offer a good likelihood of improving their symptoms and functionality. The patient was made aware of the most common risks, benefits, and potential complications of these options were also discussed which include but are not limited to: continued pain; delayed healing; infection; painful scar tissue formation; hematoma/seroma formation; deep venous thrombosis or phlebitis with potential for pulmonary embolus; potential that future conservative and/or surgical intervention may become necessary; in catastrophic situations the need for amputation of part or all of the foot including the ankle or lower leg; and anesthesia related complications including . Discussed the fact that difficulties may be encountered during recovery to include difficulties remaining nonweightbearing; incisional tenderness that requires use of pain medication or [id number] analgesics; delayed incision healing requiring ongoing use of wound care treatments, dressings, or immobilization techniques; edema of the operative site and lower limb for 3 to 6 months time making comfortable shoe gear use difficult; limping due to weakness or instability about the surgical site; and need for formal physical therapy referral to aide in recovering meaningful function of their operative lower limb and foot. In the course of the evaluation I did discuss potential need for further surgery. Also discussed were possible problems or difficulties the patient may encounter if treatment was not pursued at this time. These include infection, hematoma, seroma. The patient voiced that they have indicated a clear understanding of this discussion and agreed to proceed forward with the planned surgical procedures, anesthesia, and follow-up care plan that has been arranged throughout the early post-operative period. Exam Narrative: Exam Narrative: General: A&O x 3, no acute distress Dressing in place to left lower extremity, is clean, dry & intact, no strikethrough noted.? Wound vac at 125mmHg Patient is able to actively manipulate dig 1-4 to the operative foot. CFT <3 sec to all dig. Epicritic sensation diminished to all dig. Const: Vital Signs, click to edit/add: Vital Signs - 24 hr 06/22/24 15:00 06/22/24 15:00 06/22/24 15:00 Temperature 98.3 F Pulse Rate [Left P ulse Oximeter] 71 Respiratory Rate 16 16 Blood Pressure [Le ft Arm] Blood Pressure [Ri ght Arm] 146/77 H Pulse Oximetry 97 97 Oxygen Delivery Me thod Room Air Room Air 06/22/24 19:00 06/22/24 20:38 06/22/24 23:45 Temperature 97.6 F Pulse Rate [Left P ulse Oximeter] 73 68 Respiratory Rate 16 Blood Pressure [Le ft Arm] Blood Pressure [Ri ght Arm] 105/64 123/75 Pulse Oximetry 99 Oxygen Delivery Me thod Room Air 06/22/24 23:45 06/22/24 23:45 06/23/24 03:30 Temperature 98.7 F 97.8 F Pulse Rate [Left P ulse Oximeter] 100 64 Respiratory Rate 16 16 16 Blood Pressure [Le ft Arm] Blood Pressure [Ri ght Arm] 143/79 H 130/91 H Pulse Oximetry 100 100 100 Oxygen Delivery Me thod Room Air Room Air Room Air 06/23/24 07:00 06/23/24 07:00 Temperature 97.6 F Pulse Rate [Left P ulse Oximeter] 70 Respiratory Rate 16 16 Blood Pressure [Le ft Arm] 104/75 Blood Pressure [Ri ght Arm] 96/64 Pulse Oximetry 100 100 Oxygen Delivery Me thod Room Air Room Air Podiatry-PN: Obj Labs Labs: Laboratory Results - last 24 hr 06/23/24 05:42 WBC 8.93 RBC 3.62 L Hgb 10.5 L Hct 32.0 L MCV 88 MCH 29 MCHC 33 RDW Coeff of Heladio 13.6 Plt Count 128 L Neut % (Auto) 89.4 H Lymph % (Auto) 6.2 L [place] % (Auto) 4.1 Eos % (Auto) 0.0 Baso % (Auto) 0.0 Neut # (Auto) 8.00 H Lymph # (Auto) 0.60 L [place] # (Auto) 0.40 Eos # (Auto) 0.00 Baso # (Auto) 0.00 Abs Immat Gran (auto) 0.03 Imm/Tot Granulo (auto) 0.3 Sodium 140 Potassium 4.4 Chloride 106 Carbon Dioxide 25 Anion Gap 9 BUN 27 H Creatinine 1.0 Estimated Creat Clear 100.23 Estimated GFR 93 Glucose 232 H Calcium 8.8 Phosphorus 3.1 Magnesium 1.7 C-Reactive Protein 18.3 H
--- NOTE | 2024-06-23 12:54 | REH.PT ---
PT Eval and treat orders received. Chart reviewed. Pt reports that he has 2 walkers at home. He has been able to hop on his R LE post sx Ind to from bathroom with a 2ww. Demo's ind with all transfers. Educated on safe mobility while maintaining NWB of L LE. No further skilled PT warranted. D/C PT. No charge.
[2024-06-23 15:00] VITALS: BP 109/68; PULSE 64; RESP 16; TEMP 36.4; O2SAT 100
--- NOTE | 2024-06-23 16:09 | PM.IMPN1 ---
Progress Note: A&P Assessment and plan (1) Gangrene associated with type 2 diabetes mellitus: Problem details: -await pathology results from surgery undertaken on 06/22/2024 Status: Acute (2) Osteomyelitis of foot, left, acute: Status: Acute (3) Abscess of left foot: Status: Acute (4) Cellulitis of left foot: Problem details: -continue with IV vancomycin and piperacillin with tazobactam until we obtain results of cultures Status: Acute (5) Acute prerenal azotemia: Problem details: - IV fluids and monitor Status: Acute (6) DM (diabetes mellitus), type 2: Problem details: - reports A1c always under 6, treated with metformin. - hemoglobin A1c 5.7 on 06/22/2024 - in-hospital will monitor blood glucose q.i.d. ACHS, continue with oral metformin, and use sliding scale insulin as warranted Status: Chronic (7) Hypertension: Problem details: - given relative hypotension will hold home medications and monitor and adjust as warranted Status: Chronic (8) Hyperlipidemia: Problem details: - continue home med Status: Acute (9) Amputation of fifth toe of left foot: Problem details: -06/22/2024 -non-weightbearing. PT and OT consultation Status: Acute (10) Peripheral vascular disease of lower extremity: Problem details: -x-ray of left foot 06/22/24 demonstrates atherosclerotic calcification of lower leg and foot vessels -physical exam 06/22/24 demonstrates decreased pulses of bilateral feet -per rn managed care assessment with peripheral doppler exam 06/22/24 patient has multiphasic waveforms of DP and PT arteries of left foot -no MASOUD or TcpO2 studies done as of 06/22/24 Status: Acute (11) Peripheral neuropathy: Problem details: - bilateral feet, possibly multifactorial from diabetes mellitus type 2 as well as history of alcohol use disorder - initiated discussion with patient about meticulous daily foot care and examination Status: Chronic Plan 1. Reviewed with surgeon, Dr. Finn, via telephone, who plans on bringing patient to the OR for second-look tomorrow 2. Reviewed impression recommendations with patient 3. Answered patient's questions to satisfaction 4. Patient agreeable with above stated plans and recommendations Time Spent With Patient Total time spent: 45 minutes Subjective Date Seen: 06/23/24 Interval history: 06/23/2024: Hospital day 2. Denies pain. No fevers, rigors, diaphoresis. Appetite slowly improving. Exam Narrative: Exam Narrative: I examine him in his hospital room. Vision and hearing are adequate. Alert and oriented x4. Friendly, articulate, cooperative. Lungs are clear to auscultation. Heart tones with regular rhythm. Abdomen benign. Wound VAC attached and functioning. Decreased pulses dorsalis pedis and posterior tib bilaterally Const: Vital Signs, click to edit/add: Vital Signs - 24 hr 06/22/24 19:00 06/22/24 20:38 06/22/24 23:45 Temperature 97.6 F Pulse Rate [Left P ulse Oximeter] 73 68 Respiratory Rate 16 Blood Pressure [Le ft Arm] Blood Pressure [Ri ght Arm] 105/64 123/75 Pulse Oximetry 99 Oxygen Delivery Me thod Room Air 06/22/24 23:45 06/22/24 23:45 06/23/24 03:30 Temperature 98.7 F 97.8 F Pulse Rate [Left P ulse Oximeter] 100 64 Respiratory Rate 16 16 16 Blood Pressure [Le ft Arm] Blood Pressure [Ri ght Arm] 143/79 H 130/91 H Pulse Oximetry 100 100 100 Oxygen Delivery Me thod Room Air Room Air Room Air 06/23/24 07:00 06/23/24 07:00 06/23/24 11:00 Temperature 97.6 F 97.5 F L Pulse Rate [Left P ulse Oximeter] 70 68 Respiratory Rate 16 16 16 Blood Pressure [Le ft Arm] 104/75 Blood Pressure [Ri ght Arm] 96/64 112/74 Pulse Oximetry 100 100 100 Oxygen Delivery Me thod Room Air Room Air Room Air Labs Labs: Laboratory Results - last 24 hr 06/23/24 05:42 WBC 8.93 RBC 3.62 L Hgb 10.5 L Hct 32.0 L MCV 88 MCH 29 MCHC 33 RDW Coeff of Heladio 13.6 Plt Count 128 L Neut % (Auto) 89.4 H Lymph % (Auto) 6.2 L [place] % (Auto) 4.1 Eos % (Auto) 0.0 Baso % (Auto) 0.0 Neut # (Auto) 8.00 H Lymph # (Auto) 0.60 L [place] # (Auto) 0.40 Eos # (Auto) 0.00 Baso # (Auto) 0.00 Abs Immat Gran (auto) 0.03 Imm/Tot Granulo (auto) 0.3 Sodium 140 Potassium 4.4 Chloride 106 Carbon Dioxide 25 Anion Gap 9 BUN 27 H Creatinine 1.0 Estimated Creat Clear 100.23 Estimated GFR 93 Glucose 232 H Calcium 8.8 Phosphorus 3.1 Magnesium 1.7 C-Reactive Protein 18.3 H
--- NOTE | 2024-06-23 18:19 | PC.NURSE ---
End of shift [id number]: AxOx4, calm, and cooperative to cares. Pt denies pain throughout the shift. Wound vac remains patent and draining at 125. Outlined markings present with no receding. A1 GB W, non weightbearing. Tolerating well. Continent of the bladder. Tolerating reg diet/fluids. Pt is awaiting sx of 06/24. Pt appears resting watching television with call light in reach.
[2024-06-23 19:00] VITALS: BP 119/74; PULSE 65; RESP 17; TEMP 36.4; O2SAT 99
[2024-06-23] MEDS: ATORVASTATIN CALCIUM 10 MG TABLET 20 MG PO (21:01)
[2024-06-23 22:42] VITALS: BP 138/79; PULSE 69; RESP 16; TEMP 36.3; O2SAT 98
[2024-06-24] VITALS (9 sets, daily range): BP systolic 147–160; BP diastolic 76–97; PULSE 69–82; RESP 16–18; TEMP 35.6–36.7; O2SAT 97–100
[2024-06-24] MEDS: PIPERACILLIN/TAZOBACTAM 3.375 GM in 0.9 % SODIUM CHLORIDE Mini-bag 100 ML IVPB ×4 (04:18→22:20)
[2024-06-24 06:31] LABS: Hematocrit 30.7 % (37.0-53.0); Hemoglobin* 9.9 gm/dL (13.5-17.5); Immature Granulocytes Abs Auto 0.03 K/uL (0.00-0.30); Immature Granulocytes Pct Auto 0.5 %; Lymphocytes Percent Auto 18.2 % (20-44); Mean Corpuscular HGB Conc 32 gm/dL (32-36); Mean Corpuscular Hemoglobin 28 pg (26-34); Mean Corpuscular Volume 88 fL (80-100); Monocytes Percent Auto 6.6 % (0.0-11.0); Neutrophils Percent Auto 74.7 % (42.0-72.0); Platelet Count* 121 K/uL (140-440); RDW Coefficient of Variation % 13.7 % (11.5-15.5); Red Blood Count 3.48 m/uL (4.30-5.90); White Blood Count* 6.37 K/uL (4.50-11.00)
[2024-06-24 06:41] LABS: Chloride* 109 mmol/L (96-114); Potassium* 4.2 mmol/L (3.6-5.1); Sodium* 139 mmol/L (135-149)
[2024-06-24 06:44] LABS: Blood Urea Nitrogen* 30 mg/dL (5-24); Est. Creatinine Clearance* 100.23; Estimated Glomerular Filt Rate 93 ml/min
[2024-06-24 06:45] LABS: Anion Gap 8 mEq/L (7-15); Calcium* 8.5 mg/dL (8.4-10.6); Carbon Dioxide* 22 mmol/L (20-32); Glucose* 226 mg/dL (60-115)
[2024-06-24 06:48] LABS: C Reactive Protein* 6.8 mg/dL (0.5-1.0)
[2024-06-24 07:02] LABS: Slide Review Reflex Yes
--- NOTE | 2024-06-24 07:02 | PC.NURSE ---
Shift note ([id number]): Patient pleasant, alert and oriented. Ambulated with walker and stand by assist. Wound Vac patent and dressing intact. Denies pain. NPO since midnight.?
[2024-06-24 07:35] LABS: Slide Review Acceptable Review (Acceptable)
[2024-06-24] MEDS: SODIUM CHLORIDE 0.9 % (FLUSH) 10 ML SYRINGE 5 ML IVF ×2 (10:16→22:21)
[2024-06-24] MEDS: METFORMIN 500 MG TABLET PO ×2 (10:17→22:24)
[2024-06-24] MEDS: FOLIC ACID 1 MG TABLET PO (10:17)
[2024-06-24] MEDS: OMEPRAZOLE 20 MG CAPSULE DR PO (10:18)
[2024-06-24] MEDS: THIAMINE 100 MG TABLET PO (10:18)
[2024-06-24] MEDS: MULTIVITAMIN/MINERALS 1 TABLET 1 TAB PO (10:18)
[2024-06-24] MEDS: INSULIN ASPART 100 UNIT/ML SUBCUT (10:19)
[2024-06-24] MEDS: FERROUS SULFATE 325 MG TABLET PO (10:31)
--- NOTE | 2024-06-24 14:09 | P.PODPN_ITS ---
Podiatry-PN: Subj Subjective Date Seen: 08/17/24 Interval history: note made in error Exam Const: Vital Signs, click to edit/add: Vital Signs - 24 hr 06/23/24 15:00 06/23/24 15:00 06/23/24 19:00 Temperature 97.6 F 97.5 F L Pulse Rate [Left P ulse Oximeter] 64 65 Respiratory Rate 16 16 17 Blood Pressure [Le ft Arm] 109/68 Blood Pressure [Ri ght Arm] 119/74 Pulse Oximetry 100 100 99 Oxygen Delivery Me thod Room Air Room Air Room Air 06/23/24 22:42 06/23/24 22:42 06/24/24 03:00 Temperature 97.4 F L 97.7 F Pulse Rate [Left P ulse Oximeter] 69 69 Respiratory Rate 16 16 16 Blood Pressure [Le ft Arm] 138/79 159/88 H Blood Pressure [Ri ght Arm] Pulse Oximetry 98 98 99 Oxygen Delivery Me thod Room Air Room Air Room Air 06/24/24 08:00 06/24/24 08:00 06/24/24 08:00 Temperature 97.7 F Pulse Rate [Left P ulse Oximeter] 73 73 Respiratory Rate 16 16 16 Blood Pressure [Le ft Arm] 159/83 H Blood Pressure [Ri ght Arm] Pulse Oximetry 99 99 Oxygen Delivery Me thod Room Air Room Air 06/24/24 11:15 Temperature 97.6 F Pulse Rate [Left P ulse Oximeter] 69 Respiratory Rate 18 Blood Pressure [Le ft Arm] 148/76 H Blood Pressure [Ri ght Arm] Pulse Oximetry 99 Oxygen Delivery Me thod Room Air Podiatry-PN: Obj Labs Labs: Laboratory Results - last 24 hr 06/24/24 06:03 WBC 6.37 RBC 3.48 L Hgb 9.9 L Hct 30.7 L MCV 88 MCH 28 MCHC 32 RDW Coeff of Heladio 13.7 Plt Count 121 L Neut % (Auto) 74.7 H Lymph % (Auto) 18.2 L [place] % (Auto) 6.6 Eos % (Auto) 0.0 Baso % (Auto) 0.0 Neut # (Auto) 4.80 Lymph # (Auto) 1.20 [place] # (Auto) 0.40 Eos # (Auto) 0.00 Baso # (Auto) 0.00 Abs Immat Gran (auto) 0.03 Imm/Tot Granulo (auto) 0.5 Diff Slide Review Acceptable Review Sodium 139 Potassium 4.2 Chloride 109 Carbon Dioxide 22 Anion Gap 8 BUN 30 H Creatinine 1.0 Estimated Creat Clear 100.23 Estimated GFR 93 Glucose 226 H Calcium 8.5 C-Reactive Protein 6.8 H
[2024-06-24] MEDS: BUPIVACAINE 0.25% 30 ML INJECTION (14:30)
--- NOTE | 2024-06-24 14:31 | W.ANESCHARGE ---
Anesthesia Charges Start Date/Time Anesthesia Start Date: 06/24/24 Anesthesia Start Time: 14:13 Stop Date/Time Anesthesia Stop Date: 06/24/24 Anesthesia Stop Time: 15:55 Coding CPT Codes CPT Codes: ANESTH LOWER LEG BONE SURG - 77563 ([id number]) P3 - PATIENT W/SEVERE SYS DISEASE, QK - FACILITIES AND GROUNDS DIRECTOR 2-4 CNCRNT ANES PROC, QX - ARTIFICIAL INSEMINATION TECHNICIAN SVC W/ MD MED DIRECTION Additional Codes: Summary - Emergency: ([id number])
--- NOTE | 2024-06-24 14:50 | PM.IMPN1 ---
Progress Note: A&P Assessment and plan (1) Gangrene associated with type 2 diabetes mellitus: Problem details: -awaiting pathology results from surgery undertaken on 06/22/2024 Status: Acute (2) Osteomyelitis of foot, left, acute: Status: Acute (3) Abscess of left foot: Status: Acute (4) Amputation of fifth toe of left foot: Problem details: -06/22/2024 -non-weightbearing. PT and OT consultation Status: Acute (5) Cellulitis of left foot: Problem details: -continue with IV vancomycin and piperacillin with tazobactam until we obtain results of cultures Status: Acute (6) Peripheral vascular disease of lower extremity: Problem details: -x-ray of left foot 06/22/24 demonstrates atherosclerotic calcification of lower leg and foot vessels -physical exam 06/22/24 demonstrates decreased pulses of bilateral feet -per laborer pie bakery assessment with peripheral doppler exam 06/22/24 patient has multiphasic waveforms of DP and PT arteries of left foot -no MASOUD or TcpO2 studies done as of 06/22/24 Status: Acute (7) DM (diabetes mellitus), type 2: Problem details: - reports A1c always under 6, treated with metformin. - hemoglobin A1c 5.7 on 06/22/2024 - in-hospital will monitor blood glucose q.i.d. ACHS, continue with oral metformin, and use sliding scale insulin as warranted Status: Chronic (8) Peripheral neuropathy: Problem details: - bilateral feet, possibly multifactorial from diabetes mellitus type 2 as well as history of alcohol use disorder - initiated discussion with patient about meticulous daily foot care and examination Status: Chronic (9) Hyperlipidemia: Problem details: - continue home med Status: Acute (10) Acute prerenal azotemia: Problem details: - IV fluids and monitor Status: Acute Plan 1. Going to the OR today to reassess wound and proceed with additional debridement as warranted and possible closure 2. Patient agreeable with above stated plans and recommendations Time Spent With Patient Total time spent: 40 minutes Subjective Date Seen: 06/24/24 Interval history: 06/24/2024: Hospital day 3. Feels well. Satisfied with progress. Denies pain. No fevers, rigors, diaphoresis. Appetite improving. Exam Narrative: Exam Narrative: Examined patient in his hospital room. Appears comfortable and in no acute distress. Alert and oriented x4. Friendly, articulate, cooperative. Lungs are clear to auscultation. Heart tones with regular rhythm. Abdomen is benign. Less erythema of affected left lower extremity. Wound VAC still in place. Const: Vital Signs, click to edit/add: Vital Signs - 24 hr 06/23/24 15:00 06/23/24 15:00 06/23/24 19:00 Temperature 97.6 F 97.5 F L Pulse Rate [Left P ulse Oximeter] 64 65 Respiratory Rate 16 16 17 Blood Pressure [Le ft Arm] 109/68 Blood Pressure [Ri ght Arm] 119/74 Pulse Oximetry 100 100 99 Oxygen Delivery Me thod Room Air Room Air Room Air 06/23/24 22:42 06/23/24 22:42 06/24/24 03:00 Temperature 97.4 F L 97.7 F Pulse Rate [Left P ulse Oximeter] 69 69 Respiratory Rate 16 16 16 Blood Pressure [Le ft Arm] 138/79 159/88 H Blood Pressure [Ri ght Arm] Pulse Oximetry 98 98 99 Oxygen Delivery Me thod Room Air Room Air Room Air 06/24/24 08:00 06/24/24 08:00 06/24/24 08:00 Temperature 97.7 F Pulse Rate [Left P ulse Oximeter] 73 73 Respiratory Rate 16 16 16 Blood Pressure [Le ft Arm] 159/83 H Blood Pressure [Ri ght Arm] Pulse Oximetry 99 99 Oxygen Delivery Me thod Room Air Room Air 06/24/24 11:15 Temperature 97.6 F Pulse Rate [Left P ulse Oximeter] 69 Respiratory Rate 18 Blood Pressure [Le ft Arm] 148/76 H Blood Pressure [Ri ght Arm] Pulse Oximetry 99 Oxygen Delivery Me thod Room Air Labs Labs: Laboratory Results - last 24 hr 06/24/24 06:03 WBC 6.37 RBC 3.48 L Hgb 9.9 L Hct 30.7 L MCV 88 MCH 28 MCHC 32 RDW Coeff of Heladio 13.7 Plt Count 121 L Neut % (Auto) 74.7 H Lymph % (Auto) 18.2 L [place] % (Auto) 6.6 Eos % (Auto) 0.0 Baso % (Auto) 0.0 Neut # (Auto) 4.80 Lymph # (Auto) 1.20 [place] # (Auto) 0.40 Eos # (Auto) 0.00 Baso # (Auto) 0.00 Abs Immat Gran (auto) 0.03 Imm/Tot Granulo (auto) 0.5 Diff Slide Review Acceptable Review Sodium 139 Potassium 4.2 Chloride 109 Carbon Dioxide 22 Anion Gap 8 BUN 30 H Creatinine 1.0 Estimated Creat Clear 100.23 Estimated GFR 93 Glucose 226 H Calcium 8.5 C-Reactive Protein 6.8 H
--- NOTE | 2024-06-24 15:00 | PC.NURSE ---
Patient denies pain. He ambulates with gait belt, walker, and 1 assist. Wound vac in place to left foot and dressing is intact. NPO this shift prior to procedure.
--- NOTE | 2024-06-24 15:59 | W.ANESCHARGE ---
Anesthesia Charges Start Date/Time Anesthesia Start Date: 06/24/24 Anesthesia Start Time: 14:13 Stop Date/Time Anesthesia Stop Date: 06/24/24 Anesthesia Stop Time: 15:55 Summary Emergency: PAINTING MACHINE OPERATOR Coding CPT Codes CPT Codes: ANESTH LOWER LEG BONE SURG - 42522 ([id number]) P3 - PATIENT W/SEVERE SYS DISEASE, QK - ORANGE PEEL OPERATOR 2-4 CNCRNT ANES PROC, P6 - BRAIN- PT ORGANS REMOVED Additional Codes: Summary - Emergency: PAINTING MACHINE OPERATOR ([id number])
--- NOTE | 2024-06-24 16:00 | W.PM.PODPROC ---
Date of Procedure: 06/24/24 Surgeon: Susan Finn DPM Co-Surgeon: none Pre-op Diagnosis: 1. Abscess left foot 2. Osteomyelitis left foot Post-op Diagnosis: 1. Abscess left foot 2. Osteomyelitis left foot Type of Procedure: 1. Repeat incision and drainage with removal of all nonviable tissue left foot 2. Bone biopsy 5th metatarsal left foot 3. Application of skin graft substitute left foot 4. Wound vac application left foot Procedure Description: The patient was identified prior to being brought into the operating room using their name and date of as identifiers. The intended surgical care plan was again reviewed in detail with the patient as well as the rationale for the surgery, the most common risks, complications, and expected recovery course. The patient was given the opportunity to ask questions which were answered to the best of our ability. The patient ultimately voiced no questions or concerns and agreed to proceed forward with the surgery as planned. The patient was brought into the operating room and placed on the operating room table in the supine position. Anesthesia then performed MAC followed by injection of 20 cc of 0.25% Marcaine plain in an ankle block fashion. general anesthesia with oral endotracheal intubation. A well padded and appropriately sized ankle tourniquet was applied to their operative lower extremity but never inflated. A TIME-OUT was performed and documented. Attention was directed to the plantar forefoot where the prior 5th ray amputation was performed. The remaining soft-tissues were incised making certain that all infected tissues were resected in toto. A proximal wafer of bone was then obtained and sent to pathology for analysis. No further pocket of abscess/purulence was appreciated and no proximal tracking was noted. The soft-tissue wound was then irrigated with 9 liters sterile saline using pulsed lavage. The remaining soft-tissue wound underwent further excision/debridement of associated myonecrosis until nothing but healthy, well-perfused tissues were appreciated throughout. An Integra bilayer graft was placed over the defect according to manufactures guidelines. Adaptic was the placed over the bilayer followed by wound vac was then applied with a black sponge placed into the known wound/soft tissue deficit over the 8cm x 5cm x 5cm wound. Settings for the wound vac were then placed to 125mmHg continuous.? A well padded sterile dressing was then applied from forefoot to knee. The patient was successfully reversed of general anesthesia and transferred to the recovery area with their vital signs stable and neurovascular status intact to their operative lower extremity. All sponge and instrument counts were correct at the completion of the surgery as well as prior to closure of deep tissue and skin. Anesthesia: MAC and local Estimated blood loss (mL): 20 Implants: Integra bilayer graft 5x8 Specimens: specimen obtained, sent to pathology Disposition: floor
[2024-06-24] MEDS: METOPROLOL TARTRATE 25 MG TABLET 12.5 MG PO (22:24)
[2024-06-24] MEDS: ATORVASTATIN CALCIUM 10 MG TABLET 20 MG PO (22:24)
[2024-06-25 03:00] VITALS: BP 171/89; PULSE 79; RESP 18; TEMP 36.9; O2SAT 95
[2024-06-25] MEDS: PIPERACILLIN/TAZOBACTAM 3.375 GM in 0.9 % SODIUM CHLORIDE Mini-bag 100 ML IVPB ×2 (04:02→09:30)
[2024-06-25 07:17] LABS: Basophils Absolute Auto 0.01 K/uL (0.00-0.30); Basophils Percent Auto 0.2 % (0.0-3.0); Eosinophils Absolute Auto 0.02 K/uL (0.00-0.50); Eosinophils Percent Auto 0.4 % (0.0-7.0); Hematocrit 29.7 % (37.0-53.0); Hemoglobin* 9.6 gm/dL (13.5-17.5); Immature Granulocytes Abs Auto 0.02 K/uL (0.00-0.30); Immature Granulocytes Pct Auto 0.4 %; Lymphocytes Percent Auto 15.9 % (20-44); Mean Corpuscular HGB Conc 32 gm/dL (32-36); Mean Corpuscular Hemoglobin 29 pg (26-34); Mean Corpuscular Volume 89 fL (80-100); Monocytes Percent Auto 13.9 % (0.0-11.0); Neutrophils Absolute Auto 3.78 K/uL (1.7-7.0); Neutrophils Percent Auto 69.2 % (42.0-72.0); Platelet Count* 140 K/uL (140-440); RDW Coefficient of Variation % 13.7 % (11.5-15.5); Red Blood Count 3.34 m/uL (4.30-5.90); White Blood Count* 5.46 K/uL (4.50-11.00)
[2024-06-25 07:18] LABS: Slide Review Reflex No
[2024-06-25 07:30] LABS: Chloride* 109 mmol/L (96-114); Potassium* 4.1 mmol/L (3.6-5.1); Sodium* 138 mmol/L (135-149)
[2024-06-25 07:32] LABS: Blood Urea Nitrogen* 22 mg/dL (5-24); Est. Creatinine Clearance* 100.23; Estimated Glomerular Filt Rate 93 ml/min
[2024-06-25 07:33] LABS: Anion Gap 7 mEq/L (7-15); Carbon Dioxide* 22 mmol/L (20-32); Glucose* 126 mg/dL (60-115)
[2024-06-25 07:34] LABS: Calcium* 8.3 mg/dL (8.4-10.6)
[2024-06-25 07:36] LABS: C Reactive Protein* 5.8 mg/dL (0.5-1.0)
--- NOTE | 2024-06-25 07:41 | PC.NURSE ---
Shift note ([id number]): Patient pleasant, alert and oriented. Ambulated with walker and stand by assist. Wound Vac patent and dressing intact. Small amount of bloody drainage in vac canister. Denies pain.?
[2024-06-25 08:00] VITALS: BP 140/78; PULSE 77; RESP 18; TEMP 36.6; O2SAT 98
[2024-06-25] MEDS: OMEPRAZOLE 20 MG CAPSULE DR PO (08:24)
[2024-06-25] MEDS: METOPROLOL TARTRATE 25 MG TABLET 12.5 MG PO ×2 (08:24→20:10)
[2024-06-25] MEDS: MULTIVITAMIN/MINERALS 1 TABLET 1 TAB PO (08:25)
[2024-06-25] MEDS: METFORMIN 500 MG TABLET PO ×2 (08:25→20:09)
[2024-06-25] MEDS: ENOXAPARIN 30 MG/0.3ML INJ SUBCUT (08:25)
[2024-06-25] MEDS: lisinopriL 20 MG TABLET PO (08:25)
[2024-06-25] MEDS: FERROUS SULFATE 325 MG TABLET PO (08:25)
[2024-06-25] MEDS: FOLIC ACID 1 MG TABLET PO (08:25)
[2024-06-25] MEDS: THIAMINE 100 MG TABLET PO (08:25)
[2024-06-25] MEDS: SODIUM CHLORIDE 0.9 % (FLUSH) 10 ML SYRINGE 5 ML IVF ×2 (09:30→21:35)
[2024-06-25 11:30] VITALS: BP 132/80; PULSE 69; RESP 18; TEMP 36.7; O2SAT 100
[2024-06-25] MEDS: INSULIN ASPART 100 UNIT/ML SUBCUT ×3 (12:29→21:33)
--- NOTE | 2024-06-25 14:07 | PM.IMPN1 ---
Progress Note: A&P Assessment and plan (1) Gangrene associated with type 2 diabetes mellitus: Problem details: -awaiting pathology results from surgery undertaken on 06/22/2024 Status: Acute (2) Osteomyelitis of foot, left, acute: Status: Acute (3) Abscess of left foot: Status: Acute (4) Amputation of fifth toe of left foot: Problem details: -06/22/2024 -non-weightbearing. PT consulted, patient discharged from therapies. Status: Acute (5) Cellulitis of left foot: Problem details: - BCx1 NGTD - wound culture Staph Pseudintermedius, pansensitive (oxacillin sensitive); Group G strep, susceptible to ampicillin, penicillin, vancomycin, cephalosporins. - 06/25 currently on zosyn. Reviewed sensitivities finalized today. Discontinue zosyn, vanco and start ancef Status: Acute (6) Peripheral vascular disease of lower extremity: Problem details: -x-ray of left foot 06/22/24 demonstrates atherosclerotic calcification of lower leg and foot vessels -physical exam 06/22/24 demonstrates decreased pulses of bilateral feet -per dock pumper assessment with peripheral doppler exam 06/22/24 patient has multiphasic waveforms of DP and PT arteries of left foot -no MASOUD or TcpO2 studies done as of 06/22/24 Status: Acute (7) DM (diabetes mellitus), type 2: Problem details: - reports A1c always under 6, treated with metformin. - hemoglobin A1c 5.7 on 06/22/2024 - in-hospital will monitor blood glucose q.i.d. ACHS, continue with oral metformin, and use sliding scale insulin as warranted - 06/25 POC glucose 110-low 200s, continue metformin and ISS Status: Chronic (8) Peripheral neuropathy: Problem details: - bilateral feet, possibly multifactorial from diabetes mellitus type 2 as well as history of alcohol use disorder - initiated discussion with patient about meticulous daily foot care and examination Status: Chronic (9) Hyperlipidemia: Problem details: - continue home med Status: Chronic (10) Acute prerenal azotemia: Problem details: - IV fluids and monitor Status: Resolved Plan - Continue wound care with wound vac, change on Thursday with possible d/c home after that. Subjective Time Seen by Provider: 12:10 Date Seen: 06/25/24 Interval history: Doing well today. Denies pain, SOB, CP. Exam Narrative: Exam Narrative: General: No acute distress. Awake, alert, oriented x3. No pallor. No jaundice. Oropharynx: Clear. Mucous membranes moist. Cardiovascular: Regular rate and rhythm. No murmurs, gallops, or rubs. Respiratory: Clear to auscultation bilaterally. No wheezes or crackles. Extremities: Left lower extremity has wound VAC in place and is wrapped in an [place] wrap to just above the knee. Const: Vital Signs, click to edit/add: Vital Signs - 24 hr 06/24/24 15:45 06/24/24 15:45 06/24/24 15:45 Temperature 96.0 F L Pulse Rate [Left P ulse Oximeter] 70 Respiratory Rate 18 18 18 Blood Pressure [Le ft Arm] Blood Pressure [Ri ght Arm] 160/97 H Pulse Oximetry 97 99 Oxygen Delivery Me thod Room Air Room Air 06/24/24 16:00 06/24/24 16:15 06/24/24 16:30 Temperature 96.1 F L 96.1 F L 96.4 F L Pulse Rate [Left P ulse Oximeter] 73 71 75 Respiratory Rate 16 18 18 Blood Pressure [Le ft Arm] Blood Pressure [Ri ght Arm] 154/90 H 150/88 H 154/90 H Pulse Oximetry 98 98 98 Oxygen Delivery Me thod Room Air Room Air Room Air 06/24/24 19:00 06/24/24 22:27 06/24/24 22:27 Temperature 98.0 F 98.0 F Pulse Rate [Left P ulse Oximeter] 74 82 Respiratory Rate 18 18 18 Blood Pressure [Le ft Arm] 147/81 H 156/88 H Blood Pressure [Ri ght Arm] Pulse Oximetry 100 99 99 Oxygen Delivery Me thod Room Air Room Air Room Air 06/25/24 03:00 06/25/24 08:00 06/25/24 08:00 Temperature 98.4 F Pulse Rate [Left P ulse Oximeter] 79 77 Respiratory Rate 18 18 18 Blood Pressure [Le ft Arm] 171/89 H Blood Pressure [Ri ght Arm] Pulse Oximetry 95 98 Oxygen Delivery Me thod Room Air Room Air 06/25/24 08:00 06/25/24 11:30 Temperature 98 F 98.1 F Pulse Rate [Left P ulse Oximeter] 77 69 Respiratory Rate 18 18 Blood Pressure [Le ft Arm] Blood Pressure [Ri ght Arm] 140/78 H 132/80 Pulse Oximetry 98 100 Oxygen Delivery Me thod Room Air Room Air Labs Labs: Laboratory Results - last 24 hr 06/25/24 06:20 WBC 5.46 RBC 3.34 L Hgb 9.6 L Hct 29.7 L MCV 89 MCH 29 MCHC 32 RDW Coeff of Heladio 13.7 Plt Count 140 Neut % (Auto) 69.2 Lymph % (Auto) 15.9 L [place] % (Auto) 13.9 H Eos % (Auto) 0.4 Baso % (Auto) 0.2 Neut # (Auto) 3.78 Lymph # (Auto) 0.90 [place] # (Auto) 0.80 Eos # (Auto) 0.02 Baso # (Auto) 0.01 Abs Immat Gran (auto) 0.02 Imm/Tot Granulo (auto) 0.4 Sodium 138 Potassium 4.1 Chloride 109 Carbon Dioxide 22 Anion Gap 7 BUN 22 Creatinine 1.0 Estimated Creat Clear 100.23 Estimated GFR 93 Glucose 126 H Calcium 8.3 L C-Reactive Protein 5.8 H
[2024-06-25 15:00] VITALS: BP 132/77; PULSE 67; RESP 18; TEMP 36.4; O2SAT 100
[2024-06-25] MEDS: CEFAZOLIN 2 GM in 0.9 % SODIUM CHLORIDE Mini-bag 100 ML IVPB ×2 (15:14→23:42)
[2024-06-25 19:00] VITALS: BP 162/80; PULSE 72; RESP 19; TEMP 36.6; O2SAT 98
--- NOTE | 2024-06-25 19:15 | PC.NURSE ---
PATIENT DENIES PAIN AND N/V. PATIENT IS HAVING SOFT/LOOSE STOOLS AND ENCOURAGED TO EAT YOGURT WITH MEALS. UP WITH SBA AND WALKER TO RECLINER AND BATHROOM (NEEDS ASSIST CARRYING WOUND VAC.) DRESSING TO LEFT FOOT CDI AND LEG ELEVATED. GLUTEAL FOLD NOTED TO BE PURPLISH/RED. PATIENT REPORTS HX OF PILONIDAL CYSTS TO THE AREA. MD UPDATED AND MEPILEX PLACED. PATIENT ENCOURAGED TO OFFLOAD FREQUENTLY WHEN IN BED AND SITTING IN RECLINER.
[2024-06-25] MEDS: ATORVASTATIN CALCIUM 10 MG TABLET 20 MG PO (20:09)
[2024-06-25] MEDS: ACETAMINOPHEN 325 MG TABLET 650 MG PO (20:13)
[2024-06-25 23:00] VITALS: BP 165/90; PULSE 72; RESP 18; TEMP 36.7; O2SAT 96
[2024-06-26 03:00] VITALS: BP 175/87; O2SAT 95
[2024-06-26] MEDS: CEFAZOLIN 2 GM in 0.9 % SODIUM CHLORIDE Mini-bag 100 ML IVPB ×3 (06:49→22:38)
[2024-06-26 07:14] LABS: Basophils Absolute Auto 0.01 K/uL (0.00-0.30); Basophils Percent Auto 0.2 % (0.0-3.0); Eosinophils Absolute Auto 0.02 K/uL (0.00-0.50); Eosinophils Percent Auto 0.3 % (0.0-7.0); Hematocrit 28.6 % (37.0-53.0); Hemoglobin* 9.4 gm/dL (13.5-17.5); Immature Granulocytes Abs Auto 0.02 K/uL (0.00-0.30); Immature Granulocytes Pct Auto 0.3 %; Lymphocytes Percent Auto 13.5 % (20-44); Mean Corpuscular HGB Conc 33 gm/dL (32-36); Mean Corpuscular Hemoglobin 29 pg (26-34); Mean Corpuscular Volume 88 fL (80-100); Monocytes Percent Auto 11.1 % (0.0-11.0); Neutrophils Percent Auto 74.6 % (42.0-72.0); Platelet Count* 133 K/uL (140-440); RDW Coefficient of Variation % 13.4 % (11.5-15.5); Red Blood Count 3.24 m/uL (4.30-5.90); White Blood Count* 5.87 K/uL (4.50-11.00)
[2024-06-26 07:23] LABS: Slide Review Reflex No
[2024-06-26 07:31] LABS: Chloride* 107 mmol/L (96-114); Potassium* 4.1 mmol/L (3.6-5.1); Sodium* 136 mmol/L (135-149)
[2024-06-26 07:34] LABS: Blood Urea Nitrogen* 15 mg/dL (5-24); Creatinine* 0.8 mg/dL (0.5-1.5); Est. Creatinine Clearance* 125.29; Estimated Glomerular Filt Rate 110 ml/min
[2024-06-26 07:35] LABS: Anion Gap 5 mEq/L (7-15); Calcium* 8.4 mg/dL (8.4-10.6); Carbon Dioxide* 24 mmol/L (20-32); Glucose* 154 mg/dL (60-115)
[2024-06-26 07:38] LABS: C Reactive Protein* 8.2 mg/dL (0.5-1.0)
--- NOTE | 2024-06-26 07:40 | PC.NURSE ---
Shift note ([id number]): Patient pleasant, alert and oriented. Ambulated with walker and stand by assist. Wound Vac patent and dressing intact. Given PRN Tylenol for c/o right knee pain that he describes as stiffness and c/o right calf cramping. He reports pain goes away for a while when he exercises it in bed. No noted redness, warmth or swelling to right leg. Pt reported that the Tylenol was effective and he denies pain this morning.?
[2024-06-26 07:45] VITALS: BP 174/85; PULSE 68; RESP 18; TEMP 36.4; O2SAT 100
[2024-06-26] MEDS: LACTOBACILLUS ACIDOPHILUS 1 TABLET 1 TAB PO ×2 (08:33→17:43)
[2024-06-26] MEDS: MULTIVITAMIN/MINERALS 1 TABLET 1 TAB PO (08:33)
[2024-06-26] MEDS: lisinopriL 20 MG TABLET PO (08:33)
[2024-06-26] MEDS: OMEPRAZOLE 20 MG CAPSULE DR PO (08:33)
[2024-06-26] MEDS: METOPROLOL TARTRATE 25 MG TABLET 12.5 MG PO ×2 (08:33→20:55)
[2024-06-26] MEDS: FOLIC ACID 1 MG TABLET PO (08:33)
[2024-06-26] MEDS: ENOXAPARIN 30 MG/0.3ML INJ SUBCUT (08:34)
[2024-06-26] MEDS: FERROUS SULFATE 325 MG TABLET PO (08:34)
[2024-06-26] MEDS: METFORMIN 500 MG TABLET PO ×2 (08:34→20:55)
[2024-06-26] MEDS: SODIUM CHLORIDE 0.9 % (FLUSH) 10 ML SYRINGE 5 ML IVF ×2 (09:52→20:57)
[2024-06-26] MEDS: THIAMINE 100 MG TABLET PO (09:52)
[2024-06-26 10:07] LABS: C.Difficile Negative (Negative); CDIFFEPI 027 PRESUMPTIVE NEGATIVE (Negative)
[2024-06-26 11:30] VITALS: BP 134/78; PULSE 68; RESP 18; TEMP 36.6; O2SAT 100
[2024-06-26] MEDS: INSULIN ASPART 100 UNIT/ML SUBCUT ×2 (11:58→20:59)
--- NOTE | 2024-06-26 14:28 | PM.IMPN1 ---
Progress Note: A&P Assessment and plan (1) Gangrene associated with type 2 diabetes mellitus: Problem details: -awaiting pathology results from surgery undertaken on 06/22/2024 Status: Acute (2) Osteomyelitis of foot, left, acute: Status: Acute (3) Abscess of left foot: Status: Acute (4) Amputation of fifth toe of left foot: Problem details: -06/22/2024 -non-weightbearing. PT consulted, patient discharged from therapies. Status: Acute (5) Cellulitis of left foot: Problem details: - BCx1 NGTD - wound culture Staph Pseudintermedius, pansensitive (oxacillin sensitive); Group G strep, susceptible to ampicillin, penicillin, vancomycin, cephalosporins. - 06/25 currently on zosyn. Reviewed sensitivities finalized today. Discontinue zosyn, vanco and start ancef - 06/26 now on ancef only. No fevers. Status: Acute (6) Peripheral vascular disease of lower extremity: Problem details: -x-ray of left foot 06/22/24 demonstrates atherosclerotic calcification of lower leg and foot vessels -physical exam 06/22/24 demonstrates decreased pulses of bilateral feet -per land appraiser assessment with peripheral doppler exam 06/22/24 patient has multiphasic waveforms of DP and PT arteries of left foot -no MASOUD or TcpO2 studies done as of 06/22/24 Status: Acute (7) DM (diabetes mellitus), type 2: Problem details: - reports A1c always under 6, treated with metformin. - hemoglobin A1c 5.7 on 06/22/2024 - in-hospital will monitor blood glucose q.i.d. ACHS, continue with oral metformin, and use sliding scale insulin as warranted - 06/25 POC glucose 110-low 200s, continue metformin and ISS Status: Chronic (8) Peripheral neuropathy: Problem details: - bilateral feet, possibly multifactorial from diabetes mellitus type 2 as well as history of alcohol use disorder - initiated discussion with patient about meticulous daily foot care and examination Status: Chronic (9) Hyperlipidemia: Problem details: - continue home med Status: Chronic (10) Acute prerenal azotemia: Problem details: - IV fluids and monitor Status: Resolved (11) Diarrhea: Problem details: - Cdiff negative - start Imodium, lactobacillus Status: Acute Plan - Continue wound care with wound vac, change on Ol[place] with possible d/c home after that. Subjective Time Seen by Provider: 07:26 Date Seen: 06/26/24 Interval history: Zacarias feels well. He c/o watery diarrhea. It started as loose stools yesterday morning and became like water today. He tells me that he gets this intermittently at home; this has been an intermittent problem for years. He thought it would get better when he stopped drinking (which he did 6 months ago), but it didn't. He denies abdominal cramping. Exam Narrative: Exam Narrative: General: No acute distress. Awake, alert, oriented. No pallor. No jaundice. Oropharynx: Clear. Mucous membranes moist. Cardiovascular: Regular rate and rhythm. No murmurs, gallops, or rubs. Respiratory: Clear to auscultation bilaterally. No wheezes or crackles. Abdomen: Bowel sounds present, soft, nondistended, nontender. Extremities: Left lower extremity has wound VAC in place and is wrapped in an Jasper wrap to just above the knee. Const: Vital Signs, click to edit/add: Vital Signs - 24 hr 06/25/24 15:00 06/25/24 15:00 06/25/24 15:00 Temperature 97.6 F Pulse Rate [Left P ulse Oximeter] 67 67 Respiratory Rate 18 18 18 Blood Pressure [Le ft Arm] Blood Pressure [Ri ght Arm] 132/77 [address] Oximetry [address] Room Air Room Air 06/25/24 19:00 06/25/24 23:00 06/25/24 23:00 Temperature 97.9 F 98.0 F Pulse Rate [Left P ulse Oximeter] 72 72 Respiratory Rate 19 18 18 Blood Pressure [Le ft Arm] 162/80 H 165/90 H Blood Pressure [Ri ght Arm] Pulse Oximetry [address] thod Room Air Room Air Room Air 06/26/24 03:00 06/26/24 07:45 06/26/24 07:45 Temperature Pulse Rate [Left P ulse Oximeter] 68 Respiratory Rate 18 18 Blood Pressure [Le ft Arm] 175/87 H Blood Pressure [Ri ght Arm] Pulse Oximetry 95 100 Oxygen Delivery [place] Room Air Room Air 06/26/24 07:45 06/26/24 11:30 Temperature 97.5 F L 97.8 F Pulse Rate [Left P ulse Oximeter] 68 68 Respiratory Rate 18 18 Blood Pressure [Le ft Arm] Blood Pressure [Ri ght Arm] 174/85 H 134/78 Pulse Oximetry 100 100 Oxygen Delivery Me thod Room Air Room Air Labs Labs: Laboratory Results - last 24 hr 06/26/24 06/26/24 06:20 08:23 WBC 5.87 RBC 3.24 L Hgb 9.4 L Hct 28.6 L MCV 88 MCH 29 MCHC 33 RDW Coeff of [place]adio 13.4 Plt Count 133 L Neut % (Auto) 74.6 H Lymph % (Auto) 13.5 L [place] % (Auto) 11.1 H Eos % (Auto) 0.3 Baso % (Auto) 0.2 Neut # (Auto) 4.40 Lymph # (Auto) 0.80 L [place] # (Auto) 0.70 Eos # (Auto) 0.02 Baso # (Auto) 0.01 Abs Immat Gran (auto) 0.02 Imm/Tot Granulo (auto) 0.3 Sodium 136 Potassium 4.1 Chloride 107 Carbon Dioxide 24 Anion Gap 5 L BUN 15 Creatinine 0.8 Estimated Creat Clear 125.29 Estimated GFR 110 Glucose 154 H Calcium 8.4 C-Reactive Protein 8.2 H Stl C. diff Tox B Gene Negative Stl C. diff [id number] PRESUMPTIVE NEGATIVE
[2024-06-26 15:00] VITALS: BP 144/78; PULSE 67; RESP 18; TEMP 36.9; O2SAT 98
[2024-06-26] MEDS: LOPERAMIDE HCL 2 MG CAPSULE 4 MG PO (15:33)
[2024-06-26 19:00] VITALS: BP 145/79; PULSE 71; RESP 19; TEMP 36.9; O2SAT 98
[2024-06-26] MEDS: ATORVASTATIN CALCIUM 10 MG TABLET 20 MG PO (20:54)
[2024-06-26 22:41] VITALS: BP 152/83; PULSE 68; RESP 18; TEMP 36.7; O2SAT 97
[2024-06-27 03:00] VITALS: BP 163/85; PULSE 76; RESP 18; TEMP 36.7; O2SAT 97
--- NOTE | 2024-06-27 04:58 | PC.NURSE ---
Shift note ([id number]): Patient pleasant, alert and oriented. Ambulated with walker and stand by assist. Wound Vac patent and dressing intact. Denied pain. ?
[2024-06-27] MEDS: CEFAZOLIN 2 GM in 0.9 % SODIUM CHLORIDE Mini-bag 100 ML IVPB ×3 (06:42→22:43)
[2024-06-27 07:40] VITALS: BP 159/79; PULSE 73; RESP 22; TEMP 37.3; O2SAT 97
[2024-06-27] MEDS: INSULIN ASPART 100 UNIT/ML SUBCUT ×2 (07:45→12:19)
[2024-06-27] MEDS: LACTOBACILLUS ACIDOPHILUS 1 TABLET 1 TAB PO ×3 (07:45→18:17)
[2024-06-27] MEDS: METOPROLOL TARTRATE 25 MG TABLET 12.5 MG PO ×2 (09:32→21:05)
[2024-06-27] MEDS: MULTIVITAMIN/MINERALS 1 TABLET 1 TAB PO (09:33)
[2024-06-27] MEDS: METFORMIN 500 MG TABLET PO ×2 (09:33→21:05)
[2024-06-27] MEDS: lisinopriL 20 MG TABLET PO (09:33)
[2024-06-27] MEDS: FOLIC ACID 1 MG TABLET PO (09:34)
[2024-06-27] MEDS: THIAMINE 100 MG TABLET PO (09:34)
[2024-06-27] MEDS: FERROUS SULFATE 325 MG TABLET PO (09:34)
[2024-06-27] MEDS: OMEPRAZOLE 20 MG CAPSULE DR PO (09:34)
[2024-06-27] MEDS: SODIUM CHLORIDE 0.9 % (FLUSH) 10 ML SYRINGE 5 ML IVF ×2 (09:35→21:08)
[2024-06-27] MEDS: ENOXAPARIN 30 MG/0.3ML INJ SUBCUT (09:35)
[2024-06-27 10:25] VITALS: BMI 24.7
[2024-06-27 11:10] VITALS: BP 146/74; PULSE 73; RESP 20; TEMP 36.9; O2SAT 98
--- NOTE | 2024-06-27 12:26 | PM.IMPN1 ---
Progress Note: A&P Assessment and plan (1) Gangrene associated with type 2 diabetes mellitus: Problem details: -awaiting pathology results from surgery undertaken on 06/22/2024 Status: Acute (2) Osteomyelitis of foot, left, acute: Status: Acute (3) Abscess of left foot: Status: Acute (4) Amputation of fifth toe of left foot: Problem details: -06/22/2024 -non-weightbearing. PT consulted, patient discharged from therapies. Status: Acute (5) Cellulitis of left foot: Problem details: - BCx1 NGTD - wound culture Staph Pseudintermedius, pansensitive (oxacillin sensitive); Group G strep, susceptible to ampicillin, penicillin, vancomycin, cephalosporins. - 06/25 currently on zosyn. Reviewed sensitivities finalized today. Discontinue zosyn, vanco and start ancef - 06/26 now on ancef only. No fevers. - 06/27 awaiting outpatient wound vac and pathology before patient will be able to discharge. Transition to oral keflex x 10 days at time of discharge. Status: Acute (6) Peripheral vascular disease of lower extremity: Problem details: -x-ray of left foot 06/22/24 demonstrates atherosclerotic calcification of lower leg and foot vessels -physical exam 06/22/24 demonstrates decreased pulses of bilateral feet -per logging tractor operator assessment with peripheral doppler exam 06/22/24 patient has multiphasic waveforms of DP and PT arteries of left foot -no MASOUD or TcpO2 studies done as of 06/22/24 Status: Acute (7) DM (diabetes mellitus), type 2: Problem details: - reports A1c always under 6, treated with metformin. - hemoglobin A1c 5.7 on 06/22/2024 - in-hospital will monitor blood glucose q.i.d. ACHS, continue with oral metformin, and use sliding scale insulin as warranted - 06/27 POC glucose 150-180s, continue metformin and ISS Status: Chronic (8) Peripheral neuropathy: Problem details: - bilateral feet, possibly multifactorial from diabetes mellitus type 2 as well as history of alcohol use disorder - initiated discussion with patient about meticulous daily foot care and examination Status: Chronic (9) Hyperlipidemia: Problem details: - continue home med Status: Chronic (10) Acute prerenal azotemia: Problem details: - IV fluids and monitor Status: Resolved (11) Diarrhea: Problem details: - Cdiff negative - start Imodium, lactobacillus Status: Resolved Plan - Awaiting pathology and home wound vac. Time Spent With Patient Total time spent: Today I spent 35 minutes seeing the patient, discussing care with Podiatry and Wound Care, reviewing Expanse and EPIC notes/diagnostics/labs, discussing the care plan with our care team that includes social work, PT/OT, pharmacy, RT, intermediate and documenting my impressions and plan in the medical record. Subjective Time Seen by Provider: 07:30 Date Seen: 06/27/24 Interval history: Zacarias has many questions about duration of wound vac and being off work, etc. I answered as much as I could and also deferred some of the questions to the logging tractor operator, who is planning to see him today. Diarrhea has resolved. Exam Narrative: Exam Narrative: General: No acute distress. Awake, alert, oriented. No pallor. No jaundice. Oropharynx: Clear. Mucous membranes moist. Cardiovascular: Regular rate and rhythm. No murmurs, gallops, or rubs. Respiratory: Clear to auscultation bilaterally. No wheezes or crackles. Abdomen: Bowel sounds present. Extremities: Left lower extremity has wound VAC in place and is wrapped in an Jasper wrap to just above the knee. Const: Vital Signs, click to edit/add: Vital Signs - 24 hr 06/26/24 15:00 06/26/24 15:00 06/26/24 15:00 Temperature 98.4 F Pulse Rate [Left P ulse Oximeter] 67 67 Respiratory Rate 18 18 18 Blood Pressure [Le ft Arm] Blood Pressure [Ri ght Arm] 144/78 H Pulse Oximetry 98 98 Oxygen Delivery Me thod Room Air Room Air 06/26/24 19:00 06/26/24 22:41 06/26/24 22:41 Temperature 98.4 F 98.1 F Pulse Rate [Left P ulse Oximeter] 71 68 Respiratory Rate 19 18 18 Blood Pressure [Le ft Arm] 145/79 H 152/83 H Blood Pressure [Ri ght Arm] Pulse Oximetry 98 97 97 Oxygen Delivery Me thod Room Air Room Air Room Air 06/27/24 03:00 06/27/24 07:40 06/27/24 07:40 Temperature 98.0 F 99.2 F Pulse Rate [Left P ulse Oximeter] 76 73 73 Respiratory Rate 18 22 22 Blood Pressure [Le ft Arm] 163/85 H Blood Pressure [Ri ght Arm] 159/79 H Pulse Oximetry 97 97 Oxygen Delivery Me thod Room Air Room Air 06/27/24 07:40 06/27/24 11:10 Temperature 98.4 F Pulse Rate [Left P ulse Oximeter] 73 Respiratory Rate 22 20 Blood Pressure [Le ft Arm] Blood Pressure [Ri ght Arm] 146/74 H Pulse Oximetry 97 98 Oxygen Delivery Me thod Room Air Room Air
--- NOTE | 2024-06-27 12:59 | W.PM.PODPN ---
Podiatry-PN: Subj Subjective Time Seen by Provider: 12:00 Date Seen: 06/27/24 Interval history: Patient seen resting comfortably in bedside chair with wound VAC in place. Denies any current discomfort to this foot. Progress Note: A&P Assessment and plan (1) Gangrene associated with type 2 diabetes mellitus: Problem details: -awaiting pathology results from surgery undertaken on 06/22/2024 Status: Acute (2) Abscess of left foot: Status: Acute (3) Osteomyelitis of foot, left, acute: Status: Acute Plan Patient is s/p I&D x2 with Integra Bilayer graft and wound VAC application, left foot -Patient will need home-going wound vac -Case discussed with [facility] Wound care team regarding need for outpatient wound cares. Will transfer care to [facility] wound care services team for ongoing mangement of patient's wound care/VAC -Recommend 10 day course of Oral antibiotic upon discharge -Patient to remain NWB to the LLE -Recommend surgical shoe to the left for protection -Follow-up with Dr. Finn 3 weeks from date of last surgery Time Spent With Patient Total time spent: 30min Exam Narrative: Exam Narrative: Dressing clean, dry and intact to the LLE with wound VAC in place and functioning Const: Vital Signs, click to edit/add: Vital Signs - 24 hr 06/26/24 15:00 06/26/24 15:00 06/26/24 15:00 Temperature 98.4 F Pulse Rate [Left P ulse Oximeter] 67 67 Respiratory Rate 18 18 18 Blood Pressure [Le ft Arm] Blood Pressure [Ri ght Arm] 144/78 H Pulse Oximetry 98 98 Oxygen Delivery Me thod Room Air Room Air 06/26/24 19:00 06/26/24 22:41 06/26/24 22:41 Temperature 98.4 F 98.1 F Pulse Rate [Left P ulse Oximeter] 71 68 Respiratory Rate 19 18 18 Blood Pressure [Le ft Arm] 145/79 H 152/83 H Blood Pressure [Ri ght Arm] Pulse Oximetry 98 97 97 Oxygen Delivery Me thod Room Air Room Air Room Air 06/27/24 03:00 06/27/24 07:40 06/27/24 07:40 Temperature 98.0 F 99.2 F Pulse Rate [Left P ulse Oximeter] 76 73 73 Respiratory Rate 18 22 22 Blood Pressure [Le ft Arm] 163/85 H Blood Pressure [Ri ght Arm] 159/79 H Pulse Oximetry 97 97 Oxygen Delivery Me thod Room Air Room Air 06/27/24 07:40 06/27/24 11:10 Temperature 98.4 F Pulse Rate [Left P ulse Oximeter] 73 Respiratory Rate 22 20 Blood Pressure [Le ft Arm] Blood Pressure [Ri ght Arm] 146/74 H Pulse Oximetry 97 98 Oxygen Delivery Me thod Room Air Room Air Podiatry-PN: Obj Labs Labs: Intraoperative Pathology Results pending
[2024-06-27 15:17] VITALS: BP 147/85; PULSE 78; RESP 16; TEMP 36.7; O2SAT 98
[2024-06-27 19:00] VITALS: BP 175/81; PULSE 86; RESP 18; TEMP 36.8; O2SAT 98
--- NOTE | 2024-06-27 19:20 | PC.NURSE ---
End of Shift: Patient pleasant and cooperative. Patient vitally stable, lungs clear, BS WNL, IV SL and intact. Patient denies pain. Patient uses urinal or is SBA with walker to toilet. Patient tolerating regular diet, urinating well, and had 3 loose BMs. Patient's blood sugars were 174, 168, and 98. Wound Vac changed today, dressing C/D/I.
[2024-06-27] MEDS: ATORVASTATIN CALCIUM 10 MG TABLET 20 MG PO (21:05)
[2024-06-27 23:40] VITALS: BP 180/90; PULSE 84; RESP 16; TEMP 36.6; O2SAT 97; O2SAT 98
[2024-06-28] VITALS (7 sets, daily range): BP systolic 119–152; BP diastolic 64–86; PULSE 70–75; RESP 16–20; TEMP 36.6–37; O2SAT 97–100
[2024-06-28] MEDS: CEFAZOLIN 2 GM in 0.9 % SODIUM CHLORIDE Mini-bag 100 ML IVPB (07:36)
[2024-06-28] MEDS: SODIUM CHLORIDE 0.9 % (FLUSH) 10 ML SYRINGE 5 ML IVF ×2 (07:37→08:38)
--- NOTE | 2024-06-28 07:48 | PC.NURSE ---
Pt is alert and oriented x3. Afebrile. Pt denies pain, chest pain, SOB, and N/V. Pt?s left foot capillary refill is <3, dressing is CDI. Pt?s left foot?wound Vac is patent and draining, and at 125 mmHg continuous suction. Pt is up SBA with walker and wound vac. ?
[2024-06-28] MEDS: LACTOBACILLUS ACIDOPHILUS 1 TABLET 1 TAB PO ×3 (08:22→17:38)
[2024-06-28] MEDS: METOPROLOL TARTRATE 25 MG TABLET 12.5 MG PO ×2 (08:35→20:56)
[2024-06-28] MEDS: MULTIVITAMIN/MINERALS 1 TABLET 1 TAB PO (08:36)
[2024-06-28] MEDS: FOLIC ACID 1 MG TABLET PO (08:36)
[2024-06-28] MEDS: FERROUS SULFATE 325 MG TABLET PO (08:36)
[2024-06-28] MEDS: OMEPRAZOLE 20 MG CAPSULE DR PO (08:36)
[2024-06-28] MEDS: ACETAMINOPHEN 325 MG TABLET 650 MG PO (08:36)
[2024-06-28] MEDS: METFORMIN 500 MG TABLET PO ×2 (08:37→20:55)
[2024-06-28] MEDS: THIAMINE 100 MG TABLET PO (08:37)
[2024-06-28] MEDS: lisinopriL 20 MG TABLET PO (08:37)
[2024-06-28] MEDS: ENOXAPARIN 30 MG/0.3ML INJ SUBCUT (08:38)
[2024-06-28] MEDS: INSULIN ASPART 100 UNIT/ML SUBCUT ×2 (11:48→21:02)
--- NOTE | 2024-06-28 13:39 | PM.IMPN1 ---
Progress Note: A&P Assessment and plan (1) Gangrene associated with type 2 diabetes mellitus: Problem details: -awaiting pathology results from surgery undertaken on 06/22/2024 - I called lab and they contacted [facility] - I was informed that results should be available tomorrow. I spoke with Susan Finn from podiatry today. We discussed that pathology results are expected tomorrow. If the pathology is okay, she will come tomorrow to change the wound vac to the one for home, and then we can discharge. Status: Acute (2) Abscess of left foot: Status: Acute (3) Osteomyelitis of foot, left, acute: Status: Acute (4) Amputation of fifth toe of left foot: Problem details: -06/22/2024 -non-weightbearing. PT consulted, patient discharged from therapies. Status: Acute (5) Cellulitis of left foot: Problem details: - BCx1 NGTD - wound culture Staph Pseudintermedius, pansensitive (oxacillin sensitive); Group G strep, susceptible to ampicillin, penicillin, vancomycin, cephalosporins. - 06/25 currently on zosyn. Reviewed sensitivities finalized today. Discontinue zosyn, vanco and start ancef - 3/ now on ancef only. No fevers. - 3/ awaiting outpatient wound vac and pathology before patient will be able to discharge. Transition to oral keflex x 10 days at time of discharge. Status: Acute (6) Peripheral vascular disease of lower extremity: Problem details: -x-ray of left foot 06/22/24 demonstrates atherosclerotic calcification of lower leg and foot vessels -physical exam 06/22/24 demonstrates decreased pulses of bilateral feet -per string studies director assessment with peripheral doppler exam 06/22/24 patient has multiphasic waveforms of DP and PT arteries of left foot -no MASOUD or TcpO2 studies done as of 06/22/24 Status: Acute (7) DM (diabetes mellitus), type 2: Problem details: - reports A1c always under 6, treated with metformin. - hemoglobin A1c 5.7 on 06/22/2024 - in-hospital will monitor blood glucose q.i.d. ACHS, continue with oral metformin, and use sliding scale insulin as warranted - 06/27 POC glucose 98-150s, continue metformin and ISS Status: Chronic (8) Peripheral neuropathy: Problem details: - bilateral feet, possibly multifactorial from diabetes mellitus type 2 as well as history of alcohol use disorder - initiated discussion with patient about meticulous daily foot care and examination Status: Chronic (9) Hyperlipidemia: Problem details: - continue home med Status: Chronic (10) Acute prerenal azotemia: Problem details: - IV fluids and monitor Status: Resolved (11) Diarrhea: Problem details: - Cdiff negative - start Imodium, lactobacillus Status: Resolved Time Spent With Patient Total time spent: 30min Subjective Time Seen by Provider: 11:08 Date Seen: 06/28/24 Interval history: Zacarias c/o posterior neck pain/strain. He notes that he gets this type of pain from stress and that it resolves on its own over the course of a day. He felt stressed yesterday trying to arrange for help getting home and help with his dogs. His mother is now planning to come stay with him for 3 weeks starting on Thursday and will help him get his dogs home from the kennel on Thursday. Zacarias has no other complaints or concerns. I informed him that I spoke with our lab who stated pathology results should be back by tomorrow. Exam Narrative: Exam Narrative: General: No acute distress. Awake, alert, oriented. No pallor. No jaundice. Oropharynx: Clear. Mucous membranes moist. Cardiovascular: Regular rate and rhythm. No murmurs, gallops, or rubs. Respiratory: Clear to auscultation bilaterally. No wheezes or crackles. Abdomen: Bowel sounds present. Extremities: Left lower extremity has wound VAC in place and is wrapped in an Jasper wrap to just above the knee. Const: Vital Signs, click to edit/add: Vital Signs - 24 hr 06/27/24 15:17 06/27/24 15:17 06/27/24 15:17 Temperature 98.1 F Pulse Rate [Left P ulse Oximeter] 78 78 Respiratory Rate 16 16 16 Blood Pressure [Le ft Arm] Blood Pressure [Ri ght Arm] 147/85 H Pulse Oximetry 98 98 Oxygen Delivery Me thod Room Air Room Air 06/27/24 19:00 06/27/24 23:40 06/27/24 23:40 Temperature 98.3 F 97.9 F Pulse Rate [Left P ulse Oximeter] 86 84 Respiratory Rate 18 16 16 Blood Pressure [Le ft Arm] 175/81 H 180/90 H Blood Pressure [Ri ght Arm] Pulse Oximetry 98 98 97 Oxygen Delivery Me thod Room Air Room Air Room Air 06/28/24 06:05 06/28/24 08:25 06/28/24 08:25 Temperature 97.9 F 98.6 F Pulse Rate [Left P ulse Oximeter] 73 75 75 Respiratory Rate 16 18 18 Blood Pressure [Le ft Arm] Blood Pressure [Ri ght Arm] 152/86 H 148/82 H Pulse Oximetry 98 97 Oxygen Delivery Va thod Room Air Room Air 06/28/24 08:30 06/28/24 11:37 Temperature 98 F Pulse Rate [Left P ulse Oximeter] 74 Respiratory Rate 18 18 Blood Pressure [Le ft Arm] Blood Pressure [Ri ght Arm] 136/75 Pulse Oximetry 98 98 Oxygen Delivery Va thod Room Air Room Air
[2024-06-28] MEDS: cephALEXin 500 MG CAPSULE PO ×2 (15:09→20:57)
--- NOTE | 2024-06-28 18:57 | PC.NURSE ---
End of Shift: Patient pleasant and cooperative. Patient vitally stable, lungs clear, BS WNL, No IV. Patient denies pain. Patient is SBA walker to carry wound vac to toilet (loose stools) otherwise he uses the urinal. Patient up in chair all shift, tolerating diet. Blood sugars 132, 152, 124. Left foot dressing C/D/I.
[2024-06-28] MEDS: ATORVASTATIN CALCIUM 10 MG TABLET 20 MG PO (20:57)
[2024-06-29 03:00] VITALS: BP 160/93; PULSE 75; RESP 20; TEMP 36.7; O2SAT 97
--- NOTE | 2024-06-29 06:23 | PC.NURSE ---
Shift note ([id number]): Patient pleasant, alert and oriented. Ambulated with walker and stand by assist. Wound Vac patent and dressing intact. Denied pain. ?
[2024-06-29 07:50] VITALS: BP 148/90; PULSE 83; RESP 18; O2SAT 99
[2024-06-29] MEDS: METOPROLOL TARTRATE 25 MG TABLET 12.5 MG PO (09:39)
[2024-06-29] MEDS: OMEPRAZOLE 20 MG CAPSULE DR PO (09:40)
[2024-06-29] MEDS: MULTIVITAMIN/MINERALS 1 TABLET 1 TAB PO (09:40)
[2024-06-29] MEDS: LACTOBACILLUS ACIDOPHILUS 1 TABLET 1 TAB PO ×2 (09:40→16:19)
[2024-06-29] MEDS: FERROUS SULFATE 325 MG TABLET PO (09:41)
[2024-06-29] MEDS: METFORMIN 500 MG TABLET PO (09:41)
[2024-06-29] MEDS: FOLIC ACID 1 MG TABLET PO (09:41)
[2024-06-29] MEDS: cephALEXin 500 MG CAPSULE PO ×2 (09:41→16:19)
[2024-06-29] MEDS: THIAMINE 100 MG TABLET PO (09:41)
[2024-06-29] MEDS: lisinopriL 20 MG TABLET PO (09:41)
--- NOTE | 2024-06-29 09:41 | PM.IMPN1 ---
Progress Note: A&P Assessment and plan (1) Gangrene associated with type 2 diabetes mellitus: Problem details: -awaiting pathology results from surgery undertaken on 06/22/2024 - I called lab and they contacted [facility] - I was informed that results should be available tomorrow. I spoke with Susan Finn from podiatry today. We discussed that pathology results are expected tomorrow. If the pathology is okay, she will come tomorrow to change the wound vac to the one for home, and then we can discharge. -06/29 awaiting anaerobic culture which was sent to [facility] 06/28 Aerobic culture growing Staph pseudintermedius G stain growing Gram-positive cocci, Gram-negative almas Pathology report #1 growing group G Streptococcus, susceptible to ampicillin, penicillin, vancomycin, cephalosporins Pathology report #2 growing pasteurella canis, pansensitive Status: Acute (2) Abscess of left foot: Status: Acute (3) Osteomyelitis of foot, left, acute: Status: Acute (4) Amputation of fifth toe of left foot: Problem details: -06/22/2024 -non-weightbearing. PT consulted, patient discharged from [facility]. Status: Acute (5) Cellulitis of left foot: Problem details: - BCx1 NGTD - wound culture Staph Pseudintermedius, pansensitive (oxacillin sensitive); Group G strep, susceptible to ampicillin, penicillin, vancomycin, cephalosporins. - 06/25 currently on zosyn. Reviewed sensitivities finalized today. Discontinue zosyn, vanco and start ancef - 06/26 now on ancef only. No fevers. - 3 awaiting outpatient wound vac and pathology before patient will be able to discharge. Transition to oral keflex x 10 days at time of discharge. Status: Acute (6) Peripheral vascular disease of lower extremity: Problem details: -x-ray of left foot 06/22/24 demonstrates atherosclerotic calcification of lower leg and foot vessels -physical exam 06/22/24 demonstrates decreased pulses of bilateral feet -per body press operator assessment with peripheral doppler exam 06/22/24 patient has multiphasic waveforms of DP and PT arteries of left foot -no MASOUD or TcpO2 studies done as of 06/22/24 Status: Acute (7) DM (diabetes mellitus), type 2: Problem details: - reports A1c always under 6, treated with metformin. - hemoglobin A1c 5.7 on 06/22/2024 - in-hospital will monitor blood glucose q.i.d. ACHS, continue with oral metformin, and use sliding scale insulin as warranted - 06/27 POC glucose 98-150s, continue metformin and ISS Status: Chronic (8) Peripheral neuropathy: Problem details: - bilateral feet, possibly multifactorial from diabetes mellitus type 2 as well as history of alcohol use disorder - initiated discussion with patient about meticulous daily foot care and examination Status: Chronic (9) Hyperlipidemia: Problem details: - continue home med Status: Chronic (10) Acute prerenal azotemia: Problem details: - IV fluids and monitor Status: Resolved (11) Diarrhea: Problem details: - Cdiff negative - start Imodium, lactobacillus Status: Resolved Time Spent With Patient Total time spent: 30min Exam Const: Vital Signs, click to edit/add: Vital Signs - 24 hr 06/28/24 11:37 06/28/24 15:11 06/28/24 15:11 Temperature 98 F 98.3 F Pulse Rate [Left P ulse Oximeter] 74 70 70 Respiratory Rate 18 20 20 Blood Pressure [Le ft Arm] Blood Pressure [Ri ght Arm] 136/75 133/64 Pulse Oximetry 98 100 Oxygen Delivery Me thod Room Air 06/28/24 15:11 06/28/24 19:00 06/28/24 22:53 Temperature 98.2 F Pulse Rate [Left P ulse Oximeter] 70 Respiratory Rate 20 17 Blood Pressure [Le ft Arm] 119/66 Blood Pressure [Ri ght Arm] Pulse Oximetry 100 98 Oxygen Delivery Me thod Room Air Room Air Room Air 06/28/24 22:53 06/29/24 03:00 Temperature 98.3 F 98.0 F Pulse Rate [Left P ulse Oximeter] 73 75 Respiratory Rate 18 20 Blood Pressure [Le ft Arm] 142/79 H 160/93 H Blood Pressure [Ri ght Arm] Pulse Oximetry 97 97 Oxygen Delivery Me thod Room Air Room Air
[2024-06-29] MEDS: SODIUM CHLORIDE 0.9 % (FLUSH) 10 ML SYRINGE 5 ML IVF (09:42)
[2024-06-29] MEDS: ENOXAPARIN 30 MG/0.3ML INJ SUBCUT (09:42)
--- NOTE | 2024-06-29 11:47 | PM.DS1 ---
DS: Providers Provider Date Seen: 06/29/24 Date of admission: 06/22/24 13:22 Primary care physician: Jass Judd MD Admitting Clinician: Fuad Ayala MD Consults: 06/23/24 10:16 Consult to Physical Therapy [CONS] Routine Comment: Reason(s) for PT Consult:: Evaluate and Treat Any Restrictions?:: Non Wt Bearing Comment: LLE 06/24/24 16:23 Consult to Wound Care [CONS] Routine Comment: Call Dr. Sumner on 06/27 to coordinate vac change Consulting Provider: [facility] Attending Physician on discharge: ROBERT Santo, [facility] [place], PAEliezerC [facility] Date of Discharge: 06/29/24 DS: Diagnosis Discharge Diagnosis (1) Gangrene associated with type 2 diabetes mellitus: Status: Acute Problem details: -awaiting pathology results from surgery undertaken on 06/22/2024 -I called lab and they contacted [facility] - I was informed that results should be available tomorrow. I spoke with Susan Finn from podiatry today. We discussed that pathology results are expected tomorrow. If the pathology is okay, she will come tomorrow to change the wound vac to the one for home, and then we can discharge. Aerobic culture growing Staph pseudintermedius G stain growing Gram-positive cocci, Gram-negative almas Microbiology report #1 growing group G Streptococcus, susceptible to ampicillin, penicillin, vancomycin, cephalosporins Microbiology report #2 growing pasteurella canis, pansensitive On day of discharge, anaerobic culture remains pending, was sent to [place] on 06/28/24. Patient was started on Keflex on 06/28, having received 3 doses, remains afebrile, vitally stable. Podiatry okay with patient discharging to home today. If pathology report shows he needs other antibiotics, we will have patient return for PICC placement and IV antibiotic scheduling. Will otherwise complete 10 day course of oral Keflex. Outpatient follow-up with [facility] Care [facility] and Podiatry scheduled. (2) Abscess of left foot: Status: Acute Problem details: s/p Incision and drainage with removal of all nonviable tissue left foot, Partial 5th ray amputation left foot, Wound vac application left foot (DOS 06/22/24), Podiatry, Dr. Finn s/p Repeat incision and drainage with removal of all nonviable tissue left foot, Bone biopsy 5th metatarsal left foot, Application of skin graft substitute left foot, Wound vac application left foot (DOS 06/24/24), Podiatry, Dr. Finn Management as above. Discharged with wound VAC in place. Outpatient follow-up with [facility] and Podiatry scheduled. (3) Osteomyelitis of foot, left, acute: Status: Acute Problem details: s/p Incision and drainage with removal of all nonviable tissue left foot, Partial 5th ray amputation left foot, Wound vac application left foot (DOS 06/22/24), Podiatry, Dr. Finn s/p Repeat incision and drainage with removal of all nonviable tissue left foot, Bone biopsy 5th metatarsal left foot, Application of skin graft substitute left foot, Wound vac application left foot (DOS 06/24/24), Podiatry, Dr. Finn Management as above. Discharged with wound VAC in place. Outpatient follow-up with [facility] Care Clinic and Podiatry scheduled. (4) Amputation of fifth toe of left foot: Status: Acute Problem details: -DOS 06/22/2024 -non-weightbearing. PT consulted, patient discharged from therapies. Patient to remain nonweightbearing LLE upon discharge, surgical shoe for protection. Outpatient follow-up with [facility] and Podiatry scheduled. (5) Cellulitis of left foot: Status: Acute Problem details: - BCx1 no growth after 5 days - wound culture Staph Pseudintermedius, pansensitive (oxacillin sensitive); Group G strep, susceptible to ampicillin, penicillin, vancomycin, cephalosporins. - 06/25 currently on zosyn. Reviewed sensitivities finalized today. Discontinue zosyn, vanco and start ancef - 06/26 now on ancef only. No fevers. - 06/27 awaiting outpatient wound vac and pathology before patient will be able to discharge. Transition to oral keflex x 10 days at time of discharge - started 06/28/2024 Patient was transition from IV Ancef to oral Keflex on 06/28/2024. Discharged to complete 10 day course of oral antibiotics. Anaerobic culture remains pending at time of discharge, will follow up with results as well as if further needs for IV antibiotics. Outpatient follow-up with Podiatry scheduled. (6) Peripheral vascular disease of lower extremity: Status: Acute Problem details: -x-ray of left foot 06/22/24 demonstrates atherosclerotic calcification of lower leg and foot vessels -physical exam 06/22/24 demonstrates decreased pulses of bilateral feet -per electric tool repairer assessment with peripheral doppler exam 06/22/24 patient has multiphasic waveforms of DP and PT arteries of left foot -no MASOUD or TcpO2 studies done as of 06/22/24 (7) DM (diabetes mellitus), type 2: Status: Chronic Problem details: - reports A1c always under 6, treated with metformin. - hemoglobin A1c 5.7 on 06/22/2024 (8) Peripheral neuropathy: Status: Chronic Problem details: - bilateral feet, possibly multifactorial from diabetes mellitus type 2 as well as history of alcohol use disorder - initiated discussion with patient about meticulous daily foot care and examination (9) Hyperlipidemia: Status: Chronic Problem details: - continue statin (10) Acute prerenal azotemia: Status: Resolved Problem details: - IV fluids and monitor Resolved prior to discharge. (11) Diarrhea: Status: Resolved Problem details: - Cdiff negative - start Imodium, lactobacillus Resolved prior to discharge. DS: Summary Hospital Course Hospital Course: [age] year old male was admitted to the medical floor for management osteomyelitis, abscess left foot. Course of care and details as noted above. Transitioned from IV antibiotics to oral Keflex to complete 10 day course. Awaiting anaerobic cultures, podiatry aware. Discharged with wound VAC in place. PEG ROLDAN. Has outpatient Podiatry and Wound Care Clinic appointment scheduled. Remainder of chronic medical comorbidities were monitored and managed with home medications. Status at Discharge Functional status at discharge: uses cane/walker Overall status at discharge: patient is progressing back to baseline Time Spent with Patient Time attestation: Total time spent providing and/or coordinating discharge services: Time spent: Greater than 30 minutes Exam Narrative: Exam Narrative: PHYSICAL EXAM General: Pleasant, conversant, NAD Cardiovascular: RRR Pulmonary: No dyspnea Neurological: Alert, answering questions appropriately Extremities: Postoperative dressing with wound VAC in place LLE Skin: Warm, dry. Const: Vital Signs, click to edit/add: Vital Signs - 24 hr 06/28/24 15:11 06/28/24 15:11 06/28/24 15:11 Temperature 98.3 F Pulse Rate [Left P ulse Oximeter] 70 70 Respiratory Rate 20 20 20 Blood Pressure [Le ft Arm] Blood Pressure [Ri ght Arm] 133/64 Pulse Oximetry 100 100 Oxygen Delivery Me thod Room Air 06/28/24 19:00 06/28/24 22:53 06/28/24 22:53 Temperature 98.2 F 98.3 F Pulse Rate [Left P ulse Oximeter] 70 73 Respiratory Rate 17 18 Blood Pressure [Le ft Arm] 119/66 142/79 H Blood Pressure [Ri ght Arm] Pulse Oximetry 98 97 Oxygen Delivery Me thod Room Air Room Air Room Air 06/29/24 03:00 Temperature 98.0 F Pulse Rate [Left P ulse Oximeter] 75 Respiratory Rate 20 Blood Pressure [Le ft Arm] 160/93 H Blood Pressure [Ri ght Arm] Pulse Oximetry 97 Oxygen Delivery Me thod Room Air DS: Data Data Completed and Pending Pending studies at discharge: Anaerobic cultures Labs on day of discharge: Preliminary micro results at discharge 06/22/24 10:53 Aerobic Culture - Preliminary Foot Left Staph Pseudintermedius Anaerobic Culture - Preliminary Imaging Toe x-ray: Attestation: I have reviewed the pertinent imaging results. Radiologist's impression: Findings/Impression: Skin irregularity and soft tissue gas at the lateral aspect of the 5th toe consistent with the given history of ulceration. Osteopenia and possible subtle erosion at the medial aspect of the base of the proximal phalanx suspicious for osteomyelitis. Foot x-ray: Attestation: I have reviewed the pertinent imaging results. Radiologist's impression: Findings/Impression: There is some irregularity at the base of the proximal phalanx of the left 5th digit, please see toe report for additional comments. Remaining osseous structures are within normal limits. Soft tissue gas and skin irregularity along the left 5th toe is redemonstrated. Atherosclerotic calcification is present with calcification along the plantar surface of the foot suggesting chronic plantar fasciitis. Small well-formed heel spur. Discharge Plan Discharge Disposition: Home, Self-Care Date of Admission: 06/22/24 13:22 Attending Provider on Discharge: Catarina Donnelly Consulting Providers: Mikki Harris; Jayashree Preston Primary Care Provider: Jass Judd Condition: Improved Anticipated Discharge Date/Time: 06/29/24 16:00 Discharge Medications: New cephalexin 500 mg Capsule 500 mg PO TID 9 Days Qty: 27 0RF Continued (DME) Diabetic Test Strips [facility] See Rx Instructions .Route Rx Instructions: As directed (DME) lancets [Coaguchek Lancets] [facility] See Rx Instructions .Route Rx Instructions: As directed lidocaine [Aspercreme (lidocaine)] 4 % adhesive patch,medicated 1 patch topical DAILY PRN atorvastatin 20 mg tablet 20 mg PO QHS Qty: 90 3RF ferrous gluconate 324 mg (37.5 mg iron) tablet 324 mg PO DAILY Qty: 90 3RF folic acid 400 mcg tablet 0.4 mg PO DAILY Qty: 90 3RF metformin 500 mg tablet 500 mg PO BID Qty: 180 3RF metoprolol tartrate 25 mg tablet 12.5 mg PO BID Qty: 90 3RF omeprazole 20 mg capsule,delayed release(DR/EC) 20 mg PO DAILY Qty: 90 3RF thiamine HCl (vitamin B1) 100 mg tablet 100 mg PO DAILY Qty: 90 3RF multivitamin [Daily Multi-Vitamin] Tablet 1 tab PO DAILY Qty: 90 3RF cholecalciferol (vitamin D3) 25 mcg (1,000 unit) capsule 25 mcg PO DAILY lisinopril 20 mg tablet 20 mg PO DAILY Discharge Orders: Discharge Order (Routine); Ordered 06/29/24 Ordered By: Catarina Donnelly Patient Education: Cephalexin (By mouth), Osteomyelitis (GEN) Additional Instructions: You are being discharged home with a wound vac. [facility] will continue to follow you for these cares. Do not put any weight on the left leg. Use the walker as instructed. Wear the surgical boot on the left foot for protection. Continue to take the Keflex until gone. There is a pathology report that is pending. We will call you with these results. If you need further antibiotics, we will help arrange this for you. Follow-up with Dr. Finn on 07/15/24. Activity Level: No Weight Bearing Discharge Diet: Diabetic Diet Detail: Increase your protein intake for improved healing. Follow Up Appointments: [facility] [Other] - 07/01/24 2:30 pm (Additional Appointments: ThursdayJuly 04 8:30 ThursdayJuly 06 2:30 ThursdayJuly 08 2:30) Jass Judd MD [Primary Care Provider] - Susan Finn DPM [Staff Physician] - 07/15/24 12:00 pm ([facility] follow up at [facility] ) Forms: [employer] Info Instructions
--- NOTE | 2024-06-29 13:00 | W.PM.PODPN ---
Podiatry-PN: Subj Subjective Date Seen: 06/29/24 Progress Note: A&P Assessment and plan (1) Amputation of fifth toe of left foot: Problem details: -DOS 06/22/2024 -non-weightbearing. PT consulted, patient discharged from therapies. Patient to remain nonweightbearing LLE upon discharge, surgical shoe for protection. Outpatient follow-up with [facility] Care [facility] and Podiatry scheduled. Status: Acute Plan - Spoke with nursing staff this am regarding wound vac change and applying home going wound vac. Will monitor chart for picture to evaluate graft/wound. - Discussed with Dr. Carter that path results are positive for osteo per 06/22 bone bx. Discussed how pt is ok to d/c on orals as additional bone was removed on 06/24 and path results are pending. Will continue to monitor and will f/u with pt regarding results as an outpatient. Discussed how will talk with pt if margins are clear regarding either a PICC vs additional sx. Exam Const: Vital Signs, click to edit/add: Vital Signs - 24 hr 06/28/24 15:11 06/28/24 15:11 06/28/24 15:11 Temperature 98.3 F Pulse Rate [Left P ulse Oximeter] 70 70 Respiratory Rate 20 20 20 Blood Pressure [Le ft Arm] Blood Pressure [Ri ght Arm] 133/64 Pulse Oximetry 100 100 Oxygen Delivery Me thod Room Air 06/28/24 19:00 06/28/24 22:53 06/28/24 22:53 Temperature 98.2 F 98.3 F Pulse Rate [Left P ulse Oximeter] 70 73 Respiratory Rate 17 18 Blood Pressure [Le ft Arm] 119/66 142/79 H Blood Pressure [Ri ght Arm] Pulse Oximetry 98 97 Oxygen Delivery Me thod Room Air Room Air Room Air 06/29/24 03:00 06/29/24 07:50 06/29/24 07:50 Temperature 98.0 F Pulse Rate [Left P ulse Oximeter] 75 83 Respiratory Rate 20 18 18 Blood Pressure [Le ft Arm] 160/93 H Blood Pressure [Ri ght Arm] 148/90 H Pulse Oximetry 97 99 99 Oxygen Delivery Me thod Room Air Room Air Room Air
--- NOTE | 2024-06-29 16:35 | PC.NURSE ---
Wound vac dressing changed and home machine applied. Pt denies pain, nausea, lightheadedness. Understand POC with DC from Doctor, Wound Care and Wound Clinic appointments, as well as dietary needs to aid in the wound healing process. DC instructions given verbally and in writing. All questions answered. DC to home by friend @ [phone].
== END 2024-06-29 16:25 | disposition home or self-care (01) | DRG 305 ==
LOC: ED 10:12 → OR 10:39 → MEDSURG 13:04 → OR 13:25 → MEDSURG 13:25
PROVIDERS: Family Medicine; Admitting Provider Internal Medicine; Emergency Provider Student in an Organized Health Care Education/Training Program; PCP Family Medicine; Visit Provider Podiatrist
PROC: 0Y6N0ZF Detachment at Left Foot, Partial 5th Ray, Open Approach (ICD-10-PCS; principal; 2024-06-22 10:00)
PROC: 0KBW0ZZ Excision of Left Foot Muscle, Open Approach (ICD-10-PCS; principal; 2024-06-24 14:30)
DX: E11.69 Type 2 diabetes mellitus with other specified complication (principal); M86.172 Other acute osteomyelitis, left ankle and foot; E11.52 Type 2 diabetes mellitus with diabetic peripheral angiopathy with gangrene; A48.0 Gas gangrene; E11.621 Type 2 diabetes mellitus with foot ulcer; L97.524 Non-pressure chronic ulcer of other part of left foot with necrosis of bone; E11.628 Type 2 diabetes mellitus with other skin complications; L03.116 Cellulitis of left lower limb; E11.65 Type 2 diabetes mellitus with hyperglycemia; E11.51 Type 2 diabetes mellitus with diabetic peripheral angiopathy without gangrene; E11.42 Type 2 diabetes mellitus with diabetic polyneuropathy; D50.9 Iron deficiency anemia, unspecified; R39.2 Extrarenal uremia; L02.612 Cutaneous abscess of left foot; R19.7 Diarrhea, unspecified; Z79.84 Long term (current) use of oral hypoglycemic drugs; B96.89 Other specified bacterial agents as the cause of diseases classified elsewhere; B95.7 Other staphylococcus as the cause of diseases classified elsewhere; B95.0 Streptococcus, group A, as the cause of diseases classified elsewhere; F10.21 Alcohol dependence, in remission; I10 Essential (primary) hypertension; K21.9 Gastro-esophageal reflux disease without esophagitis; E78.5 Hyperlipidemia, unspecified
CPT/HCPCS: 01480; 36415; 73630; 73660; 80048; 80053; 82962; 83036; 83605; 83735; 84100; 85025; 86140; 87040; 87070; 87075; 87076; 87181; 87186; 87205; 87493; 88304; 88305; 88311; 99140; 99285; A6550; A9153; A9270; C1762; J0665; J0690; J1100; J1650; J2250; J2405; J2543; J2704; J3010; J3372; J3490; J7120; Q4104

== ENCOUNTER 2024-07-01 12:36 | Outpatient (CLI) | payer BC, SELFPAY | END 2024-07-01 12:37 | disposition home or self-care (01) | LOC: WOUND 12:37 | PROVIDERS: PCP Family Medicine; Visit Provider Nurse Practitioner Family | DX: E11.621 Type 2 diabetes mellitus with foot ulcer (principal); E11.52 Type 2 diabetes mellitus with diabetic peripheral angiopathy with gangrene; E11.40 Type 2 diabetes mellitus with diabetic neuropathy, unspecified; M86.172 Other acute osteomyelitis, left ankle and foot; I73.9 Peripheral vascular disease, unspecified; L97.528 Non-pressure chronic ulcer of other part of left foot with other specified severity; Z79.84 Long term (current) use of oral hypoglycemic drugs | CPT/HCPCS: G0463 ==

== ENCOUNTER 2024-07-04 08:21 | Outpatient (CLI) | payer BC, SELFPAY | END 2024-07-04 08:22 | disposition home or self-care (01) | LOC: WOUND 08:21 | PROVIDERS: PCP Family Medicine; Visit Provider Nurse Practitioner Family | DX: E11.621 Type 2 diabetes mellitus with foot ulcer (principal); E11.52 Type 2 diabetes mellitus with diabetic peripheral angiopathy with gangrene; E11.43 Type 2 diabetes mellitus with diabetic autonomic (poly)neuropathy; M86.172 Other acute osteomyelitis, left ankle and foot; L97.528 Non-pressure chronic ulcer of other part of left foot with other specified severity; Z79.84 Long term (current) use of oral hypoglycemic drugs; Z89.422 Acquired absence of other left toe(s) | CPT/HCPCS: 97597; 97598 ==

== ENCOUNTER 2024-07-11 08:23 | Outpatient (CLI) | payer BC, SELFPAY | END 2024-07-11 08:24 | disposition home or self-care (01) | LOC: WOUND 08:23 | PROVIDERS: PCP Family Medicine; Visit Provider Nurse Practitioner Family | DX: M86.172 Other acute osteomyelitis, left ankle and foot (principal); E11.621 Type 2 diabetes mellitus with foot ulcer; E11.43 Type 2 diabetes mellitus with diabetic autonomic (poly)neuropathy; I73.9 Peripheral vascular disease, unspecified; L97.526 Non-pressure chronic ulcer of other part of left foot with bone involvement without evidence of necrosis; Z79.84 Long term (current) use of oral hypoglycemic drugs; Z89.422 Acquired absence of other left toe(s) | CPT/HCPCS: 97597; G0463 ==

== ENCOUNTER 2024-07-18 08:15 | Outpatient (CLI) | payer BC, SELFPAY ==
--- NOTE | 2024-07-18 09:30 | CRLHL7_ITS ---
For Patients: As a result of the Cures Act, medical imaging exams and procedure reports are released immediately into your electronic medical record. You may view this report before your referring provider. If you have questions, please contact your health care provider. INDICATION: Hypertension. Hyperbaric oxygen workup. TECHNIQUE: Chest 2 views. COMPARISON: 12/22/2023. FINDINGS: No pneumothorax or pleural effusion. Lungs are clear. Cardiac and mediastinal contours are within normal limits. Upper abdomen and osseous structures as imaged show no acute abnormality. IMPRESSION: No evidence of acute cardiopulmonary disease. Dictated by Alejandro Barreto MD @ 07/19/2024 8:05:22 AM (Electronically Signed)
== END 2024-07-18 08:16 | disposition home or self-care (01) ==
PROVIDERS: PCP Family Medicine; Visit Provider Nurse Practitioner Family
DX: Z01.810 Encounter for preprocedural cardiovascular examination (principal); E11.621 Type 2 diabetes mellitus with foot ulcer; E11.43 Type 2 diabetes mellitus with diabetic autonomic (poly)neuropathy; L97.526 Non-pressure chronic ulcer of other part of left foot with bone involvement without evidence of necrosis; I73.9 Peripheral vascular disease, unspecified; Z79.84 Long term (current) use of oral hypoglycemic drugs
CPT/HCPCS: 11043; 71046; G0463

== ENCOUNTER 2024-07-25 12:41 | Outpatient (CLI) | payer BC, SELFPAY | END 2024-07-25 12:42 | disposition home or self-care (01) | PROVIDERS: PCP Family Medicine; Visit Provider Nurse Practitioner Family | DX: E11.621 Type 2 diabetes mellitus with foot ulcer (principal); E11.43 Type 2 diabetes mellitus with diabetic autonomic (poly)neuropathy; L97.524 Non-pressure chronic ulcer of other part of left foot with necrosis of bone; M86.172 Other acute osteomyelitis, left ankle and foot; T81.31XA Disruption of external operation (surgical) wound, not elsewhere classified, initial encounter; Z79.84 Long term (current) use of oral hypoglycemic drugs | CPT/HCPCS: 11043; 82962; G0277 ==

== ENCOUNTER 2024-07-27 15:15 | Outpatient (CLI) | payer BC, SELFPAY | END 2024-07-27 15:16 | disposition home or self-care (01) | LOC: WOUND 15:15 | PROVIDERS: PCP Family Medicine; Visit Provider Surgery | DX: E11.621 Type 2 diabetes mellitus with foot ulcer (principal); E11.43 Type 2 diabetes mellitus with diabetic autonomic (poly)neuropathy; M86.172 Other acute osteomyelitis, left ankle and foot; L97.524 Non-pressure chronic ulcer of other part of left foot with necrosis of bone; Z79.84 Long term (current) use of oral hypoglycemic drugs | CPT/HCPCS: 82962; 97605; G0277 ==

== ENCOUNTER 2024-07-29 10:43 | Outpatient (CLI) | payer BC, SELFPAY | END 2024-07-29 10:44 | disposition home or self-care (01) | LOC: WOUND 10:44 | PROVIDERS: PCP Family Medicine; Visit Provider Nurse Practitioner Family | DX: M86.172 Other acute osteomyelitis, left ankle and foot (principal); E11.621 Type 2 diabetes mellitus with foot ulcer; E11.43 Type 2 diabetes mellitus with diabetic autonomic (poly)neuropathy; L97.524 Non-pressure chronic ulcer of other part of left foot with necrosis of bone; I73.9 Peripheral vascular disease, unspecified; Z79.84 Long term (current) use of oral hypoglycemic drugs; Z89.422 Acquired absence of other left toe(s) | CPT/HCPCS: 82962; 97605; G0277 ==

== ENCOUNTER 2024-07-29 10:46 | Outpatient (CLI) | payer OTHER, SELFPAY ==
--- NOTE | 2024-07-29 13:00 | CRLHL7_ITS ---
For Patients: As a result of the Cures Act, medical imaging exams and procedure reports are released immediately into your electronic medical record. You may view this report before your referring provider. If you have questions, please contact your health care provider. Indication: ABNORMAL ABIS, NON HEALING WOUND Comparison: None Technique: Routine duplex arterial examination of bilateral lower extremities including 2D and spectral analysis, and color Doppler imaging was performed. Findings: In the right lower extremity multiphasic waveforms are present throughout the majority of the arterial system without elevated velocities. Diffuse atherosclerotic disease is present In the left lower extremity multiphasic waveforms are present in the common femoral and deep femoral arteries along with the proximal femoral artery. Elevated velocity within the mid femoral artery measuring 187 cm/second. Monophasic waveforms throughout the remainder of the runoff. Diffuse atherosclerotic disease is present. Impression: Bilateral diffuse atherosclerotic disease with monophasic waveforms throughout the majority of the left lower extremity runoff with associated elevated velocity at the mid femoral artery. CTA runoff suggested for further evaluation. Dictated by Fidel Muñoz MD @ 07/29/2024 12:02:05 PM (Electronically Signed)
== END 2024-07-29 10:47 | disposition home or self-care (01) ==
LOC: US 10:46
PROVIDERS: PCP Family Medicine; Visit Provider Nurse Practitioner Family
DX: I73.9 Peripheral vascular disease, unspecified (principal); I70.203 Unspecified atherosclerosis of native arteries of extremities, bilateral legs; E11.621 Type 2 diabetes mellitus with foot ulcer
CPT/HCPCS: 93926

== ENCOUNTER 2024-08-05 12:24 | Outpatient (CLI) | payer BC, SELFPAY | END 2024-08-05 12:25 | disposition home or self-care (01) | LOC: WOUND 12:24 | PROVIDERS: PCP Family Medicine; Visit Provider Nurse Practitioner Family | DX: E11.621 Type 2 diabetes mellitus with foot ulcer (principal); M86.172 Other acute osteomyelitis, left ankle and foot; E11.43 Type 2 diabetes mellitus with diabetic autonomic (poly)neuropathy; L97.524 Non-pressure chronic ulcer of other part of left foot with necrosis of bone; T81.31XA Disruption of external operation (surgical) wound, not elsewhere classified, initial encounter; Z89.422 Acquired absence of other left toe(s) | CPT/HCPCS: 11042; 11043; 82962; 97605; G0277 ==

== ENCOUNTER 2024-08-12 12:04 | Outpatient (CLI) | payer BC, SELFPAY | END 2024-08-12 12:05 | disposition home or self-care (01) | LOC: WOUND 12:04 | PROVIDERS: PCP Family Medicine; Visit Provider Nurse Practitioner Family | DX: E11.621 Type 2 diabetes mellitus with foot ulcer (principal); E11.43 Type 2 diabetes mellitus with diabetic autonomic (poly)neuropathy; M86.172 Other acute osteomyelitis, left ankle and foot; I73.9 Peripheral vascular disease, unspecified; L97.524 Non-pressure chronic ulcer of other part of left foot with necrosis of bone; T81.31XA Disruption of external operation (surgical) wound, not elsewhere classified, initial encounter; Z79.84 Long term (current) use of oral hypoglycemic drugs; Z89.422 Acquired absence of other left toe(s) | CPT/HCPCS: 11042; 11043; 82962; 97605; G0277 ==

== ENCOUNTER 2024-08-19 11:02 | Outpatient (CLI) | payer BC, SELFPAY | END 2024-08-19 11:03 | disposition home or self-care (01) | LOC: WOUND 11:02 | PROVIDERS: PCP Family Medicine; Visit Provider Physician Assistant | DX: E11.621 Type 2 diabetes mellitus with foot ulcer (principal); M86.172 Other acute osteomyelitis, left ankle and foot; E11.43 Type 2 diabetes mellitus with diabetic autonomic (poly)neuropathy; I73.9 Peripheral vascular disease, unspecified; L97.523 Non-pressure chronic ulcer of other part of left foot with necrosis of muscle; Z79.84 Long term (current) use of oral hypoglycemic drugs | CPT/HCPCS: 82962; G0277; G0463 ==

== ENCOUNTER 2024-08-24 13:00 | Outpatient (RCR) | payer BC, SELFPAY | END 2024-08-24 23:59 | disposition home or self-care (01) | LOC: WOUND 13:00 | PROVIDERS: PCP Family Medicine; Visit Provider Family Medicine | DX: E11.621 Type 2 diabetes mellitus with foot ulcer (principal); M86.172 Other acute osteomyelitis, left ankle and foot; E11.43 Type 2 diabetes mellitus with diabetic autonomic (poly)neuropathy; L97.524 Non-pressure chronic ulcer of other part of left foot with necrosis of bone; I73.9 Peripheral vascular disease, unspecified; T81.31XA Disruption of external operation (surgical) wound, not elsewhere classified, initial encounter; Z89.422 Acquired absence of other left toe(s); Z79.84 Long term (current) use of oral hypoglycemic drugs; Z53.8 Procedure and treatment not carried out for other reasons | CPT/HCPCS: 82962; G0277; G0463 ==

== ENCOUNTER 2024-08-26 12:25 | Outpatient (CLI) | payer BC, SELFPAY | END 2024-08-26 12:26 | disposition home or self-care (01) | LOC: WOUND 12:25 | PROVIDERS: PCP Family Medicine; Visit Provider Nurse Practitioner Family | DX: E11.621 Type 2 diabetes mellitus with foot ulcer (principal); E11.43 Type 2 diabetes mellitus with diabetic autonomic (poly)neuropathy; L97.522 Non-pressure chronic ulcer of other part of left foot with fat layer exposed; I73.9 Peripheral vascular disease, unspecified; Z79.84 Long term (current) use of oral hypoglycemic drugs; Z89.422 Acquired absence of other left toe(s) | CPT/HCPCS: 15275; 82962; G0277; Q4101 ==

== ENCOUNTER 2024-09-02 12:10 | Outpatient (CLI) | payer BC, SELFPAY | END 2024-09-02 12:11 | disposition home or self-care (01) | PROVIDERS: PCP Family Medicine; Visit Provider Nurse Practitioner Family | DX: E11.621 Type 2 diabetes mellitus with foot ulcer (principal); E11.43 Type 2 diabetes mellitus with diabetic autonomic (poly)neuropathy; M86.172 Other acute osteomyelitis, left ankle and foot; L97.522 Non-pressure chronic ulcer of other part of left foot with fat layer exposed; I73.9 Peripheral vascular disease, unspecified; Z79.84 Long term (current) use of oral hypoglycemic drugs; Z89.422 Acquired absence of other left toe(s) | CPT/HCPCS: 11042; 82962; 97605; G0277 ==

== ENCOUNTER 2024-09-09 12:41 | Outpatient (CLI) | payer BC, SELFPAY | END 2024-09-09 12:42 | disposition home or self-care (01) | PROVIDERS: PCP Family Medicine; Visit Provider Nurse Practitioner Family | DX: E11.621 Type 2 diabetes mellitus with foot ulcer (principal); E11.43 Type 2 diabetes mellitus with diabetic autonomic (poly)neuropathy; I73.9 Peripheral vascular disease, unspecified; L97.522 Non-pressure chronic ulcer of other part of left foot with fat layer exposed; Z79.84 Long term (current) use of oral hypoglycemic drugs; Z89.422 Acquired absence of other left toe(s) | CPT/HCPCS: 11042; 82962; G0277 ==

== ENCOUNTER 2024-09-16 12:26 | Outpatient (CLI) | payer BC, SELFPAY | END 2024-09-16 12:27 | disposition home or self-care (01) | LOC: WOUND 12:26 | PROVIDERS: PCP Family Medicine; Visit Provider Family Medicine | DX: E11.621 Type 2 diabetes mellitus with foot ulcer (principal); E11.43 Type 2 diabetes mellitus with diabetic autonomic (poly)neuropathy; M86.172 Other acute osteomyelitis, left ankle and foot; I73.9 Peripheral vascular disease, unspecified; L97.522 Non-pressure chronic ulcer of other part of left foot with fat layer exposed; Z79.84 Long term (current) use of oral hypoglycemic drugs | CPT/HCPCS: 11042; 82962; G0277 ==

== ENCOUNTER 2024-09-21 08:00 | Outpatient (RCR) | payer BC, SELFPAY | END 2024-09-24 23:59 | disposition home or self-care (01) | LOC: WOUND 08:00 | PROVIDERS: PCP Family Medicine; Visit Provider Nurse Practitioner Family | DX: E11.621 Type 2 diabetes mellitus with foot ulcer (principal); E11.43 Type 2 diabetes mellitus with diabetic autonomic (poly)neuropathy; M86.172 Other acute osteomyelitis, left ankle and foot; L97.524 Non-pressure chronic ulcer of other part of left foot with necrosis of bone; I73.9 Peripheral vascular disease, unspecified; Z79.84 Long term (current) use of oral hypoglycemic drugs | CPT/HCPCS: 82962; G0277; G0463 ==

== ENCOUNTER 2024-09-23 12:16 | Outpatient (CLI) | payer BC, SELFPAY | END 2024-09-23 12:17 | disposition home or self-care (01) | PROVIDERS: PCP Family Medicine; Visit Provider Nurse Practitioner Family | DX: E11.621 Type 2 diabetes mellitus with foot ulcer (principal); E11.43 Type 2 diabetes mellitus with diabetic autonomic (poly)neuropathy; M86.172 Other acute osteomyelitis, left ankle and foot; I73.9 Peripheral vascular disease, unspecified; L97.522 Non-pressure chronic ulcer of other part of left foot with fat layer exposed; Z79.84 Long term (current) use of oral hypoglycemic drugs | CPT/HCPCS: 15275; 82962; G0277; Q4101 ==

== ENCOUNTER 2024-09-30 12:25 | Outpatient (CLI) | payer BC, SELFPAY ==
[2024-09-30 15:30] LABS: Basophils Absolute Auto 0.02 K/uL (0.00-0.30); Basophils Percent Auto 0.3 % (0.0-3.0); Eosinophils Absolute Auto 0.05 K/uL (0.00-0.50); Eosinophils Percent Auto 0.8 % (0.0-7.0); Hematocrit 38.3 % (37.0-53.0); Hemoglobin* 12.6 gm/dL (13.5-17.5); Immature Granulocytes Abs Auto 0.01 K/uL (0.00-0.30); Immature Granulocytes Pct Auto 0.2 %; Lymphocytes Absolute Auto 1.66 K/uL (0.90-2.90); Lymphocytes Percent Auto 25.1 % (20-44); Mean Corpuscular HGB Conc 33 gm/dL (32-36); Mean Corpuscular Hemoglobin 29 pg (26-34); Mean Corpuscular Volume 87 fL (80-100); Monocytes Percent Auto 10.4 % (0.0-11.0); Neutrophils Absolute Auto 4.18 K/uL (1.7-7.0); Neutrophils Percent Auto 63.2 % (42.0-72.0); Platelet Count* 130 K/uL (140-440); RDW Coefficient of Variation % 12.8 % (11.5-15.5); Red Blood Count 4.42 m/uL (4.30-5.90); White Blood Count* 6.61 K/uL (4.50-11.00)
[2024-09-30 15:47] LABS: Slide Review Reflex No
[2024-09-30 15:49] LABS: C Reactive Protein* 2.1 mg/dL (0.5-1.0)
[2024-09-30 17:17] LABS: Hemoglobin A1C* 5.7 % (0-5.6)
[2024-09-30 17:28] LABS: Erythrocyte SedimentationRate* 17 mm/hr (2-15)
== END 2024-09-30 12:26 | disposition home or self-care (01) ==
LOC: WOUND 12:25
PROVIDERS: PCP Family Medicine; Visit Provider Nurse Practitioner Family
DX: E11.621 Type 2 diabetes mellitus with foot ulcer (principal); E11.43 Type 2 diabetes mellitus with diabetic autonomic (poly)neuropathy; M86.172 Other acute osteomyelitis, left ankle and foot; I73.9 Peripheral vascular disease, unspecified; L97.522 Non-pressure chronic ulcer of other part of left foot with fat layer exposed; Z79.84 Long term (current) use of oral hypoglycemic drugs
CPT/HCPCS: 11042; 36415; 82962; 83036; 85025; 85651; 86140; 87070; 87186; G0277

== ENCOUNTER 2024-10-07 12:15 | Outpatient (CLI) | payer BC, SELFPAY | END 2024-10-07 12:16 | disposition home or self-care (01) | LOC: WOUND 12:15 | PROVIDERS: PCP Family Medicine; Visit Provider Nurse Practitioner Family | DX: E11.621 Type 2 diabetes mellitus with foot ulcer (principal); E11.43 Type 2 diabetes mellitus with diabetic autonomic (poly)neuropathy; M86.172 Other acute osteomyelitis, left ankle and foot; I73.9 Peripheral vascular disease, unspecified; L97.522 Non-pressure chronic ulcer of other part of left foot with fat layer exposed; Z79.84 Long term (current) use of oral hypoglycemic drugs; Z89.422 Acquired absence of other left toe(s) | CPT/HCPCS: 11042; 82962; G0277 ==

== ENCOUNTER 2024-10-11 12:16 | Outpatient (CLI) | payer BC, SELFPAY | END 2024-10-11 12:17 | disposition home or self-care (01) | LOC: WOUND 12:16 | PROVIDERS: PCP Family Medicine; Visit Provider Nurse Practitioner Family | DX: E11.621 Type 2 diabetes mellitus with foot ulcer (principal); E11.43 Type 2 diabetes mellitus with diabetic autonomic (poly)neuropathy; M86.172 Other acute osteomyelitis, left ankle and foot; I73.9 Peripheral vascular disease, unspecified; L97.522 Non-pressure chronic ulcer of other part of left foot with fat layer exposed; Z79.84 Long term (current) use of oral hypoglycemic drugs | CPT/HCPCS: 15275; 82962; G0277; Q4121 ==

== ENCOUNTER 2024-10-21 15:11 | Outpatient (CLI) | payer BC, SELFPAY | END 2024-10-21 15:12 | disposition home or self-care (01) | LOC: WOUND 15:11 | PROVIDERS: PCP Family Medicine; Visit Provider Nurse Practitioner Family | DX: E11.621 Type 2 diabetes mellitus with foot ulcer (principal); E11.43 Type 2 diabetes mellitus with diabetic autonomic (poly)neuropathy; M86.172 Other acute osteomyelitis, left ankle and foot; I73.9 Peripheral vascular disease, unspecified; L97.528 Non-pressure chronic ulcer of other part of left foot with other specified severity; Z89.422 Acquired absence of other left toe(s); Z79.84 Long term (current) use of oral hypoglycemic drugs | CPT/HCPCS: G0463 ==

== ENCOUNTER 2024-10-24 13:00 | Outpatient (RCR) | payer BC, SELFPAY | END 2024-10-24 23:59 | disposition home or self-care (01) | LOC: WOUND 13:00 | PROVIDERS: PCP Family Medicine; Visit Provider Nurse Practitioner Family | DX: E11.621 Type 2 diabetes mellitus with foot ulcer (principal); E11.43 Type 2 diabetes mellitus with diabetic autonomic (poly)neuropathy; M86.172 Other acute osteomyelitis, left ankle and foot; I73.9 Peripheral vascular disease, unspecified; L97.528 Non-pressure chronic ulcer of other part of left foot with other specified severity; Z79.84 Long term (current) use of oral hypoglycemic drugs; Z89.412 Acquired absence of left great toe | CPT/HCPCS: 82962; 99183; G0277 ==

== ENCOUNTER 2024-10-27 10:57 | Outpatient (CLI) | payer BC, SELFPAY | END 2024-10-27 10:58 | disposition home or self-care (01) | LOC: WOUND 10:57 | PROVIDERS: PCP Family Medicine; Visit Provider Physician Assistant | DX: E11.621 Type 2 diabetes mellitus with foot ulcer (principal); M86.172 Other acute osteomyelitis, left ankle and foot; E11.43 Type 2 diabetes mellitus with diabetic autonomic (poly)neuropathy; I73.9 Peripheral vascular disease, unspecified; L97.522 Non-pressure chronic ulcer of other part of left foot with fat layer exposed; Z79.84 Long term (current) use of oral hypoglycemic drugs; Z89.422 Acquired absence of other left toe(s) | CPT/HCPCS: 15275; Q4121 ==

== ENCOUNTER 2024-11-04 12:07 | Outpatient (CLI) | payer BC, SELFPAY | END 2024-11-04 12:08 | disposition home or self-care (01) | LOC: WOUND 12:07 | PROVIDERS: PCP Family Medicine; Visit Provider Nurse Practitioner Family | DX: E11.621 Type 2 diabetes mellitus with foot ulcer (principal); E11.43 Type 2 diabetes mellitus with diabetic autonomic (poly)neuropathy; M86.172 Other acute osteomyelitis, left ankle and foot; L97.524 Non-pressure chronic ulcer of other part of left foot with necrosis of bone; I73.9 Peripheral vascular disease, unspecified; Z79.84 Long term (current) use of oral hypoglycemic drugs | CPT/HCPCS: G0463 ==

== ENCOUNTER 2024-11-11 12:18 | Outpatient (CLI) | payer BC, SELFPAY | END 2024-11-11 12:19 | disposition home or self-care (01) | LOC: WOUND 12:18 | PROVIDERS: PCP Family Medicine; Visit Provider Nurse Practitioner Family | DX: E11.621 Type 2 diabetes mellitus with foot ulcer (principal); E11.43 Type 2 diabetes mellitus with diabetic autonomic (poly)neuropathy; I73.9 Peripheral vascular disease, unspecified; L97.524 Non-pressure chronic ulcer of other part of left foot with necrosis of bone; Z89.422 Acquired absence of other left toe(s) | CPT/HCPCS: 11042 ==

== ENCOUNTER 2024-11-18 14:09 | Outpatient (CLI) | payer BC, SELFPAY | END 2024-11-18 14:10 | disposition home or self-care (01) | LOC: WOUND 14:09 | PROVIDERS: PCP Family Medicine; Visit Provider Nurse Practitioner Family | DX: E11.621 Type 2 diabetes mellitus with foot ulcer (principal); E11.43 Type 2 diabetes mellitus with diabetic autonomic (poly)neuropathy; I73.9 Peripheral vascular disease, unspecified; L97.524 Non-pressure chronic ulcer of other part of left foot with necrosis of bone; L89.893 Pressure ulcer of other site, stage 3; Z79.84 Long term (current) use of oral hypoglycemic drugs | CPT/HCPCS: 15275; G0463; Q4121 ==

== ENCOUNTER 2024-11-25 12:27 | Outpatient (CLI) | payer BC, SELFPAY | END 2024-11-25 12:28 | disposition home or self-care (01) | LOC: WOUND 12:28 | PROVIDERS: PCP Family Medicine; Visit Provider Nurse Practitioner Family | DX: E11.621 Type 2 diabetes mellitus with foot ulcer (principal); E11.43 Type 2 diabetes mellitus with diabetic autonomic (poly)neuropathy; I73.9 Peripheral vascular disease, unspecified; L97.524 Non-pressure chronic ulcer of other part of left foot with necrosis of bone; L89.893 Pressure ulcer of other site, stage 3; Z79.84 Long term (current) use of oral hypoglycemic drugs | CPT/HCPCS: G0463 ==

== ENCOUNTER 2024-12-02 12:08 | Outpatient (CLI) | payer BC, SELFPAY | END 2024-12-02 12:09 | disposition home or self-care (01) | LOC: WOUND 12:08 | PROVIDERS: PCP Family Medicine; Visit Provider Nurse Practitioner Family | DX: E11.621 Type 2 diabetes mellitus with foot ulcer (principal); E11.43 Type 2 diabetes mellitus with diabetic autonomic (poly)neuropathy; L97.524 Non-pressure chronic ulcer of other part of left foot with necrosis of bone; L89.893 Pressure ulcer of other site, stage 3; I73.9 Peripheral vascular disease, unspecified; Z79.84 Long term (current) use of oral hypoglycemic drugs | CPT/HCPCS: 97597 ==

== ENCOUNTER 2024-12-07 09:43 | Outpatient (CLI) | payer BC, SELFPAY | END 2024-12-07 09:44 | disposition home or self-care (01) | LOC: WOUND 09:43 | PROVIDERS: PCP Family Medicine; Visit Provider Nurse Practitioner Family | DX: E11.621 Type 2 diabetes mellitus with foot ulcer (principal); E11.43 Type 2 diabetes mellitus with diabetic autonomic (poly)neuropathy; I73.9 Peripheral vascular disease, unspecified; L97.526 Non-pressure chronic ulcer of other part of left foot with bone involvement without evidence of necrosis; L97.522 Non-pressure chronic ulcer of other part of left foot with fat layer exposed; Z79.84 Long term (current) use of oral hypoglycemic drugs | CPT/HCPCS: 11042; 15275; Q4121 ==

== ENCOUNTER 2024-12-09 12:23 | Outpatient (CLI) | payer BC, SELFPAY | END 2024-12-09 12:24 | disposition home or self-care (01) | LOC: WOUND 12:23 | PROVIDERS: PCP Family Medicine; Visit Provider Nurse Practitioner Family | DX: E11.621 Type 2 diabetes mellitus with foot ulcer (principal); E11.43 Type 2 diabetes mellitus with diabetic autonomic (poly)neuropathy; I73.9 Peripheral vascular disease, unspecified; L97.524 Non-pressure chronic ulcer of other part of left foot with necrosis of bone; L97.522 Non-pressure chronic ulcer of other part of left foot with fat layer exposed; Z79.84 Long term (current) use of oral hypoglycemic drugs | CPT/HCPCS: 29445 ==

== ENCOUNTER 2024-12-16 12:36 | Outpatient (CLI) | payer BC, SELFPAY | END 2024-12-16 12:37 | disposition home or self-care (01) | LOC: WOUND 12:36 | PROVIDERS: PCP Family Medicine; Visit Provider Nurse Practitioner Family | DX: E11.621 Type 2 diabetes mellitus with foot ulcer (principal); E11.43 Type 2 diabetes mellitus with diabetic autonomic (poly)neuropathy; I73.9 Peripheral vascular disease, unspecified; L97.522 Non-pressure chronic ulcer of other part of left foot with fat layer exposed; Z79.84 Long term (current) use of oral hypoglycemic drugs | CPT/HCPCS: 11042 ==

== ENCOUNTER 2024-12-23 12:17 | Outpatient (CLI) | payer BC, SELFPAY | END 2024-12-23 12:18 | disposition home or self-care (01) | LOC: WOUND 12:17 | PROVIDERS: PCP Family Medicine; Visit Provider Nurse Practitioner Family | DX: E11.621 Type 2 diabetes mellitus with foot ulcer (principal); E11.43 Type 2 diabetes mellitus with diabetic autonomic (poly)neuropathy; I73.9 Peripheral vascular disease, unspecified; L97.522 Non-pressure chronic ulcer of other part of left foot with fat layer exposed; Z79.84 Long term (current) use of oral hypoglycemic drugs; Z89.422 Acquired absence of other left toe(s) | CPT/HCPCS: 15275; Q4121 ==

== ENCOUNTER 2024-12-30 12:09 | Outpatient (CLI) | payer BC, SELFPAY | END 2024-12-30 12:10 | disposition home or self-care (01) | LOC: WOUND 12:10 | PROVIDERS: PCP Family Medicine; Visit Provider Nurse Practitioner Family | DX: E11.621 Type 2 diabetes mellitus with foot ulcer (principal); E11.43 Type 2 diabetes mellitus with diabetic autonomic (poly)neuropathy; L97.522 Non-pressure chronic ulcer of other part of left foot with fat layer exposed; I73.9 Peripheral vascular disease, unspecified; Z79.84 Long term (current) use of oral hypoglycemic drugs; Z89.422 Acquired absence of other left toe(s) | CPT/HCPCS: G0463 ==

== ENCOUNTER 2025-01-06 11:52 | Outpatient (CLI) | payer BC, SELFPAY | END 2025-01-06 11:53 | disposition home or self-care (01) | LOC: WOUND 11:52 | PROVIDERS: PCP Family Medicine; Visit Provider Nurse Practitioner Family | DX: E11.621 Type 2 diabetes mellitus with foot ulcer (principal); I73.9 Peripheral vascular disease, unspecified; E11.43 Type 2 diabetes mellitus with diabetic autonomic (poly)neuropathy; L97.526 Non-pressure chronic ulcer of other part of left foot with bone involvement without evidence of necrosis; Z79.84 Long term (current) use of oral hypoglycemic drugs; Z89.422 Acquired absence of other left toe(s) | CPT/HCPCS: 15275; Q4121 ==

== ENCOUNTER 2025-01-13 14:13 | Outpatient (CLI) | payer BC, SELFPAY | END 2025-01-13 14:14 | disposition home or self-care (01) | LOC: WOUND 14:13 | PROVIDERS: PCP Family Medicine; Visit Provider Nurse Practitioner Family | DX: E11.621 Type 2 diabetes mellitus with foot ulcer (principal); E11.43 Type 2 diabetes mellitus with diabetic autonomic (poly)neuropathy; I73.9 Peripheral vascular disease, unspecified; L97.524 Non-pressure chronic ulcer of other part of left foot with necrosis of bone; Z79.84 Long term (current) use of oral hypoglycemic drugs | CPT/HCPCS: 29445; G0463 ==

== ENCOUNTER 2025-01-20 12:19 | Outpatient (CLI) | payer BC, SELFPAY ==
[2025-01-20 13:59] LABS: Hematocrit* 42.7 % (37.0-53.0); Hemoglobin* 14.1 gm/dL (13.5-17.5); Immature Granulocytes Abs Auto 0.00 K/uL (0.00-0.30); Immature Granulocytes Pct Auto 0.0 %; Lymphocytes Absolute Auto 1.27 K/uL (0.90-2.90); Mean Corpuscular HGB Conc 33 gm/dL (32-36); Mean Corpuscular Hemoglobin 28 pg (26-34); Mean Corpuscular Volume 86 fL (80-100); RDW Coefficient of Variation % 12.9 % (11.5-15.5); Red Blood Count* 4.99 m/uL (4.30-5.90); White Blood Count* 5.02 K/uL (4.50-11.00)
[2025-01-20 14:00] LABS: Slide Review Reflex No
== END 2025-01-20 12:20 | disposition home or self-care (01) ==
LOC: WOUND 12:19
PROVIDERS: PCP Family Medicine; Visit Provider Nurse Practitioner Family
DX: E11.621 Type 2 diabetes mellitus with foot ulcer (principal); E11.43 Type 2 diabetes mellitus with diabetic autonomic (poly)neuropathy; I73.9 Peripheral vascular disease, unspecified; L97.522 Non-pressure chronic ulcer of other part of left foot with fat layer exposed; Z79.84 Long term (current) use of oral hypoglycemic drugs; Z89.422 Acquired absence of other left toe(s)
CPT/HCPCS: 11042; 36415; 83036; 85025; 86140; 87070; 87186

== ENCOUNTER 2025-01-27 12:11 | Outpatient (CLI) | payer BC, SELFPAY | END 2025-01-27 12:12 | disposition home or self-care (01) | LOC: WOUND 12:11 | PROVIDERS: PCP Family Medicine; Visit Provider Family Medicine | DX: E11.621 Type 2 diabetes mellitus with foot ulcer (principal); E11.43 Type 2 diabetes mellitus with diabetic autonomic (poly)neuropathy; I73.9 Peripheral vascular disease, unspecified; L97.522 Non-pressure chronic ulcer of other part of left foot with fat layer exposed; Z79.84 Long term (current) use of oral hypoglycemic drugs; Z89.422 Acquired absence of other left toe(s) | CPT/HCPCS: 11042 ==

== ENCOUNTER 2025-02-03 12:40 | Outpatient (CLI) | payer BC, SELFPAY | END 2025-02-03 12:41 | disposition home or self-care (01) | LOC: WOUND 12:40 | PROVIDERS: PCP Family Medicine; Visit Provider Nurse Practitioner Family | DX: E11.621 Type 2 diabetes mellitus with foot ulcer (principal); E11.43 Type 2 diabetes mellitus with diabetic autonomic (poly)neuropathy; I73.9 Peripheral vascular disease, unspecified; L97.522 Non-pressure chronic ulcer of other part of left foot with fat layer exposed; Z89.422 Acquired absence of other left toe(s); Z79.84 Long term (current) use of oral hypoglycemic drugs | CPT/HCPCS: 11042 ==

== ENCOUNTER 2025-02-10 10:42 | Outpatient (CLI) | payer BC, SELFPAY | END 2025-02-10 10:43 | disposition home or self-care (01) | LOC: WOUND 10:42 | PROVIDERS: PCP Family Medicine; Visit Provider Nurse Practitioner Family | DX: E11.621 Type 2 diabetes mellitus with foot ulcer (principal); E11.43 Type 2 diabetes mellitus with diabetic autonomic (poly)neuropathy; I73.9 Peripheral vascular disease, unspecified; L97.522 Non-pressure chronic ulcer of other part of left foot with fat layer exposed; Z89.422 Acquired absence of other left toe(s); Z79.84 Long term (current) use of oral hypoglycemic drugs | CPT/HCPCS: 11042 ==

== ENCOUNTER 2025-02-17 12:23 | Outpatient (CLI) | payer BC, SELFPAY | END 2025-02-17 12:24 | disposition home or self-care (01) | LOC: WOUND 12:23 | PROVIDERS: PCP Family Medicine; Visit Provider Nurse Practitioner Family | DX: E11.621 Type 2 diabetes mellitus with foot ulcer (principal); E11.43 Type 2 diabetes mellitus with diabetic autonomic (poly)neuropathy; I73.9 Peripheral vascular disease, unspecified; L97.522 Non-pressure chronic ulcer of other part of left foot with fat layer exposed; Z89.422 Acquired absence of other left toe(s); Z79.84 Long term (current) use of oral hypoglycemic drugs | CPT/HCPCS: 97597 ==

== ENCOUNTER 2025-02-24 11:37 | Outpatient (CLI) | payer BC, SELFPAY | END 2025-02-24 11:38 | disposition home or self-care (01) | LOC: WOUND 11:37 | PROVIDERS: PCP Family Medicine; Visit Provider Nurse Practitioner Family | DX: E11.621 Type 2 diabetes mellitus with foot ulcer (principal); E11.43 Type 2 diabetes mellitus with diabetic autonomic (poly)neuropathy; I73.9 Peripheral vascular disease, unspecified; L97.522 Non-pressure chronic ulcer of other part of left foot with fat layer exposed; Z89.422 Acquired absence of other left toe(s); Z79.84 Long term (current) use of oral hypoglycemic drugs | CPT/HCPCS: 97597 ==

== ENCOUNTER 2025-03-03 12:31 | Outpatient (CLI) | payer BC, SELFPAY | END 2025-03-03 12:32 | disposition home or self-care (01) | LOC: WOUND 12:31 | PROVIDERS: PCP Family Medicine | DX: E11.621 Type 2 diabetes mellitus with foot ulcer (principal); L97.521 Non-pressure chronic ulcer of other part of left foot limited to breakdown of skin; E11.43 Type 2 diabetes mellitus with diabetic autonomic (poly)neuropathy; Z89.422 Acquired absence of other left toe(s); Z79.84 Long term (current) use of oral hypoglycemic drugs | CPT/HCPCS: G0463 ==

== ENCOUNTER 2025-03-17 12:22 | Outpatient (CLI) | payer BC, SELFPAY | END 2025-03-17 12:23 | disposition home or self-care (01) | LOC: WOUND 12:22 | PROVIDERS: PCP Family Medicine; Visit Provider Nurse Practitioner Family | DX: E11.621 Type 2 diabetes mellitus with foot ulcer (principal); E11.43 Type 2 diabetes mellitus with diabetic autonomic (poly)neuropathy; I73.9 Peripheral vascular disease, unspecified; L97.522 Non-pressure chronic ulcer of other part of left foot with fat layer exposed | CPT/HCPCS: 11042 ==

== ENCOUNTER 2025-03-22 08:17 | Outpatient (CLI) | payer BC, SELFPAY | END 2025-03-22 08:18 | disposition home or self-care (01) | LOC: WOUND 08:17 | PROVIDERS: PCP Family Medicine; Visit Provider Nurse Practitioner Family | DX: E11.621 Type 2 diabetes mellitus with foot ulcer (principal); E11.43 Type 2 diabetes mellitus with diabetic autonomic (poly)neuropathy; I73.9 Peripheral vascular disease, unspecified; L97.522 Non-pressure chronic ulcer of other part of left foot with fat layer exposed; Z79.84 Long term (current) use of oral hypoglycemic drugs | CPT/HCPCS: 97597 ==

== ENCOUNTER 2025-03-31 11:58 | Outpatient (CLI) | payer BC, SELFPAY | END 2025-03-31 11:59 | disposition home or self-care (01) | LOC: WOUND 11:58 | PROVIDERS: PCP Family Medicine; Visit Provider Nurse Practitioner Family | DX: E11.621 Type 2 diabetes mellitus with foot ulcer (principal); E11.43 Type 2 diabetes mellitus with diabetic autonomic (poly)neuropathy; I73.9 Peripheral vascular disease, unspecified; L97.528 Non-pressure chronic ulcer of other part of left foot with other specified severity; Z79.84 Long term (current) use of oral hypoglycemic drugs | CPT/HCPCS: 11043 ==

== ENCOUNTER 2025-04-17 07:30 | Outpatient (CLI) | payer BC, SELFPAY | END 2025-04-17 07:31 | disposition home or self-care (01) | LOC: NFLDREF 04-21 08:09 | PROVIDERS: PCP Family Medicine; Referring Provider Family Medicine; Visit Provider Family Medicine | DX: D64.9 Anemia, unspecified (principal) | CPT/HCPCS: 82607 ==

== ENCOUNTER 2025-04-19 08:52 | Outpatient (CLI) | payer BC, SELFPAY | END 2025-04-19 08:53 | disposition home or self-care (01) | PROVIDERS: PCP Family Medicine; Visit Provider Family Medicine | DX: E11.9 Type 2 diabetes mellitus without complications (principal); I10 Essential (primary) hypertension; D61.818 Other pancytopenia | CPT/HCPCS: 80053; 80061; 82043; 82570 ==